=== PATIENT | female | born 1965 | race Caucasian/White ===

== ENCOUNTER 2022-03-14 21:19 | Outpatient (REF) | payer MEDICAID, SELFPAY ==
[2022-03-14 21:40] LABS: Bilirubin Negative (Negative); Blood Moderate (Negative); Clarity Cloudy (Clear); Glucose Negative (Negative); Ketones Negative (Negative); Leukocyte Esterase Small (Negative); Nitrite Positive (Negative); Specific Gravity 1.025 (1.005-1.025); Urobilinogen 0.2 EU/dL (Up TO 0.2)
[2022-03-14 21:47] LABS: Bacteria Moderate HPF (Negative); C & S Indicated? C&S Done As Ordered; Casts Negative LPF (Negative); Crystals Negative HPF (Negative); Epithelial Cells Moderate HPF (Negative); Mucus Negative (Negative); WBC >50 HPF (0-5)
== END 2022-03-14 21:20 | disposition home or self-care (01) ==
LOC: LBN 21:19
PROVIDERS: Visit Provider Physician Assistant Medical
DX: R30.0 Dysuria (principal)
CPT/HCPCS: 87077; 81003; 81015; 87086; 87186

== ENCOUNTER 2022-04-07 17:21 | Outpatient (REF) | payer MEDICAID, SELFPAY ==
[2022-04-09 11:24] LABS: COVID-19 RT-PCR UVMMC Result Negative (Negative)
== END 2022-04-07 17:22 | disposition home or self-care (01) ==
LOC: LBN 17:21
PROVIDERS: Visit Provider Physician Assistant
DX: J02.9 Acute pharyngitis, unspecified (principal); Z20.822 Contact with and (suspected) exposure to COVID-19
CPT/HCPCS: U0003; 87070

== ENCOUNTER 2022-05-26 18:21 | Outpatient (REF) | payer MEDICAID, SELFPAY ==
[2022-05-26 15:42] LABS: Hemoglobin A1C 5.8 % (<5.7)
[2022-05-26 15:49] LABS: ALT 27 U/L (14-59); AST 22 U/L (15-37); Albumin 3.6 g/dL (3.4-5.0); Alkaline Phosphatase 75 U/L (46-116); Anion Gap 9.3 mmol/L (3-11); BUN 25 mg/dL (7-18); Bilirubin, Total 0.6 mg/dL (0.2-1.0); CO2 24.7 mmol/L (21.0-32.0); CREATININE 0.9 mg/dL (0.55-1.02); Calcium 8.6 mg/dL (8.5-10.1); Calculated LDL 99 mg/dL (<100); Chloride 107 mmol/L (98-107); Cholesterol 175 mg/dL (<200); Glucose 86 mg/dL (74-106); HDL Cholesterol 46 mg/dL (40-60); Potassium 4.3 mmol/L (3.5-5.1); Sodium 141 mmol/L (136-145); Total Protein 7.1 g/dL (6.4-8.2); Triglyceride 150 mg/dL (<150)
[2022-05-27 14:33] LABS: Lyme Ab w Rflx to Lyme Confirm Positive (Negative)
[2022-05-27 16:03] LABS: Lyme IgG Ab Negative (Negative); Lyme IgM Ab Negative (Negative)
[2022-05-28 19:42] LABS: Anaplasma phagocytophilum Negative (Negative); B. miyamotoi PCR Negative (Negative); Babesia divergens/MO-1 Negative (Negative); Babesia duncani Negative (Negative); Babesia microti Negative (Negative); Ehrlichia chaffeensis Negative (Negative); Ehrlichia ewingii/canis Negative (Negative); Ehrlichia muris eauclairensis Negative (Negative)
== END 2022-05-26 18:22 | disposition home or self-care (01) ==
LOC: NCHCN 18:21
PROVIDERS: Visit Provider Nurse Practitioner Family
DX: R53.83 Other fatigue (principal); R51.9 Headache, unspecified
CPT/HCPCS: 80053; 80061; 86617; 87798; 83036; 86618

== ENCOUNTER 2022-10-02 11:57 | Outpatient (REF) | payer MEDICAID, SELFPAY ==
[2022-10-03 10:56] LABS: Campylobacter PCR Negative (Negative); Salmonella PCR Negative (Negative); Shiga Toxin PCR Negative (Negative); Shigella/Enteroinvasive Ecoli Negative (Negative)
== END 2022-10-02 11:58 | disposition home or self-care (01) ==
LOC: NCHCN 11:57
PROVIDERS: Visit Provider Nurse Practitioner Family
DX: R19.7 Diarrhea, unspecified (principal); R14.0 Abdominal distension (gaseous)
CPT/HCPCS: 87329; 87505; 82272; 87177

== ENCOUNTER 2022-12-12 15:45 | Outpatient (REF) | payer MEDICAID, SELFPAY ==
--- NOTE | 2022-12-12 10:00 | PAPFT_PTH ---
PATIENT: Gladis Chester LOC: [facility]#:[id number] AGE/SX: 57/F ROOM: RE12/12/[address]: Shruthi Bailey : 1965 BED: DIS: 12/12/2022 SPEC #: [id number] RECD: 12/12/22 17:26 STATUS: HARJIT REQ #: [id number] TSERING: 12/12/22 10:[address]: Shruthi Bailey DEPT: [facility] Cytology RECD BY: Tracee Heredia Tissues: 1 - CX/ENDOCX FOR PAP SMEARS Procedures: PAP THIN PREP/UVM Screening HPV DNA PROBE Comments: [id number] (CHLAMYDIA/GC)
[2022-12-13 12:53] LABS: HIV-1/2 Ag & Ab Screen Negative (Negative)
[2022-12-15 11:17] LABS: Syphilis Serology (RPR) Negative (Negative)
[2022-12-15 17:14] LABS: Chlamydia Result Negative (Negative); GC Result Negative (Negative)
== END 2022-12-12 15:46 | disposition home or self-care (01) ==
LOC: NCHCN 15:45
PROVIDERS: PCP Family Medicine; Visit Provider Family Medicine
DX: Z00.00 Encounter for general adult medical examination without abnormal findings (principal); Z12.4 Encounter for screening for malignant neoplasm of cervix
CPT/HCPCS: 87389; 87491; 87591; 88142; 86592; 87624

== ENCOUNTER 2024-01-26 13:34 | Outpatient (REF) | payer MEDICAID, SELFPAY ==
[2024-01-26 14:20] LABS: Abs Immature Grans 0.03 10^3/uL (0.0-0.06); Absolute Basophil Count 0.06 10^3/uL (0.0-0.2); Absolute Eosinophil Count 0.32 10^3/uL (0.0-0.7); Absolute Lymphocyte Count 3.04 10^3/uL (1.2-3.4); Absolute Monocyte Count 0.41 10^3/uL (0.1-0.8); Absolute Neutrophil Count 4.23 10^3/uL (1.2-6.7); Basophils % 0.7 %; HGB 14.7 g/dL (11.2-15.7); Immature Grans % 0.4 %; Lymphocytes % 37.6 %; MCH 30.1 pg (27.0-33.0); MCHC 32.7 % (32.0-36.0); MCV 92 fL (80-95); MPV 10.7 fL (8.0-11.0); Monocytes % 5.1 %; Neutrophils % 52.2 %; Platelet Count 311 10^3/uL (130-400); RBC 4.89 10^6/uL (3.93-5.22); RDW 13.6 % (11.7-14.6); RDW-SD 46.4 fL; WBC 8.09 10^3/uL (4.4-10.8)
[2024-01-26 14:45] LABS: Anion Gap 6.3 mmol/L (3-11); BUN 20 mg/dL (7-18); CO2 26.7 mmol/L (21.0-32.0); Calcium 9.5 mg/dL (8.5-10.1); Chloride 108 mmol/L (98-107); Estimated GFR 64.49 (mL/min/1.73m2); Ferritin 126 ng/mL (8-252); Glucose 105 mg/dL (74-106); Potassium 3.9 mmol/L (3.5-5.1); Sodium 141 mmol/L (136-145); TSH (W/Ref FT4) 1.02 uIU/mL (0.36-3.74)
[2024-01-26 14:55] LABS: Iron 63 ug/dL (50-170); Total Iron Binding Capacity 290 ug/dL (250-450); Transferrin Sat 22 % (15-50)
[2024-01-27 16:16] LABS: Lyme Ab w Rflx to Lyme Confirm Negative (Negative)
[2024-01-28 21:49] LABS: Anaplasma phagocytophilum Negative (Negative); B. miyamotoi PCR Negative (Negative); Babesia divergens/MO-1 Negative (Negative); Babesia duncani Negative (Negative); Babesia microti Negative (Negative); Ehrlichia chaffeensis Negative (Negative); Ehrlichia ewingii/canis Negative (Negative); Ehrlichia muris eauclairensis Negative (Negative)
== END 2024-01-26 13:35 | disposition home or self-care (01) ==
LOC: NCHCN 13:34
PROVIDERS: PCP Family Medicine; Visit Provider Family Medicine
DX: R53.83 Other fatigue (principal); R25.3 Fasciculation; A69.20 Lyme disease, unspecified
CPT/HCPCS: 80048; 87798; 82728; 83540; 83550; 84443; 85025; 86618

== ENCOUNTER 2024-07-28 15:05 | Outpatient (REF) | payer MEDICAID, SELFPAY ==
--- OUTSIDE RECORDS SUMMARY | 2024-07-28 15:11 | XMS_ITS | Encounter Summary ---
Author Organization [facility] Address [address] [place] [address] Care Team Providers Care Campaign Worker Name Role Phone Aliyah Méndez [facility]- Primary Care Provider [phone] Reason for Referral * Office Procedure (Routine/Next Available) - Authorization Not Required Specialty Diagnoses / Procedures Referred By Contact Referred To Contact Physical Medicine and Rehab Diagnoses Neck pain Right arm pain Procedures EMG/NERVE CONDUCTION STUDY Arturo Garcia MD Phone: tel: fax: [facility] Physical Medicine & Rehabilitation [place] [address] Phone: tel: fax: Referral ID Status Reason Start Date Expiration Date Visits Requested Visits Authorized [id number] Authorization Not Required Specialty Services Required 3 1 1 * Radiology Services (Routine/Next Available) - Authorization Not Required Specialty Diagnoses / Procedures Referred By Contac t Referred To Contact Radiology Diagnoses Neck pain Procedures MR CERVICAL SPINE WO CONTRAST Arturo Garcia MD Phone: tel: fax: [facility] Referral ID Status Reason Start Date Expiration Date Visits Requested Visits Authorized [id number] Authorization Not Required 07/13/2023 1 1 Encounter Details Date Type Department Care Team (Late st Contact Info) Description 07/13/2023 Orders Only [facility] Spine Program - [address] [facility] [place] [address] Arturo Garcia MD [address] [facility] [place] [address] Neck pain (Primary Dx); Right arm pain Social History Tobacco Use Types Packs/Day Years Used Date Smoking Tobacco: Former Cigarettes Q uit: 01/10/2023 Smokeless Tobacco: Never Alcohol Use Standard Drinks/Week Comments Yes 1 (1 standard drink = 0.6 oz pur e alcohol) occasionally mix drink Interpersonal Safety Answer Date Record ed Physically Hurt Never 04/08/2020 Verbally Threaten Not on file 04/08/2020 Comments No Sex and Gender Information Value Date Recorded Sex Assigned at Not on file Legal Sex Female 18:44 EST Gender Identity Female 10/07/2021 16:01 EST Sexual Orientation Not on file documented as of this encounter Functional Status * Because of a physical, mental, or emotional condition, does this person have difficulty doing errands alone such as visiting a doctor's office or shopping? Answer Date of Assessment Author Yes 06/06/2022 8:58 EDT documented as of this encounter Mental Status * Because of a physical, mental, or emotional condition, does this person have serious difficulty concentrating, remembering, or making decisions? Answer Entry Date Author Yes 06/06/2022 8:58 EDT documented in this encounter Ordered Prescriptions Prescription Sig Dispense Quantity Refills Last Filled Start Date End Date methylPREDNISolone (MEDROL DOSEPACK) 4 mg tablet follow package directions 1 Each 07/13/2023 4 documented in this encounter Plan of Treatment Scheduled Orders Name Type Priority Associated Diagnoses Order Schedule EMG/NERVE CONDUCTION STUDY Procedures Routine/Next Available Neck pain Right arm pain Expected: 08/12/2023 (Approximate), Expires: 07/13/2024 documented as of this encounter Results * MR CERVICAL SPINE WO CONTRAST (08/06/2023 17:24 EST) Anatomical Region Laterality Modality Spine Magnetic Resonan ce 08/07/2023 10:0 9 EST Impressions 08/07/2023 10:09 EST 1. Advanced multilevel cervical spine degenerative disc and facet disease with C6/7 ACDF. Current findings include C3/4 severe right neuroforaminal narrowing, C4/5 severe left neuroforaminal narrowing, C5/6 moderate/severe bilateral neuroforaminal narrowing, and C7/T1 severe bilateral neuroforaminal narrowing. At the postoperative C6/7 level, there is also moderate right and moderate/severe left neuroforaminal narrowing. Additional levels as described above. [id number] Narrative 08/07/2023 10:09 EST EXAM: MRI CERVICAL SPINE WO CONTRAST HISTORY: On going neck and arm pain s/p C6-7 ACDF, assess for new vs recurrent stenosis; Neck pain, acute, prior cervical surgery; On going neck and arm pain s/p C6-7 ACDF, assess for new vs recurrent stenosis;M54.2:Neck pain TECHNIQUE: MRI of the cervical spine without contrast. Structured report code: [id number] COMPARISON: MRI 07/10/2022. Plain film 05/29/2023. FINDINGS: SURGICAL CHANGES: The patient is status post C6/7 ACDF. ALIGNMENT: There is degenerative straightening of the normal cervical lordosis. BONES: No significant vertebral body height loss. No concerning lesions. INTERVERTEBRAL DISCS: No significant abnormalities. SPINAL CANAL AND SPINAL CORD: No abnormal cord signal intensity. No fluid collections. VISIBLE EXTRASPINAL SOFT TISSUES AND INTRACRANIAL CONTENTS: Unremarkable. EVALUATION BY LEVEL: C1-C2: The spinal canal and neural foramina are patent. C2-C3: The spinal canal is patent. There is degenerative facet disease. There is mild left neuroforaminal narrowing. The right neural foramen is patent. C3-C4: There is a broad disc osteophyte complex. There is mild spinal canal narrowing. There are bilateral uncovertebral osteophytes and degenerative facet changes with severe right and moderate left neural foraminal narrowing. C4-C5: There is a broad disc osteophyte complex with mild spinal canal narrowing. There are bilateral uncovertebral osteophytes and degenerative facet changes with moderate right and severe left neuroforaminal narrowing. C5-C6: There is a broad disc osteophyte complex with mild/moderate spinal canal narrowing. There are bilateral uncovertebral osteophytes and degenerative facet changes with moderate/severe bilateral neuroforaminal narrowing. C6-C7: The patient is status post ACDF. There is a broad disc osteophyte complex and there is mild spinal canal narrowing. There are bilateral uncovertebral osteophytes and degenerative facet changes with moderate right and moderate/severe left neuroforaminal narrowing. C7-T1: There is a broad disc osteophyte complex with mild spinal canal narrowing. There are bilateral uncovertebral osteophytes and degenerative facet changes and there is now severe bilateral neuroforaminal narrowing. Procedure Note Enrrique Austin MD - 08/07/2023 EXAM: MRI CERVICAL SPINE WO CONTRAST HISTORY: On going neck and arm pain s/p C6-7 ACDF, assess for new vsrecurrent stenosis; Neck pain, acute, prior cervical surgery; On goingneck and arm pain s/p C6-7 ACDF, assess for new vs recurrentstenosis;M54.2:Neck pain TECHNIQUE: MRI of the cervical spine without contrast. Structured reportcode: [id number] COMPARISON: MRI 07/10/2022. Plain film 05/29/2023. FINDINGS: SURGICAL CHANGES: The patient is status post C6/7 ACDF. ALIGNMENT: There is degenerative straightening of the normal cervical lordosis. BONES: No significant vertebral body height loss. No concerning lesions. INTERVERTEBRAL DISCS: No significant abnormalities. SPINAL CANAL AND SPINAL CORD: No abnormal cord signal intensity. No fluid collections. VISIBLE EXTRASPINAL SOFT TISSUES AND INTRACRANIAL CONTENTS: Unremarkable. EVALUATION BY LEVEL: C1-C2: The spinal canal and neural foramina are patent. C2-C3: The spinal canal is patent. There is degenerative facet disease.There is mild left neuroforaminal narrowing. The right neural foramen ispatent. C3-C4: There is a broad disc osteophyte complex. There is mild spinalcanal narrowing. There are bilateral uncovertebral osteophytes anddegenerative facet changes with severe right and moderate left neuralforaminal narrowing. C4-C5: There is a broad disc osteophyte complex with mild spinal canalnarrowing. There are bilateral uncovertebral osteophytes and degenerativefacet changes with moderate right and severe left neuroforaminalnarrowing. C5-C6: There is a broad disc osteophyte complex with mild/moderate spinalcanal narrowing. There are bilateral uncovertebral osteophytes anddegenerative facet changes with moderate/severe bilateral neuroforaminalnarrowing. C6-C7: The patient is status post ACDF. There is a broad disc osteophytecomplex and there is mild spinal canal narrowing. There are bilateraluncovertebral osteophytes and degenerative facet changes with moderateright and moderate/severe left neuroforaminal narrowing. C7-T1: There is a broad disc osteophyte complex with mild spinal canalnarrowing. There are bilateral uncovertebral osteophytes and degenerativefacet changes and there is now severe bilateral neuroforaminalnarrowing. IMPRESSION 1. Advanced multilevel cervical spine degenerative disc and facet diseasewith C6/7 ACDF. Current findings include C3/4 severe right neuroforaminalnarrowing, C4/5 severe left neuroforaminal narrowing, C5/6 moderate/severebilateral neuroforaminal narrowing, and C7/T1 severe bilateralneuroforaminal narrowing. At the postoperative C6/7 level, there is alsomoderate right and moderate/severe left neuroforaminal narrowing.Additional levels as described above. [id number] Arturo Garcia MD IMG MRI ORDERABLES Final Result documented in this encounter Visit Diagnoses Diagnosis Neck pain- Primary Cervicalgia Right arm pain Pain in limb Neck pain Cervicalgia documented in this encounter Care Teams Campaign Worker Relationship Specialty Start Date End Date [place], [facility] [address] [facility] [place] [address] PCP - General 04/17/23 09/29/23 documented as of this encounter
--- OUTSIDE RECORDS SUMMARY | 2024-07-28 15:11 | XMS_ITS | Encounter Summary ---
Author Organization [facility] Address [address] [place] [address] Care Team Providers Care Yacht Hand Name Role Phone None, Provider Primary Care Provider Shruthi Hill MD Primary Care Provider [phone] Encounter Details Date Type Department Care Team (Late st Contact Info) Description 01/26/2024 Lab Requisition [facility] Pathology & Laboratory Medicine - [address] [address] Outr Resulting Lab, Provider Social History Tobacco Use Types Packs/Day Years Used Date Smoking Tobacco: Some Days Cigarettes Last attempted to quit: 01/10/2023 Smokeless Tobacco: Never Alcohol Use Standard [...] 06/06/2022 8:58 EDT documented in this encounter Plan of Treatment Not on file documented as of this encounter Procedures Procedure Name Priority Date/Time Associated Diagnosis Comments LYME AB Routine 01/26/2024 11:00 EDT documented in this encounter Results * LYME AB (01/26/2024 11:00 EDT) Lyme Ab Negative Negative 01/27/2024 16:10 EDT [facility] Blood VENOUS BLOOD / Unknown 01/26/2024 11:00 EDT 01/26/2024 21:46 EDT us Provider Outr Resulting Lab IMMUNOLOGY AND SEROL OGY ORDERABLES Final Result [facility] [address] [place] [id number] documented in this encounter Visit Diagnoses Not on filedocumented in this encounter Care Teams Yacht Hand Relationship Specialty Start Date End Date None, Provider PCP - General 09/30/23 01/27/24 Shruthi Bailey MD [address] [place] [address] PCP - General Family Medicine - Primary Care 01/28/24 documented as of this encounter
--- OUTSIDE RECORDS SUMMARY | 2024-07-28 15:11 | XMS_ITS | Encounter Summary ---
Author Organization [facility] Address [address] [place] [address] Care Team Providers Care Painter Railroad Car Name Role Phone Aliyah Méndez [facility]- Primary Care Provider [phone] Reason for Visit * Reason Comments Hand Problem right * Office Procedure (Routine/Next Available) - Authorization Not Required Specialty Diagnoses / Procedures Referred By Contact Referred To Contact Physical Medicine and Rehab Diagnoses Neck pain Right arm pain Procedures EMG/NERVE CONDUCTION STUDY Arturo Garcia MD Phone: tel: fax: [facility] Physical Medicine & Rehabilitation - [address] [place] [address] Phone: tel: fax: Referral ID Status Reason Start Date Expiration Date Visits Requested Visits Authorized [id number] Authorization Not Required Specialty Services Required 3 1 1 Encounter Details Date Type Department Care Team (Late st Contact Info) Description 09/18/2023 13:00 EST Procedure visit [facility] Physical Medicine & Rehabilitation - [facility] [address] [place] [address] Ethan Manzanares MD [facility] [place] [address] Cervical radiculopathy (Primary Dx); Neck pain; Right arm pain; Carpal tunnel syndrome of right wrist Social History Tobacco Use Types Packs/Day Years [...] 06/06/2022 8:58 EDT documented in this encounter Progress Notes * Ethan Manzanares MD - 09/18/2023 1300 EST Images from the original note were not included. Rehabilitation Medicine Electrodiagnostic Studies Gladis Chester : 1965 Date of Visit: 09/18/2023 Chief Complaint Patient presents with Hand Problem right Subjective: Gladis is being seen at the request of Arturo Garcia MD for electrodiagnostic evaluation of rightcervical radiculopathy. Patient had a C6-C7 ACDF back in February 2023. She reports improvement after this but with residual posterior shoulder, posterior upper arm, posterior and lateral forearm discomfort and numbness. She also notices primarily digit 2 and 3 numbness as well. The patient does have a history of hepatitis C that was treated and cured. She has some issues of having food getting stuckbut this predated her surgery and seems to have persisted though. She has some chronic stress incontinence of bladder. She has never had chemotherapy or radiation therapy. She does smoke 1/4 pack of cigarettes per day. She drinks about 4 drinks per week. She has no known nerve or muscle disorders in her family. She is prediabetic. She does not have thyroid disorders. She does not take a blood thinner. Gladis has completed the patient intake questionnaire, pain diagram, rating scale and qualifiers.This is reviewed and placed in the chart. Prior evaluations are reviewed in the chart. ROS: Patient denies any recent fevers, chills, night sweats, unintentional weight loss, nausea, vomiting, chest pain, difficulty breathing, abdominal pain, constipation, diarrhea, bowel/bladder incontinence, mood disturbances, or any bulbar symptoms. PMH/PSH/SH/FH were reviewed in the questionnaire and in the EHR. Current Outpatient Medications: acetaminophen (TYLENOL) 500 mg tablet, Take 2 Tablets by mouth every 6 hours as needed for Pain., Disp: , Rfl: atomoxetine (STRATTERA) 10 mg capsule, Take by mouth every morning., Disp: , Rfl: meloxicam (MOBIC) 15 mg tablet, Take 1 Tablet by mouth as needed., Disp: , Rfl: Allergies Allergen Reactions Gluten celiac disease Objective: Estimated body mass index is 32.31 kg/m?? as calculated from the following: Height as of 05/05/23: 154.9 cm (61). Weight as of 05/05/23: 77.6 kg (171 lb). EXAM: GENERAL- WD/WN, NAD; awake and alert, answers questions appropriately HEENT- AT/NC; no scleral icterus; normal appearance, hearing intact LUNGS- unlabored breathing CV- no upper extremity edema MSK- normal muscle bulk and tone throughout bilateral upper extremities NEURO-sensation diminished in digits 2 and 3 on the right side. She has 5- out of 5 strength with right finger abduction and 4+ out of 5 strength with right thumb abduction otherwise strength is 5 out of 5 throughout. Reflexes 2+ at the biceps and brachial radialis bilaterally and 1+ at the right triceps and left triceps. Negative Jesse sign bilaterally. Appropriate to proceed with electrodiagnostic testing, for which Pt provided informed verbal consent. Pt with complex presentation and dx not determined just based on physical exam. Technique: Nerve conduction studies were performed at a skin temperature above 32.0 degrees Celsiusin the upper extremities. Electromyography was performed with the monopolar needle electrode. Spontaneous activity was examined at 50uV and semi-quantitative motor unit analysis was performed at 200uV. EMG/NCS FINDINGS: Right median, radial, and ulnar sensory studies were normal. Right median motor study was normal. Right ulnar motor studies to ADM and FDI were normal. Right median-ulnar palmar comparison study showed a prolonged latency for the median nerve when compared to the ulnar nerve across the wrist. See the table below for needle EMG results. Assessment/Plan: This is an abnormal study. There is electrodiagnostic evidence of a right C6, C7, and C8 radiculopathy with chronic reinnervation changes but no signs of ongoing denervation. There is electrodiagnostic evidence of a right mild median neuropathy at the wrist, as seen in carpal tunnel syndrome. There is no electrodiagnostic evidence of a right ulnar neuropathy. Results were reviewed with the patient and all questions answered. Gladis is aware that final recommendations for treatment will be discussed by her referring provider at the follow-up visit based on the final report. Please do not hesitate to contact me with any questions regarding this evaluation. ETHAN MANZANARES MD [place] [employer] [place] [employer] Electrodiagnostic Studies: Nerve Conduction Studies Anti Sensory Summary Table Stim Site NR Peak (ms) Norm Peak (ms) P-T Amp (??V) Norm P-T Amp Site1 Site2 Delta-P (ms) Dist (cm) Right Median Anti Sensory (2nd Digit) Wrist 3.6 <3.7 36.5 >10 Wrist 2nd Digit 3.6 14.0 Right Radial Anti Sensory (Base 1st Digit) Wrist 2.0 <3.1 37.9 >10 Wrist Base 1st Digit 2.0 10.0 Right Ulnar Anti Sensory (5th Digit) Wrist 2.7 <3.7 23.0 >10 Wrist 5th Digit 2.7 14.0 Motor Summary Table Stim Site NR Onset (ms) Norm Onset (ms) O-P Amp (mV) Norm O-P Amp Site1 Site2 Delta-0 (ms) Dist (cm) Bryce (m/s) Norm Bryce (m/s) Right Median Motor (Abd Poll Brev) Wrist 3.5 <4.2 11.2 >5 Elbow Wrist 4.0 22.0 55 >50 Elbow 7.5 10.9 Right Ulnar Motor (Abd Dig Minimi) Wrist 2.8 <4.2 14.8 >2.5 B Elbow Wrist 3.0 18.0 60 >50 B Elbow 5.8 14.9 A Elbow B Elbow 1.5 10.0 67 >50 A Elbow 7.3 14.7 Right Ulnar Motor (FDI) Wrist 3.1 <4.2 13.6 >2.5 B Elbow Wrist 2.8 18.0 64 >50 B Elbow 5.9 12.6 A Elbow B Elbow 1.5 10.0 67 >50 A Elbow 7.4 12.2 Comparison Summary Table Stim Site NR Peak (ms) Norm Peak (ms) P-T Amp (??V) Site1 Site2 Delta-P (ms) Norm Delta (ms) Right Median/Ulnar Palm Comparison (Wrist - 8cm) Median Palm *2.6 <2.2 34.1 Median Palm Ulnar Palm *0.9 <0.5 Ulnar Palm 1.7 <2.2 21.6 EMG Side Muscle Nerve Ins Act Fibs Psw Amp Dur Poly Recrt Right Abd Poll Brev Median Nml Nml Nml Nml Nml 0 Nml Right 1stDorInt Ulnar Nml Nml Nml Nml Nml 0 Nml Right ABD Dig Min Ulnar Nml Nml Nml *Incr *>12ms 0 *Reduced Right Ext Indicis Radial (Post Int) Nml Nml Nml *Incr *>12ms 0 *Reduced Right PronatorTeres Median Nml Nml Nml *Incr *>12ms 0 Nml Right Triceps Radial Nml Nml Nml *Incr *>12ms 0 Nml Right Biceps Musculocut Nml Nml Nml *Incr *>12ms 0 *Reduced Right Deltoid Axillary Nml Nml Nml Nml Nml 0 Nml Right Rhomboid Major DorsalScap Nml Nml Nml Nml Nml 0 Nml Right Cervical Parasp Up Rami Nml Nml Nml Right Cervical Parasp Mid Rami Nml Nml Nml Right Cervical Parasp Low Rami Nml Nml Nml Waveforms: documented in this encounter Plan of Treatment Not on file documented as of this encounter Visit Diagnoses Diagnosis Cervical radiculopathy- Primary Brachial neuritis or radiculitis nos Neck pain Cervicalgia Right arm pain Pain in limb Carpal tunnel syndrome of right wrist Carpal tunnel syndrome documented in this encounter Discontinued Medications Medication Sig Discontinue Reason Start Date End Da te estradioL (VIVELLE) 0.0375 mg/[address] 1 Patch onto the skin twice a week. Use one patch twice weekly. Patient Stopped Taking 09/18/2023 methocarbamoL (ROBAXIN) 750 mg tablet Take 1 Tablet by mouth every 6 hours as needed (muscle spasms). Patient Stopped Taking 03/05/2023 09/18/2023 methylPREDNISolone (MEDROL DOSEPACK) 4 mg tablet follow package directions Patient Stopped Taking 07/13/2023 09/18/2023 omeprazole (PRILOSEC) 20 mg capsule Take 1 Capsule by mouth as needed. Patient Stopped Taking 09/18/2023 oxyCODONE (ROXICODONE) 5 mg immediate release tablet Take 1-2 Tablets by mouth every 3 hours as needed for Pain. Daily Max: 80 mg Patient Stopped Taking 03/05/2023 09/18/2023 progesterone (PROMETRIUM) 200 mg capsule Take 1 Capsule by mouth daily. Patient Stopped Taking 09/18/2023 senna (SENOKOT) 8.6 mg tablet Take 2 Tablets by mouth 2 times daily. Patient Stopped Taking 03/05/2023 09/18/2023 documented as of this encounter Orders Procedures Count Last Ordered Date First Orde red Date EMG/NERVE CONDUCTION STUDY 1 09/18/2023 documented in this encounter Care Teams Painter Railroad Car Relationship Specialty Start Date End Date [facility] [address] [place] [address] PCP - General 04/17/23 09/29/23 documented as of this encounter
--- OUTSIDE RECORDS SUMMARY | 2024-07-28 15:11 | XMS_ITS | Encounter Summary ---
Author Organization [facility] Address [address] [place] [address] Care Team Providers Care Combat Rifle Crewmember Name Role Phone [facility] Primary Care Provider [phone] Reason for Referral * Radiology Services (Routine/Next Available) - Authorization Not Required Specialty Diagnoses / Procedures Referred By Contac t Referred To Contact Radiology Diagnoses Neck pain Procedures MR CERVICAL SPINE WO CONTRAST Arturo Garcia MD Phone: tel: [place]: [facility] [place]erral ID Status Reason Start Date Expiration Date Visits Requested Visits Authorized [id number] Authorization Not Required 07/13/2023 1 1 Reason for Visit * Radiology Services (Routine/Next Available) - Authorization Not Required Specialty Diagnoses / Procedures Referred By Contac t Referred To Contact Radiology Diagnoses Neck pain Procedures MR CERVICAL SPINE WO CONTRAST Arturo Garcia MD Phone: tel: fax: [facility] Referral ID Status Reason Start Date Expiration Date Visits Requested Visits Authorized [id number] Authorization Not Required 07/13/2023 1 1 Encounter Details Date Type Department Care Team (Latest Contact Info) Description 08/06/2023 15:51 EST - 08/06/2023 23:59 EST Hospital Encounter [facility] MRI [address] [place] [address] Neck pain Discharge Disposition: Home or Self Care Social History Tobacco Use Types Packs/Day Years [...] 06/06/2022 8:58 EDT documented in this encounter Medications at Time of Discharge acetaminophen (TYLENOL) 500 mg tablet Take 2 Tablets by mouth every 6 hours as needed for Pain. 03/05/2023 atomoxetine (STRATTERA) 10 mg capsule Take by mouth every morning. 03/28/2023 meloxicam (MOBIC) 15 mg tablet Take 1 Tablet by mouth as needed. 03/19/2023 estradioL (VIVELLE) 0.0375 mg/[address] 1 Patch onto the skin twice a week. Use one patch twice weekly. 4 methocarbamoL (ROBAXIN) 750 mg tablet Take 1 Tablet by mouth every 6 hours as needed (muscle spasms). 40 Tablet 03/05/2023 4 methylPREDNISolo ne (MEDROL DOSEPACK) 4 mg tablet follow package directions 1 Each 07/13/2023 4 omeprazole (PRILOSEC) 20 mg capsule Take 1 Capsule by mouth as needed. 4 oxyCODONE (ROXICODONE) 5 mg immediate release tablet Take 1-2 Tablets by mouth every 3 hours as needed for Pain. Daily Max: 80 mg 20 Tablet 03/05/2023 4 progesterone (PROMETRIUM) 200 mg capsule Take 1 Capsule by mouth daily. 4 senna (SENOKOT) 8.6 mg tablet Take 2 Tablets by mouth 2 times daily. 03/05/2023 4 documented as of this encounter Discharge Disposition Disposition Code Departure Means Destination Home or Self Care documented in this encounter Plan of Treatment Not on file documented as of this encounter Procedures Procedure Name Priority Date/Time Associated Diagnosis Comments MR CERVICAL SPINE WO CONTAST Routine 08/06/2023 17:24 EST Neck pain documented in this encounter Results * MR CERVICAL SPINE [...] neuroforaminal narrowing. Additional levels as described above. [id number] Narrative 08/07/2023 10:09 EST EXAM: MRI CERVICAL [...] left neuroforaminal narrowing.Additional levels as described above. [id number] Arturo Garcia MD [facility] [place] Final Result documented in this encounter Visit Diagnoses Diagnosis Neck pain Cervicalgia documented in this encounter Care Teams Combat Rifle Crewmember Relationship Specialty Start Date End Date [facility] [address] [facility] [place] [address] PCP - General 04/17/23 09/29/23 documented as of this encounter
--- OUTSIDE RECORDS SUMMARY | 2024-07-28 15:11 | XMS_ITS | Encounter Summary ---
Author Organization [facility] Address [address] [place] [address] Care Team Providers Care Rib Bender Name Role Phone Shruthi Bailey MD Primary Care Provider [phone] Reason for Visit * Reason Comments Follow-up Encounter Details Date Type Department Care Team (Late st Contact Info) Description 03/30/2024 10:30 EDT Office Visit [facility] [address] [place], [place] [id number] Nicolle Pena MD [address] [facility] [place] [address] Vaginal atrophy (Primary Dx); Vasomotor symptoms due to menopause Social History Tobacco Use Types Packs/Day Years [...] on file documented as of this encounter Last Filed Vital Signs Vital Sign Reading Time Taken Comments Blood Pressure 118/68 03/30/2024 1048 EDT Pulse - - Temperature - - Respiratory Rate - - Oxygen Saturation - - Inhaled Oxygen Concentration - - Weight 71.2 kg (157 lb) 03/30/2024 1048 EDT Height - - Body Mass Index 29.68 11/10/2023 1325 EST documented in this encounter Functional Status * Because of [...] Refills Last Filled Start Date End Date estradioL (ESTRACE) 0.01 % (0.1 mg/gram) vaginal creamIndications:V aginal atrophy Place 1 g vaginally three times a week. Please use 2-3 times weekly 42.5 g 3 03/30/2024 documented in this encounter Progress Notes * Nicolle Pena MD - 03/30/2024 1030 EDT [facility] Follow-up Visit Note CC: follow up atrophy with vaginal estrogen SUBJECTIVE: 58yo P1 presenting for follow up in setting of treating vaginal atrophy with estrogen. Patient reports symptoms much resolved, does not even need to use lubrication routinely. Sometimes forgets to use the estrogen. Does not feel a need for an exam today. She also has vasomotor symptoms she has been managing with lifestyle intervention and noted they are worse after certain medication which has been changed. PRIOR WORKUP/MANAGEMENT: HRT prior to PMB (oral progestin and a patch of estradiol) 11/2022 EMB c/w atrophy OTHER: Last cervical cancer screenin NILM HPV neg Contraception: postmenopausal OBJECTIVE: BP 118/68 Wt 71.2 kg (157 lb) LMP 04/02/2023 (Approximate) BMI 29.68 kg/m?? GEN: NAD ASSESSMENT/PLAN: Gladis Chester is an 59 y.o. who presents for 1. Vaginal atrophy Continue vaginal estrogen, patient asked to notify office if symptoms worsen as may be a sign of pathology that needs work up/separate treatment. Patient would like to be seen for just this concern yearly instead of annual as has PCP. Added to wait list for yearly follow up for refills. Recall sent to scheduling. Refill sent. 2. Vasomotor symptoms due to menopause Resolved/much improved This note was prepared using voice recognition software and the EMR. There may be inadvertent errors and omissions. Medical decision making: Problems addressed today: 1 self limited or minor problem Review/interpretation/discussion today: minimal or no data reviewed and analyzed Patient has Minimal Risk of morbidity from additional diagnostic testing or treatment (need 2/3 of the above for low decision making) Nicolle Pena MD (she/her) Obstetrics and Gynecology [facility] 03/30/24 10:58 documented in this encounter Plan of Treatment Not on file documented as of this encounter Visit Diagnoses Diagnosis Vaginal atrophy- Primary Postmenopausal atrophic vaginitis Vasomotor symptoms due to menopause documented in this encounter Discontinued Medications Medication Sig Discontinue Reason Start Date End Da te estradioL (ESTRACE) 0.01 % (0.1 mg/gram) vaginal creamIndications:Vagina l atrophy Place 1 g vaginally daily. After 1 month can decrease frequency to 2-3 times a week. Reorder 11/10/2023 03/30/2024 documented as of this encounter Historical Medications * This list may reflect changes made after this encounter. omeprazole (PRILOSEC) 20 mg capsule Take 1 Capsule by mouth daily. lisdexamfetamine (VYVANSE) 20 mg capsule Take 1 Capsule by mouth every morning. Daily Max: 20 mg added in this encounter Care Teams Rib Bender Relationship Specialty Start Date End Date Shruthi Bailey MD [address] [place] [address] PCP - General Family Medicine - Primary Care 01/28/24 documented as of this encounter
--- OUTSIDE RECORDS SUMMARY | 2024-07-28 15:11 | XMS_ITS | Encounter Summary ---
Author Organization [facility] Address [address] [place] [address] Care Team Providers Care Bull Gang Worker Name Role Phone Aliyah Méndez [facility]- Primary Care Provider [phone] Reason for Visit * Reason Onset Date Comments Physical Therapy 05/12/2023 Encounter Details Date Type Department Care Team (Late st Contact Info) Description 05/12/2023 Telephone [facility] Spine Program - [address] [place] [address] Arturo Garcia MD [address] [place] [address] [place] [address] Physical Therapy Social History Tobacco Use Types Packs/Day Years [...] 06/06/2022 8:58 EDT documented in this encounter Miscellaneous Notes * Telephone Encounter - Donna Fuentes MA - 05/13/2023 1044 EDT PT referral faxed. * Telephone Encounter - Stoney Lewis MA - 05/12/2023 1356 EDT Reason for Call: Physical Therapy Referral Summary: Patient has a physical therapy appointment [facility] at [facility] and is requesting that the PT referral be faxed to [phone]. Appointment Offered? N/A STONEY LEWIS MA 05/12/2023 13:56 documented in this encounter Plan of Treatment Not on file documented as of this encounter Visit Diagnoses Not on filedocumented in this encounter Care Teams Bull Gang Worker Relationship Specialty Start Date End Date Dev [facility] [address] [place] [address] PCP - General 04/17/23 09/29/23 documented as of this encounter
--- OUTSIDE RECORDS SUMMARY | 2024-07-28 15:11 | XMS_ITS | Encounter Summary ---
Author Organization [facility] Address [address] [place] [address] Care Team Providers Care Machine Inker Name Role Phone Aliyah Méndez [facility] Primary Care Provider [phone] None, Provider Primary Care Provider Shruthi Hill MD Primary Care Provider [phone] Reason for Visit * Reason Onset Date Comments Pre-visit Orders 07/16/2023 EMG and MRI [facility] Encounter Details Date Type Department Care Team (Late st Contact Info) Description 07/16/2023 Telephone [facility] Spine Program - [address] [place] [address] Arturo Garcia MD [address] [place] [address] [place] [address] Pre-visit Orders (EMG and MRI [facility] ) Social History Tobacco Use Types Packs/Day Years [...] encounter Miscellaneous Notes * Telephone Encounter - David Luis MA - 07/17/2023 1057 EST Returned Gladis's call and left a message. Her MRI was ordered to be done at [facility], the EMG was ordered to be done at [facility], as neurology at [facility] is currently scheduling out to the middle of September for EMG's. Happy to change her EMG to [facility] if she would like, but wanted to be clear that would significantly delay her having it. Requested call back with how she would like to proceed. * Telephone Encounter - Carolyn Farmer - 07/16/2023 1134 EST Reason for Call: Pre-visit Orders (EMG and MRI [facility] ) Summary: Pt looking to have both orders that were places send to [facility]. Would like a cb when sent. Appointment Offered? No Carolyn Farmer 07/16/2023 11:36 documented in this encounter Plan of Treatment Not on file documented as of this encounter Visit Diagnoses Not on filedocumented in this encounter Care Teams Machine Inker Relationship Specialty Start Date End Date [facility] [address] [place], [place] [id number] PCP - General 04/17/23 09/29/23 None, Provider PCP - General 09/30/23 01/27/24 Shruthi Bailey MD [address] [place], [place] [id number] PCP - General Family Medicine - Primary Care 01/28/24 documented as of this encounter
--- OUTSIDE RECORDS SUMMARY | 2024-07-28 15:11 | XMS_ITS | Encounter Summary ---
Author Organization [facility] Address [address] [place] [address] Care Team Providers Care Composition Weatherboard Installer Name Role Phone Aliyah Méndez [facility]- Primary Care Provider [phone] Reason for Visit * Reason Comments Pain Post-OP Follow Up Encounter Details Date Type Department Care Team (Late st Contact Info) Description 05/29/2023 13:00 EDT Office Visit [facility] Spine Program - [address] [place] [address] Arturo Garcia MD [address] [place] [address] Sp[place] [address] Cervical radiculopathy (Primary Dx) Social History Tobacco Use Types Packs/Day Years [...] documented in this encounter Progress Notes * Jensendavian Mackenzie - 05/29/2023 1300 EDT Spine Progress Note Date of operation: 03/04/2023 Operation performed: C6-7 ACDF NDI: 21 VAS neck: 4 VAS arm: 2 S: lGadis is approximately 3 months post op. She reports that overall she is doing well in regards to her radiating arm pain. She still has some diffuse numbness/tingling of the right arm but it has overall decreased compared to pre- operatively. She has been attending weekly physical therapy. She reports moderate bilateral garrick-scapular/shoulder pain. She also has been experiencing new headaches for the past month. The pain originates in her occipital region and radiates over her ears to the front of her head. The pain is equal bilaterally. She wonders if it is associated with a new medicationthat she started last month. She would like to restart meloxicam. O: Physical Exam: - Tenderness to palpation of bilateral occiput and diffusely in bilateral parascapular region, no tenderness to palpation along midline c-spine - Sensation intact to light touch bilaterally except slight decrease in sensation circumferentiallyof right middle finger - 5/5 strength with shoulder abduction, elbow flexion and extension, wrist extension, finger router machine operator, interossei - Negative Rodriguez bilaterally Imaging: Upright radiographs of cervical spine from 05/29/2023 demonstrate intact instrumentation in proper positioning and overall maintained alignment. A: 3 months post op from C6-7 ACDF, recovering appropriately. New onset headaches might represent upper cervical root irritation versus muscular complaints versus medication P: We discussed that periscapular pain can be very common following c-spine fusion. Recommend continuing PT. Will continue to monitor headaches and patient will discuss with her psychiatrist regarding headaches and new medicine. In the meantime recommend NSAIDs and soft collar use as needed. Plan to follow up at 6 months post op with repeat x-rays. She is agreeable to this plan and all questions answered to stated satisfaction. Mackenzie Haney M4 Attending attestation I read the note and agree with the assessment and plan. I have independently examined the patient and reviewed spine imaging. 3 months out from single level ACDF for radiculopathy. Good improvement in preoperative arm pain. Troubled with ongoing periscapular pain bilaterally as well as occipital headaches. She did recently start a new medication and has follow-up with her psychiatrist in short order. They will review possible headaches as a side effect of the new medicine. Alternatively may be some C2 root irritation. Recommend continued physical therapy and nonsteroidal use. Follow-up with me in 6 weeks for clinical check. Arturo Garcia MD 05/29/2023 14:22 documented in this encounter Plan of Treatment Not on file documented as of this encounter Visit Diagnoses Diagnosis Cervical radiculopathy- Primary Brachial neuritis or radiculitis nos documented in this encounter Care Teams Composition Weatherboard Installer Relationship Specialty Start Date End Date [facility] [address] [facility] [place] [address] PCP - General 04/17/23 09/29/23 documented as of this encounter
--- OUTSIDE RECORDS SUMMARY | 2024-07-28 15:11 | XMS_ITS | Encounter Summary ---
Author Organization [facility] Address [address] [place] [address] Care Team Providers Care Self Rising Flour Mixer Name Role Phone Aliyah Méndez [facility]- Primary Care Provider [phone] Reason for Visit * Reason Comments Gynecologic Exam EMB Encounter Details Date Type Department Care Team (Late st Contact Info) Description 05/05/2023 8:40 EDT Office Visit [facility] [place] [address] [place], [place] [phone] Nicolle Pena MD [address] [facility], [address] [place] [address] Post-menopausal bleeding (Primary Dx) Social History Tobacco Use Types [...] Sign Reading Time Taken Comments Blood Pressure 132/88 05/05/2023 0822 EDT Pulse - - Temperature - - Respiratory Rate - - Oxygen Saturation - - Inhaled Oxygen Concentration - - Weight 77.6 kg (171 lb) 05/05/2023 0822 EDT Height 154.9 cm (5' 1) 05/05/2023821 EDT Body Mass Index 32.31 05/05/2023821 EDT documented in this encounter Functional Status * [...] Progress Notes * Nicolle Pena MD - 05/05/2023839 EDT Endometrial Biopsy Consent and Procedure 58-year-old postmenopausal bleeding status post endometrial biopsy with an adequate tissue presenting for repeat endometrial biopsy with ultrasound guidance. Patient also desiring follow-up after this to discussed vasomotor symptoms as she has stopped her hormone replacement treatment in setting of undiagnosed vaginal bleeding. Consent: Informed consent obtained, signed, and scanned into chart. Risks, alternatives, and benefits reviewed, all questions answered. Risks include bleeding, infection, damage to surrounding organs/uterine perforation and need of failure of biopsy requiring additional biopsy. Ativan given, ibuprofen also given per patient desire, does not take regularly but states OK for one time dose. Urine HCG: postmenopausal patient Time Out: A time out was completed confirming the patient's identity, the nature of the procedure and the approriate location with the nurse and/ or patient. Entire procedure performed under ultrasound guidance. Procedure: The patient was placed in dorsolithitomy position. A speculum was placed. Cervix swabbedwith betadine. Cervical block performed with lidocaine.Tenaculum was applied to the cervix in the usual manner. Gentle dilation performed with os finder and small metal munoz dilator. Endometrial catheter inserted, with gentle aspiration tissue sample was obtained, 3 passes given last sample inadequate. Tenaculum removed with hemostasis observed. Post Procedure: Patient tolerated procedure well. Reviewed signs and symptoms of potential complications. Ibuprofen prn. Return if continued bleeding, fever or pelvic pain. Follow up within 3 weeks. Nicolle Pena MD (she/her) Obstetrics and Gynecology [facility] * Cee Nesbitt, RN - 05/05/2023 0840 EDT Pt given ativan 1.0 mg po and ibuprofen 400 mg po. documented in this encounter Miscellaneous Notes * Result Encounter Note - Nicolle Pena MD - 05/05/2023 0840 EDT Neftali Griffith, Good news, biopsy is benign! Did you get scheduled for a follow up? Sincerely, Nicolle Pena MD??(she/her) Obstetrics and Gynecology [facility] documented in this encounter Plan of Treatment Not on file documented as of this encounter Procedures Procedure Name Priority Date/Time Associated Diagnosis Comments SURGICAL PATHOLOGY Routine 05/05/2023 9:27 EDT Post-menopausal bleeding documented in this encounter Results * SURGICAL PATHOLOGY (05/05/2023 9:27 EDT) Note to Patient The following pathology results have been interpreted by your pathologist and may be available to you before your health provider has had the opportunity to review them. Please allow time for your provider to receive these results and explore management options, if applicable. 05/06/2023 15:26 EDT [facility] Final Diagnosis A. ENDOMETRIUM, BIOPSY: - Strips and fragments of inactive endometrium, consistent with an atrophic endometrium. - Negative for atypia and malignancy. 05/06/2023 15:26 EDT [facility] Attestation There was significant resident/fellow involvement in the diagnostic evaluation of this case. By the signature below, the attending physician certifies that they have personally conducted a gross and/or microscopic examination of the described specimens and rendered or confirmed the above diagnosis. 05/06/2023 15:26 EDT [facility] at 1526 Clinical History postmenopausal bleeding 05/06/2023 15:26 EDT [facility] Gross Description A. Received in formalin labeled ? Gladis Patel [place]? and ? endometrium? is an estimated 0.2 cc aggregate of hemorrhagic mucinous material. Specimen is filtered and entirely submitted in A1. RYAN NORIEGA 05/05/2023 13:18 05/06/2023 15:26 EDT [facility] Resident/Natalio w: Chinyere Junior MD 05/06/2023 15:26 EDT [facility] Performing Lab [facility] 15:26 EDT [facility] Scanned Images 05/06/2023 15:26 EDT [facility] Tissue ENDOMETRIAL STRUCTURE / Unknown Collection, Other / Unknown 05/05/2023 9:27 EDT 05/05/2023 9:27 EDT us Nicolle Pena MD PATHOLOGY ORDERABLES Final R esult [facility] [address] [place] [address] documented in this encounter Visit Diagnoses Diagnosis Post-menopausal bleeding- Primary Postmenopausal bleeding documented in this encounter Administered Medications Inactive Administered Medications - up to 3 most recent administrations Medication Order MAR Action Action Date Dose Rate Site ibuprofen (MOTRIN) tablet 400 mg 400 mg, oral, Once PRN Procedure, 1 dose, Starting on Thu05/05/23 at 0831, Until Thu05/05/23 at 0841, Pain, Routine Given 05/05/2023 8:41 EDT 400 mg lidocaine 1 % injection 1.25 mL 1.25 mL, other, NOW X1, 1 dose, On Thu05/05/23 at 0945, Routine Given by Other 05/05/2023 9:28 EDT 1.25 mL LORazepam (ATIVAN) tablet 1 mg 1 mg, oral, Once PRN Procedure, 1 dose, Starting on Thu05/05/23 at 0828, Until Thu05/05/23 at 0842, Anxiety, Routine Given 05/05/2023 8:42 EDT 1 mg documented in this encounter Orders Medications Ordered That Erik ht Not Have Been Administered Count Last Ordered Date First Ordered Date ibuprofen (MOTRIN) tablet 600 mg 1 05/05/20 documented in this encounter Care Teams Self Rising Flour Mixer Relationship Specialty Start Date End Date [facility] [address] [place] [address] PCP - General 04/17/23 09/29/23 documented as of this encounter
--- OUTSIDE RECORDS SUMMARY | 2024-07-28 15:11 | XMS_ITS | Encounter Summary ---
Author Organization [facility] Address [address] [place] [address] Care Team Providers Care Stadium Manager Name Role Phone Shruthi Bailey MD Primary Care Provider [phone] Reason for Visit * Reason Onset Date Comments Medication Questions 02/10/2024 Wants to re view dosage on medication Encounter Details Date Type Department Care Team (Late st Contact Info) Description 02/10/2024 Telephone [facility] O[facility]YN [address] [place], [place] [id number] Nicolle Pena MD [address] [facility] [place] [address] Medication Questions (Wants to review dosage on medication ) Social History Tobacco Use Types Packs/Day [...] encounter Miscellaneous Notes * Telephone Encounter - Joann Curran RN - 02/10/2024 1105 EDT Last appt: 11/10/2023 OV with MF - f/u PMB and vasomotor symptoms Plan: f/u in 3-4 months after trial of vaginal estrace cream Place 1 g vaginally daily. After 1 month can decrease frequency to 2-3 times a week Spoke with pt. Reviewed the above medication instructions. Pt verbalized understanding. (For clarification: lost tube while traveling. Just got a new tube last week. Has NOT started using- wanted to get the initial instructions again as the new tube only has the 2-3 times a week instructions) * Telephone Encounter - Jenny Alvarez - 02/10/2024 0840 EDT Pt called to r/s her f/u today with MF. She had lost the medication when she was traveling and has only recently started taking. Pt would like a call to review the dosage she is supposed to follow. Pt has r/s her f/u with MF on 03/30. documented in this encounter Plan of Treatment Not on file documented as of this encounter Visit Diagnoses Not on filedocumented in this encounter Care Teams Stadium Manager Relationship Specialty Start Date End Date Shruthi Bailey MD [address] [place] [address] PCP - General Family Medicine - Primary Care 01/28/24 documented as of this encounter
--- OUTSIDE RECORDS SUMMARY | 2024-07-28 15:11 | XMS_ITS | Encounter Summary ---
Author Organization [facility] Address [address] [place] [address] Care Team Providers Care Clerk Name Role Phone [place] [facility]- Primary Care Provider [phone] Reason for Visit * Reason Onset Date Comments Patient Education 05/04/2023 Wondering what she will be given tomorrow and if she needs a logging truck driver. Encounter Details Date Type Department Care Team (Late st Contact Info) Description 05/04/2023 Telephone [facility] OBGYN [address] [place], [place] [phone] Nicolle Pena MD [address] [facility], [address] [place] [address] Patient Education (Wondering what she will be given tomorrow and if she needs a logging truck driver. ) Social History Tobacco Use Types Packs/Day [...] encounter Miscellaneous Notes * Telephone Encounter - Cee Nesbitt RN - 05/05/2023 0851 EDT Pt is in the office now and has been given ibuprofen and ativan * Telephone Encounter - Jenny Alvarez - 05/04/2023 1543 EDT Pt wants to know what medication (I believe in the note it said Ativan) she would be given tomorrowfor her visit with MF and if she would need a logging truck driver. ty documented in this encounter Plan of Treatment Not on file documented as of this encounter Visit Diagnoses Not on filedocumented in this encounter Care Teams Clerk Relationship Specialty Start Date End Date Dev [facility] [address] [place] [address] PCP - General 04/17/23 09/29/23 documented as of this encounter
--- OUTSIDE RECORDS SUMMARY | 2024-07-28 15:11 | XMS_ITS | Encounter Summary ---
Author Organization [facility] Address [address] [place] [address] Care Team Providers Care Clinical Trial Data Manager Name Role Phone Aliyah Méndez [facility]- Primary Care Provider [phone] Encounter Details Date Type Department Care Team (Latest Contact Info) Description 05/29/2023 12:34 EDT - 05/29/2023 23:59 EDT Hospital Encounter [facility] [address] [place], [place] [id number] Neck pain Discharge Disposition: Home or Self [...] a week. Use one patch twice weekly. 09/18/2023 methocarbamoL (ROBAXIN) 750 mg tablet Take 1 Tablet by mouth every 6 hours as needed (muscle spasms). 40 Tablet 03/05/2023 09/18/2023 omeprazole (PRILOSEC) 20 mg capsule Take 1 Capsule by mouth as needed. 09/18/2023 oxyCODONE (ROXICODONE) 5 mg immediate release tablet Take 1-2 Tablets by mouth every 3 hours as needed for Pain. Daily Max: 80 mg 20 Tablet 03/05/2023 09/18/2023 progesterone (PROMETRIUM) 200 mg capsule Take 1 Capsule by mouth daily. 09/18/2023 senna (SENOKOT) 8.6 mg tablet Take 2 Tablets by mouth 2 times daily. 03/05/2023 09/18/2023 documented as of this encounter Discharge Disposition Disposition Code Departure Means Destination Home or Self Care documented in this encounter Plan of Treatment Not on file documented as of this encounter Procedures Procedure Name Priority Date/Time Associated Diagnosis Comments XR CERVICAL SPINE 2-3 VIEWS Routine 05/29/2023 12:49 EDT Neck pain documented in this encounter Results * XR CERVICAL SPINE 2-3 VIEWS (05/29/2023 12:49 EDT) Anatomical Region Laterality Modality Computed Radiogr aphy 06/02/2023 9:54 EDT Impressions 06/02/2023 9:54 EDT Findings/ Impression: Straightening of the normal cervical lordosis. Grade 1 anterolisthesis of C3 on C4 and mild retrolisthesis of C5 on C6, unchanged. Stable postsurgical changes status post ACDF of C6-7 with an interbody disc spacer. No hardware complication. Multilevel degenerative changes are stable. Vertebral body heights are maintained. [id number] Narrative 06/02/2023 9:54 EDT XR CERVICAL SPINE 2-3 VIEWS ??05/29/2023 12:45 PM Clinical History/Comments: assess healing;M54.2:Neck pain Comparison: Cervical spine radiographs 04/17/2023 Technique: Cervical spine, 2 views Procedure Note Janet Rasmussen MD - 06/02/2023 XR CERVICAL SPINE 2-3 VIEWS 05/29/2023 12:45 PM Clinical History/Comments: assess healing;M54.2:Neck pain Comparison: Cervical spine radiographs 04/17/2023 Technique: Cervical spine, 2 views IMPRESSION Findings/ Impression: Straightening of the normal cervical lordosis. Grade 1 anterolisthesis ofC3 on C4 and mild retrolisthesis of C5 on C6, unchanged. Stablepostsurgical changes status post ACDF of C6-7 with an interbody discspacer. No hardware complication. Multilevel degenerative changes arestable. Vertebral body heights are maintained. [id number] us Arturo Garcia MD IMG DIAGNOSTIC IMAGING ORDERABLE S Final Result documented in this encounter Visit Diagnoses Diagnosis Neck pain Cervicalgia documented in this encounter Care Teams Clinical Trial Data Manager Relationship Specialty Start Date End [facility] [place] [address] PCP - General 04/17/23 09/29/23 documented as of this encounter
--- OUTSIDE RECORDS SUMMARY | 2024-07-28 15:11 | XMS_ITS | Encounter Summary ---
Author Organization [facility] Address [address] [place] [address] Care Team Providers Care Car Trimmer Name Role Phone Aliyah Méndez [facility]- Primary Care Provider [phone] Encounter Details Date Type Department Care Team (Late st Contact Info) Description 04/17/2023 Orders Only [facility] Spine Program - [address] [place] [address] Arturo Garcia MD [address] [facility] [place] [address] Neck pain (Primary Dx) Social History Tobacco Use Types [...] on file documented as of this encounter Results * XR CERVICAL SPINE 2-3 VIEWS (04/17/2023 10:02 EDT) Anatomical Region Laterality Modality Computed Radiogr aphy 04/24/2023 13:5 4 EDT Impressions 04/24/2023 13:54 EDT Findings and Impression: There are surgical changes of C3 6-C7 ACDF with plate, screws and interbody spacer. There is no evidence of hardware failure. Alignment is stable. [id number] Narrative 04/24/2023 13:54 EDT Plain film cervical spine April 17, 2023 Comparison: Plain film March 05, 2023 Technique: Frontal and lateral views were obtained of the cervical spine History: 58-year-old female with cervical discectomy Procedure Note Ramón Khanna MD - 04/24/2023 Plain film cervical spine April 17, 2023 Comparison: Plain film March 05, 2023 Technique: Frontal and lateral views were obtained of the cervical spine History: 58-year-old female with cervical discectomy IMPRESSION Findings and Impression: There are surgical changes of C3 6-C7 ACDF withplate, screws and interbody spacer. There is no evidence of hardwarefailure. Alignment is stable. [id number] Arturo Garcia MD IMG DIAGNOSTIC IMAGING ORDERABLE S Final Result documented in this encounter Visit Diagnoses Diagnosis Neck pain- Primary Cervicalgia Neck pain Cervicalgia documented in this encounter Care Teams Car Trimmer Relationship Specialty Start Date End Date [facility] [address] [facility] [address] PCP - General 04/17/23 09/29/23 documented as of this encounter
--- OUTSIDE RECORDS SUMMARY | 2024-07-28 15:11 | XMS_ITS | Encounter Summary ---
Author Organization [facility] Address [address] [place] [address] Care Team Providers Care Comfort Advisor Name Role Phone Unknown, Provider MD Primary Care Provider Unava ilable Reason for Referral * Radiology Services (Routine/Next Available) - Authorization Not Required Specialty Diagnoses / Procedures Referred By Contac t Referred To Contact Diagnoses Encounter for screening mammogram for malignant neoplasm of breast Procedures MA BREAST SCREENING ZAKIYA BILATERAL Lety Gibson APRN [address] [place] [address] Phone: tel: fax: [facility] Referral ID Status Reason Start Date Expiration Date Visits Requested Visits Authorized [id number] Authorization Not Required 05/29/2022 1 1 Reason for Visit * Radiology Services (Routine/Next Available) - Authorization Not Required Specialty Diagnoses / Procedures Referred By Contac t Referred To Contact Diagnoses Encounter for screening mammogram for malignant neoplasm of breast Procedures MA BREAST SCREENING ZAKIYA BILATERAL Lety Gibson APRN [address] [place] [address] Phone: tel: fax: [facility] Referral ID Status Reason Start Date Expiration Date Visits Requested Visits Authorized [id number] Authorization Not Required 05/29/2022 1 1 Encounter Details Date Type Department Care Team (Latest Contact Info) Description 03/26/2023 13:14 EDT - 03/26/2023 23:59 EDT Hospital Encounter [facility] Mammography [address] [place] [address] Encounter for screening mammogram for malignant neoplasm of breast Discharge Disposition: Home or Self Care Social [...] 6 hours as needed for Pain. 03/05/2023 meloxicam (MOBIC) 15 mg tablet Take 1 [...] Procedure Name Priority Date/Time Associated Diagnosis Comments MA BREAST SCREENING ZAKIYA BILATERAL Routine 03/26/2023 13:56 EDT Encounter for screening mammogram for malignant neoplasm of breast documented in this encounter Results * MA BREAST SCREENING ZAKIYA BILATERAL (03/26/2023 13:56 EDT) Anatomical Region Laterality Modality Breast Bilateral Mammography 03/28/2023 10:3 3 EDT Impressions 03/28/2023 10:33 EDT Negative, no evidence of malignancy. RECOMMENDATION: Routine screening mammography is recommended. OVERALL ASSESSMENT: BI-RADS 1: Negative These results will be communicated to your patient via a lay letter from Radiology. If any additional imaging is needed we will contact your patient directly. [id number] Narrative 03/28/2023 10:33 EDT MA BREAST SCREENING ZAKIYA BILATERAL ??03/26/2023 1:30 PM History: Bilateral Screening (2008? last maurice?);Z12.31:Encounter for screening mammogram for malignant neoplasm of breast Comparison: ??Comparison has been made to previous images . ? Technique: Routine 3D tomosynthesis with synthesized 2D views with CAD Breast Composition: There are scattered areas of fibroglandular density. Bilateral Breast Findings: ??No significant masses, calcifications or other abnormalities are seen. Procedure Note Johnathan Rosado MD - 03/28/2023 MA BREAST SCREENING ZAKIYA BILATERAL 03/26/2023 1:30 PM History: Bilateral Screening (2008? last maurcie?);Z12.31:Encounter forscreening mammogram for malignant neoplasm of breast Comparison: Comparison has been made to previous images . Technique: Routine 3D tomosynthesis with synthesized 2D views with CAD Breast Composition: There are scattered areas of fibroglandular density. Bilateral Breast Findings: No significant masses, calcifications or otherabnormalities are seen. IMPRESSION Negative, no evidence of malignancy. RECOMMENDATION: Routine screening mammography is recommended. OVERALL ASSESSMENT: BI-RADS 1: Negative These results will be communicated to your patient via a lay letter fromRadiology. If any additional imaging is needed we will contact yourpatient directly. [id number] us Lety Gibson HEALTH UNIT CLERK IMG MAMMOGRAPHY ORDERABLES F inal Result documented in this encounter Visit Diagnoses Diagnosis Encounter for screening mammogram for malignant neoplasm of breast Other screening mammogram documented in this encounter Care Teams Comfort Advisor Relationship Specialty Start Date End Date Unknown, Provider, PCP - General 02/16/23 04/16/23 documented as of this encounter
--- OUTSIDE RECORDS SUMMARY | 2024-07-28 15:11 | XMS_ITS | Encounter Summary ---
Author Organization [facility] Address [address] [place] [address] Care Team Providers Care Acoustic Intelligence Specialist Name Role Phone Aliyah Méndez [facility]- Primary Care Provider [phone] Encounter Details Date Type Department Care Team (Latest Contact Info) Description 04/17/2023 9:45 EDT - 04/17/2023 23:59 EDT Hospital Encounter [facility] [address] [place], [place] [phone] Neck pain Discharge Disposition: Home or Self [...] Comments XR CERVICAL SPINE 2-3 VIEWS Routine 04/17/2023 10:02 EDT Neck pain documented in this encounter Results * XR CERVICAL SPINE 2-3 VIEWS (04/17/2023 10:02 EDT) Anatomical Region Laterality Modality Computed Radiogr aphy 04/24/2023 13:5 4 EDT Impressions 04/24/2023 13:54 EDT Findings and Impression: There are surgical changes of C3 6-C7 ACDF with plate, screws and interbody spacer. There is no evidence of hardware failure. Alignment is stable. [id number] Narrative 04/24/2023 13:54 EDT Plain film cervical [...] no evidence of hardwarefailure. Alignment is stable. [id number] Arturo Garcia MD IMG DIAGNOSTIC IMAGING ORDERABLE S Final Result documented in this encounter Visit Diagnoses Diagnosis Neck pain Cervicalgia documented in this encounter Care Teams Acoustic Intelligence Specialist Relationship Specialty Start Date End Date [facility] [address] [place] [address] PCP - General 04/17/23 09/29/23 documented as of this encounter
--- OUTSIDE RECORDS SUMMARY | 2024-07-28 15:11 | XMS_ITS | Encounter Summary ---
Author Organization [facility] Address [address] [place] [address] Care Team Providers Care Weight And Balance Control Agent Name Role Phone Aliyah Méndez [facility]- Primary Care Provider [phone] Encounter Details Date Type Department Care Team (Late st Contact Info) Description 05/25/2023 Orders Only [facility] Spine Program - [address] [place] [address] Arturo Garcia MD [address] [facility] [place] [address] Neck pain (Primary Dx) Social [...] are stable. Vertebral body heights are maintained. [id number] Narrative 06/02/2023 9:54 EDT XR CERVICAL SPINE [...] changes arestable. Vertebral body heights are maintained. [id number] Arturo Garcia MD IMG DIAGNOSTIC IMAGING ORDERABLE S Final Result documented in this encounter Visit Diagnoses Diagnosis Neck pain- Primary Cervicalgia Neck pain Cervicalgia documented in this encounter Care Teams Weight And Balance Control Agent Relationship Specialty Start Date End Date [facility] [address] [place] [id number] PCP - General 04/17/23 09/29/23 documented as of this encounter
--- OUTSIDE RECORDS SUMMARY | 2024-07-28 15:11 | XMS_ITS | Encounter Summary ---
Author Organization [facility] Address [address] [place] [address] Care Team Providers Care Watershed Tender Name Role Phone Unknown, Provider MD Primary Care Provider Unava ilable Reason for Visit * Reason Comments New Patient Visit * MARKET RISK SPECIALIST (Routine) - Receiving Office to Obtain Authorization Specialty Diagnoses / Procedures Referred By [facility] t Referred To Contact Obstetrics & Gynecology Diagnoses Postmenopausal bleeding Procedures CONSULT MANAGER BANK Kat Almazan [address] [place] [phone] Phone: tel: fax: [facility] [address] [place] [address] Phone: tel: fax: Referral ID Status Reason Start Date Expiration Date Visits Requested Visits Authorized [id number] Receiving Office to Obtain Authorization Continuity of Care 1 1 Encounter Details Date Type Department Care Team (Latest Contact Info) Description 04/14/2023 13:20 EDT Initial consult [facility] [address] [place], [place] [id number] Fiona Pena MD [address] [facility] [place] [address] Post-menopausal bleeding (Primary Dx) Social History Tobacco Use Types Packs/Day Years Used Date Smoking Tobacco: Former Cigarettes Q uit: 01/10/2023 Smokeless Tobacco: Never Tobacco Cessation:Counseling Given: Not Answered Alcohol Use Standard Drinks/Week Comments Yes 1 [...] Sign Reading Time Taken Comments Blood Pressure 114/76 04/14/2023 1334 EDT Pulse - - Temperature - - Respiratory Rate - - Oxygen Saturation - - Inhaled Oxygen Concentration - - Weight 77.6 kg (171 lb) 04/14/2023 1334 EDT Height 154.9 cm (5' 1) 04/14/2023 1334 EDT Body Mass Index 32.31 04/14/2023 1334 EDT documented in this encounter Functional Status [...] documented in this encounter Progress Notes * Fiona Pena MD - 04/14/2023 1320 EDT Consult requested by Kat Almazan Pronouns she/they HPI Gladis Chester is a 58 y.o. postmenopausal patient who presents for postmenopausal bleeding. Patient reports she has had one year of on and off dark brown spotting. In March 2023 she had one week of increased spotting, dark brown with a peripad, more notable when wiping. Patient also reports possible small lesion in her vagina. She has had this for about 5 months. Patient has gained weight and experienced bloating, more frequent bowel movements for 6 months. Sheunderwent stool tests and colonoscopy that was normal. Patient takes estradiol patch and progesterone orally for HRT. Patient started this 1 year ago, prescribed by a PCP. Patient went through menopause 7 years ago. Started hormonal contraception due to hot flashes, emotional outbursts, brain fog and weight gain. MARKET RISK SPECIALIST Hx Patient's last menstrual period was 04/02/2023 (approximate). Menses:postmenopausal STI's: chlamydia remote history Sexual activity: transmasculine female body one partner Contraception: postmenopausal Cervical cancer screenin12/2022 NILM, HPV neg History of fibroids/polyps/ovarian cysts: history of ectopic , endometriosis OB History Para Term AB Living 4 1 1 3 1 SAB IAB Ectopic Multiple Live Births 2 1 1 # Outcome Date GA Lbr Richard/2nd Weight Sex Delivery Anes PTL Lv 4 Term 04/28/93 M Vag-Spont EILEEN 3 SAB 2 SAB 1 Ectopic Obstetric Comments 1 adopted child as well Problem List Past Medical History Patient Active Problem List Diagnosis ??? Special screening for malignant neoplasms, colon ??? Cervical radiculopathy ??? Post-menopausal bleeding Past Medical History: Diagnosis Date ??? Acid reflux 02/25/2023 - on medication, able to lay flat ??? Arthritis 02/25/2023 - osteoarthritis ??? Cervical radiculopathy discectomy and fusion 03/04/23 ??? Decreased range of motion of neck 02/25/2023 - looking up and tipping to the right ??? Head trauma 02/25/2023 - concussion 2019 ??? History of general anesthesia 02/25/2023 - nausea after anesthesia, scopolamine patch ordered for procedure ??? Lyme disease 02/25/2023 - verified ??? Patient unable to exercise 02/25/2023 - due to back pain, able to climb a flight of stairs without chest pain or SOB ??? Post-menopausal bleeding ??? Wears dentures 02/25/2023 - temp bottom denture Allergies Past Surgical History Allergies Allergen Reactions ??? Gluten celiac disease Past Surgical History: Procedure Laterality Date ??? ECTOPIC SURGERY ??? LIVER BIOPSY Hep C ??? SHOULDER ARTHROSCOPY Right rotator cuff and bicept tenon repair ??? SPINE SURGERY 02/13/2023 c7 Social History Family History Social History Tobacco Use ??? Smoking status: Former Types: Cigarettes Quit date: 01/10/2023 Years since quittin.2 ??? Smokeless tobacco: Never Substance Use Topics ??? Alcohol use: Yes Alcohol/week: 1.0 - 2.0 standard drink of alcohol Types: 1 - 2 Standard drinks or equivalent per week Comment: occasionally mix drink ??? Drug use: Yes Types: Marijuana Comment: for sleeping Problem Relation Name Comments Cancer Father Heart Attack Mother Heart Attack Sister Stroke Mother Denies family history of endometrial, ovarian and breast cancer. Medications Current Outpatient Medications Medication ??? acetaminophen (TYLENOL) 500 mg tablet ??? atomoxetine (STRATTERA) 10 mg capsule ??? estradioL (VIVELLE) 0.0375 mg/24 hr patch ??? meloxicam (MOBIC) 15 mg tablet ??? methocarbamoL (ROBAXIN) 750 mg tablet ??? omeprazole (PRILOSEC) 20 mg capsule ??? oxyCODONE (ROXICODONE) 5 mg immediate release tablet ??? progesterone (PROMETRIUM) 200 mg capsule ??? senna (SENOKOT) 8.6 mg tablet No current facility-administered medications for this visit. Objective BP 114/76 Ht 154.9 cm (61) Wt 77.6 kg (171 lb) LMP 04/02/2023 (Approximate) BMI 32.31 kg/m?? RENATA Bradley Pelvic exam: Normal external genitalia. [place] moist vaginal mucosa. Normal- appearing cervix. Endometrial Biopsy Consent and Procedure Consent: Informed consent obtained, signed, and scanned into chart. Risks, alternatives, and benefits reviewed, all questions answered. Risks include bleeding, infection, damage to surrounding organs/uterine perforation and need of failure of biopsy requiring additional biopsy. Urine HCG: n/a postmenopausal Time Out: A time out was completed confirming the patient's identity, the nature of the procedure and the approriate location with the nurse and/ or patient. Procedure: The patient was placed in dorsolithitomy position. A speculum was placed. Cervix swabbedwith betadine.Tenaculum was applied to the cervix in the usual manner. Sounded 4cm Endometrial catheter inserted, with gentle aspiration tissue sample was obtained. Tenaculum removed with hemostasis observed. Post Procedure: Patient tolerated procedure well. Reviewed signs and symptoms of potential complications. Ibuprofen prn. Return if continued bleeding, fever or pelvic pain. LABORATORY: n/a IMAGIN02/27/2023 TVUS FINDINGS: Uterus: Uterus measures 8 cm x 4 cm x 3.9 cm. The endometrium measures 13.4 mm in thickness. There is a hypoechoic anterior uterine lesion measuring 1.1 x 1.0 x 1.0 cm which likely represents a small fibroid. Cervix: Small nabothian cysts are noted. Right ovary/adnexa: Right ovary measures 2.2 cm x 1.7 cm x 1.6 cm. Right ovarian volume is 3.2 mL. Vascular flow is seen within the right ovary. The ovary is heterogeneous in echotexture. Left ovary/adnexa: Left ovary measures 2.3 cm x 1.5 cm x 2.1 cm. Left ovarian volume is 3.6 mL. There is a small simple appearing exophytic left ovarian cyst or paraovarian cyst measuring 0.7 x 1 x 0.7 cm. Vascular flow is seen within the left ovary. The ovary is heterogeneous in echotexture. Intraperitoneal space: No significant free pelvic fluid. ?? IMPRESSION 1. Thickened endometrium for a postmenopausal woman measuring 13.4 mm, differential diagnosis includes endometrial hyperplasia and endometrial carcinoma. Appropriate clinical evaluation is recommended. 2. Small simple appearing exophytic left ovarian cyst or paraovarian cyst measuring 0.7 x 1 x 0.7 cm. 3. Small uterine lesion which likely represents a small fibroid. Follow-up ultrasound examination is recommended to assure stability. Assessment/Plan Gladis Chester is a 58 y.o. seen today for: 1. Post-menopausal bleeding I personally reviewed patients pelvic ultrasound report and images. Reviewed possible causes of PMB today including atrophy, anatomic causes (polyps, fibroids), and hyperplasia/malignmancy. TVUS shows ES 13.4mm, which is thickened, in addition ES >11mm associated with greater risk of malignancy. She also has small fibroid which may be cause. She will stop hormone replacement therapy as contraindicated with unexplained uterine bleeding. EmBx collected today. F/u pending results. Concern we may have been in lower uterine segment or cervix given difficulty of dilation, should sample not be of endometrial tissue will schedule an US guided biopsy. Per lesion in vulva: not seen today, Patient to call office This note was prepared using voice recognition software and the EMR. There may be inadvertent errors and omissions. Medical decision making: ??? Problems addressed today: One new problem unknown diagnosis ??? Review/interpretation/discussion today: Review/order of unique test(s) ??? Patient has Low Risk of morbidity from additional diagnostic testing or treatment (need 2/3 of the above for low decision making) Fiona Pena MD (she/her) Obstetrics and Gynecology [facility] 04/14/2023 13:47 documented in this encounter Miscellaneous Notes * Result Encounter Note - Fiona Pena MD - 04/14/2023 1320 EDT Waitlist List Do not schedule before: NA F/u time frame (from start date on list): within 3 weeks Ok schedule production manager day? No Ok to change to televideo? No Priority: High Visit type: Procedure Reason for visit: US guided EMB VENUS: 20m Provider: Richard Pena Other: she may want ativan, if so needs to come early, needs US order placed Neftali Griffith, Unfortunately there was no diagnostic tissue from your biopsy. Lets plan to do an ultrasound guided biopsy as we discussed prior, would that be ok? I have sent my office a message to schedule an US guided biopsy in the next few weeks. If you would like ativan prior to that procedure to decrease anxiety, please let the office know sothey can schedule a longer appointment. Please reach out with questions. Sincerely, Fiona Pena MD??(she/her) Obstetrics [facility]necology [facility] * Addendum Note - Fiona Pena MD - 04/14/2023 1320 EDTAddended by: FIONA PENA on: 04/16/2023 10:58 Modules accepted: Orders documented in this encounter Plan of Treatment Not on file documented as of this encounter Procedures Procedure Name Priority Date/Time Associated Diagnosis Comments SURGICAL PATHOLOGY Routine 04/14/2023 14 :24 EDT Post-menopausal bleeding documented in this encounter Results * US PELVIS LIMITED PROPERTY MANAGEMENT ASSISTANT (05/05/2023 9:19 EDT) Anatomical Region Laterality Modality Pelvis Ultrasound 05/05/2023 10:0 7 EDT Narrative 05/05/2023 10:07 EDT INDICATION: sp failed ofice EMB, needs US guided EMB;N95.0:Post-menopausal bleeding TECHNIQUE: Ultrasound imaging was provided to Dr. Fiona Otero. [id number] Procedure Note Enrrique Austin MD - 05/05/2023 INDICATION: sp failed ofice EMB, needs US guided EMB;N95.0:Post- menopausalbleeding TECHNIQUE: Ultrasound imaging was provided to Dr. Fiona Otero. [id number] us Fiona Pena MD IMG US OB ORDERABLES Final R esult * SURGICAL PATHOLOGY (04/14/2023 14:24 EDT) Note to Patient The following pathology results have been interpreted by your pathologist and may be available to you before your health provider has had the opportunity to review them. Please allow time for your provider to receive these results and explore management options, if applicable. 04/16/2023 10:48 [facility] Final Diagnosis A. ENDOMETRIUM, BIOPSY: - No definitive endometrial tissue present (non-diagnostic) . See comment. - Predominantly mucoid material and debris with rare minute, benign endo- and ectocervical mucosal fragments. 04/16/2023 10:48 [facility] Diagnosis Comment Reliable microscopic evaluation of the endometrium cannot be performed on this specimen. Additional tissue sampling of the endometrium is recommended as is clinically indicated. 04/16/2023 10:48 [facility] Attestation By the signature below, the attending physician certifies that they have 1) personally conducted a gross and/or microscopic examination of the described specimen(s), and/or personally interpreted the results of laboratory testing of the described specimen(s), and 2) personally rendered or confirmed the above diagnosis. 04/16/2023 10:48 [facility] at 1048 Clinical History PMB 04/16/2023 10:[address] [facility] Gross Description A. The specimen is received in formalin labeled with Gladis Chester? and ? endometrium? is an estimated 0.4 cc aggregate of li-brown tissue fragments and mucus, filtered. The specimen is entirely submitted in 1 cassette. COLLIN JOHNS 04/15/2023 11:21 04/16/2023 10:[address] [facility] Performing Lab [facility] 04/16/2023 10:[address] [facility] Scanned Images 04/16/2023 10:[address] [facility] Tissue ENTIRE ENDOMETRIUM / Unknown Collection, Other / Unknown 04/14/2023 14:24 EDT 04/14/2023 14:24 EDT us Fiona Pena MD PATHOLOGY ORDERABLES Final R esult Performing Organization Address City/State/[facility] Co de Phone Number [facility] [address] [place] [address] documented in this encounter Visit Diagnoses Diagnosis Post-menopausal bleeding- Primary Postmenopausal bleeding documented in this encounter Historical Medications * This list may reflect changes made after this encounter. atomoxetine (STRATTERA) 10 mg capsule Take by mouth every morning. 03/28/2023 meloxicam (MOBIC) 15 mg tablet Take 1 Tablet by mouth as needed. 03/19/2023 added in this encounter Care Teams Watershed Tender Relationship Specialty Start Date End Date Unknown, Provider, PCP - General 02/16/23 04/16/23 documented as of this encounter
--- OUTSIDE RECORDS SUMMARY | 2024-07-28 15:11 | XMS_ITS | Encounter Summary ---
Author Organization [facility] Address [address] [place] [address] Care Team Providers Care Tool Maker Name Role Phone Aliyah Méndez [facility]- Primary Care Provider [phone] Reason for Visit * Reason Comments Post-OP Follow Up Encounter Details Date Type Department Care Team (Late st Contact Info) Description 07/13/2023 13:00 EST Office Visit [facility] Spine Program - [address] [place] [address] Arturo Marcum MD [address] [place] [address] [place] [address] Cervical radiculopathy (Primary Dx) Social [...] documented in this encounter Progress Notes * Alfredo Sanon MD - 07/13/2023 1300 EST Orthopedic spine progress note: VAS neck 4 VAS arm 1 NDI 18 Date of surgery: March 04, 2023 Procedure: C6-7 ACDF Patient now approximately 4 months postop from surgery. She was feeling near 100% improved after surgery until about a month ago when she started having recurrence of similar right posterior shoulderand lateral arm pain that is woke her up a couple times at night. When this happens she puts her arm overhead which helps relieve the symptoms. She also has had persistence of paresthesias in the ring and small finger of her right hand which is nearly unchanged from even prior to surgery and has persisted in her postop recovery. She has a new symptom of right thumb locking over the last month or so. When her thumb locks it is not associated with any pain and she has used her other hand to open her thumb. She is not able to reproduce this. Exam: Patient sitting in exam room with right arm overhead Anterior neck incision well-healed. 5/5 strength and bilateral upper extremities in all motor groups. Sensation intact light touch in C5-T1 distributions. Negative Tinel at cubital tunnel and carpal tunnel, negative compression test at cubital and carpaltunnel. Has pain with [facility] grind test but does not reproduce any of her symptoms. No tenderness overthe A1 crystal of the thumb, no palpable nodule, no catching or locking able to be reproduced in theoffice today. Imaging: No new imaging obtained today Assessment: Patient now approximately 4 months postop from her ACDF procedure. She has had some recurrence of symptoms similar to preop raising concern for adjacent segment nerve root irritation. It is possible that she also has some mild cubital tunnel syndrome with double crush in setting of her neck pathology. We will plan to obtain an EMG of her right upper extremity as well as a repeat MRI which were ordered today. We will plan to have her restart her meloxicam and take it 3-4 times a week to see if this helps knock down some inflammation in addition to a Medrol Dosepak which was ordered for her today as well. She has done well with pool therapy but has been denied by her insurance so we will try to get this approved for her as she finds it helpful. We will plan to have her follow-up once the EMG and MRI have been performed. Plan: EMG right upper extremity, MRI of the cervical spine Meloxicam 3-4 times weekly Medrol Dosepak Pool physical therapy Alfredo Sanon MD Attending attestation I read the note and agree with the assessment and plan. I have independently examined the patient and reviewed spine imaging. 4 months out from her ACDF. Has had significant recurrence of symptoms postoperatively after near complete resolution. We will investigate with a EMG and new MRI. She will continue with physical therapy. I will prescribe pool therapy as well as this has been extremely helpful for her in the past. Iwill prescribe some steroids and she will judiciously use nonsteroidals. Follow-up after EMG and MRI. She is agreeable with this plan. Arturo Marcum MD 07/14/2023 11:38 documented in this encounter Miscellaneous Notes * Addendum Note - Arturo Marcum MD - 07/13/2023 1300 ESTAddended by: ARTURO MARCUM on: 07/14/2023 11:39 Modules accepted: Level of Service documented in this encounter Plan of Treatment Not on file documented as of this encounter Visit Diagnoses Diagnosis Cervical radiculopathy- Primary Brachial neuritis or radiculitis nos documented in this encounter Care Teams Tool Maker Relationship Specialty Start Date End Date [facility] [place] [address] PCP - General 04/17/23 09/29/23 documented as of this encounter
--- OUTSIDE RECORDS SUMMARY | 2024-07-28 15:11 | XMS_ITS | Encounter Summary ---
Author Organization [facility] Address [address] [place] [address] Care Team Providers Care Derrick Builder Name Role Phone Unknown, Provider MD Primary Care Provider Unava ilable Reason for Visit * Reason Onset Date Comments Post-OP Follow Up 04/16/2023 Encounter Details Date Type Department Care Team (Late st Contact Info) Description 04/16/2023 Telephone [facility] Spine Program - [address] [place] [address] Asha Lentz, RN [address] [place] [address] Post-OP Follow Up Social History Tobacco Use Types Packs/Day Years [...] encounter Miscellaneous Notes * Telephone Encounter - Asha Lentz RN - 04/16/2023 7451 EDT Gladis is doing well post ACDF. Most of her pain is in other areas related to her being unable totake her NSAIDS. Not really having pain,just soreness at her incision at times, tension headaches at the base of her neck and muscle soreness between her shoulder blades. She has been using heat and ice with relief. She will be herre for her office visit tomorrow. ASHA LENTZ RN 04/16/2023 15:04 documented in this encounter Plan of Treatment Not on file documented as of this encounter Visit Diagnoses Not on filedocumented in this encounter Care Teams Derrick Builder Relationship Specialty Start Date End Date Unknown, Provider, PCP - General 02/16/23 04/16/23 documented as of this encounter
--- OUTSIDE RECORDS SUMMARY | 2024-07-28 15:11 | XMS_ITS | Referral Summary ---
Author Organization [facility] Address [address] [place] [address] Care Team Providers Care Advanced Manufacturing Consultant Name Role Phone Shruthi Bailey MD Primary Care Provider [phone] Allergies Active Allergy Reactions Criticality Noted Date Comments Gluten 06/06/2022 celiac disease Medications acetaminophen (TYLENOL) 500 mg tablet Take 2 Tablets by mouth every 6 hours as needed for Pain. 3 Active meloxicam (MOBIC) 15 mg tablet Take 1 Tablet by mouth as needed. 3 Active atomoxetine (STRATTERA) 10 mg capsule Take by mouth every morning. 3 Active Cholecalciferol , Vitamin D3, 10 mcg (400 unit) tablet Take 2.5 Tablets by mouth daily. Active Erfss-1-YNG-EPA -Fish Oil (FISH OIL) 1,000 mg (120 mg-180 mg) capsule Take by mouth. Activ e Multivitamins with Minerals tablet tablet Take 1 Tablet by mouth daily. For menopausal women Active lisdexamfetamin e (VYVANSE) 20 mg capsule Take 1 Capsule by mouth every morning. Daily Max: 20 mg Active omeprazole (PRILOSEC) 20 mg capsule Take 1 Capsule by mouth daily. Active estradioL (ESTRACE) 0.01 % (0.1 mg/gram) vaginal creamIndication s:Vaginal atrophy Place 1 g vaginally three times a week. Please use 2-3 times weekly 42.5 g 3 4 Active Active Problems Problem Noted Date Diagnosed Date Vaginal atrophy 03/30/2024 Cervical radiculopathy 01/09/2023 Overview (01/09/2023): Added automatically from request for surgery [id number] Special screening for malignant neoplasms, colon Resolved Problems Problem Noted Date Diagnosed Date Resolved Date Post-menopausal bleeding 04/14/2023 Overview (03/30/2024): 04/2023 EMB consistent with atrophy Social History Tobacco Use Types Packs/Day Years Used Date Smoking Tobacco: Some Days Cigarettes Last attempted to quit: 01/10/2023 Smokeless Tobacco: Never Tobacco Cessation:Ready to Q uit: Not Asked Alcohol Use Standard Drinks/Week Comments Yes 1 [...] 16:01 EST Sexual Orientation Not on file Last Filed Vital Signs Vital Sign Reading Time Taken Comments Blood Pressure 118/68 03/30/2024 1048 EDT Pulse 72 03/05/2023 0930 EDT Temperature 36.7 ??C (98.1 ??F) 03/05/2023 0930 EDT Respiratory Rate 16 03/05/2023 0930 EDT Oxygen Saturation 97% 03/05/2023 0930 EDT Inhaled Oxygen Concentration - - Weight 71.2 kg (157 lb) 03/30/2024 1048 EDT Height 154.9 cm (5' 0.98) 11/10/2023 1325 EST Body Mass Index 29.68 11/10/2023 1325 EST Functional Status * Because of a physical, mental, or emotional condition, does this person have difficulty doing errands alone such as visiting a doctor's office or shopping? Answer Date of Assessment Author Yes 06/06/2022 8:58 EDT Mental Status * Because of a physical, mental, or emotional condition, does this person have serious difficulty concentrating, remembering, or making decisions? Answer Entry Date Author Yes 06/06/2022 8:58 EDT Plan of Treatment Not on file Medical Devices Implanted Type Area Student Services Director Device Identifier Shelf Expiration Date Model / Serial / Lot Bone Spacer Cervical Round 6mm [id number] - [id number] Implanted:Qty: 1 on 03/04/2023 by Arturo Garcia MD at [facility] Bone N/A: Spine Cervical [employer] 04/05/2027 [id number] Plate 20mm Level 1 Harrison - [id number] Implanted:Qty: 1 on 03/04/2023 by Arturo Garcia MD at [facility] Spinal Implant N/A: Spine Cervical [employer] [id number] / [id number] / Screw Spinal 4.0 X 14mm Ant Cerv Solid Ti Self Tapping Fixed Angle Harrison Ns - [id number] Implanted:Qty: 2 on 03/04/2023 by Arturo Garcia MD at [facility] Spinal Implant N/A: Spine Cervical [employer] [id number] / [id number] / Screw Variable Self-Tapping 4.0 X 14mm Harrison - [id number] Implanted:Qty: 2 on 03/04/2023 by Arturo Garcia MD at [facility] Spinal Implant N/A: Spine Cervical [employer] [id number] / [id number] / Procedures Procedure Name Priority Date/Time Associated Diagnosis Comments COLONOSCOPY Routine 12/02/2022 11:00 EDT Special screening for malignant neoplasms, colon from Last 3 Months or Most Recently Relevant to Health Maintenance Results * COLONOSCOPY (12/02/2022 11:00 EDT) Anatomical Region Laterality Modality Endoscopy Narrative 12/02/2022 11:00 EDT [facility] ?? [address] [facility], [place], [place] [address] ?? Patient Name ?GLADIS MUSE Date of ?1965 Record Number ?[id number] Date/Time of Procedure ?12/02/2022, 11:00:00 AM Endoscopist ?Lex Martínez ?? Assistant Property Manager ? Referring Physician(s) ?? Laurie Ayala Anesthesiologist ? Procedure Performed: COLONOSCOPY - Polypectomy Indications for Exam: Screening Colonoscopy. Instruments: ? [facility]-[id number] ([id number]) Medications: ?I was in continuous face to face attendance during the administration of moderate sedation services that were monitored by an independent trained observer who had no other duties during the procedure. Fentanyl 100 mcg, Versed 5 mg ? Visualization: ? Good ?Tolerance: Good ?Complications: None ? Extent of Exam: ?terminal ileum ? Limitations: ?None Procedure Technique: A physical exam was performed. Informed consent was obtained from the patient after explaining all the risks (perforation, bleeding, infection and adverse effects to the medicine) , benefits and alternatives to the procedure which the patient appeared to understand and so stated. ??The patient was connected to the monitoring devices and placed in the left lateral position. Continuous oxygen was provided with a nasal cannula and IV medicine administered thru an indwelling cannula. After adequate conscious sedation was achieved, a digital exam was performed and the colonoscope introduced into the rectum and advanced under direct visualization to the terminal ileum which was identified by visual landmarks. The scope was subsequently removed slowly while carefully examining the color, texture, anatomy, and integrity of the mucosa on the way out. In the rectum the scope was retroflexed to evaluate for internal hemorrhoids and anorectal pathology. The patient was subsequently transferred to the recovery area in satisfactory condition. The following findings were noted: Findings: Normal rectal exam, prominent internal hemorrhoids. ??Normal colon and terminal ileal mucosa. ??One small polyp found in the proximal transverse colon and removed with biopsy forceps. Endoscopic Diagnosis: Colon polyp Recommendations: Repeat colonoscopy in 5 years if polp is adenomatous, 10 years if hyperplastic.. Sedation Start: 11:03:25 AM ?? Sedation End: 11:24:59 AM Signature: Lex Martínez M.D. F.A.C.S This note was electronically signed on 12/02/2022 11:28:47 AM By Lex Martínez M.D., F.A.C.S Lety Pandya Paige PURE PAK MACHINE OPERATOR GI PROCEDURE ORDERABLES Maria Guadalupe l Result from Last 3 Months or Most Recently Relevant to Health Maintenance [place] [facility] Address: [address] [address] Advance Directives For more information, please contact: [phone] * Full Code (Latest Code Status on File) Date Activated Date Inactivated Comments 03/04/2023 11:52 03/05/2023 14:55 Question Answer Comments When the patient has NO PULSE: Full Code / CPR Who Made the Decision? Default/Not Discussed Care Teams Advanced Manufacturing Consultant Relationship Specialty Start Date End Date Shruthi Bailey MD [address] [place] [id number] PCP - General Family Medicine - Primary Care 01/28/24
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
--- OUTSIDE RECORDS SUMMARY | 2024-07-28 15:11 | XMS_ITS | Encounter Summary ---
Author Organization [facility] Address [address] [place] [address] Care Team Providers Care Interface Engineer Name Role Phone Shruthi Bailey MD Primary Care Provider [phone] Reason for Referral * Radiology Services (Routine/Next Available) - Authorization Not Required Specialty Diagnoses / Procedures Referred By Contac t Referred To Contact Diagnoses Pain in right hip Procedures XR HIP RIGHT 2-3 VIEWS, OPTIONAL PELVIS Shruthi Bailey MD [address] [place] [address] Phone: tel: fax: [facility] Referral ID Status Reason Start Date Expiration Date Visits Requested Visits Authorized [id number] Authorization Not Required 01/27/2024 1 1 Reason for Visit * Radiology Services (Routine/Next Available) - Authorization Not Required Specialty Diagnoses / Procedures Referred By Contac t Referred To Contact Diagnoses Pain in right hip Procedures XR HIP RIGHT 2-3 VIEWS, OPTIONAL PELVIS Shruthi Bailey MD [address] [place] [address] Phone: tel: fax: [facility] Referral ID Status Reason Start Date Expiration Date Visits Requested Visits Authorized [id number] Authorization Not Required 01/27/2024 1 1 Encounter Details Date Type Department Care Team (Latest Contact Info) Description 01/28/2024 14:55 EDT - 01/28/2024 23:59 EDT Hospital Encounter [facility] Xray [address] [place] [address] Pain in right hip Discharge Disposition: Home or Self Care Social [...] capsule Take by mouth every morning. 03/28/2023 Cholecalciferol, Vitamin D3, 10 mcg (400 unit) tablet Take 2.5 Tablets by mouth daily. meloxicam (MOBIC) 15 mg tablet Take 1 Tablet by mouth as needed. 03/19/2023 Multivitamins with Minerals tablet tablet Take 1 Tablet by mouth daily. For menopausal women Vddaa-2-YYX-EPA- Fish Oil (FISH OIL) 1,000 mg (120 mg-180 mg) capsule Take by mouth. estradioL (ESTRACE) 0.01 % (0.1 mg/gram) vaginal creamIndications :Vaginal atrophy Place 1 g vaginally daily. After 1 month can decrease frequency to 2-3 times a week. 42.5 g 2 11/10/2023 documented as of this encounter Discharge Disposition Disposition Code Departure Means Destination Home or Self Care documented in this encounter Plan of Treatment Not on file documented as of this encounter Procedures Procedure Name Priority Date/Time Associated Diagnosis Comments XR HIP RIGHT 2-3 VIEWS, OPTIONAL PELVIS Routine 01/28/2024 15:16 EDT Pain in right hip documented in this encounter Results * XR HIP RIGHT 2-3 VIEWS, OPTIONAL PELVIS (01/28/2024 15:16 EDT) Anatomical Region Laterality Modality Lower Extremities Right Computed Radio graphy 01/28/2024 15:2 2 EDT Impressions 01/28/2024 15:22 EDT No acute findings. Right hip joint space preserved. [id number] Narrative 01/28/2024 15:22 EDT XR HIP RIGHT 2-3 VIEWS, OPTIONAL PELVIS ?? Signs and Symptoms/Comments: ??right hip pain;M25.551:Pain in right hip Comparison: None FINDINGS: Right hip: 2 views. Bones: No acute fracture or malalignment. No AVN. Degenerative changes: No significant degenerative changes. Soft tissues: Unremarkable. Resulting Agency Comment [id number] Procedure Note Manuel De La Rosa MD - 01/28/2024 XR HIP RIGHT 2-3 VIEWS, OPTIONAL PELVIS Signs and Symptoms/Comments: right hip pain;M25.551:Pain in right hip Comparison: None FINDINGS: Right hip: 2 views. Bones: No acute fracture or malalignment. No AVN. Degenerative changes: No significant degenerative changes. Soft tissues: Unremarkable. IMPRESSION No acute findings. Right hip joint space preserved. [id number] Shruthi Bailey MD IM[facility] DIAGNOSTIC IMAGING ORDERA BLES Final Result documented in this encounter Visit Diagnoses Diagnosis Pain in right hip Pain in joint, pelvic region and thigh documented in this encounter Care Teams Interface Engineer Relationship Specialty Start Date End Date Shruthi Bailey MD [address] [place] [id number] PCP - General Family Medicine - Primary Care 01/28/24 documented as of this encounter
--- OUTSIDE RECORDS SUMMARY | 2024-07-28 15:11 | XMS_ITS | Encounter Summary ---
Author Organization [facility] Address [address] [place] [address] Care Team Providers Care Electronic Specialist Name Role Phone Aliyah Méndez [facility]- Primary Care Provider [phone] Reason for Referral * PT/OT/ST (Routine/Next Available) - Closed Specialty Diagnoses / Procedures Referred By Conttrenton acuna Referred To Contact Rehab Therapies Diagnoses Neck pain Arturo Garcia MD Phone: tel: fax: Referral ID Status Reason Start Date Expiration Date V isits Requested Visits Authorized [id number] Closed Specialty Services Required 04/17/2023 1 1 Question Answer Reason for Request: neck pain, arm numbness s/p C6-7 acdf Comments Evaluate and Treat All treatment and modalities as tolerated Encounter Details Date Type Department Care Team (Late st Contact Info) Description 04/17/2023 Orders Only [facility] Spine Program - [address] [address] Arturo Garcia MD [address] [place] [address] [place] [address] Neck pain (Primary Dx) Social [...] in this encounter Plan of Treatment Scheduled Referrals Name Type Priority Associated Diagnoses Order Schedule AMB CONS/FOLLOW UP PHYSICAL THERAPY - OUTSIDE OF NETWORK Outpatient Referral Routine/Next Available Neck pain Expected: 04/24/2023 (Approximate), Expires: 04/17/2024 documented as of this encounter Visit Diagnoses Diagnosis Neck pain- Primary Cervicalgia documented in this encounter Care Teams Electronic Specialist Relationship Specialty Start Date End Date Dev [facility] [address] [place] [address] PCP - General 04/17/23 09/29/23 documented as of this encounter
--- OUTSIDE RECORDS SUMMARY | 2024-07-28 15:11 | XMS_ITS | Encounter Summary ---
Author Organization [facility] Address [address] [place] [address] Care Team Providers Care Director Of Analytical Development Name Role Phone None, Provider Primary Care Provider Unavailabl e Reason for Visit * Reason Comments Follow-up Encounter Details Date Type Department Care Team (Late st Contact Info) Description 11/10/2023 13:20 EST Office Visit [facility] OBGYN [address] [place] [address] Nicolle Pena MD [address] [facility] [place] [address] Post-menopausal bleeding (Primary Dx); Vasomotor symptoms due to menopause; Vaginal atrophy Social History Tobacco Use Types Packs/Day [...] Sign Reading Time Taken Comments Blood Pressure 120/88 11/10/2023 1325 EST Pulse - - Temperature - - Respiratory Rate - - Oxygen Saturation - - Inhaled Oxygen Concentration - - Weight 74.8 kg (165 lb) 11/10/2023 1325 EST Height 154.9 cm (5' 0.98) 11/10/2023 1325 EST Body Mass Index 31.19 11/10/2023 1325 EST documented in this encounter [...] creamIndications:V aginal atrophy Place 1 g vaginally daily. After 1 month can decrease frequency to 2-3 times a week. 42.5 g 2 11/10/2023 4 documented in this encounter Progress Notes * Nicolle Pena MD - 11/10/2023 1320 EST [facility] Gynecology Clinic Follow-up Visit Note CC: follow up PMB, vasomotor symptoms SUBJECTIVE: 58yo P1 Vasomotor symptoms worse after certain medications. She recently started vitamins that is supposed to help with hot flashes. At this time she would rater not take additional pills and instead do lifestyle modification. Vaginal dryness is more of a concern. Using all natural lubrication, partner is allergic to lubricants so not able to help. Vaginal penetration painful even with use of natural lubrication. Feels very dry. Thinking this is vaginal atrophy. No further episodes of PMB. PRIOR WORKUP/MANAGEMENT: HRT prior to PMB (oral progestin and a patch of estradiol) OTHER: Last cervical cancer screenin NILM HPV neg Contraception: postmenopausal OBJECTIVE: BP 120/88 Ht 154.9 cm (60.98) Wt 74.8 kg (165 lb) LMP 04/02/2023 (Approximate) BMI 31.19 kg/m?? Peggy Lara MA Pelvic exam: introital retraction, mild vulvovaginal pallor and loss of vaginal rugae LABORATORY RESULTS: EMB 04/2023 A. ENDOMETRIUM, BIOPSY: - Strips and fragments of inactive endometrium, consistent with an atrophic endometrium. - Negative for atypia and malignancy. ASSESSMENT/PLAN: Gladis Chester is an 58 y.o. who presents for 1. Post-menopausal bleeding Has not recurred 2. Vasomotor symptoms due to menopause We discussed hormonal and non hormonal options. Given PMB with HRT, would recommend consideration of non hormonal options. Treatment of vasomotor symptoms without any hormonal component that also have evidence of benefit include Paroxitine 7.5 mg/d, Clonidine 0/1 mg/d, Gabapentin 600-900 mg/d. Other options with less data showing benefit include SSRI/SSNRI, vitamins and herbal remedies, exercise, acupuncture. After discussion, patient desiring continued lifestyle modification. 3. Vaginal atrophy History and exam consistent with atrophy. Discussed hormonal and non hormonal options. Discussed relatively minimal systemic absorption of vaginal estrogen and shared this is standard of care for vaginal atrophy. Low chance of causing recurrence of PMB given not systemic. Patient desiring trial. Will take nightly for one month via vagina and then switch to 2-3 times weekly. Follow up in 3-4 months. This note was prepared using voice recognition software and the EMR. There may be inadvertent errors and omissions. Medical decision making: Problems addressed today: 2 or more stable chronic illnesses Review/interpretation/discussion today: None Patient has Moderate Risk of morbidity from additional diagnostic testing or treatment (need 2/3 of the above for moderate decision making) Nicolle Pena MD (she/her) Obstetrics and Gynecology [facility] Women's Health 11/10/23 13:54 documented in this encounter Plan of Treatment Not on file documented as of this encounter Visit Diagnoses Diagnosis Post-menopausal bleeding- Primary Postmenopausal bleeding Vasomotor symptoms due to menopause Vaginal atrophy Postmenopausal atrophic vaginitis documented in this encounter Historical Medications * This list may reflect changes made after this encounter. Multivitamins with Minerals tablet tablet Take 1 Tablet by mouth daily. For menopausal women Gzyoh-3-UWC-EPA- Fish Oil (FISH OIL) 1,000 mg (120 mg-180 mg) capsule Take by mouth. Cholecalciferol, Vitamin D3, 10 mcg (400 unit) tablet Take 2.5 Tablets by mouth daily. added in this encounter Care Teams Director Of Analytical Development Relationship Specialty Start Date End Date None, Provider PCP - General 09/30/23 01/27/24 documented as of this encounter
--- OUTSIDE RECORDS SUMMARY | 2024-07-28 15:11 | XMS_ITS | Clinical Summary ---
Author Organization [facility] Address [address] [place] [address] Care Team Providers Care Mill Hand Name Role Phone Shruthi Bailey MD Primary Care Provider [phone] Allergies Active Allergy Reactions Criticality Noted Date [...] Take 2.5 Tablets by mouth daily. Active [id number] -Fish Oil (FISH OIL) 1,000 mg (120 [...] (01/09/2023): Added automatically from request for surgery [id number] Special screening for malignant neoplasms, colon Resolved Problems Problem Noted Date Diagnosed Date Resolved Date Post-menopausal bleeding 04/14/2023 Overview (03/30/2024): 04/2023 EMB consistent with atrophy Surgical History Surgery Date Site/Laterality Comments ECTOPIC SURGERY SHOULDER ARTHROSCOPY Right rotator cuff and bicept tenon repair LIVER BIOPSY Hep C SPINE SURGERY 02/13/2023 c7 Medical History Medical History Date Comments Cervical radiculopathy discectom y and fusion 03/04/23 Post-menopausal bleeding 2022 EM B consistent with Atrophy Acid reflux 02/25/2023 - on medication, able to lay flat History of general anesthesia - nausea after anesthesia, scopolamine patch ordered for procedure Wears dentures 02/25/2023 - tem p bottom denture Decreased range of motion of neck 02/25/2023 - looking up and tipping to the right Patient unable to exercise 02/25 - due to back pain, able to climb a flight of stairs without chest pain or SOB Head trauma 02/25/2023 - con cussion 2019 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 Lyme disease 02/25/2023 - russ ified Family History Medical History Relation Comments Cancer Father Heart Attack Mother Stroke Mother Heart Attack Sister Relation Status Comments Father Mother Alive Sister Social History Tobacco Use Types Packs/Day Years [...] 16:01 EST Sexual Orientation Not on file Obstetrics History Para Term AB IAB SAB Ectopic Multiple Livin g Live Births 2 1 1 1 0 1 1 1 Date Outcome GA Total Labor Labor/2nd/3rd Weight Sex Type Anes PTL Annetta A1 A5 Name Clin Ectopic 1992 Term M Vag-S pont Living Comments 1 adopted child as well Last Filed Vital Signs Vital Sign Reading [...] Body Mass Index 29.68 11/10/2023 1325 EST Plan of Treatment Health Maintenance Due Date Last Done Comments Hepatitis C Screen 1965 Pneumococcal Immunization (1 of 2 - PCV) 01/10/1970 COVID-19 Vaccine ( - season) 2024 RSV Immunization ( o r 60+ Years) (1 - 1-dose 75+ series) 01/10/2039 Colonoscopy (Colon Cancer Screening) Discontinued 11/06 Colorectal Cancer Screening Discontinued Cologuard (Colon Cancer Screening) Discontinued FIT Test (Colon Cancer Screening) Discontinued Sigmoidoscopy (Colon Cancer Screening) Discontinued Medical Devices Implanted Type Area Music Arranger Device Identifier Shelf Expiration Date Model / Serial / Lot Bone Spacer Cervical Round 6mm [id number] - [id number] Implanted:Qty: 1 on 03/04/2023 by Arturo Garcia MD at [facility] Bone N/A: Spine Cervical M[employer] SPINE 04/05/2027 [id number] Plate 20mm Level 1 [place] - [id number] Implanted:Qty: 1 on 03/04/2023 by Arturo Garcia MD at [facility] Spinal Implant N/A: Spine Cervical M[employer] [id number] / [id number] / Screw Spinal 4.0 X 14mm Ant Cerv Solid Ti Self Tapping Fixed Angle [place] - [id number] Implanted:Qty: 2 on 03/04/2023 by Arturo Garcia MD at [facility] Spinal Implant N/A: Spine Cervical M[employer]INE [id number] / [id number] / Screw Variable Self-Tapping 4.0 X 14mm Mechelle - [id number] Implanted:Qty: 2 on 03/04/2023 by Arturo Garcia MD at [facility] Spinal Implant N/A: Spine Cervical [employer]INE [id number] 4CA / [id number] / Procedures Procedure Name Priority Date/Time Associated Diagnosis Comments COLONOSCOPY Routine 12/02/2022 11:00 EDT Special screening for malignant neoplasms, colon from Last 3 Months or Most Recently Relevant to Health Maintenance Results * COLONOSCOPY (12/02/2022 11:00 EDT) Anatomical Region Laterality Modality Endoscopy Narrative 12/02/2022 11:00 EDT [facility] ?? [address] [place] [address] ?? Patient Name ?GLADIS MUSE Date of ?1965 Record Number ?[id number] Date/Time of Procedure ?12/02/2022, 11:00:00 AM Endoscopist ?Lex Martínez ?? Carpenter Apprentice ? Referring Physician(s) ?? Laurie Ayala Anesthesiologist ? Procedure Performed: COLONOSCOPY - Polypectomy Indications for Exam: Screening Colonoscopy. Instruments: ? [facility]-[id number] ([id number]) Medications: ?I was in continuous face to [...] AM ?? Sedation End: 11:24:59 AM Signature: Lorena HanleyA.C.S This note was electronically signed on 12/02/2022 11:28:47 AM By Lex DacostaA.C.S us Lety Gibson APRN GI PROCEDURE ORDERABLES Maria Guadalupe huang Result from Last 3 Months or Most Recently Relevant to Health Maintenance [place] For more information, please contact: [phone] * Full Code (Latest Code Status on File) Date Activated Date Inactivated Comments 03/04/2023 11:52 03/05/2023 14:55 Question Answer Comments When the patient has NO PULSE: Full Code / CPR Who Made the Decision? Default/Not Discussed Care Teams Mill Hand Relationship Specialty Start Date End Date Shruthi Bailey MD [address] [place] [id number] PCP - General Family Medicine - Primary Care 01/28/24
--- OUTSIDE RECORDS SUMMARY | 2024-07-28 15:12 | XMS_ITS | Encounter Summary ---
Author Organization [facility] Address [address] [place] [address] Care Team Providers Care Professor Of Surgery Name Role Phone Unknown, Provider MD Primary Care Provider Unava ilable Reason for Referral * TERMINAL OPERATOR (Routine/Next Available) - Authorization Not Required Specialty Diagnoses / Procedures Referred By Contac t Referred To Contact Diagnoses Postmenopausal bleeding Procedures US PELVIS TRANSVAGINAL COMPLETE Kat [address]ma[address] [place] [address] Phone: tel: fax: [facility] Referral ID Status Reason Start Date Expiration Date Visits Requested Visits Authorized [id number] Authorization Not Required 02/20/2023 1 1 Reason for Visit * TERMINAL OPERATOR (Routine/Next Available) - Authorization Not Required Specialty Diagnoses / Procedures Referred By Contac t Referred To Contact Diagnoses Postmenopausal bleeding Procedures US PELVIS TRANSVAGINAL COMPLETE Kat [address]mazan [address] [place] [address] Phone: tel: fax: [facility] Referral ID Status Reason Start Date Expiration Date Visits Requested Visits Authorized [id number] Authorization Not Required 02/20/2023 1 1 Encounter Details Date Type Department Care Team (Latest Contact Info) Description 02/27/2023 14:45 EDT - 02/27/2023 23:59 EDT Hospital Encounter [facility] - [facility] Ultrasound [address] [place], [place] [id number] Postmenopausal bleeding Discharge Disposition: Home or Self Care Social [...] 6 hours as needed for Pain. 03/05/2023 acetaminophen (TYLENOL) 500 mg tablet Take 1 Tablet by mouth every 6 hours as needed for Pain. 03/05/2023 estradioL (VIVELLE) 0.0375 mg/[address] 1 Patch onto the skin twice a week. Use one patch twice weekly. 09/18/2023 meloxicam (MOBIC) 15 mg tablet Take 1 Tablet by mouth daily. 03/05/2023 methocarbamoL (ROBAXIN) 750 mg tablet Take 1 [...] Take 1 Capsule by mouth daily. 09/18/2023 scopolamine (TRANSDERM-SCOP) 1 mg over [address] patch on your neck, under your ear, on the morning of the day prior to your surgery. 1 Patch 02/20/2023 03/05/2023 senna (SENOKOT) 8.6 mg tablet Take 2 Tablets by mouth 2 times daily. 03/05/2023 09/18/2023 documented as of this encounter Discharge Disposition Disposition Code Departure Means Destination Home or Self Care documented in this encounter Plan of Treatment Not on file documented as of this encounter Procedures Procedure Name Priority Date/Time Associated Diagnosis Comments US PELVIS TRANSVAGINAL COMPLETE Routine 02/27/2023 15:55 EDT Postmenopausal bleeding documented in this encounter Results * US PELVIS TRANSVAGINAL COMPLETE (02/27/2023 15:55 EDT) Anatomical Region Laterality Modality Pelvis Ultrasound 02/27/2023 15:3 9 EDT Impressions 03/01/2023 10:55 EDT 1. ?? Thickened endometrium for a postmenopausal woman measuring 13.4 mm, differential diagnosis includes endometrial hyperplasia and endometrial carcinoma. Appropriate clinical evaluation is recommended. 2. ?? Small simple appearing exophytic left ovarian cyst or paraovarian cyst measuring 0.7 x 1 x 0.7 cm. 3. Small uterine lesion which likely represents a small fibroid. Follow-up ultrasound examination is recommended to assure stability. THIS DOCUMENT HAS BEEN ELECTRONICALLY SIGNED BY SUSANA POSADA MD FOR ANY QUESTIONS OR CONCERNS REGARDING THIS REPORT PLEASE CALL [facility] AT [phone] Narrative 03/01/2023 10:55 EDT PROCEDURE INFORMATION: Exam: US Pelvis, Transvaginal Exam date and time: 02/27/2023 3:39 PM Age: 58 years old Clinical indication: Postmenopausal bleeding; Other: Pmb TECHNIQUE: Imaging protocol: Real-time transvaginal pelvic ultrasound with image documentation. Transvaginal imaging was used for better evaluation of the endometrium, adnexa, and/or cervix. COMPARISON: No relevant prior studies available. FINDINGS: Uterus: Uterus measures 8 cm x [...] flow is seen within the right ovary. ??The ovary is heterogeneous in echotexture. Left ovary/adnexa: Left ovary measures 2.3 cm x 1.5 cm x 2.1 cm. Left ovarian volume is 3.6 mL. There is a small simple appearing exophytic left ovarian cyst or paraovarian cyst measuring 0.7 x 1 x 0.7 cm. Vascular flow is seen within the left ovary. ??The ovary is heterogeneous in echotexture. Intraperitoneal space: No significant free pelvic fluid. Procedure Note Susana Posada MD - 03/01/2023 PROCEDURE INFORMATION: Exam: US Pelvis, Transvaginal Exam date and time: 02/27/2023 3:39 PM Age: 58 years old Clinical indication: Postmenopausal bleeding; Other: Pmb TECHNIQUE: Imaging protocol: Real-time transvaginal pelvic ultrasound with image documentation. Transvaginal imaging was used for better evaluation of the endometrium, adnexa, and/or cervix. COMPARISON: No relevant prior studies available. FINDINGS: Uterus: Uterus measures 8 cm x [...] Intraperitoneal space: No significant free pelvic fluid. IMPRESSION 1. Thickened endometrium for a postmenopausal woman measuring 13.4 mm, differential diagnosis includes endometrial hyperplasia and endometrial carcinoma. Appropriate clinical evaluation is recommended. 2. Small simple appearing exophytic left ovarian cyst or paraovarian cyst measuring 0.7 x 1 x 0.7 cm. 3. Small uterine lesion which likely represents a small fibroid. Follow-up ultrasound examination is recommended to assure stability. THIS DOCUMENT HAS BEEN ELECTRONICALLY SIGNED BY SUSANA POSADA MD FOR ANY QUESTIONS OR CONCERNS REGARDING THIS REPORT PLEASE CALL [facility] [phone] us Kat Norah IMG US OB ORDERABLES Final Resul t documented in this encounter Visit Diagnoses Diagnosis Postmenopausal bleeding documented in this encounter Care Teams Professor Of Surgery Relationship Specialty Start Date End Date Unknown, Provider, PCP - General 02/16/23 04/16/23 documented as of this encounter
--- OUTSIDE RECORDS SUMMARY | 2024-07-28 15:12 | XMS_ITS | Encounter Summary ---
Author Organization [facility] Address [address] [place] [address] Care Team Providers Care Softwood Faller Name Role Phone None, Provider Primary Care Provider Unavailabl e Reason for Referral * Referral (Routine/Next Available) - Receiving Office to Obtain Authorization Specialty Diagnoses / Procedures Referred By Contac t Referred To Contact General Surgery Diagnoses Special screening for malignant neoplasms, colon Procedures COLONOSCOPY Lety Gibson APRN [address] [place] [address] Phone: tel: fax: [facility] General Surgery [address] [place] [address] Phone: tel: fax: Referral ID Status Reason Start Date Expiration Date Visits Requested Visits Authorized [id number] Receiving Office to Obtain Authorization 2 1 1 Reason for Visit * Auth/Cert (Routine) Specialty Diagnoses / Procedures Referred By Contac t Referred To Contact Referral ID Status Reason Start Date Expiration Date Visits Re quested Visits Authorized [id number] 1 1 Encounter Details Date Type Department Care Team (Latest Contact Info) Description 12/02/2022 10:22 EDT - 12/02/2022 23:[address] [facility] Endoscopy [address] [place] [address] Lex Martínez MD [address] [place] [address] [address] [place] [address] Special screening for malignant neoplasms, colon Discharge Disposition: Home or Self Care Social History Tobacco Use Types Packs/Day Years Used Date Smoking Tobacco: Some Days Cigarettes Last attempted to quit: 04/05/2022 Smokeless Tobacco: Never Tobacco Cessation:Ready to Q uit: Not Asked; Counseling Given: Not Answered Alcohol Use Standard Drinks/Week Comments Yes 0 (1 standard drink = 0.6 oz pur e alcohol) occasionally mix drink Interpersonal Safety Answer Date Record ed Physically Hurt Never 04/08/2020 Verbally Threaten Not on file 04/08/2020 Comments Unknown Sex and Gender Information Value Date Recorded Sex Assigned at Not on file Legal Sex Female 18:44 EST Gender Identity Female 10/07/2021 16:01 EST Sexual Orientation Not on file documented as of this encounter Last Filed Vital Signs Vital Sign Reading Time Taken Comments Blood Pressure 103/70 12/02/2022 1201 EDT Pulse - - Temperature 36.6 ??C (97.8 ??F) 12/02/2022 1048 EDT Respiratory Rate 18 12/02/2022 1201 EDT Oxygen Saturation 94% 12/02/2022 1201 EDT Inhaled Oxygen Concentration - - Weight 75.7 kg (166 lb 12.8 oz) 12/02/2022 1048 EDT Height 154.9 cm (5' 1) 12/02/2022 1048 EDT Body Mass Index 31.52 12/02/2022 1048 EDT documented in this encounter Functional Status [...] Discharge acetaminophen (TYLENOL) 500 mg tablet Take 1 Tablet by mouth every 6 hours as needed for Pain. 03/05/2023 cholecalciferol, vitamin D3, (VITAMIN D3 ORAL) Take by mouth daily as needed. 01/09/2023 DULoxetine (CYMBALTA) 30 mg delayed release capsule Take 30 mg by mouth daily. 01/09/2023 estradioL (VIVELLE) 0.0375 mg/[address] 1 Patch onto the skin twice a week. Use one patch twice weekly. 09/18/2023 meloxicam (MOBIC) 15 mg tablet Take 1 Tablet by mouth daily. 03/05/2023 Multivitamins with Minerals tablet tablet Take 1 Tablet by mouth daily. 01/09/2023 progesterone (PROMETRIUM) 200 mg capsule Take 1 Capsule by mouth daily. 09/18/2023 documented as of this encounter Discharge Disposition Disposition Code Departure Means Destination Home or Self Skilled Nursing documented in this encounter H&P Notes * Lex Martínez MD - 12/02/2022 1100 EDT Endoscopy Sedation for Procedure History & Physical Date: 12/02/2022 Time: 11:02 Location: [facility] Endoscopy Planned Procedure: Colonoscopy Chief Complaint/Indications for Procedure: Special screening for malignant neoplasms, colon History Previous Complication with Sedation and/or Anesthesia? No Allergies: Allergies Allergen Reactions ??? Gluten celiac disease Current Medications: Current Outpatient Medications Medication ??? acetaminophen (TYLENOL) 500 mg tablet ??? cholecalciferol, vitamin D3, (VITAMIN D3 ORAL) ??? DULoxetine (CYMBALTA) 30 mg delayed release capsule ??? estradioL (VIVELLE) 0.0375 mg/24 hr patch ??? meloxicam (MOBIC) 15 mg tablet ??? Multivitamins with Minerals tablet tablet ??? progesterone (PROMETRIUM) 100 mg capsule Current Facility-Administered Medications Medication Route Frequency ??? sodium chloride 0.9 % (NS) infusion intravenous PRN Or ??? lactated ringers (LR) infusion intravenous PRN ??? lidocaine (PF) 10 mg/mL (1 %) injection 2 mg intradermal PRN ??? lidocaine (PF) 10 mg/mL (1 %) injection 2 mg intradermal PRN ??? ondansetron (PF) (ZOFRAN) injection 4 mg intravenous PRN ??? sodium chloride 0.9 % (flush) flush 3 mL intravenous PRN ??? sodium chloride 0.9 % (flush) flush 5 mL intravenous Q8H Past Medical History: History reviewed. No pertinent past medical history. Social History: Past Surgical History: Procedure Laterality Date ??? ECTOPIC SURGERY ??? LIVER BIOPSY Hep C ??? SHOULDER ARTHROSCOPY Right rotator cuff and bicept tenon repair Social History Tobacco Use ??? Smoking status: Some Days Types: Cigarettes Last attempt to quit: 04/05/2022 Years since quittin.6 ??? Smokeless tobacco: Never Substance Use Topics ??? Alcohol use: Yes Comment: occasionally mix drink Family History: Family History Problem Relation Age of Onset ??? Cancer Father Review of Systems as pertinent: Physical Exam Vital Signs: BP 105/68 Temp 36.6 ??C (97.8 ??F) (Oral) Resp 13 Ht 154.9 cm (61) Wt 75.7 kg(166 lb 12.8 oz) SpO2 97% BMI 31.52 kg/m?? Heart Examination: Cardiac Regularity: Regular Respiratory Examination: Respiratory Pattern: Regular Breath Sounds Right: Clear Breath Sounds Left: Clear Abdominal Examination: Soft, non-tender, bowel sounds normal, no masses, no organomegaly Additional physical exam related to the proposed procedure, patient activity, disease state and treatment as pertinent: Assessment Previous complications with sedation or anesthesia?: No Airway Concerns: None/NA Anesthesia Classification: ASA 2 Plan: Proceed with sedation for procedure Fasting Time: Date of Last Liquid: 12/02/22 Time of Last Liquid: 0745 Date of Last Solid: 12/01/22 Time of Last Solid: 1999 Patient Appropriate Candidate for Planned Sedation?: Yes Lex Martínez MD 12/02/2022 11:02 documented in this encounter Plan of Treatment Not on file documented as of this encounter Procedures Procedure Name Priority Date/Time Associated Diagnosis Comments ECG REPORT - SCANNED 12/05/2022 9:58 EDT SURGICAL PATHOLOGY Routine 12/02/2022 11 :14 EDT Special screening for malignant neoplasms, colon COLONOSCOPY Routine 12/02/2022 11:00 EDT Special screening for malignant neoplasms, colon documented in this encounter Results * ECG REPORT - SCANNED (12/05/2022 9:58 EDT) 12/05/2022 9:58 EDT us Scan 2 Quality Assurance Intern PROCEDURE/MINOR SURGICAL OR DERABLES Final Result * SURGICAL PATHOLOGY (12/02/2022 11:14 EDT) Note to Patient The following pathology results have been interpreted by your pathologist and may be available to you before your health provider has had the opportunity to review them. Please allow time for your provider to receive these results and explore management options, if applicable. 12/03/2022 10:58 [facility] Final Diagnosis A. TRANSVERSE COLON, BIOPSY: - Tubular adenoma fragments. 12/03/2022 10:58 [facility] Attestation By the signature below, the attending physician certifies that they have 1) personally conducted a gross and/or microscopic examination of the described specimen(s), and/or personally interpreted the results of laboratory testing of the described specimen(s), and 2) personally rendered or confirmed the above diagnosis. 12/03/2022 10:58 [facility] at 1058 Clinical History Special screening for malignant neoplasms, colon 12/03/2022 10:58 [facility] Gross Description A. Received in formalin labeled ? Gladis L. [place]? and ? transverse colon polyp? are 2 mucosal tissue fragments measuring 0.4 x 0.2 x 0.1 cm and 0.7 x 0.2 x 0.1 cm. Entirely submitted in A1. RYAN NORIEGA 12/02/2022 12:19 12/03/2022 10:58 [facility] Performing Lab [facility] 12/03/2022 10:58 [facility] Scanned Images 12/03/2022 10:58 [facility] Tissue POLYP OF COLON / Unknown 12/02/2022 11:14 EDT 12/02/2022 11:48 EDT us Lex Martínez MD PATHOLOGY ORDERABLES F inal Result [facility] [address] [place] [address] * COLONOSCOPY (12/02/2022 11:00 EDT) Anatomical Region Laterality Modality Endoscopy Narrative 12/02/2022 11:00 EDT [facility] ?? [address] [facility] [place], [place] [address] ?? Patient Name ?GLADIS MUSE Date of ?1965 Record Number ?[id number] Date/Time of Procedure ?12/02/2022, 11:00:00 AM Endoscopist ?Lex Martínez ?? Fisher Troll Line ? Referring Physician(s) ?? Laurie Ayala Anesthesiologist ? Procedure Performed: COLONOSCOPY - Polypectomy Indications for Exam: Screening Colonoscopy. Instruments: ? [facility]-[id number] ([id number]) Medications: ?I was in continuous face to [...] ?? Sedation End: 11:24:59 AM Signature: Lorena HanleyC.Fidel This note was electronically signed on 12/02/2022 11:28:47 AM By Lex DacostaA.C.Fidel us Lety Gibson APRN GI PROCEDURE ORDERABLES Maria Guadalupe huang Result documented in this encounter Visit Diagnoses Diagnosis Special screening for malignant neoplasms, colon documented in this encounter Administered Medications Inactive Administered Medications - up to 3 most recent administrations Medication Order MAR Action Action Date Dose Rate Site fentaNYL citrate (PF) injection intravenous, As needed, Starting on Thu12/02/22 at 1107, Until Thu12/02/22 at 1128, Routine, Intraprocedure Given 12/02/2022 11:11 EDT 25 mcg Given 12/02/2022 11:09 EDT 25 mcg Given 12/02/2022 11:07 EDT 50 mcg midazolam (VERSED) injection intravenous, As needed, Starting on Thu12/02/22 at 1106, Until Thu12/02/22 at 1128, Routine, Intraprocedure Given 12/02/2022 11:11 EDT 1 mg Given 12/02/2022 11:09 EDT 1 mg Given 12/02/2022 11:06 EDT 3 mg documented in this encounter Orders Medications Ordered That Erik ht Not Have Been Administered Count Last Ordered Date First Ordered Date lactated ringers (LR) infusion 1 12/02/2022 lidocaine (PF) 10 mg/mL (1 % ) injection 2 mg 2 12/02/2022 ondansetron (PF) (ZOFRAN) injection 4 mg 1 12/02/2022 sodium chloride 0.9 % (flush) flush 3 mL 1 12/02/2022 sodium chloride 0.9 % (flush) flush 5 mL 1 12/02/2022 sodium chloride 0.9 % (NS) infusion 1 12/02 Discharge Count Last Ordered Date First Orde red Date DISCHARGE PATIENT 1 12/02/2022 documented in this encounter Care Teams Softwood Faller Relationship Specialty Start Date End Date None, Provider PCP - General 12/02/22 01/08/23 documented as of this encounter
--- OUTSIDE RECORDS SUMMARY | 2024-07-28 15:12 | XMS_ITS | Encounter Summary ---
Author Organization [facility] Address [address] [place] [address] Care Team Providers Care Financial Analysis Advisor Name Role Phone [facility] Primary Care Provid er Reason for Visit * Reason Comments Pain Encounter Details Date Type Department Care Team (Late st Contact Info) Description 01/09/2023 11:15 EDT Office Visit [facility] Spine Program - [address] [place] [address] Arturo Garcia MD [address] [place] [address] [place] [address] Cervical radiculopathy (Primary Dx) Social [...] Sign Reading Time Taken Comments Blood Pressure - - Pulse - - Temperature - - Respiratory Rate - - Oxygen Saturation - - Inhaled Oxygen Concentration - - Weight 76.2 kg (168 lb) 01/09/2023 1102 EDT Height 154.9 cm (5' 1) 01/09/2023 1102 EDT Body Mass Index 31.74 01/09/2023 1102 EDT documented in this encounter Functional Status [...] documented in this encounter Progress Notes * Asha Lentz RN - 01/09/2023 1115 EDT Patient Education Topic: C6-7 ACDF Method: handout and verbal - cervical fusion folder, copies of surgical and opioid consents, antibacterial soap (2 sponges and 1 bottle), smoking cessation pamphlet Taught to: Family and Patient - significant other with pt Barriers: None Outcomes: verbalized understanding of all pre and post op information reviewed Pt was informed all appointments will be made by our lining mechanic and letter will be sent to their home with detailed information Advised to increase protein intake pre and post op for tissue and bone healing - examples provided Advised to increase water, fruits, vegetables, high fiber and whole grains to decrease constipationpost-op Medications reviewed and reconciled Medications to be reviewed at pre op phone call with pre op nurse Protocols reviewed: ??? Pre op pain protocol with Tylenol ??? Pre op showering protocol with antibacterial soap the night before and morning of surgery ??? Advised to wear clean sleep clothes and use clean sheets the night before surgery, as well as to wear freshly laundered clothes the DOS ??? NPO after midnight the day before surgery ??? MSSA and MRSA positive nasal swabs - Bactroban prescription to be sent in with instructions to use Bactroban in bilateral nares twice a day and chlorhexidine showers once a day starting 5 days prior to surgery. ? ? Discontinuation of all NSAIDS, vitamins & herbal supplements 7 days prior to surgery - EXCEPTION to this will be any supplements we recommend based on your pre op blood work ?? Dressing may be changed prn but is to remain on for 5 days. May shower with intact waterproof dressing but only sponge baths if tape and gauze. May be left open to air after 5 days, if no drainagepresent. ?? Nilsono will fall off on it's own in 3-4 weeks, if used. Remove at 4 weeks if still intact ?? Advised to apply ice to surgical area every 1-2 hours for 20 minutes to decrease the swelling ?? Instructed to stagger pain meds, example - Meds to be taken q 6 hrs should be taken 3 hours apart / Example: [id number] & [id number] Advised not to bring valuables for hospital stay Advised to wear comfortable clothing - nothing tight around surgical area - button up shirt recommended Instructed to stay active pre and post op. Post op be sure to get up at least every 30-45 minutes and walk short distances, increasing activity as tolerated All questions answered. Advised to call the office with any questions/concerns pre and post op Contact information provided Pre op history and physical - patient to call PCP and make pre op appointment for 14-30 days prior to DOS DOS - 03/05/23 Nasal swab to be done with blood work today Encouraged patient to stop smoking. Smoking cessation pamphlet provided. Risks of decreased healingand increased infection reviewed and encouraged him to seek assistance as needed with contacts provided. She is only smoking 1-3 / day and will quit before DOS. Signature:ASHA LENTZ RN 01/09/2023 12:37 * Arturo Garcia MD - 01/09/2023 1115 EDT Spine progress note VAS neck 3 VAS arm 1 NDI 21 The patient is a 57-year-old female with a history of cervical radiculopathy. I saw her in December for right neck, posterior shoulder pain that radiated to the posterior arm, radial forearm, and into the dorsum of the right hand. Minimal left-sided symptoms. Underwent a right-sided C6-7 transforaminal epidural steroid injection with good relief of arm pain. No improvement in neck pain. She is here today to discuss anterior cervical discectomy at C6-7 with her partner. Reports no significant change in symptoms since when we met a few weeks ago. Exam Unchanged from prior Imaging None new Assessment: Cervical spondylosis Cervical radiculopathy Plan: We had a long discussion regarding surgery for radiculopathy. Symptoms are most consistent with a C7 radiculopathy and had good but transient relief of arm symptoms with a transforaminal. She does have radiographic evidence of compression at other levels but no clear symptoms in a C6 distribution. Favor anterior cervical discectomy and fusion at C6-7 given her positive response and injection. We discussed risks, benefits, and alternatives including bleeding, infection, dysphagia, dysphonia, nonunion, complications from instrumentation, stroke, heart attack, blood clot, . Patient expressed understanding and signed informed consent. I will have her meet with my nurse to find an appropriate date for surgery. She is agreeable with this plan all questions were answered. Arturo Garcia MD 01/09/2023 13:36 documented in this encounter Plan of Treatment Not on file documented as of this encounter Visit Diagnoses Diagnosis Cervical radiculopathy- Primary Brachial neuritis or radiculitis nos documented in this encounter Discontinued Medications Medication Sig Discontinue Reason Start Date End Da te cholecalciferol, vitamin D3, (VITAMIN D3 ORAL) Take by mouth daily as needed. Patient Stopped Taking 01/09/2023 DULoxetine (CYMBALTA) 30 mg delayed release capsule Take 30 mg by mouth daily. Therapy completed 01/09/2023 Multivitamins with Minerals tablet tablet Take 1 Tablet by mouth daily. Patient Stopped Taking 01/09/2023 documented as of this encounter Historical Medications * This list may reflect changes made after this encounter. omeprazole (PRILOSEC) 20 mg capsule Take 1 Capsule by mouth as needed. 09/18/2023 added in this encounter Orders Case Request Count Last Ordered Date First Orde red Date CASE REQUEST OPERATING ROOM 1 01/09/2023 documented in this encounter Care Teams Financial Analysis Advisor Relationship Specialty Start Date End Date [address] [address] PCP - General 01/09/23 02/15/23 documented as of this encounter
--- OUTSIDE RECORDS SUMMARY | 2024-07-28 15:12 | XMS_ITS | Encounter Summary ---
Author Organization [facility] Address [address] [place] [address] Care Team Providers Care Rn Neonatal Icu Name Role Phone [facility] Care Provid er Reason for Visit * Reason Onset Date Comments Pre-op Exam 02/13/2023 Encounter Details Date Type Department Care Team (Late st Contact Info) Description 02/13/[address] [facility] Spine Program - [address] [place] [address] Arturo Garcia MD [address] [place] [address] [place] [address] Pre-op Exam Social History Tobacco Use Types Packs/Day Years Used Date Smoking Tobacco: Some Days Cigarettes Last attempted to quit: 04/05/2022 Smokeless Tobacco: Never Alcohol Use Standard Drinks/Week Comments Yes 0 [...] Miscellaneous Notes * Telephone Encounter - Asha Lentz, RN - 02/13/2023 1439 EDT I spoke with PCP's office letting them know the patient has a pre op packet and all her labs have been completed. ASHA LENTZ RN 02/13/2023 14:41 * Telephone Encounter - Otis Travis - 02/13/2023 1335 EDT Reason for Call: Pre-op Exam Summary: Keiko requesting the pre-op paperwork so they can prep. Would like this faxed to [phone] attn: Keiko. Appointment Offered? No Otis Travis 02/13/2023 13:40 documented in this encounter Plan of Treatment Not on file documented as of this encounter Visit Diagnoses Not on filedocumented in this encounter Care Teams Rn Neonatal Icu Relationship Specialty Start Date End Date [address] [address] PCP - General 01/09/23 02/15/23 documented as of this encounter
--- OUTSIDE RECORDS SUMMARY | 2024-07-28 15:12 | XMS_ITS | Encounter Summary ---
Author Organization [facility] Address [address] [place] [address] Care Team Providers Care Process Control Specialist Name Role Phone None, Provider Primary Care Provider Unavailabl e Reason for Visit * Reason Onset Date Comments Biopsy Results 12/04/2022 Encounter Details Date Type Department Care Team (Late st Contact Info) Description 12/04/2022 Telephone [facility] General Surgery [address] [place] [address] Lex Martínez MD [address] [facility] [address] [place] [address] Biopsy Results Social History Tobacco Use Types Packs/Day Years [...] encounter Miscellaneous Notes * Telephone Encounter - Lex Martínez MD - 12/04/2022 0809 EDT Pt had an adenomatous polyp , therefore needs a colonosocpy in 5 years. Final Diagnosis A. TRANSVERSE COLON, BIOPSY: - Tubular adenoma fragments. documented in this encounter Plan of Treatment Not on file documented as of this encounter Visit Diagnoses Not on filedocumented in this encounter Care Teams Process Control Specialist Relationship Specialty Start Date End Date None, Provider PCP - General 12/02/22 01/08/23 documented as of this encounter
--- OUTSIDE RECORDS SUMMARY | 2024-07-28 15:12 | XMS_ITS | Encounter Summary ---
Author Organization [facility] Address [address] [place] [address] Care Team Providers Care Border Patrol Officer Name Role Phone None, Provider Primary Care Provider [facility] Primary Care Provid er Unknown, Provider Primary Care Provider [facility]- Primary Care Provider [phone] None, Provider Primary Care Provider Shruthi Hill MD Primary Care Provider [phone] Encounter Details Date Type Department Care Team (Late st Contact Info) Description 12/12/2022 Lab Requisition [facility] Pathology & Laboratory Medicine - [address] [address] Shruthi Bailey MD [address] [place] [address] Encounter for general adult medical examination without abnormal findings; Encounter for screening for malignant neoplasm of cervix Social History Tobacco Use Types Packs/Day Years [...] Procedure Name Priority Date/Time Associated Diagnosis Comments PAP TEST Today 12/12/2022 10:00 EDT Encounter for general adult medical examination without abnormal findings Encounter for screening for malignant neoplasm of cervix CHLAMYDIA/N. GONORRHOEAE AMPLIFIED NUCLEIC ACID, THINPREP Today 12/12/2022 10:00 EDT HPV DNA DETECTION WITH GENOTYPING, PCR Today 12/12/2022 10:00 EDT Encounter for general adult medical examination without abnormal findings Encounter for screening for malignant neoplasm of cervix documented in this encounter Results * HUMAN PAPILLOMAVIRUS (HPV) DETECTION-HIGH RISK TYPES (12/12/2022 10:00 EDT) HPV other High Risk types, PCR Negative Negative 12/26/2022 17:02 EDT [facility] Comment:No E6 or E7 mRNA is detected from HPV types 16,18,31,33,35,39,45,51,52,56,58,59,66, and 68 by fresh foods cake decorator mediated amplification. Papanicolaou smear specimen (specimen) CERVIX UTERI STRUCTURE / Unknown 12/12/2022 10:00 EDT 12/24/2022 12:38 EDT us Shruthi Bailey MD MICROBIOLOGY - GENERAL ORDERA BLES Final Result [facility] [address] [place] [address] * PAP TEST (12/12/2022 10:00 EDT) Specimens A. Cervix and/or Endocervix , ThinPrep Imaging System with Manual Evaluation 12/26/2022 17:02 EDT [facility] Specimen Adequacy Satisfactory for Evaluation - transformation zone component present 12/26/2022 17:02 EDT [facility] General Categorization Negative for intraepithelial lesion or malignancy 12/26/2022 17:02 EDT [facility] Attestation . 12/26/2022 17:02 T [facility] at 1702 Clinical History See below 12/27/19 17:02 EDT [facility] HPV The result for the Human Papillomavirus (HPV) Detection-High Risk Types is Negative. No E6 or E7 mRNA is detected from HPV types 16,18,31,33,35,39 ,45,51,52,56,58,5 9,66, and 68 by fresh foods cake decorator mediated amplification.Marybeth ting was performed on specimen [id number] and was resulted on 12/26/2022 1702 EDT by MIHAELA, LAB INSTRUMENT RESULTS IN 12/26/2022 17:02 EDT [facility] Performing Lab [facility] 12/26/2022 17:02 T [facility] Scanned Images 12/26/2022 17:02 T [facility] Papanicolaou smear specimen (specimen) CERVIX UTERI STRUCTURE / Unknown 12/12/2022 10:00 EDT 12/16/2022 9:05 EDT us Shruthi Bailey MD PATHOLOGY ORDERABLES Final Re sult [facility] [address] [place] [address] * CHLAMYDIA/N. GONORRHOEAE AMPLIFIED RNA, THINPREP (12/12/2022 10:00 EDT) Neisseria gonorrhoeae Result Negative Negative 12/15/2022 17:09 EDT [facility] Chlamydia trachomatis Result Negative Negative 12/15/2022 17:09 EDT [facility] Papanicolaou smear specimen (specimen) CERVIX UTERI STRUCTURE / Unknown 12/12/2022 10:00 EDT 12/15/2022 8:24 EDT Shruthi Bailey MD MICROBIOLOGY - GENERAL ORDERA BLES Final Result [facility] [address] [place] [address] documented in this encounter Visit Diagnoses Diagnosis Encounter for general adult medical examination without abnormal findings Unspecified general medical examination Encounter for screening for malignant neoplasm of cervix Screening for malignant neoplasm of the cervix documented in this encounter Care Teams Border Patrol Officer Relationship Specialty Start Date End Date None, Provider PCP - General 12/02/22 01/08/[address] [id number] PCP - General 01/09/23 02/15/23 Unknown, ProviderMD [address] [place] [address] PCP - General 02/16/23 04/16/23 [facility] [address] [place] [address] PCP - General 04/17/23 09/29/23 None, Provider PCP - General 09/30/23 01/27/24 Shruthi Bailey MD [address], [place] [address] PCP - General Family Medicine - Primary Care 01/28/24 documented as of this encounter
--- OUTSIDE RECORDS SUMMARY | 2024-07-28 15:12 | XMS_ITS | Encounter Summary ---
Author Organization [facility] Address [address] [place] [address] Care Team Providers Care Varnish Remover Name Role Phone None, Provider Primary Care Provider Unavailabl e Encounter Details Date Type Department Care Team (Latest Contact Info) Description 12/29/2022 7:45 EDT - 12/29/2022 23:59 EDT Hospital Encounter [address] [facility] [address] [place], [place] [id number] Neck pain Discharge Disposition: Home or Self [...] Date/Time Associated Diagnosis Comments XR CERVICAL SPINE 4-5 VIEWS Routine 12/29/2022 8:00 EDT Neck pain documented in this encounter Results * XR CERVICAL SPINE 4-5 VIEWS (12/29/2022 8:00 EDT) Anatomical Region Laterality Modality Left Computed Radiogr aphy 12/30/2022 13:0 1 EDT Impressions 12/30/2022 13:01 EDT Minimal motion at C6-7 between flexion and extension Narrative 12/30/2022 13:01 EDT 12/29/2022 7:45 AM Clinical History/Comments: neck pain. Technique: XR CERVICAL SPINE 4-5 VIEWS including AP, lateral, flexion and extension views of the cervical spine. Comparison: Cervical spine MRI 07/13/2022 Findings: Cervical lordosis is reversed. Minimal retrolisthesis of C6 on C7 with extension is reduced in flexion. Otherwise listhesis is unchanged. Vertebral body height is maintained. No suspicious lytic or sclerotic lesion. There are multilevel degenerative disc changes including loss of disc height and associated endplate remodeling, most pronounced at ??C5-6. There are multilevel degenerative facet changes. Procedure Note Jeromy Doyle MD - 12/30/2022 12/29/2022 7:45 AM Clinical History/Comments: neck pain. Technique: XR CERVICAL SPINE 4-5 VIEWS including AP, lateral, flexion and extensionviews of the cervical spine. Comparison: Cervical spine MRI 07/13/2022 Findings: Cervical lordosis is reversed. Minimal retrolisthesis of C6 on C7 withextension is reduced in flexion. Otherwise listhesis is unchanged. Vertebral body height is maintained. No suspicious lytic or scleroticlesion. There are multilevel degenerative disc changes including loss of discheight and associated endplate remodeling, most pronounced at C5-6. Thereare multilevel degenerative facet changes. IMPRESSION Minimal motion at C6-7 between flexion and extension us Arturo Garcia MD IMG DIAGNOSTIC IMAGING ORDERABLE S Final Result documented in this encounter Visit Diagnoses Diagnosis Neck pain Cervicalgia documented in this encounter Care Teams Varnish Remover Relationship Specialty Start Date End Date None, Provider PCP - General 12/02/22 01/08/23 documented as of this encounter
--- OUTSIDE RECORDS SUMMARY | 2024-07-28 15:12 | XMS_ITS | Encounter Summary ---
Author Organization [facility] Address [address] [place] [address] Care Team Providers Care Switch Operators Supervisor Name Role Phone Lety Gibson APRN Primary Care Provider [phone] Reason for Visit * Reason Comments Neck Pain Right side * Consult, Test and Treat (See Order Priority) - Order Cancelled Specialty Diagnoses / Procedures Referred By Eric acuna Referred To Contact Pain Medicine Diagnoses Pain of right upper extremity Neck pain Isabella Galarza PA-C Phone: tel: fax: [facility] Inter[facility] Pain [address] [place] [address] Phone: tel: fax: Referral ID Status Reason Start Date Expiration Date Visits Requested Visits Authorized [id number] Order Cancelled Specialty Services Required 07/10/2022 1 1 Encounter Details Date Type Department Care Team (Latest Contact Info) Description 09/24/2022 10:[address] [facility] Interventional Pain [address] [place] [address] Alka Peñaloza MD [address] [place] [address] [address] [place] [address] Cervical radiculopathy (Primary Dx) Social History Tobacco Use Types Packs/Day Years Used Date Smoking Tobacco: Former Cigarettes Q uit: 04/05/2022 Smokeless Tobacco: Never Alcohol Use Standard Drinks/Week Comments Yes 0 (1 standard drink = 0.6 oz pur e alcohol) occasionally Interpersonal Safety Answer Date Record ed Physically [...] Sign Reading Time Taken Comments Blood Pressure 110/72 09/24/2022 1114 EST Pulse 56 09/24/2022 1114 EST Temperature 35.4 ??C (95.8 ??F) 09/24/2022 1005 EST Respiratory Rate 16 09/24/2022 1114 EST Oxygen Saturation 100% 09/24/2022 1005 EST Inhaled Oxygen Concentration - - Weight - - Height - - Body Mass Index - - documented in this encounter Functional Status * [...] 06/06/2022 8:58 EDT documented in this encounter Patient Instructions * Patient Instructions* Marcelina Koenig RN - 09/24/2022 10:45 EST [facility] [address] [address] Patient Instructions You have had your left cervical Transforaminal Epidural Steroid Injection. The purpose of this procedure has been to place medication which may help relieve your pain. Steroid may be used to decreasethe swelling and nerve irritation which may be causing your pain. The following information should help you over the next few days regarding what you may expect. Please take it easy for the rest of today. DO NOT drive a car for the remainder of the day. If you feel sore where the needle(s) entered for the block or develop a flare-up of pain over the next few days, please use ice on the area. You may leave the ice on for up to 20 minutes at a time. Do not use heat, as this may cause swelling. As long as your primary doctor has indicated no restrictions, you may take a mild pain medicine, such as acetaminophen (Tylenol), ibuprofen (Advil, Nuprin, Motrin IB, etc.) or aspirin, if needed. The steroid injection usually takes a few days to become effective. On average, you may notice somerelief in 3 -5 days. However, it may take up to 10 - 14 days to know whether the injection was helpful. If the block causes numbness/weakness, it should wear off within a few hours. If the area that the needle(s) were inserted becomes hot, red, swollen, or increasingly tender, or if you develop a fever (100.5 or greater) or chills along with these symptoms, please call our office immediately. If you develop increasingly severe neck pain, continued numbness or weakness of the arms or changesin your bladder or bowel functions, please call our office immediately. Instructions for follow-up If you have any questions about your block, please call Patient Education Topic: Method: Handout and Verbal Taught to: Patient Barriers: None Outcomes: independent and verbalized understanding YESENIA Hewitt documented in this encounter Progress Notes * Samina Olson MA - 09/24/2022 1045 EST [facility] Rooming Note Does patient have a Biofuels Production Manager? yes Is patient NPO? (Solids since midnight & liquids for 4 hrs) yes Blood Thinners: Is patient on Blood Thinners? yes If yes, taking? no If stopped, who authorized stopping? Related comments: Infections: Any recent infections, fever of illnesses? no If on antibiotics, is it 7-10 days past the date of completion of antibiotics? no : (for females of child-bearing age) Is there a chance current ? Do you have any type of implanted device? no Vaccination: Have you had or are you planning to have a vaccination in the 2 weeks? no Other: * Tom Roblero DO - 09/24/2022 1045 EST Patient Name: Gladis Chester : 1965 Date of Service: 09/24/22 Chief Complaint: Chief Complaint Patient presents with ??? Neck Pain Right side Wool Washing Machine Operator: Dr. Peñaloza Junior Recruiter: TOM ROBLERO DO Procedure: Cervical transforaminal epidural steroid injection at C6-7 on the Right Interval History: Patient presents today regarding their chronic neck pain Please refer to Michell note on 07/10/22 for full details regarding the patient's pain complaint.Patient currently denies any progressive weakness, unexplained fever, trauma or unexplained weight loss. The patient reports no recent changes in the character, quality, or distribution of the pain. There are no recent onset of new associated symptoms such as changes in strength, sensation, or bladder control. All previous medical records including current medications, anticoagulation status, anysigns of current infection, and new imaging were reviewed. Injection History: 09/24/2022: C6-7 TFESI on the right Physical Exam: Vitals: BP 120/62 (BP Cuff Location: Left arm, BP Patient Position: Sitting, BP Cuff Sizes: Adult, regular) Pulse 62 Temp (!) 35.4 ??C (95.8 ??F) (Tympanic) Resp 16 SpO2 100% General: Patient is alert and oriented, no acute distress. Lungs: symmetric chest rise, no evidence of labored breathing Skin: clear, warm, dry and intact and no rashes, bruises or petechiae noted Exam otherwise unchanged from prior CN: GIS Assessment: 1. Cervical radiculopathy Plan: Ms. Gladis Chester is a 57 y.o. female that presents to the pain clinic to undergo cervical transforaminal epidural steroid injection. All risks, benefits, and alternatives were thoroughly explainedto Ms. Gladis Chester who verbally communicated understanding of the management plan. Follow up: We will contact the patient within 24 hours to obtain diagnostic results from today's injection. They will then follow up with [facility]. We are available for additional injections as needed. PROCEDURE: The patient gave informed written consent to proceed with this procedure following a detailed discussion of the risks and benefits associated with transforaminal epidural steroid injection in the cervical spine. The patient was then placed in the supine position, the skin over the neck was prepped broadly with chlorhexadine, and the site was draped with sterile towels. Strict sterile technique was maintained throughout the procedure. A time out was performed with full staff present to identify the patient, verify the procedure being performed, and review allergies. Fluoroscopy was used to visualize the right C6-C7 neuroforamen. Craniocaudal and oblique angulations were required to align the foramen and superimpose the borders of the posterior pillars. The skin and subcutaneous tissue over this level was anesthetized by injection of 1% lidocaine. A 25g short beveled needle was inserted under fluoroscopic guidance using coaxial technique. The needle was slowly advanced by anterolateral approach until the superior articulating process in the distal-posterioraspect of foramen was contacted. The needle was then redirected and advanced medially slowly advanced into the distal foramen. No parasthesias occurred during needle insertion and aspiration was negative. Additional fluoroscopic images in the AP and lateral views were taken to confirm final needle tip position in the distal foramen. Contrast dye was injected under live fluoroscopy with digital subtraction which revealed good spread along the Rt C7 nerve root with no evidence of intravascular orintrathecal injection. After negative aspiration, 5mg of dexamethasone and 0.75 ml 2% lidocaine was injected. The needle was then flushed and withdrawn. The patient tolerated the procedure well, there were no apparent complications, and she was discharged in stable condition. Written and verbal discharge instructions were reviewed with the patient prior to discharge. Cranial nerve exam unchanged from prior TOM ROBLERO DO 09/24/2022 10:51 Attending attestation: I have seen and evaluated the patient with the resident/fellow. I agree withthe findings and plan of care documented in the resident's/fellow's note. In addition, I was present and participating during the entire procedure. ALKA PEÑALOZA MD * Marcelina Koenig RN - 09/24/2022 1046 EST ATTENTION: An active Time-Out initiated by the Provider requires that all members of the proceduralsupport team are present and must stop activity until the Time-Out is completed. The Nurse will have in their possession the signed consent to compare to the verbal verification ofthe items below: [Verified] Patient identifier #1: Full Name [Verified] Patient Identifier #2: Date of [Verified] No allergy to sterile prep products, steroids, local anesthetics, band-aids, or contrastdye [Verified] Full team and patient verification of location of pain and procedure to be performed [Verified] Site marked (Region and/or Laterality) [Verified] Presence of Implantable Devices [Verified] Safety devices are in place (Grounding pad, X-rays available, and/or Magnet) [Verified] Consent signed and matches planned procedure and site marking [Verified] Active verbal communication by the entire procedural team was completed. documented in this encounter Plan of Treatment Not on file documented as of this encounter Visit Diagnoses Diagnosis Cervical radiculopathy- Primary Brachial neuritis or radiculitis nos documented in this encounter Administered Medications Inactive Administered Medications - up to 3 most recent administrations Medication Order MAR Action Action Date Dose Rate Site dexAMETHasone (DECADRON) injection 5 mg 5 mg, neural-axial, NOW X1, 1 dose, On Thu09/24/22 at 1130, Routine Given by Other 09/24/2022 11:10 EST 5 mg Iohexol (OMNIPAQUE 180) injection 2 mL 2 mL, neural-axial, NOW X1, 1 dose, On Thu09/24/22 at 1130, Routine Given by Other 09/24/2022 11:10 EST 2 mL documented in this encounter Care Teams Switch Operators Supervisor Relationship Specialty Start Date End Date Lety Gibson APRN [address] [place] [phone] PCP - General Family Medicine - Primary Care 07/03/22 12/01/22 documented as of this encounter
--- OUTSIDE RECORDS SUMMARY | 2024-07-28 15:12 | XMS_ITS | Encounter Summary ---
Author Organization [facility] Address [address] [place] [address] Care Team Providers Care Client Services Coordinator Name Role Phone Unknown, Provider Primary Care Provider Unava ilable Encounter Details Date Type Department Care Team (Latest Contact Info) Description 02/25/2023 8:30 EDT - 02/25/2023 23:59 EDT Hospital Encounter [facility] Pre-Surgical Testing [address] [place] [address] Discharge Disposition: Home or Self Care Social [...] - Inhaled Oxygen Concentration - - Weight 77.1 kg (170 lb) 02/25/2023 1258 EDT Height 154.9 cm (5' 1) 02/25/2023 1258 EDT Body Mass Index 32.12 02/25/2023 1258 EDT documented in this encounter Functional Status [...] or Self Care documented in this encounter Miscellaneous Notes * PAT Brad - Cheyenne Roland NP - 02/25/2023 0830 EDT Images from the original note were not included. Anesthesia Review Needed Date Review Started: 02/25/2023 [place] ([facility]): Main DOS: 03/04/2023 Surgeon: Radha Procedure: C6-7 anterior cervical discectomy and fusion Notable Health History (Including but not limited to): Acid reflux, cervical radiculopathy, lyme disease, PONV Situation: Per H&P Patient has been told in the past that she will need a sleep study prior tohaving further anesthesia. I will leave this desision up to anesthesia. Otherwise, patient has beenmedically cleared to proceed with her surgery. No sleep study has been done. Is patient ok to proceed? RHONDA HO LPN 02/25/2023 13:26 03/02/2023, 0713: In addition to the above, The following is copied from recent PCP pre-op: Anes review task placed- Okay to proceed or postpone this elective surgery? I was unable to find what the post-operative pain management plan was, unclear if she will be going home with opioid RX. Cheyenne Roland, GLORY, RIG MECHANIC, UNIT EDUCATOR-C documented in this encounter Plan of Treatment Not on file documented as of this encounter Visit Diagnoses Not on filedocumented in this encounter Care Teams Client Services Coordinator Relationship Specialty Start Date End Date Unknown, Provider, PCP - General 02/16/23 04/16/23 documented as of this encounter
--- OUTSIDE RECORDS SUMMARY | 2024-07-28 15:12 | XMS_ITS | Encounter Summary ---
Author Organization [facility] Address [address] [place] [address] Care Team Providers Care Lace Cutter Name Role Phone Unknown, Provider MD Primary Care Provider Unava ilable Reason for Visit * Reason Onset Date Comments Appointment Related 02/16/2023 Encounter Details Date Type Department Care Team (Late st Contact Info) Description 02/16/2023 Telephone [facility] - [address] [address] Physical, Therapy Appointment Related Social History Tobacco Use Types Packs/Day Years [...] encounter Miscellaneous Notes * Telephone Encounter - Sophie Kerr - 02/16/2023 1101 EDT [facility] - [address] [address] Telephone Intake Information for Scheduling NEW Patients for Therapy Additional Scheduling Questions? No [place] - any age REFERRAL REQUIRED. Have you been seen for therapy since September of this year? No, Medicaid will cover 30 totaltherapy visits (PT, OT, and PROMOTIONS INTERN combined) between September and September 06 of this year. Secondary Insurance: None Notes: Sophie Kerr 02/16/2023 documented in this encounter Plan of Treatment Not on file documented as of this encounter Visit Diagnoses Not on filedocumented in this encounter Care Teams Lace Cutter Relationship Specialty Start Date End Date Unknown, Provider, PCP - General 02/16/23 04/16/23 documented as of this encounter
--- OUTSIDE RECORDS SUMMARY | 2024-07-28 15:12 | XMS_ITS | Encounter Summary ---
Author Organization [facility] Address [address] [place] [address] Care Team Providers Care Manager Hotel Name Role Phone PaigeLety mccarthy Mumtaz BHATIA Primary Care Provider Encounter Details Date Type Department Care Team (Latest Contact Info) Description 09/24/2022 9:56 EST - 09/24/2022 23:59 EST Hospital Encounter [facility] [address] [place] [address] Discharge Disposition: Home or Self Care Social [...] Procedure Name Priority Date/Time Associated Diagnosis Comments PAIN [facility]INIC [place] CERVICAL INJECTION Routine 09/24/2022 11:21 EST documented in this encounter Results * PAIN CLINIC [place] CERVICAL INJECTION (09/24/2022 11:21 EST) Narrative 09/24/2022 11:21 EST This is a non-reportable exam. Omega Peñaloza MD IMG OTHER IMAGING ORDERABLES Fin al Result documented in this encounter Visit Diagnoses Not on filedocumented in this encounter Care Teams Manager Hotel Relationship Specialty Start Date End Date Lety Gibson APRN [address] [place] [id number] PCP - General Family Medicine - Primary Care 07/03/22 12/01/22 documented as of this encounter
--- OUTSIDE RECORDS SUMMARY | 2024-07-28 15:12 | XMS_ITS | Encounter Summary ---
Author Organization [facility] Address [address] [place] [address] Care Team Providers Care Display Specialist Name Role Phone None, Provider Primary Care Provider Unavailabl e Reason for Visit * Reason Comments Pain * Referral (Routine) - Authorization Not Required Specialty Diagnoses / Procedures Referred By Contac t Referred To Contact Diagnoses Radiculopathy, cervical region Shruthi Bailey MD [address] [place] [id number] Phone: tel: fax: [facility] Spine Program [place] [address] Phone: tel: fax: Referral ID Status Reason Start Date Expiration Date Visits Requested Visits Authorized [id number] Authorization Not Required 1 1 Encounter Details Date Type Department Care Team (Late st Contact Info) Description 12/29/2022 8:00 EDT Office Visit [facility] Spine Program [place] [address] Arturo Garcia MD [address] [place] [address] [place] [address] Cervical radiculopathy (Primary Dx) Social [...] Progress Notes * Arturo Garcia MD - 12/29/2022 0800 EDT Spine progress note VAS neck 5 VAS arm 1 NDI 20 The patient is a 57-year-old female with occasional tobacco use and cervical spondylosis and radiculopathy who presents for evaluation of neck and right arm pain. She has been managed nonoperatively by my colleague physician assistant clinical director Bahman Galarza for chronic periscapular pain which has been present for 4+ years. This localizes to the upper thoracic region and is activity related. Better with massage and rest. She also reports an injury in October 2021 where she took a large amount of forceas an axial load through her neck when her dog pushed on her head. This has caused ongoing neck pain which localizes to the posterior neck and cervical thoracic junction with radiation to the right and left paraspinal regions. This pain is worse with rotation and activity. She also has developed radiating pain into the right posterior shoulder, posterior arm, lateral elbow, radial forearm and dorsum of the right hand. She has no left- sided symptoms. She also underwent a right rotator cuff repair and biceps tenodesis she thinks in 2020. She does not recall her surgeon. This operation improved her shoulder range of motion. In terms of her neck and arm pain she has tried nonsteroidal anti-inflammatories, Tylenol, activity modification, and a right C6-7 transforaminal epidural steroid injection in September which improved her right arm pain to some degree. This did not improve her neck pain. Denies any balance or bowel or bladder issues. Exam The patient is in no acute distress. She has supple range of motion of the neck. Mildly positive Spurling's on the right. Tenderness to palpation over the base of the neck as well as right and left facet joints. She has 4 out of 5 triceps strength on the right otherwise 5 out of 5 in bilateral upper extremity major motor groups. Sensation is intact in C5-T1. 1+ biceps reflexes, Jesse's negative. Imaging Cervical radiographs demonstrate multilevel degenerative changes including intervertebral disc degeneration and uncovertebral spondylosis. Neutral alignment. Subtle anterolisthesis at C3-4 and C4-5 on flexion views. Cervical spine MRI demonstrates multilevel degenerative changes. Broad-based disc bulges and disc osteophyte complexes at C5-6, C6-7, and C7-T1 causing mild central stenosis. Multilevel severe foraminal stenosis. Assessment: Cervical spondylosis Cervical radiculopathy Plan: Patient has multiple complaints including upper thoracic neck pain, posterior cervical pain, as well as radiating shoulder and arm pain on the right. We discussed that she has had somewhat of a positive response to her transforaminal injection and I think at this point surgery is reasonable. I would only target the C7 nerve root with single level anterior cervical discectomy and fusion at C6-7. There are other areas of stenosis on the MRI but symptoms are classic for C7 distribution. We discussed risk, benefits, and alternatives. She is going to make a follow-up appointment to discuss surgeryfurther and have her partner accompany her on the visit. Arturo Garcia MD 12/29/2022 9:07 documented in this encounter Plan of Treatment Not on file documented as of this encounter Visit Diagnoses Diagnosis Cervical radiculopathy- Primary Brachial neuritis or radiculitis nos documented in this encounter Care Teams Display Specialist Relationship Specialty Start Date End Date None, Provider PCP - General 12/02/22 01/08/23 documented as of this encounter
--- OUTSIDE RECORDS SUMMARY | 2024-07-28 15:12 | XMS_ITS | Encounter Summary ---
Author Organization [facility] Address [address] [place] [address] Care Team Providers Care Cafeteria Manager Name Role Phone [facility] Primary Care Provid er Reason for Visit * Reason Onset Date Comments Pre-visit Planning 01/15/2023 Coordination Of Care 01/15/2023 Encounter Details Date Type Department Care Team (Late st Contact Info) Description 01/15/2023 Telephone [facility] Spine Program - [address] [place], [place] [id number] Asha Lentz, RN [address] [place] [address] Pre-visit Planning; Coordination Of Care Social History Tobacco Use Types Packs/Day [...] Telephone Encounter - Asha Lentz RN - 01/15/2023 9747 EDT I spoke with Gladis and she is very willing to move her DOS to 03/04. ASHA LENTZ RN 01/16/2023 11:36 I attempted to reach Gladis to ask if she is able to switch her DOS from 03/05/23 to 03/04/23 - hermailbox if full and not accepting messages. I spoke with Jung, her partner, asking her to relay thismessage and call back, stating she may leave a message with her answer. ASHA LENTZ RN 01/15/2023 15:42 documented in this encounter Plan of Treatment Not on file documented as of this encounter Visit Diagnoses Not on filedocumented in this encounter Care Teams Cafeteria Manager Relationship Specialty Start Date End Date [address] [address] PCP - General 01/09/23 02/15/23 documented as of this encounter
--- OUTSIDE RECORDS SUMMARY | 2024-07-28 15:12 | XMS_ITS | Encounter Summary ---
Author Organization [facility] Address [address] [place] [address] Care Team Providers Care Perinatal Specialist Name Role Phone [facility] Primary Care Provid er Reason for Visit * Reason Onset Date Comments Pre-visit Planning 01/09/2023 Encounter Details Date Type Department Care Team (Late st Contact Info) Description 01/09/2023 Orders Only [facility] Spine Program - [address] [place], [place] [id number] Asha Metz, RN [address] [place] [address] Cervical radiculopathy (Primary Dx); Encounter for vitamin deficiency screening; Encounter for pre-operative laboratory testing Social History Tobacco Use Types Packs/Day Years [...] documented as of this encounter Results * MRSA PCR (01/09/2023 14:24 EDT) MRSA/Staph aureus Result No Staphylococcus aureus detected by PCR 01/09/2023 20:36 EDT [facility] Swab ENTIRE NARIS / Unknown Swab / Unknown 01/09/2023 14:24 EDT 01/09/2023 14:25 EDT us Arturo Garcia MD MICROBIOLOGY - GENERAL ORDERABLE S Final Result [facility] [address] [place] [address] * (ABNORMAL) COMPLETE BLOOD COUNT (01/09/2023 14:24 EDT) WBC 11.10 4.00 - 12.40 K/cmm 01/09/2023 15:32 [facility] RBC 4.86 3.86 - 5.04 M/cmm 01/09/2023 15:32 [facility] Hemoglobin 14.8 11.6 - 15.2 gm/dL 01/09/2023 15:32 [facility] HCT 44.7(H) 34.9 - 44.4 % 01/09/2023 15:32 [facility] MCV 92 81 - 98 fl 01/09/2023 15:32 [facility] MCH 30.5 26.7 - 33.3 pg 01/09/2023 15:32 [facility] MCHC 33.1 32.1 - 35.9 gm/dL 01/09/2023 15:32 [facility] RDW-CV 13.3 <14.7 % 01/09/2023 15:32 [facility] RDW-SD 45.5 <50.4 fl 01/09/2023 15:32 EDT [facility] PLT 352 141 - 377 K/cmm 01/09/2023 15:32 EDT [facility] MPV 10.3 9.5 - 12.7 fl 01/09/2023 15:32 EDT [facility] Blood VENOUS BLOOD / Unknown Venipuncture / Unknown 01/09/2023 14:24 EDT 01/09/2023 14:25 EDT us Arturo Garcia MD HEMATOLOGY & PF4 ORDERABLES Maria Guadalupe l Result [facility] [address] [place] [address] * VITAMIN B12 (01/09/2023 14:24 EDT) Vitamin B12 415 211 - 911 pg/mL 01/09/2023 16:47 EDT [facility] Blood VENOUS BLOOD / Unknown Venipuncture / Unknown 01/09/2023 14:24 EDT 01/09/2023 14:25 EDT us Arturo Garcia MD CHEMISTRY & BLOOD GAS ORDERABLES Final Result Performing Organization Address City/[facility]/ZIP Co de Phone Number [facility] [address] [place] [address] * PHOSPHORUS (01/09/2023 14:24 EDT) Phosphorus 3.6 2.5 - 4.5 mg/dL 01/09/2023 15:54 EDT [facility] Blood VENOUS BLOOD / Unknown Venipuncture / Unknown 01/09/2023 14:24 EDT 01/09/2023 14:25 EDT us Arturo Garcia MD CHEMISTRY & BLOOD GAS ORDERABLES Final Result [facility] [address] [place] [address] * MAGNESIUM (01/09/2023 14:24 EDT) Magnesium 2.0 1.7 - 2.8 mg/dL 01/09/2023 15:54 EDT [facility] Blood VENOUS BLOOD / Unknown Venipuncture / Unknown 01/09/2023 14:24 EDT 01/09/2023 14:25 EDT Arturo Garcia MD CHEMISTRY & BLOOD GAS ORDERABLES Final Result [facility] [address] [place] [address] * ZINC, SERUM (01/09/2023 14:24 EDT) [facility] Zinc, Serum 70 60 - 106 mcg/dL 01/12/2023 12:51 EDT [facility] [employer] Comment: ADDITIONAL INFORMATION This test was developed and its performance characteristics determined by [facility] in a manner consistent with CLIA requirements. This test has not been cleared or approved by the U.S. Food and Drug Administration. Test Performed by: [facility] - [address] [address] Enterprise Services Manager: Kenan Phillips M.D. Ph.D.; CLIA# [id number] Blood VENOUS BLOOD / Unknown Venipuncture / Unknown 01/09/2023 14:24 EDT 01/09/2023 14:25 EDT Arturo Garcia MD CHEMISTRY & BLOOD GAS ORDERABLES Final Result Performing Organization Address City/[facility]/ZIP Co de Phone Number [facility] [address] [place] [address] * CALCIUM (01/09/2023 14:24 EDT) Calcium 9.3 8.5 - 10.5 mg/dL 01/09/2023 15:54 EDT [facility] Blood VENOUS BLOOD / Unknown Venipuncture / Unknown 01/09/2023 14:24 EDT 01/09/2023 14:25 EDT Arturo Garcia MD CHEMISTRY & BLOOD GAS ORDERABLES Final Result [facility] [address] [place] [address] * (ABNORMAL) VITAMIN D (25,OH) (01/09/2023 14:24 EDT) 25OH Vitamin D Tot 21(L) 30 - 100 ng/mL 01/12/2023 11:35 EDT [facility] Comment: Vitamin D 25,OH Interpretive Ranges: Deficiency: ??<10.0 ng/mL Insufficiency: ??10.0 - 30.0 ng/mL Sufficiency: ??30.0 - 100.0 ng/mL Toxicity: ??>100.0 ng/mL Blood VENOUS BLOOD / Unknown Venipuncture / Unknown 01/09/2023 14:24 EDT 01/09/2023 14:25 EDT Arturo Garcia MD CHEMISTRY & BLOOD GAS ORDERABLES Final Result Performing Organization Address [facility]/ZIP Co de Phone Number [facility] [address] [place] [address] * ALBUMIN (01/09/2023 14:24 EDT) Albumin 4.4 3.4 - 4.9 g/dL 01/09/2023 15:54 EDT [facility] Blood VENOUS BLOOD / Unknown Venipuncture / Unknown 01/09/2023 14:24 EDT 01/09/2023 14:25 EDT Arturo Garcia MD CHEMISTRY & BLOOD GAS ORDERABLES Final Result [facility] [address] [place] [address] * PROTEIN, TOTAL (01/09/2023 14:24 EDT) Total Protein 7.5 6.3 - 8.2 g/dL 01/09/2023 15:54 EDT [facility] Blood VENOUS BLOOD / Unknown Venipuncture / Unknown 01/09/2023 14:24 EDT 01/09/2023 14:25 EDT us Arturo Garcia MD CHEMISTRY & BLOOD GAS ORDERABLES Final Result [facility] [address] [place] [address] documented in this encounter Visit Diagnoses Diagnosis Cervical radiculopathy- Primary Brachial neuritis or radiculitis nos Encounter for vitamin deficiency screening Screening for other and unspecified endocrine, nutritional, metabolic, and immunity disorders Encounter for pre-operative laboratory testing Preoperative examination, unspecified documented in this encounter Care Teams Perinatal Specialist Relationship Specialty Start Date End Date [address] [address] PCP - General 01/09/23 02/15/23 documented as of this encounter
--- OUTSIDE RECORDS SUMMARY | 2024-07-28 15:12 | XMS_ITS | Encounter Summary ---
Author Organization [facility] Address [address] [place] [address] Care Team Providers Care Drop Forge Operator Name Role Phone [facility] Care Provid er Reason for Referral * PT/OT/ST (Routine/Next Available) - New Request Specialty Diagnoses / Procedures Referred By Eric acuna Referred To Contact Rehab Therapies Diagnoses Cervical radiculopathy Arturo Garcia MD Phone: tel: fax: [facility] Rehabilitation Therapy - [place] [address] [place] [address] Phone: tel: fax: Referral ID Status Reason Start Date Expiration Date Visits Requested Visits Authorized [id number] New Request Specialty Services Required 01/09/2023 1 1 Question Answer Surgery (and Date): 03/05/23 - C6-7 ACDF Reason for Request: periop PT Comments This referral may serve as a referral to occupational therapy if appropriate. Reason for Visit * Reason Onset Date Comments Referral Request 01/09/2023 Encounter Details Date Type Department Care Team (Late st Contact Info) Description 01/09/2023 Orders Only [facility] Spine Program - [address] [place] [address] Asha Metz, RN [address] [place], [place] [id number] Cervical radiculopathy (Primary Dx) Social History Tobacco [...] Scheduled Referrals Name Type Priority Associated Diagnoses Orde r Schedule AMB CONS/FOLLOW UP PHYSICAL THERAPY Outpatient Referral Routine/Next Available Cervical radiculopathy Expected: 01/16/2023 (Approximate), Expires: 01/10/2024 documented as of this encounter Visit Diagnoses Diagnosis Cervical radiculopathy- Primary Brachial neuritis or radiculitis nos documented in this encounter Care Teams Drop Forge Operator Relationship Specialty Start Date End Date [address] [address] PCP - General 01/09/23 02/15/23 documented as of this encounter
--- OUTSIDE RECORDS SUMMARY | 2024-07-28 15:12 | XMS_ITS | Encounter Summary ---
Author Organization [facility] Address [address] [place] [address] Care Team Providers Care Parking Supervisor Name Role Phone Unknown, Provider MD Primary Care Provider Unava ilable Reason for Visit * Auth/Cert (Routine) Specialty Diagnoses / Procedures Referred By Contac t Referred To Contact Diagnoses Cervical radiculopathy Procedures MD ARTHRODESIS ANT INTERBODY INC DISCECTOMY, CERVICAL BELOW C2 MD ARTHRODESIS ANT INTERBODY INC DISCECTOMY, CERVICAL BELOW C2 MD ANTERIOR INSTRUMENTATION 2-3 VERTEBRAL SEGMENTS MD ALLOGRAFT FOR SPINE SURGERY ONLY STRUCTURAL C6-7 Anterior cervical discectomy and fusion Arturo Garcia MD [address] [place] [address] Phone: tel: fax: Referral ID Status Reason Start Date Expiration Date Visits Re quested Visits Authorized [id number] 01/09/2023 1 1 Encounter Details Date Type Department Care Team (Late st Contact Info) Description 03/04/2023 11:04 EDT - 03/05/2023 12:55 EDT Hospital Encounter [facility] General Medicine Unit [address] [place], [place] [id number] Arturo Garcia MD [address] [place] [address] Discharge Disposition: Home or Self Care Social [...] Sign Reading Time Taken Comments Blood Pressure 100/60 03/05/2023 0930 EDT Pulse 72 03/05/2023 0930 EDT Temperature 36.7 ??C (98.1 ??F) 03/05/2023 0930 EDT Respiratory Rate 16 03/05/2023 0930 EDT Oxygen Saturation 97% 03/05/2023 0930 EDT Inhaled Oxygen Concentration - - Weight 77.7 kg (171 lb 4.8 oz) 03/04/2023 1148 E DT Height 154.9 cm (5' 1) 03/04/2023 1148 EDT Body Mass Index 32.37 03/04/2023 1148 EDT documented in this encounter Functional Status [...] 06/06/2022 8:58 EDT documented in this encounter Discharge Summaries * Cassie Pierce PA-C - 03/05/2023 1211 EDT Orthopedic Discharge Summary Primary Care Provider: UNKNOWN,PROVIDER Attending Physician: Arturo Garcia MD Admit Date: 03/04/2023 Discharge Date: 03/05/23 Disposition: Home or self care Problems and Procedures Admitting Diagnosis: cervical radiculitis. Level: C6-7 Principal/Final Diagnosis: same Additional Problems Managed in the Hospital Active Hospital Problems Diagnosis Date Noted ??? *Cervical radiculopathy 01/09/2023 Added automatically from request for surgery [id number] Resolved Hospital Problems No resolved problems to display. Principal Procedure: C6-7 ACDF Date: 03/04/2023 Secondary Procedures: none Hospital Course The patient is a 58 y.o. female admitted to [facility] after undergoing uncomplicated procedure as above. Postop, she was started on a multi-modal pain management regimen. Patient was evaluated by PT, had good pain management on PO meds, and was able to urinate without problem. Upright x-rays showed good alignment. The patient was discharged home in stable condition. Allergies and Immunizations Allergies Allergen Reactions ??? Gluten celiac disease There is no immunization history on file for this patient. Transition of Care Plans Condition at Discharge Stable Assessment at Discharge Vital signs: Patient Vitals for the past 12 hrs: BP Pulse Heart Rate Resp Temp SpO2 O2 Device 03/05/23 0930 100/60 72 -- 16 36.7 ??C (98.1 ??F) 97 % None 03/05/23 0900 -- -- -- -- -- -- None 03/05/23 0551 106/53 -- 78 BPM 18 36.1 ??C (97 ??F) 96 % None Results Pending at Discharge Test results still pending from this admission None Relevant Studies at Discharge none Last Lab Results at Discharge BUN: Lab Results Component Value Date BUN 19 03/05/2023 Creatinine: Lab Results Component Value Date CREATININE 0.81 03/05/2023 CBC: Lab Results Component Value Date WBC 17.33 (H) 03/05/2023 RBC 4.67 03/05/2023 HGB 14.6 03/05/2023 HCT 41.7 03/05/2023 MCV 89 03/05/2023 MCH 31.3 03/05/2023 MCHC 35.0 03/05/2023 PLT 356 03/05/2023 DIFFTYPE Auto 03/05/2023 Electrolytes: Lab Results Component Value Date NA 140 03/05/2023 K 4.4 03/05/2023 CL 107 03/05/2023 CO2 23 03/05/2023 Discharge Follow Up Upcoming Appointments Mar 18, 2023 13:10 (Arrive by 12:55) [place] [facility] [place] [address] [facility] [address] No fragranced lotions, perfume, or powder, but deodorant is okay. Mar 19, 2023 15:30 Therapy Surgery Aftercare with Candice Linares, PT [facility] - [place] (--) [address] [place] [address] Apr 07, 2023 13:30 Therapy Surgery Aftercare with Candice Linares, PT [facility] [place] (--) [address] [place] [address] Apr 17, 2023 9:00 Therapy Surgery Aftercare with Candice Linares, PT [facility] [place] (--) [address] [place] [address] Apr 17, 2023 10:00 (Arrive by 9:45) Post Op Visit with Arturo Garcia MD [facility] - [place] (--) [address] [facility] [address] [place] [facility] [address] May 29, 2023 13:00 (Arrive by 12:45) Office Visit with Arturo Garcia MD [facility] - [place] (--) [address] [place], [place] [address]vanda [place] [facility] [address] Cassie Pierce PA-C 03/05/2023 12:20 Cosigned by Arturo Garcia MD at 03/05/2023 14:30 EDT documented in this encounter Discharge Instructions * Discharge Instr - Activity* Cassie Pierce PA-C - 03/05/2023 10:32 EDT * Discharge Instr - Other Orders* Cassie Pierce PA-C - 03/05/2023 10:33 EDT You have undergone the following operation: Anterior Cervical Decompression and Fusion Immediately after the operation: Activity: ? You should not lift anything greater than 10 lbs for 2 weeks. ? You will be more comfortable if you do not sit in a car or chair for more than ~45 minutes without getting up and walking around. ? You cannot drive while taking pain medications, or while wearing a hard cervical collar Rehabilitation / Physical Therapy: ? 2-3 times a day you should go for a walk for 15-30 minutes as part of your recovery. You can walkas much as you can tolerate. ? You should have a physical therapy visit scheduled ~3 weeks post-operatively, at which point moredirected therapy will begin Swallowing: ? Difficulty swallowing is not uncommon after this type of surgery. This should resolve over time. Please take small bites and eat slowly. Removing the collar while eating can be helpful. Cervical Collar / Neck Brace: ? If you have been given a soft collar, it is meant to be used for comfort - wear it if you feel ithelps you. You should remove the collar to take a shower or eat. You should avoid any excessive or strenuous motion of your neck, but gentle range of motion as pain will allow is encouraged. ? If you have been given a hard cervical collar, this is meant to be worn most of the time. You should remove the collar at least 3x per day for 15 minutes to let your skin air out. Do this while seated in a comfortable and safe position. You may remove the collar to take a shower or eat. You should avoid any significant motion of your neck while the collar is off. Careful not to fall as well - ashower chair is recommended. Wound Care: ? Keep the wound covered and dry for 5 days. If the bandage from surgery remains clean and intact, it can stay in place. If the dressing needs to be changed, just replace with a dry gauze pad and tape. If you have a waterproof dressing it can be used in the shower. ? Once the incision is completely dry for 24 hours (no spotting on gauze) you can leave the incision uncovered, and at this point you may get the incision wet in the shower. Do not soak the incision in a bath or pool. ? If the incision starts draining again at anytime after surgery, do not get the incision wet. Callthe office at that time. Medications: ? Unless otherwise directed, you should resume taking your normal home medications. ? You have also been given additional medications to control your pain and muscle spasm. Please allow 48 hours for any refill of narcotic prescriptions, so plan ahead. Follow up: ? Your follow-up appointments should have been arranged when your surgery was booked. If you do notknow when you are scheduled to follow-up, please call the office at [phone]. You should have awound check and physical therapy visit scheduled at ~2-3 weeks post-operatively, and a visit with your surgeon at ~6 weeks post-operatively. Please call the office if you have a fever>101.5 degrees Fahrenheit, drainage from your wound, or have any questions. [phone] documented in this encounter Medications at Time [...] 03/05/2023 09/18/2023 documented as of this encounter Ordered Prescriptions Prescription Sig Dispense Quantity Refills Last Filled Start Date End Date acetaminophen (TYLENOL) 500 mg tablet Take 2 Tablets by mouth every 6 hours as needed for Pain. 03/05/2023 oxyCODONE (ROXICODONE) 5 mg immediate release tablet Take 1-2 Tablets by mouth every 3 hours as needed for Pain. Daily Max: 80 mg 20 Tablet 03/05/2023 4 methocarbamoL (ROBAXIN) 750 mg tablet Take 1 Tablet by mouth every 6 hours as needed (muscle spasms). 40 Tablet 03/05/2023 4 senna (SENOKOT) 8.6 mg tablet Take 2 Tablets by mouth 2 times daily. 03/05/2023 4 documented in this encounter Discharge Disposition Disposition Code Departure Means Destination Comment s Home or Self Jail documented in this encounter Progress Notes * Ev Scott, PT - 03/05/2023 0956 EDT [facility] Rehabilitation Therapy Acute Therapies [facility] Physical Therapy Initial Evaluation/Discontinue Note Date of Service: 03/05/2023 Reason for Referral: Evaluate and treat Precautions: Activity as tolerated and Spine precautions no brace SUBJECTIVE: Pt feels ready for dc Pain: Location: surgical site and mid scapular region Intensity:2-3/10 at rest Frequency: constant Quality: muscular tightness, sore Aggravating factors: mobility Alleviating factors: rest and medication OBJECTIVE: Reason for hospitalization: per MD:C6-7 ACDF w/ Dr. Garcia on 03/04/2023 PatientProfile: Patient is a 58 y.o. female admitted on 03/04/2023 secondary to Cervical radiculopathy [M54.12] The patient lives at [address] [facility] [address] Home environment Lives:SO Caregiver Support: Part-time assist Equipment Available: Cane Home Environment: apartment Home Layout: One story. 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 CERVICAL SPINE, 1 VIEW HISTORY: Post-op assessment. TECHNIQUE: Single lateral fluoroscopic view of the cervical spine. COMPARISON: Cervical spine MRI 07/10/2022. FINDINGS: C6-C7 anterior plate and screw construct and interbody graft appear intact and appropriately positioned. No unexpected radiopaque foreign body. Endotracheal tube is partially imaged. Redemonstrated multilevel degenerative changes in the cervical spine. Impression: ?? No unexpected radiopaque foreign bodies. Medications: Medications reviewed Arousal, Attention, and Cognition: Orientation: Alert Oriented to person, place, and time Cardiopulmonary: Vital Signs:VSS; no dizziness reported Integumentary/Anthropometric Characteristics: Palpation/Observation: wound not visualized as it was covered/dressed. Dressing:C/D/I Posture: No problem noted Range of Motion and Joint Integrity: Within normal limits except: C spine not formally assessed Muscle Performance: Manual muscle testing not formally performed in order to prioritize functional mobility. Strength observed to be at least 3/5 with gross movement. Sensation, Reflexes, and Nerve Integrity: intact BUE; some tingling dorsal surface R hand otherwise wnl. BLE wnl Neuromotor Function/Development: No problems noted Balance, Mobility, and Gait: Balance: No loss of balance observed throughout physical therapy session. Mobility: During all activities performed this patient was provided cues and education. These were provided to give movement techniques to: optimize ability for patient to participate in and perform task and decrease post procedure discomfort Supine to Sit: independent Sit to Supine: independent Sit to Stand: independent with no device Stand to Sit: independent with no device Transfers: independent with no device Gait: Gait: Patient ambulated 200 feet with no device and independent level of assist. Stairs: number of stairs/steps: 4 indep B rail Self-Care, Home Management, Work, and Leisure: N/E at this time Outcomes: Please refer to individual sections for any outcome measures that were performed Informed Consent: The patient consented to the physical therapy evaluation. The patient agrees to and understands the physical therapy treatment plan and goals. Interventions Completed Today: Physical Therapy today at: 0930 Total treatment time: 15 minutes. Timed code treatment minutes: 0 Intervention included: No interventions completed today Therapeutic exercises: Patient was provided with verbal and demonstrated instruction and then performed exercise program as noted below: Instructed pt with gentle AROM B shoulder flexion, abduction, ER/IR and shoulder shrugs/circles. Ptdemonstrated indep Pt aware of post op restrictions; avoid lifting/pushing/pulling with BUE Patient/Family Education: Topic: Exercise Home program Precautions/protocol Role of therapy Safety Stairs Learner: patient Method: verbal Barriers to Learning: none noted Outcome: verbalized understanding and returned demonstration Team Communication: Nurse caseworker/patient case coordinator Epic secure chat After therapy session Patient status ASSESSMENT: Physical Therapy Diagnosis: This patient presents with a Physical Therapy diagnosis of :Pain impacted by impairments of: musclestrength, pain and sensation Physical Therapy Prognosis: Physical therapy is medically necessary to: address these body structure/function impairments, activity limitations, and participation restrictions Current status compared to baseline level of function: expected to be at or near prior level of function. Anticipated rate of progress: steady Progress may be affected by the following: strengths: age, experience with rehabilitation services, family/social support, motivation, participation level and previous level of function barriers: pain Discharge recommendations: home with family assist. Short-Term Goals: N/A ?? Long-Term Goals: N/A PLAN: Discontinue acute care PT. Continue mobility with nursing assistance while hospitalized. Recommended Discharge Destination: Home with family Recommended Discharge Services: Scheduled for outpatient PT 03/19 Recommended Equipment Needs: No equipment necessary Other recommendations: No other consults recommended at this time Pager: [phone] EV SCOTT, PT 03/05/2023 9:56 * Yulissa Moeller MD - 03/05/2023 0607 EDT Orthopaedic Spine Progress Note for 03/05/23 Pt Name: Gladis Chester Problem: Cervical radiculopathy Procedure: C6-7 ACDF w/ Dr. Garcia on 03/04/2023 24 Hr S/p OR for the above procedure S- was little restless overnight though feeling good overall. Has been up out of bed to commode without issue. Right upper extremity nerve pain now gone. Still having some soreness in her upper back, shoulders. Denies any lower extremity symptoms. Is urinating well. Passing gas has not had a bowel movement yet. No new weakness. O: Blood pressure 106/53, pulse 82, temperature 36.1 ??C (97 ??F), temperature source Tympanic, resp. rate 18, height 154.9 cm (61), weight 77.7 kg (171 lb 4.8 oz), SpO2 96 %. Gen: NAD Focused MSK: Neck: Dressing in place clean/dry/intact. Drain with minimal output. UE Motor: Strength Deltoid (C5) Biceps (C5, 6) Triceps (C7) Wrist ext (C7, C8) Wrist flex (C8, T1) Mixing Roll Operator (T1) Right 5/5 5/5 5/5 5/5 5/5 5/5 Left 5/5 5/5 5/5 5/5 5/5 5/5 UE Reflexes Reflexes Brachioradialis (C5) Biceps (C5) Rodriguez Right 1+ 1+ negative Left 1+ 1+ negative SILT in C5-T1 dermatomes LE Motor: Strength Iliopsoas (L2, 3) Quad (L3, 4) Hamstring (L5, S1) Tib Ant (L4, 5) EHL (L5) GSC (S1, S2) Right 5/5 5/5 5/5 5/5 5/5 5/5 Left 5/5 5/5 5/5 5/5 5/5 5/5 LE Reflexes Reflexes Patella (L3/4) Achilles (S1) Clonus Right 2+ 1+ 0 beats Left 2+ 1+ 0 beats SILT in L3-S1 nerve distributions Output by Drain (mL) 03/03/23 0700 - 03/03/23 1459 03/03/23 1500 - 03/03/23 2259 03/03/23 2300 - 03/04/23 0659 03/04/23 0700 - 03/04/23 1459 03/04/23 1500 - 03/04/23 2259 03/04/23 2300 - 03/05/23 0607 Patient has no LDAs of requested type attached. Labs: A: Gladis Chester is a 58 y.o. female with pmhx of GERD, Lyme disease that is s/p C6-7 ACDF w/ Dr. Garcia on . Recovering very well on the floor today. Drain removed at bedside, tip intact, patient tolerated well. Dispo pending uprights and mobilization. P: WB -activity as tolerated, no spine precautions Abx - perioperative ancef x 24 hours DVT prophylaxis - No chemoprophylaxis, SCDs, ambulation Diet -regular CM/dispo - Patient is ready for DC when [-] Upright radiographs - Incomplete and pending [+] Tolerating PO diet (No IVF) [+] Pain controlled on oral agents [+] [place] DC'd and urinating independently [+] Passing BM or flatus [+] Drain removed YULISSA MOELLER MD 03/05/23 6:12 - Pager - [phone] Cosigned by Arturo Garcia MD at 03/05/2023 7:24 EDT * Mirna Santamaria MD - 03/04/2023 5628 EDT Orthopaedic Spine Surgery Postoperative Check Note Problem: Cervical radiculopathy Procedure: C6-[address] Garcia 02/24/2023 Subjective: Doing well, just about to lay down to get some sleep. She has no radicular pain in her arm, and this testing a current position that she could not sleep in before, but has no discomfort presently. She denies any numbness, tingling, paresthesias. She has not had any flatus or bowel movement yet. Wasable to tolerate pasta for dinner, and not having any trouble swallowing or speaking. She has been ambulatory, although with little bit of lightheadedness sitting up, which resolved spontaneously andshe attributes to her pain medication Objective BP (!) 87/53 (BP Cuff Location: Left arm, BP Patient Position: Semi fowlers) Comment: rn aware Pulse 82 Temp 35.6 ??C (96.1 ??F) (Tympanic) Resp 16 Ht 154.9 cm (61) Wt 77.7 kg (171 lb 4.8 oz) SpO2 95% BMI 32.37 kg/m?? Pleasant, resting comfortably no acute distress. Nonlabored breathing Heart regular rate per palpation of bilateral DP pulses telemetry monitoring Upper Extremity: Strength Deltoid Biceps Triceps Wrist ext Wrist flex Mixing Roll Operator EPL AIN IO Right 5/5 5/5 5/5 5/5 5/5 5/5 5/5 5/5 5/5 Left 5/5 5/5 5/5 5/5 5/5 5/5 5/5 5/5 5/5 Lower Extremity: Strength IP Quad Ham TA GSC EHL FHL Right 5/5 5/5 5/5 5/5 5/5 5/5 5/5 Left 5/5 5/5 5/5 5/5 5/5 5/5 5/5 Sensation: - SILT C2-S2 Reflexes: Biceps BR Triceps Patellar Achilles Babinski Rodriguez's Clonus Right +1 +1 +1 +2 +1 Toes downgoing Not present 0 beat Left +1 +1 +1 +2 +1 Toes downgoing Not present 0 beat Left anterior HV drain with scant bloody fluid Assessment/Plan 58 y.o. female s/p the above. Doing very well postoperatively, without any of her preoperative radicular symptoms. No trouble swallowing or speaking. No evidence of any postoperative complications. Plan unchanged from brief operative note MIRNA SANTAMARIA MD 03/04/23 22:43 documented in this encounter H&P Notes * Arturo Garcia MD - 03/04/2023 1303 EDT The preoperative history and physical which was performed within 30 days of this procedure has been reviewed and the clinically appropriate elements of the physical examination have been repeated. There are no changes to the documented history and physical or if so such changes are documented below Arturo Garcia MD 03/04/2023 13:03 Source Note - COMMERCIAL RELATIONSHIP MANAGER, SCAN 2 - 02/20/2023 17:35 EDT documented in this encounter OR Notes * OR Surgeon - Arturo Garcia MD - 03/04/2023 1303 EDT DATE OF SURGERY: 03/04/2023 SURGEION: Arturo Garcia OVERLOCK SEWING MACHINE OPERATOR: Yulissa Moeller MD PREOPERATIVE DIAGNOSIS:cervical radiculitis. Level: C6-7 POSTOPERATIVE DIAGNOSES: Same as preop PROCEDURES: 1. Anterior cervical discectomy and arthrodesis C6-7 2. Insertion of anterior instrumentation, C6-7 3. Insertion of allograft, structural 4. Application and removal of Cooper-Wells tongs 5. Use of the operating microscope INSTRUMENTATION: [employer] system ANESTHESIA: General endotracheal. ESTIMATED BLOOD LOSS: 25 mL CONDITION: Stable. FINDINGS: uncinate hypertrophy SPECIMENS: none. DRAINS: hemovac COMPLICATIONS: none noted CONDITION: Stable. INDICATIONS: see preop records PROCEDURE: In the preoperative holding area, I identified the patient as Gladis Chester. We discussed her readiness for surgery. She was taken to the operating room and underwent general endotracheal anesthesia. A [place] catheter was placed under sterile conditions. She was placed supine on the OR table with all bony prominences padded. She was well secured to the table. Arms were tucked at the sides and were well padded. A lateral x-ray was taken to plan the surgical incision. Patient was prepped and draped sterilely in usual fashion. Time-out was performed and confirmed, and antibiotics were administered within 1 hour prior to skin incision. Exposure The planned incision was carried out sharply. Bipolar was used for hemostasis. The skin was dissected off of the platysma which was divided in line with the incision. The platysma was dissected off of the sternocleidomastoid. A plane was developed by bluntly taking the sternocleidomastoid and carotid sheath laterally and the pretrachial fascial contents medially. The spine was identified and palpated. A hemostat clamp was placed at the edge of the longus coli muscle and a lateral x-ray was taken to identify the correct location of surgery.At this point, longus coli musculature was then raisedfrom medial to lateral to expose the disc and adjacent vertebral bodies, with care not to violate the cephalad and caudad disc spaces. Self-retaining retractors were then placed, and the ET cuff was deflated and re-inflated with diminished pressure. Anterior cervical diskectomy, arthrodesis: The longus colli muscles were dissected off of the spine at the C6-7 disc. The anterior osteophyteswere removed with a rongeur. Self retaining retractors were placed beneath the longus muscles. A #15 scalpel was used to incise the C6-7 disc. Disc material was removed with curettes, Kerrisons, and pituitaries back as far as the posterior annulus and bilaterally to the uncovertebral joints. Posterior osteophytes were removed using a high speed leila, a 6-0 forward angled curette, and a 1 mm Kerrison. The posterior annulus and PLL were penetrated and removed with a 6-0 forward angled curette la 1 mm Kerrison. This was performed to decompress the entire spinal canal and into the foramen. Fora minotomies were performed using the 1 mm Kerrison. The spinal canal and foramina were palpated witha blunt nerve hook, showing no further nerve compression. Attention was turned to fusion. Curettes and the high speed leila were used to remove all cartilage off of the endplate down to bleeding subchondral bone. Trial spacers were used to select an appropriately sized spacer. An allograft was then impacted into place. This was performed at the C6-7 disc. A plate was measured, contoured, and affixed to the bones using bone screws. A lateral x-ray was performed to confirm the correct position of all implants and that surgery was performed at the correctspinal level. A 1/8 in hemovac drain was inserted through the skin and placed down to the surgical site. The trachea, esophagus, and carotid sheath contents were visualized and palpated, showing no sign of injury. The wound was copiously irrigated. Hemostasis was achieved. The wound was closed in a layered fashion. A sterile, dry dressing was applied and the drain was attached to the bulb suction. All sponge and needle counts were correct and there were no complications. The patient was then extubated and transferred in stable condition to the PACU wearing a cervical collar. ATTESTATION: I was present for and participated in the entire procedure. Arturo Garcia MD 03/04/2023 15:53 documented in this encounter Miscellaneous Notes * Plan of Care - Leah Devlin RN - 03/05/2023 1255 EDT Nursing Discharge Note D: Patient noted with discharge orders for post op care, medications, f/u appointments, and s/s of infection. A: Prescriptions provided to patient. Reviewed discharge instructions and prescriptions with Patient IV d/c'd. Belongings collected and sent home with patient. R: Patient verbalized understanding of discharge instructions and denied further questions. LEAH DEVLIN RN 03/05/2023 13:25 * Plan of Care - Shantel Rothman RN - 03/05/2023 5799 EDT Problem: Daily Care Plan Goals Goal: Care Plan Documentation Outcome: Ongoing Flowsheets (Taken 03/04/20232034) Area of Focus: Circulatory Status Goal This Shift: VSS w/out dizziness Problem: Cardiac: Goal: Ability to maintain clinical measurements within defined limits will improve Outcome: Ongoing Problem: Urinary Elimination: Goal: Ability to recognize the need to void and respond appropriately will improve Outcome: Met This Shift Data: patient care assumed at 1900. 58y/o F w/PMHx of GERD, tobacco, & Lyme dx w/chronic pain & C7 radiculopathy, now POD#1 C6-C7 ACDF Action: VS Q4, neuro Q4, encourage safe ambulation, encourage PO intake, scheduled meds given per eMAR, PRNs available Response: SBPs 80s-low 100s, sating well on RA, significant dizziness & unsteadiness w/ambulation. Denies n/t to all extremities, reports this as improved in RUE post-op. generalized weakness in all extremities 4/5 strength. C/o tension in posterior neck, tolerable w/oxy & heat packs. Call sierra within reach, CTM * Brief Op Note - Yulissa Moeller MD - 03/04/2023 1623 EDT Orthopedic Surgery Brief Op Note Date of Surgery: 03/04/2023 Surgeon: Arturo Garcia MD Assistants: Yulissa Moeller MD; Nadia Artis [facility] Pre-Op Diagnosis: C7 radiculopathy Post-Op Diagnosis: same Procedure(s): C6-7 ACDF Findings: uncinate hypertrophy Anesthesia Type: General Estimated Blood Loss: 25 mL Fluids: Gladis L Larimer received 700 mL of fluid replacement. Urine Output: 100 mL Specimens/Cultures: NA Implants: 6mm spacer, 20mm plate, 14 mm screw x4, see below for full details Drains/Packs: Hemovac drain x1 Complications: None perceived. Closure: Monocryl, dermabond Disposition and Condition: Gladis Chester was sent to PACU in Good condition. Post-Op Plan: WB: AAT, no spine precautions Monitor drain output Upright radiographs when able Ancef while drain in place Multimodal pain control Diet: Regular DVT ppx: ambulate, SCDs PT/OT: Routine Dispo: Pending Yulissa Moeller MD Department of Orthopaedics PGY4 16:36 03/04/23 [id number] Implants: Implant Name Type Inv. Item Serial No. Youth Accommodation Support Worker Lot No. [id number] No. Used Action BONE SPACER CERVICAL ROUND 6MM [id number] - [id number] Bone BONE SPACER CERVICAL ROUND 6MM [id number] MELCHOR SPINE N/A 1 Implanted PLATE 20MM LEVEL 1 [employer]ZARK - [id number] Spinal Implant PLATE 20MM LEVEL 1 OZARK [id number] MELCHOR SPINE N/A 1 Implanted SCREW SPINAL 4.0 X 14MM ANT CERV SOLID TI SELF TAPPING FIXED ANGLE OZARK NS - [id number] Spinal Implant SCREW SPINAL 4.0 X 14MM ANT CERV SOLID TI SELF TAPPING FIXED ANGLE OZARK NS [id number] MELCHOR SPINE N/A 2 Implanted SCREW VARIABLE SELF-TAPPING 4.0 X 14MM OZARK - [id number] Spinal Implant SCREW VARIABLE SELF-TAPPING4.0 X 14MM OZARK [id number] MELCHOR SPINE N/A 2 Implanted * PAT Note - Ronel Conway MD - 03/03/2023 1316 EDT 58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 Has radiculopathy, not myelopathic, but unable to work due to her neck-arm pain. Had a reported episode of post-op apnea after a prior anesthetic. I don't see those records. She was apparently instructed to obtain a sleep study prior to any further anesthetics but this has not been done. Discussed with Dr. Garcia who already plans on admitting patient overnight. In light of her symptom load and planned post-op admission, okay to proceed. Dr. Garcia will instruct her to obtain a sleep study post-op. * Plan of Care - Yulissa Moeller MD - 03/02/20231948 EDT Orthopaedic Spine Pre-operative evaluation The following is a list of known issues and planned treatments for this patient and does not constitute a complete medical history or medical evaluation. This data is gathered from a chart review. Diagnosis: Cervical Radiculopathy Planned Procedure: C6-7 ACDF [Arturo Garcia MD] HPI: 58 y.o. female with PMH of GERD and Lyme disease who presents with 4+ years chronic periscapular pain, worse with radiation and activity, better with massage/rest. Radiating pain into R posterior shoulder, arm, lateral elbow, radial forearm, and dorsum of hand. Therapies Attempted: NSAIDs, tylenol activity modification R C6-7 TFESI-> some improvement in arm but not neck symptoms Pertinent Exam Findings: Mild positive Spurling's on R. TTP base of neck. 4/5 R triceps strength, otherwise 5/5. Negative rodriguez There is no height or weight on file to calculate BMI. Imaging Plain films: multilevel uncovertebral degenerative changes, slight anterolisthesis C3-4 and C4-5 MRI multilevel bilateral neural foraminal stenosis in setting of disc bulge and degenerative changes, most notable at C5-6, 6-7, and C7-T1 Perioperative antibiotics: Ancef Postoperative DVT prophylaxis: ambulate, SCDs Nasal Swab: negative Pre-op H&P complete?: Yes Hospitalist consult needed: No SICU PostOp: No APS consult needed (opiate tolerant patients >40mg oxycodone/day): No Other consults: None Discharge plan: Home Special needs or concerns not already mentioned:None Outpatient Spine Surgery: Outpatient: 1. Gabapentin 300mgn PO QHS x3 days then 300mg po BID x3 days, then 300mg po TID x 3 days (avoid ifage >75 or renal insufficiency) 2. Tylenol 1000mg q6hr scheduled x 7 days Preop: 1. Tylenol 1000mg PO 2. Gabapentin 600mg PO 3. Celecoxib 200mg PO 4. Dexamethasone 8mg IV x1 (avoid if DM) D/C: 1. Robaxin 500-1000mg QID x14d 2. Gabapentin 600 TID x 14 d 3. Tylenol 1000mg QID x 14d 4. Oxycodone x 7 d Past Medical History: Diagnosis Date ??? Acid [...] procedure ??? Lyme disease 02/25/2023 - verified ? ? Nausea & vomiting 02/25/2023 - nausea after anesthesia, scopolamine patch order for procedure ??? Patient unable to exercise 02/25/2023 - due to back pain, able to climb a flight of stairs without chest pain or SOB ??? Post-menopausal bleeding ??? Wears dentures 02/25/2023 - temp bottom denture Patient Active Problem List Diagnosis Date Noted ??? *(H)Cervical radiculopathy 01/09/2023 Added automatically from request for surgery [id number] ??? Special screening for malignant neoplasms, colon Priority: Medium Past Surgical History: Procedure Laterality Date ??? ECTOPIC SURGERY ??? LIVER BIOPSY Hep C ??? SHOULDER ARTHROSCOPY Right rotator cuff and bicept tenon repair No current facility-administered medications for this encounter. Current Outpatient Medications Medication ??? acetaminophen (TYLENOL) 500 mg tablet ??? estradioL (VIVELLE) 0.0375 mg/24 hr patch ??? meloxicam (MOBIC) 15 mg tablet ??? omeprazole (PRILOSEC) 20 mg capsule ??? progesterone (PROMETRIUM) 200 mg capsule ??? scopolamine (TRANSDERM-SCOP) 1 mg over 3 days patch Allergies Allergen Reactions ??? Gluten celiac disease YULISSA MOELLER MD 03/02/2023, 19:49 ' documented in this encounter Plan of Treatment Not on file documented as of this encounter Procedures Procedure Name Priority Date/Time Associated Diagnosis Comments XR CERVICAL SPINE 2-3 VIEWS Routine 03/05/2023 10:35 EDT COMPLETE BLOOD COUNT AND DIFFERENTIAL Routine 03/05/2023 6:03 EDT BUN Routine 03/05/2023 6:03 EDT CREATININE Routine 03/05/2023 6:03 EDT ELECTROLYTES Routine 03/05/2023 6:03 EDT FL C-ARM 0-1 HOUR STAT 03/04/2023 16:11 EDT XR CERVICAL SPINE 2-3 VIEWS STAT 03/04/2023 16:11 EDT XR CERVICAL SPINE 1 VIEW STAT 03/04/2023 14:47 EDT FUSION, SPINE, CERVICAL, BELOW C2, INTERBODY, ANTERIOR APPROACH 03/04/2023 13:26 EDT Cervical radiculopathy Special Needs Aniceto Méndez Flat-top, #10AMicroscope, OzarkPosition: SupineREP POCT GLUCOSE, INTERFACED Routine 03/04/2023 12:16 EDT TYPE AND SCREEN Routine 03/04/2023 12:15 EDT ECG REPORT - SCANNED 02/20/2023 17:34 EDT documented in this encounter Results * XR CERVICAL SPINE 2-3 VIEWS (03/05/2023 10:35 EDT) Anatomical Region Laterality Modality Computed Radiogr aphy 03/05/2023 10:4 3 EDT Impressions 03/05/2023 10:43 EDT Intact C6-C7 ACDF hardware without unexpected radiopaque foreign body. [id number] Narrative 03/05/2023 10:43 EDT CERVICAL SPINE, 2 VIEWS HISTORY: Fusion follow-up. TECHNIQUE: AP and lateral cervical spine radiographs. COMPARISON: Cervical spine radiographs 12/29/2022. FINDINGS: Intact and appropriately-positioned C6-C7 anterior plate and screw construct and interbody graft. No unexpected radiopaque foreign body. Post-surgical edema is noted in the adjacent ventral soft tissues as expected. Slight leftward curvature. Straightening and slight reversal of lordosis centered at C4. Minor anterolisthesis C3 on C4, minor retrolisthesis C5 on C6. No significant vertebral body height loss. Redemonstrated multilevel discogenic, facet, and uncovertebral joint degenerative changes. Extraspinal soft tissues are otherwise unremarkable. Procedure Note Sp Grimes MD - 03/05/2023 CERVICAL SPINE, 2 VIEWS HISTORY: Fusion follow-up. TECHNIQUE: AP and lateral cervical spine radiographs. COMPARISON: Cervical spine radiographs 12/29/2022. FINDINGS: Intact and appropriately-positioned C6-C7 anterior plate and screwconstruct and interbody graft. No unexpected radiopaque foreign body.Post-surgical edema is noted in the adjacent ventral soft tissues asexpected. Slight leftward curvature. Straightening and slight reversal of lordosiscentered at C4. Minor anterolisthesis C3 on C4, minor retrolisthesis C5 onC6. No significant vertebral body height loss. Redemonstrated multileveldiscogenic, facet, and uncovertebral joint degenerative changes.Extraspinal soft tissues are otherwise unremarkable. IMPRESSION Intact C6-C7 ACDF hardware without unexpected radiopaque foreign body. [id number] us Yulissa Moeller MD IMG DIAGNOSTIC IMAGING O RDERABLES Final Result * (ABNORMAL) COMPLETE BLOOD COUNT AND DIFFERENTIAL (03/05/2023 6:03 EDT) WBC 17.33(H) 4.00 - 12.40 K/cmm 03/05/2023 6:34 [facility] RBC 4.67 3.86 - 5.04 M/cmm 03/05/2023 6:34 [facility] Hemoglobin 14.6 11.6 - 15.2 g/dL 03/05/2023 6:34 [facility] HCT 41.7 34.9 - 44.4 % 03/05/2023 6:34 [facility] MCV 89 81 - 98 fL 03/05/2023 6:34 [facility] MCH 31.3 26.7 - 33.3 pg 03/05/2023 6:34 [facility] MCHC 35.0 32.1 - 35.9 g/dL 03/05/2023 6:34 [facility] RDW-CV 13.1 <14.7 % 03/05/2023 6:34 [facility] RDW-SD 42.7 <50.4 fl 03/05/2023 6:34 [facility] PLT 356 141 - 377 K/cmm 03/05/2023 6:34 [facility] MPV 10.5 9.5 - 12.7 fL 03/05/2023 6:34 [facility] % Neutrophils 84.6 % 03/05/2023 6:34 [facility] % Lymphocytes 11.0 % 03/05/2023 6:34 [facility] % Monocytes 3.4 % 03/05/2023 6:34 [facility] % Eosinophils 0.0 % 03/05/2023 6:34 [facility] % Basophils 0.2 % 03/05/2023 6:34 [facility] % Immature Grans 0.8 % 03/05/20 6:34 [facility] Absolute Neutrophils 14.68(H) 2.20 - 8.85 K/cmm 03/05/2023 6:34 [facility] Absolute Lymphocytes 1.90 1.09 - 3.30 K/cmm 03/05/2023 6:34 [facility] Absolute Monocytes 0.59 0.10 - 0.80 K/cmm 03/05/2023 6:34 [facility] Absolute Eosinophils 0.00(L) 0.03 - 0.61 K/cmm 03/05/2023 6:34 [facility] ABS Basophils 0.03 0.01 - 0.11 K/cmm 03/05/2023 6:34 [facility] Absolute Immature Grans 0.13(H) 0.00 - 0.06 K/cmm 03/05/2023 6:34 EDT [facility] Type of Differential: Auto 03/05/2023 6:34 EDT [facility] Blood VENOUS BLOOD / Unknown Venipuncture / Unknown 03/05/2023 6:03 EDT 03/05/2023 6:16 EDT Yulissa Moeller MD PACKAGES & DNA PROBE ORD ERABLES Final Result [facility] [address] [place] [address] * ELECTROLYTES (03/05/2023 6:03 EDT) Sodium 140 136 - 145 mmol/L 03/05/2023 6:29 EDT [facility] Potassium 4.4 3.5 - 5.0 mmol/L 03/05/2023 6:29 EDT [facility] Chloride 107 96 - 110 mmol/L 03/05/2023 6:29 EDT [facility] CO2 Total 23 22 - 32 mmol/L 03/05/2023 6:29 EDT [facility] Anion Gap 10 5 - 14 mmol/L 03/05/2023 6:29 EDT [facility] Blood VENOUS BLOOD / Unknown Venipuncture / Unknown 03/05/2023 6:03 EDT 03/05/2023 6:19 EDT Yulissa Moeller MD CHEMISTRY & BLOOD GAS OR DERABLES Final Result Performing Organization Address [facility]/ZIP Co de Phone Number [facility] [address] [place] [address] * CREATININE (03/05/2023 6:03 EDT) Creatinine 0.81 0.52 - 1.04 mg/dL 03/05/2023 6:29 EDT [facility] eGFR 84 >60 mL/min/1.73 m2 03/05/2023 6:29 EDT [facility] Blood VENOUS BLOOD / Unknown Venipuncture / Unknown 03/05/2023 6:03 EDT 03/05/2023 6:19 EDT Yulissa Moeller MD CHEMISTRY & BLOOD GAS OR DERABLES Final Result Performing Organization Address [facility] Co de Phone Number [facility] [address] [place] [address] * BUN (03/05/2023 6:03 EDT) BUN 19 10 - 26 mg/dL 03/05/2023 6:29 EDT [facility] Blood VENOUS BLOOD / Unknown Venipuncture / Unknown 03/05/2023 6:03 EDT 03/05/2023 6:19 EDT Yulissa Moeller MD CHEMISTRY & BLOOD GAS OR DERABLES Final Result Performing Organization Address [facility]/RUST de Phone Number [facility] [address] [place] [address] * FL C-ARM 0-1 HOUR (03/04/2023 16:11 EDT) Narrative 03/04/2023 16:12 EDT This is a non-reportable exam. Arturo Garcia MD IMG OTHER IMAGING ORDERABLES Fin al Result * XR CERVICAL SPINE 2-3 VIEWS (03/04/2023 16:11 EDT) Anatomical Region Laterality Modality Radio Fluoroscop y 03/04/2023 16:3 3 EDT Impressions 03/04/2023 16:33 EDT No unexpected radiopaque foreign bodies. [id number] Narrative 03/04/2023 16:33 EDT CERVICAL SPINE, 1 VIEW HISTORY: Post-op assessment. TECHNIQUE: Single lateral fluoroscopic view of the cervical spine. COMPARISON: Cervical spine MRI 07/10/2022. FINDINGS: C6-C7 anterior plate and screw construct and interbody graft appear intact and appropriately positioned. No unexpected radiopaque foreign body. Endotracheal tube is partially imaged. Redemonstrated multilevel degenerative changes in the cervical spine. Procedure Note Sp Grimes MD - 03/04/2023 CERVICAL SPINE, 1 VIEW HISTORY: Post-op assessment. TECHNIQUE: Single lateral fluoroscopic view of the cervical spine. COMPARISON: Cervical spine MRI 07/10/2022. FINDINGS: C6-C7 anterior plate and screw construct and interbody graft appear intactand appropriately positioned. No unexpected radiopaque foreign body.Endotracheal tube is partially imaged. Redemonstrated multileveldegenerative changes in the cervical spine. IMPRESSION No unexpected radiopaque foreign bodies. [id number] us Arturo Garcia MD IMG DIAGNOSTIC IMAGING ORDERABLE S Final Result * XR CERVICAL SPINE 1 VIEW (03/04/2023 14:47 EDT) Anatomical Region Laterality Modality Radio Fluoroscop y 03/04/2023 16:3 0 EDT Impressions 03/04/2023 16:30 EDT Intraoperative localization. Findings were communicated to the OR shortly after image acquisition. I have personally reviewed the images and the above interpretation and agree with the findings. [id number] Narrative 03/04/2023 16:30 EDT CERVICAL SPINE, 1 VIEW HISTORY: Level check. TECHNIQUE: Single lateral intraoperative fluoroscopic view of the cervical spine. COMPARISON: Cervical spine MRI 07/10/2022. FINDINGS: The tip of the clamp projects anterior to the C6-C7 intervertebral disc space. Endotracheal tube is partially imaged. Redemonstrated multilevel degenerative changes in the cervical spine. Procedure Note Sp Grimes MD - 03/04/2023 CERVICAL SPINE, 1 VIEW HISTORY: Level check. TECHNIQUE: Single lateral intraoperative fluoroscopic view of the cervicalspine. COMPARISON: Cervical spine MRI 07/10/2022. FINDINGS: The tip of the clamp projects anterior to the C6-C7 intervertebral discspace. Endotracheal tube is partially imaged. Redemonstrated multileveldegenerative changes in the cervical spine. IMPRESSION Intraoperative localization. Findings were communicated to the OR shortly after image acquisition. I have personally reviewed the images and the above interpretation andagree with the findings. [id number] us Arturo Garcia MD IMG DIAGNOSTIC IMAGING ORDERABLE S Final Result * POCT GLUCOSE, INTERFACED (03/04/2023 12:16 EDT) Glucose, POC 93 70 - 100 mg/dL 03/04/2023 12:29 EDT [facility] HN LAB POC COMMENT (GLUCOSE) Test Performed by Nursing Services 03/04/2023 12:29 EDT [facility] Blood CAPILLARY BLOOD / Unknown 03/04/2023 12:16 EDT 03/04/2023 12:29 EDT us Arturo Garcia MD POINT OF CARE TEST ORDERABLES Fi nal Result [facility] [address] [place] [address] * TYPE AND SCREEN (03/04/2023 12:15 EDT) ABO O 03/04/2023 13:53 EDT [facility] Rh Factor Positive 03/04/2023 13:53 EDT [facility] Antibody Screen Negative 03/04/2023 13:53 EDT [facility] Specimen Expires: 03/07/2023 @ 23:59 03/04/2023 13:53 EDT [facility] Blood VENOUS BLOOD / Unknown Venipuncture / Unknown 03/04/2023 12:15 EDT 03/04/2023 12:27 EDT us Arturo Garcia MD BLOOD BANK TESTS Edited Result - Final [facility] [address] [place] [address] * ECG REPORT - SCANNED (02/20/2023 17:34 EDT) 02/20/2023 17:3 4 EDT us Scan 2 Home Health Care Worker PROCEDURE/MINOR SURGICAL OR DERABLES Final Result documented in this encounter Visit Diagnoses Diagnosis Cervical radiculopathy- Primary Brachial neuritis or radiculitis nos documented in this encounter Admitting Diagnoses Diagnosis Cervical radiculopathy Brachial neuritis or radiculitis nos documented in this encounter Administered Medications Inactive Administered Medications - up to 3 most recent administrations Medication Order MAR Action Action Date Dose Rate Site acetaminophen (TYLENOL) suppository 975 mg 975 mg, rectal, EVERY 6 HOURS, First dose on Thu03/05/23 at 0000, Until Discontinued, Routine acetaminophen (TYLENOL) tablet 1,000 mg 1,000 mg, oral, PRN, 1 dose, Starting on Thu03/04/23 at 1548, Until Thu03/04/23 at 1736, Pain, Routine, Recovery (only) Given 03/04/2023 17:36 EDT 1,000 mg acetaminophen (TYLENOL) tablet 1,000 mg 1,000 mg, oral, EVERY 6 HOURS, First dose on Thu03/05/23 at 0000, Until Discontinued, Routine Given 03/05/2023 12:00 EDT 1,000 mg Given 03/05/2023 6:04 EDT 1,000 mg Given 03/05/2023 0:31 EDT 1,000 mg ascorbic acid (vitamin C) (VITAMIN C) tablet 500 mg 500 mg, oral, DAILY, First dose on Thu03/05/23 at 0800, Until Discontinued, Routine Given 03/05/2023 9:59 EDT 50 0 mg ceFAZolin in dextrose (iso-os) piggyback 2 g/100 mL 2,000 mg, intravenous, Administer over 30 Minutes, EVERY 8 HOURS, 21 doses, First dose on Thu03/04/23 at 1815, Last dose on Thu03/11/23 at 1200, Type of Therapy: Prophylaxis, Suspected Indication (Select all that apply): Surgical prophylaxis, Routine Given 03/05/2023 12:00 EDT 2,000 mg Given 03/05/2023 6:00 EDT 2,000 mg Given 03/04/2023 20:35 EDT 2,000 mg cholecalciferol (Vitamin D3) tablet 2,000 Units 2,000 Units, oral, DAILY, First dose on Koki 03/05/23 at 0800, Until Discontinued, Routine Given 03/05/2023 9:59 EDT 2,000 Units dexAMETHasone (DECADRON) injection 8 mg 8 mg, intravenous, PRE-OP ONCE, 1 dose, On Thu03/04/23 at 1215, Routine, Preprocedure Given 03/04/2023 12:17 EDT 8 m g docusate sodium (COLACE) capsule 200 mg 200 mg, oral, 2 TIMES DAILY, First dose on Thu03/04/23 at 2100, Until Discontinued, Routine Given 03/05/2023 9:59 EDT 200 mg Given 03/04/2023 20:35 EDT 200 mg fentaNYL citrate (PF) injection 25-50 mcg 25-50 mcg, intravenous, EVERY 5 MIN PRN, Starting on Thu03/04/23 at 1548, Until Thu03/04/23 at 1839, Pain, Routine, Recovery (only) Given 03/04/2023 1 7:03 EDT 50 mcg Given 03/04/2023 16:36 EDT 25 mcg HYDROmorphone (DILAUDID) tablet 2-4 mg 2-4 mg, oral, EVERY 30 MINUTES PRN, 2 doses, Starting on Thu03/04/23 at 1548, Until Thu03/04/23 at 1839, Pain, Routine, Recovery (only) Given 03/04/2023 16:33 EDT 4 mg lactated ringers (LR) infusion at 100 mL/hr, intravenous, CONTINUOUS, Starting on Thu03/04/23 at 1215, Until Thu03/04/23 at 1846, Routine, Preprocedure New Bag 03/04/2023 13:41 EDT New Bag 03/04/2023 12:19 EDT 100 mL/hr lactated ringers (LR) infusion at 75 mL/hr, intravenous, PACU CONTINUOUS, Starting on Thu03/04/23 at 1615, Until Thu03/04/23 at 1839, Routine, Recovery (only) Rate Documented 03/04/2023 16:15 EDT 75 mL/hr methocarbamoL (ROBAXIN) tablet 500 mg 500 mg, oral, EVERY 6 HOURS PRN, Starting on Thu03/04/23 at 1649, Until Koki 03/05/23 at 1455, muscle spasms, Routine Given 03/05/2023 6:04 EDT 500 mg Given 03/04/2023 17:03 EDT 500 mg Multivitamins with Minerals tablet 1 Tablet 1 Tablet, oral, DAILY, First dose on Thu03/05/23 at 0800, Until Discontinued, Routine Given 03/05/2023 10:0 0 EDT 1 Tablet ondansetron (PF) (ZOFRAN) injection 4 mg 4 mg, intravenous, PRN, 1 dose, Starting on Thu03/04/23 at 1548, Until Thu03/04/23 at 1628, Nausea, Vomiting, Routine, Recovery (only) Given 03/04/2023 16:28 EDT 4 mg ondansetron (PF) (ZOFRAN) injection 4 mg 4 mg, intravenous, EVERY 6 HOURS PRN, Starting on Thu03/04/23 at 1843, Until Thu03/05/23 at 1455, Nausea, Routine ondansetron (ZOFRAN-ODT) disintegrating tablet 4 mg 4 mg, oral, EVERY 6 HOURS PRN, Starting on Thu03/04/23 at 1843, Until Thu03/05/23 at 1455, Nausea, Routine oxyCODONE (ROXICODONE) immediate release tablet 5-15 mg 5-15 mg, oral, EVERY 3 HOURS PRN, Starting on Thu03/04/23 at 1843, Until Thu03/05/23 at 1455, Pain, Routine Given 03/05/2023 12:00 EDT 10 mg Given 03/05/2023 0:31 EDT 15 mg Given 03/04/2023 20:35 EDT 10 mg pantoprazole (PROTONIX) tablet 40 mg 40 mg, oral, DAILY, First dose on Thu03/05/23 at 0800, Until Discontinued Given 03/05/2023 10:00 EDT 40 mg phenoL (CHLORASEPTIC) 1.4 % solution/spray topical, EVERY 2 HOURS PRN, Starting on Thu03/04/23 at 2043, Until Thu03/05/23 at 1455, Throat Pain/NG Pain polyethylene glycol 3350 (MIRALAX) packet 17 g 17 g, oral, DAILY, First dose on Thu03/05/23 at 0800, Until Discontinued, Routine Given 03/05/2023 9:59 EDT 17 g senna (SENOKOT) tablet 2 Tablet 2 Tablet, oral, 2 TIMES DAILY, First dose on Thu03/04/23 at 2100, Until Discontinued, Routine Given 03/05/2023 9:59 EDT 2 Tablets Given 03/04/2023 20:35 EDT 2 Tablets zinc sulfate (ZINCATE) capsule 220 mg 220 mg, oral, DAILY, First dose on Thu03/05/23 at 0800, Until Discontinued, Routine Given 03/05/2023 9:59 EDT 220 mg documented in this encounter Discontinued Medications Medication Sig Discontinue Reason Start Date End Da te acetaminophen (TYLENOL) 500 mg tablet Take 1 Tablet by mouth every 6 hours as needed for Pain. Reorder 03/05/2023 meloxicam (MOBIC) 15 mg tablet Take 1 Tablet by mouth daily. 03/05/2023 scopolamine (TRANSDERM-SCOP) 1 mg over [address] patch on your neck, under your ear, on the morning of the day prior to your surgery. 02/20/2023 03/05/2023 documented as of this encounter Active and Recently Administered Medications Times are shown in EDT. Scheduled Medication Order 03/03/2023 03/04/2023 03/05/2023 acetaminophen (TYLENOL) suppository 975 mg(Linked Group 1) 975 mg, rectal, EVERY 6 HOURS, First dose on Thu03/05/23 at 0000, Until Discontinued, Routine 0031 (See Alternativ e - Provider: Emily Dinero RN)0604 (See Alternative - Provider: Shantel Rothman RN)1200 (See Alternative - Provider: Leah Devlin, YESENIA) acetaminophen (TYLENOL) tablet 1,000 mg(Linked Group 1) 1,000 mg, oral, EVERY 6 HOURS, First dose on Thu03/05/23 at 0000, Until Discontinued, Routine 0031 (Given - Provid er: Emily Dinero RN)0604 (Given - Provider: Shantel Rothman RN)1200 (Given - Provider: Leah Devlin, YESENIA) ascorbic acid (vitamin C) (VITAMIN C) tablet 500 mg 500 mg, oral, DAILY, First dose on Thu03/05/23 at 0800, Until Discontinued, Routine 0959 (Given - Provid er: Leah Devlin RN) ceFAZolin (ANCEF) syringe 2 g (COMPLETED) 2 g, intravenous, Administer over 5 Minutes, PRE-OP ONCE, 1 dose, On Thu03/04/23 at 1215, Routine, Preprocedure 1407 (Given - Provider: Florin Bonner DO)1615 (Anesthesia Volume Adjustment - Provider: Florin Bonner DO) ceFAZolin in dextrose (iso-os) piggyback 2 g/100 mL 2,000 mg, intravenous, Administer over 30 Minutes, EVERY 8 HOURS, 21 doses, First dose on Thu03/04/23 at 1815, Last dose on Thu03/11/23 at 1200, Type of Therapy: Prophylaxis, Suspected Indication (Select all that apply): Surgical prophylaxis, Routine 2034 (Given - Provider: Shantel Rothman RN) 0600 (Given - Provider: Shantel Rothman RN)1200 (Given - Provider: Leah Devlin RN) cholecalciferol (Vitamin D3) tablet 2,000 Units 2,000 Units, oral, DAILY, First dose on Thu03/05/23 at 0800, Until Discontinued, Routine 0959 (Given - Provid er: Leah Devlin RN) dexAMETHasone (DECADRON) injection 8 mg (COMPLETED) 8 mg, intravenous, PRE-OP ONCE, 1 dose, On Thu03/04/23 at 1215, Routine, Preprocedure 1217 (Given - Provider: Roland Miller RN) docusate sodium (COLACE) capsule 200 mg 200 mg, oral, 2 TIMES DAILY, First dose on Thu03/04/23 at 2100, Until Discontinued, Routine 2034 (Given - Provider: Shantel Rothman RN) 0959 (Given - Provider: Leah Devlin RN) Multivitamins with Minerals tablet 1 Tablet 1 Tablet, oral, DAILY, First dose on Thu03/05/23 at 0800, Until Discontinued, Routine 1000 (Given - Provid er: Leah Devlin RN) pantoprazole (PROTONIX) tablet 40 mg 40 mg, oral, DAILY, First dose on Thu03/05/23 at 0800, Until Discontinued 1000 (Given - Provid er: Leah Devlin RN) polyethylene glycol 3350 (MIRALAX) packet 17 g 17 g, oral, DAILY, First dose on Thu03/05/23 at 0800, Until Discontinued, Routine 0959 (Given - Provid er: Leah Devlin RN) povidone-iodine solution 5% (Skin and Nasal Antiseptic) 1 Kit 1 Kit, nasal, Once (Without Time Specified), 1 dose, Starting on Thu03/04/23 at 1843, Until Thu03/05/23 at 1455, Routine senna (SENOKOT) tablet 2 Tablet 2 Tablet, oral, 2 TIMES DAILY, First dose on Thu03/04/23 at 2100, Until Discontinued, Routine 2034 (Given - Provider: Shantel Rothman RN) 0959 (Given - Provider: Leah Devlin RN) zinc sulfate (ZINCATE) capsule 220 mg 220 mg, oral, DAILY, First dose on Thu03/05/23 at 0800, Until Discontinued, Routine 958 (Given - Provid er: Leah Devlin RN) Continuous Medication Order 03/03/2023 03/04/2023 03/05/2023 lactated ringers (LR) infusion (CANCELED) at 100 mL/hr, intravenous, CONTINUOUS, Starting on Thu03/04/23 at 1215, Until Thu03/04/23 at 1846, Routine, Preprocedure 1219 (New Bag - Provider: Roland Miller RN)1340 (Paused - Provider: Florin Bonner DO - Comment: Switch to gravity)1341 (New Bag - Provider: Florin Bonner DO)1611 (Completed - Provider: Florin Bonner DO) lactated ringers (LR) infusion (CANCELED) at 75 mL/hr, intravenous, PACU CONTINUOUS, Starting on Thu03/04/23 at 1615, Until Thu03/04/23 at 1839, Routine, Recovery (only) 1615 (Rate Documented - Provider: Atiya Castaneda RN)1745 (Completed - Provider: Atiya Castaneda RN) PRN Medication Order 03/03/2023 03/04/2023 03/05/2023 acetaminophen (TYLENOL) tablet 1,000 mg (COMPLETED)(Linked Group 2) 1,000 mg, oral, PRN, 1 dose, Starting on Thu03/04/23 at 1548, Until Thu03/04/23 at 1736, Pain, Routine, Recovery (only) 1736 (Given - Provider: Atiya Castaneda RN) bisacodyL (DULCOLAX) suppository 10 mg 10 mg, rectal, DAILY PRN, Starting on Thu03/04/23 at 1843, Until Thu03/05/23 at 1455, Constipation, Routine calcium carbonate (TUMS) tablet 500 mg (200 mg elemental calcium) 2 Tablet 2 Tablet, oral, EVERY 2 HOURS PRN, Starting on Thu03/04/23 at 1843, Until Thu03/05/23 at 1455, epigastric stress, Routine fentaNYL citrate (PF) injection 25-50 mcg (CANCELED) 25-50 mcg, intravenous, EVERY 5 MIN PRN, Starting on Thu03/04/23 at 1548, Until Thu03/04/23 at 1839, Pain, Routine, Recovery (only) 1636 (Given - Provider: Atiya Castaneda RN)1703 (Given - Provider: Atiya Castaneda RN) gelatin absorbable powder (SURGIFOAM) (CANCELED) PRN, Starting on Thu03/04/23 at 1556, Until Thu03/04/23 at 1612, Intraprocedure 1556 (Given - Provider: Arturo Garcia MD) HYDROmorphone (DILAUDID) tablet 2-4 mg (CANCELED) 2-4 mg, oral, EVERY 30 MINUTES PRN, 2 doses, Starting on Thu03/04/23 at 1548, Until Thu03/04/23 at 1839, Pain, Routine, Recovery (only) 1633 (Given - Provider: Atiya Castaneda RN) methocarbamoL (ROBAXIN) tablet 500 mg 500 mg, oral, EVERY 6 HOURS PRN, Starting on Thu03/04/23 at 1649, Until Thu03/05/23 at 1455, muscle spasms, Routine 1703 (Given - Provider: Atiya Castaneda RN) 0604 (Given - Provider: Shantel Rothman RN) ondansetron (PF) (ZOFRAN) injection 4 mg (COMPLETED) 4 mg, intravenous, PRN, 1 dose, Starting on Thu03/04/23 at 1548, Until Thu03/04/23 at 1628, Nausea, Vomiting, Routine, Recovery (only) 1628 (Given - Provider: Atiya Castaneda RN) ondansetron (PF) (ZOFRAN) injection 4 mg(Linked Group 3) 4 mg, intravenous, EVERY 6 HOURS PRN, Starting on Thu03/04/23 at 1843, Until Thu03/05/23 at 1455, Nausea, Routine ondansetron (ZOFRAN-ODT) disintegrating tablet 4 mg(Linked Group 3) 4 mg, oral, EVERY 6 HOURS PRN, Starting on Thu03/04/23 at 1843, Until Thu03/05/23 at 1455, Nausea, Routine oxyCODONE (ROXICODONE) immediate release tablet 5-15 mg 5-15 mg, oral, EVERY 3 HOURS PRN, Starting on Thu03/04/23 at 1843, Until Thu03/05/23 at 1455, Pain, Routine 203 (Given - Provider: Shantel Rothman RN) 0031 (Given - Provider: Emily Dinero, RN)1200 (Given - Provider: Leah Devlin RN) phenoL (CHLORASEPTIC) 1.4 % solution/spray topical, EVERY 2 HOURS PRN, Starting on Thu03/04/23 at 2043, Until Thu03/05/23 at 1455, Throat Pain/NG Pain sodium chloride 0.9 % irrigation (CANCELED) PRN, Starting on Thu03/04/23 at 1607, Until Thu03/04/23 at 1612, Routine, Intraprocedure 1607 (Given - Provider: Arturo Garcia MD) thrombin (bovine) 5,000 unit topical solution (CANCELED) PRN, Starting on Thu03/04/23 at 1556, Until Thu03/04/23 at 1612, Intraprocedure 1556 (Given - Provider: Arturo Garcia MD - Comment: MIXED WITH SURGIFOAM) Linked Groups Order Group 1: acetaminophen (TYLENOL) tablet 1,000 mgJump to med 1,000 mg, oral, EVERY 6 HOURS, First dose on Thu03/05/23 at 0000, Until Discontinued, Routine Or acetaminophen (TYLENOL) suppository 975 mgJump to med 975 mg, rectal, EVERY 6 HOURS, First dose on Thu03/05/23 at 0000, Until Discontinued, Routine Group 2: acetaminophen (TYLENOL) solution unit dose cup 995 mg (COMPLETED) 995 mg (rounded from 1,000 mg), oral, PRN, 1 dose, Starting on Thu03/04/23 at 1548, Until Thu03/04/23 at 1736, Pain, Routine, Recovery (only) Or acetaminophen (TYLENOL) tablet 1,000 mg (COMPLETED)Jump to med 1,000 mg, oral, PRN, 1 dose, Starting on Thu03/04/23 at 1548, Until Thu03/04/23 at 1736, Pain, Routine, Recovery (only) Group 3: ondansetron (ZOFRAN-ODT) disintegrating tablet 4 mgJump to med 4 mg, oral, EVERY 6 HOURS PRN, Starting on Thu03/04/23 at 1843, Until Thu03/05/23 at 1455, Nausea, Routine Or ondansetron (PF) (ZOFRAN) injection 4 mgJump to med 4 mg, intravenous, EVERY 6 HOURS PRN, Starting on Thu03/04/23 at 1843, Until Thu03/05/23 at 1455, Nausea, Routine documented in this encounter Orders Medications Ordered That Erik ht Not Have Been Administered Count Last Ordered Date First Ordered Date acetaminophen (TYLENOL) solu tion unit dose cup 995 mg 1 03/04/2023 acetaminophen (TYLENOL) suppository 975 mg 03/04/2023 acetaminophen (TYLENOL) tablet 1,000 mg 1 0 03/04/2023 atropine 0.1 mg/mL syringe 0.5 mg 1 023 bisacodyL (DULCOLAX) suppository 10 mg 1 calcium carbonate (TUMS) tab let 500 mg (200 mg elemental calcium) 2 Tablet 1 03/04/2023 ceFAZolin (ANCEF) syringe 2 g 1 03/04/2023 diphenhydrAMINE (BENADRYL) i njection 12.5 mg 1 03/04/2023 gelatin absorbable powder (SURGIFOAM) HYDROmorphone (PF) (DILAUDID ) 0.5 mg/0.5 mL syringe 0.3-0.5 mg 1 03/04/2023 lidocaine (PF) 10 mg/mL (1 % ) injection 2 mg 1 03/04/2023 metoclopramide (REGLAN) injection 10 mg 1 0 03/04/2023 naloxone (NARCAN) injection 0.2 mg 1 2022 ondansetron (PF) (ZOFRAN) injection 4 mg 1 03/04/2023 ondansetron (ZOFRAN-ODT) dis integrating tablet 4 mg 1 03/04/2023 phenoL (CHLORASEPTIC) 1.4 % solution/spray 1 03/04/2023 povidone-iodine solution 5% (Skin and Nasal Antiseptic) 1 Kit 1 03/04/2023 sodium chloride 0.9 % irrigation 1 03/04/20 thrombin (bovine) 5,000 unit topical solution 1 03/04/2023 PT Count Last Ordered Date First Orde red Date PT EVALUATION AND TREAT 1 03/04/2023 Discharge Count Last Ordered Date First Orde red Date DISCHARGE PATIENT 1 03/05/2023 documented in this encounter Care Teams Parking Supervisor Relationship Specialty Start Date End Date Unknown, Provider, PCP - General 02/16/23 04/16/23 documented as of this encounter
--- OUTSIDE RECORDS SUMMARY | 2024-07-28 15:12 | XMS_ITS | Encounter Summary ---
Author Organization [facility] Address [address] [place] [address] Care Team Providers Care Fashion Adviser Name Role Phone Unknown, Provider MD Primary Care Provider Unava ilable Reason for Visit * Reason Onset Date Comments Medications Refill 02/20/2023 Pre-visit Planning 02/20/2023 Encounter Details Date Type Department Care Team (Late st Contact Info) Description 02/20/2023 Refill [facility] - [address] [place] [address] Asha Lentz, RN [address] [place] [address] Medications Refill; Pre-visit Planning Social History Tobacco Use Types Packs/Day Years [...] Refills Last Filled Start Date End Date scopolamine (TRANSDERM-SCOP) 1 mg over [address] patch on your neck, under your ear, on the morning of the day prior to your surgery. 1 Patch 02/20/2023 3 documented in this encounter Miscellaneous Notes * Telephone Encounter - Asha Lentz RN - 02/20/2023 0944 EDT I asked Gladis when her pre op H&P is scheduled for and she said she had it 2 days ago. No pharmacy listed in her chart, trying to send in her Scopolamine patch Rx, asked her preference for this. She would like it sent to [facility] in [place]. ASHA LENTZ RN 02/20/2023 9:53 documented in this encounter Plan of Treatment Not on file documented as of this encounter Visit Diagnoses Not on filedocumented in this encounter Care Teams Fashion Adviser Relationship Specialty Start Date End Date Unknown, Provider, PCP - General 02/16/23 04/16/23 documented as of this encounter
--- OUTSIDE RECORDS SUMMARY | 2024-07-28 15:12 | XMS_ITS | Encounter Summary ---
Author Organization [facility] Address [address] [place] [address] Care Team Providers Care Accounting Machine Operator Name Role Phone Lety Gibson APRN Primary Care Provider [phone] None, Provider Primary Care Provider [facility] Primary Care Provid er Unknown, Provider Primary Care Provider [facility]- Primary Care Provider [phone] None, Provider Primary Care Provider Shruthi Hill MD Primary Care Provider [phone] Encounter Details Date Type Department Care Team (Late st Contact Info) Description 10/02/2022 Lab Requisition [facility] Pathology & Laboratory Medicine - [place] [address] [place], [place] [id number] Outr Resulting Lab, Provider Social History Tobacco [...] Procedure Name Priority Date/Time Associated Diagnosis Comments FECAL BACTERIAL PATHOGENS BY PCR Routine 10/02/2022 9:10 EST GIARDIA AND CRYPTOSPORIDIUM ANTIGENS Routine 10/02/2022 9:10 EST OVA/PARASITE EXAM Routine 10/02/2022 9:1 0 EST documented in this encounter Results * GIARDIA AND CRYPTOSPORIDIUM ANTIGENS (10/02/2022 9:10 EST) Giardia and Cryptosporidium Cryptosporidium Antigen Neg and Giardia Antigen Neg Cryptosporidium Antigen Neg and Giardia Antigen Neg 3 11:04 EST [facility] Feces SPECIMEN FROM RECTUM / Unknown 10/02/2022 9:10 EST 10/02/2022 22:42 EST us Provider Outr Resulting Lab MICROBIOLOGY - GENER AL ORDERABLES Final Result [facility] [address] [place] [id number] * FECAL BACTERIAL PATHOGENS BY PCR (10/02/2022 9:10 EST) Salmonella PCR Negative Negative 10/03/2022 10:52 EST [facility] Shigella/Enteroin vasive E. coli Negative Negative 10/03/2022 10:52 EST [facility] HN LAB CAMPYLOBACTER PCR Negative Negative 10/03/2022 10:52 EST [facility] Shiga Toxin PCR Negative Negative 3 10:52 EST [facility] Feces SPECIMEN FROM RECTUM / Unknown 10/02/2022 9:10 EST 10/02/2022 22:42 EST us Provider Outr Resulting Lab MICROBIOLOGY - GENER AL ORDERABLES Final Result Performing Organization Address [facility] Co de Phone Number [facility] [address] [place] [address] * OVA/PARASITE EXAM (10/02/2022 9:10 EST) Parasite No ova and parasites seen. 10/03/2022 12:58 EST [facility] Feces SPECIMEN FROM RECTUM / Unknown 10/02/2022 9:10 EST 10/02/2022 22:42 EST Narrative [facility] - 10/03/2022 12:58 EST (If Cryptosporidium, Cyclospora, or Microsporidium are suspected, specific tests must be requested.) Single negative specimen does not rule out the possibility of a parasitic infection. Provider Outr Resulting Lab MICROBIOLOGY - GENER AL ORDERABLES Final Result Performing Organization Address [facility] Co de Phone Number [facility] [address] [place] [address] documented in this encounter Visit Diagnoses Not on filedocumented in this encounter Care Teams Accounting Machine Operator Relationship Specialty Start Date End Date Lety Gibson APRN [address] [place] [id number] PCP - General Family Medicine - Primary Care 07/03/22 12/01/22 None, Provider PCP - General 12/02/22 01/08/23 [facility] [address] [place], [place] [id number] PCP - General 01/09/23 02/15/23 Unknown, Provider, [address] [place] [address] PCP - General 02/16/23 04/16/23 [facility] [address] [place] [address] PCP - General 04/17/23 09/29/23 None, Provider PCP - General 09/30/23 01/27/24 Shruthi Bailey MD [address] [place] [address] PCP - General Family Medicine - Primary Care 01/28/24 documented as of this encounter
--- OUTSIDE RECORDS SUMMARY | 2024-07-28 15:12 | XMS_ITS | Encounter Summary ---
Author Organization [facility] Address [address] [place] [address] Care Team Providers Care Jewelry Model Maker Name Role Phone None, Provider Primary Care Provider Unavailabl e Encounter Details Date Type Department Care Team (Late st Contact Info) Description 12/04/2022 Orders Only [facility] Spine Program - [address] [address] Arturo Garcia MD [address] [place] [address] [place] [address] Neck pain (Primary Dx) Social [...] motion at C6-7 between flexion and extension Arturo Garcia MD IMG DIAGNOSTIC IMAGING ORDERABLE S Final Result documented in this encounter Visit Diagnoses Diagnosis Neck pain- Primary Cervicalgia Neck pain Cervicalgia documented in this encounter Care Teams Jewelry Model Maker Relationship Specialty Start Date End Date None, Provider PCP - General 12/02/22 01/08/23 documented as of this encounter
--- OUTSIDE RECORDS SUMMARY | 2024-07-28 15:12 | XMS_ITS | Encounter Summary ---
Author Organization [facility] Address [address] [place] [address] Care Team Providers Care Account Analyst Name Role Phone Lety Gibson APRN Primary Care Provider [phone] Reason for Referral * Referral (Routine/Next Available) - Receiving Office to Obtain Authorization Specialty Diagnoses / Procedures Referred By [facility] t Referred To Contact General Surgery Diagnoses Special screening for malignant neoplasms, colon Procedures COLONOSCOPY Lety Gibson APRN [address] [place] [address] Phone: tel: fax: [facility] General Surgery [address] [place] [address] Phone: tel: fax: Referral ID Status Reason Start Date Expiration Date Visits Requested Visits Authorized [id number] Receiving Office to Obtain Authorization 2 1 1 Encounter Details Date Type Department Care Team (Latest Contact Info) Description 07/03/2022 Transcribe Orders [facility] General Surgery [address] [place] [address] Lety Gibson APRN [address] [place] [address] Special screening for malignant neoplasms, colon (Primary Dx) Social History Tobacco Use Types [...] documented as of this encounter Results * COLONOSCOPY (12/02/2022 11:00 EDT) Anatomical Region Laterality Modality Endoscopy Narrative 12/02/2022 11:00 EDT [facility] ?? [address] [place] [address] ?? Patient Name ?GLADIS MUSE Date of ?1965 Record Number ?[id number] Date/Time of Procedure ?12/02/2022, 11:00:00 AM Endoscopist ?Lex Martínez ?? Nuclear Equipment Design Engineer ? Referring Physician(s) ?? Laurie Ayala Anesthesiologist ? Procedure Performed: COLONOSCOPY - Polypectomy Indications for Exam: Screening Colonoscopy. Instruments: ? [facility]-[id number] ([id number]) Medications: ?I was in continuous face to [...] ?? Sedation End: 11:24:59 AM Signature: Lorena [email or web address] This note was electronically signed on 12/02/2022 11:28:47 AM By Lex PattersonCBenitez us Lety Gibson WOODWORKING BELT SANDER GI PROCEDURE ORDERABLES Maria Guadalupe l Result documented in this encounter Visit Diagnoses Diagnosis Special screening for malignant neoplasms, colon- Primary Special screening for malignant neoplasms, colon documented in this encounter Care Teams Account Analyst Relationship Specialty Start Date End Date Lety Gibson APRN [address] [place] [phone] PCP - General Family Medicine - Primary Care 07/03/22 12/01/22 documented as of this encounter
--- OUTSIDE RECORDS SUMMARY | 2024-07-28 15:12 | XMS_ITS | Encounter Summary ---
Author Organization [facility] Address [address] [place] [address] Care Team Providers Care Biomedical Engineering Internship Name Role Phone Lety Gibson APRN Primary Care Provider [phone] Reason for Referral * Radiology Services (Routine/Next Available) - Authorization Not Required Specialty Diagnoses / Procedures Referred By Contac t Referred To Contact Radiology Diagnoses Pain of right upper extremity Neck pain Procedures MR CERVICAL SPINE WO CONTRAST Isabella Galarza PA-C Phone: tel: fax: [facility] Referral ID Status Reason Start Date Expiration Date Visits Requested Visits Authorized [id number] Authorization Not Required 06/06/2022 1 1 Reason for Visit * Radiology Services (Routine/Next Available) - Authorization Not Required Specialty Diagnoses / Procedures Referred By Contac t Referred To Contact Radiology Diagnoses Pain of right upper extremity Neck pain Procedures MR CERVICAL SPINE WO CONTRAST Isabella Galarza PA-C Phone: tel: fax: [facility] Referral ID Status Reason Start Date Expiration Date Visits Requested Visits Authorized [id number] Authorization Not Required 06/06/2022 1 1 Encounter Details Date Type Department Care Team (Latest Contact Info) Description 07/10/2022 8:09 EDT - 07/10/2022 23:59 EDT Hospital Encounter [address] [facility] [address] [place] [address] Pain of right upper extremity; Neck pain Discharge Disposition: Home or Self [...] Procedure Name Priority Date/Time Associated Diagnosis Comments CERVICAL SPINE WO CONTAST Routine 07/10/2022 9:28 EDT Pain of right upper extremity Neck pain documented in this encounter Results * MR CERVICAL SPINE WO CONTRAST (07/10/2022 9:28 EDT) Anatomical Region Laterality Modality Spine Magnetic Resonan ce 07/10/2022 10:1 0 EDT Impressions 07/10/2022 10:10 EDT Multilevel degenerative disc, facet, and uncovertebral disease which is notable for severe neural foraminal stenosis on the right at C3-4, bilaterally at C5-6 and on the left at C6-7, moderate to severe neural foraminal stenosis on the right at C6-7, and mild spinal canal stenosis at C5-6 and C6-7. Narrative 07/10/2022 10:10 EDT EXAM: MRI CERVICAL SPINE WO CONTRAST HISTORY: cervical radic; Cervical radiculopathy, prior cervical surgery TECHNIQUE: MRI of the cervical spine without contrast. Structured report code: [id number] COMPARISON: Radiograph 02/14/2022 FINDINGS: SURGICAL CHANGES: None. ALIGNMENT: Slight anterolisthesis of C3 on C4 and slight retrolisthesis of C5 on C6 and C6 on C7. BONES: No significant vertebral body height loss. No concerning lesions. INTERVERTEBRAL DISCS: Degenerative disc height loss is greatest at C5-6 and C6-7. SPINAL CANAL AND SPINAL CORD: No abnormal cord signal intensity. No fluid collections. VISIBLE EXTRASPINAL SOFT TISSUES AND INTRACRANIAL CONTENTS: Unremarkable. EVALUATION BY LEVEL: C1-C2: No stenosis. C2-C3: Left facet arthropathy contributes to mild left neural foraminal stenosis. No spinal canal stenosis. C3-C4: Right greater than left facet arthropathy and uncovertebral hypertrophy contributes to severe right neural foraminal stenosis and moderate left neural foraminal stenosis. No spinal canal stenosis. C4-C5: Disc osteophyte complex narrows the ventral thecal sac without causing spinal canal stenosis. Left greater than right facet arthropathy contributes to moderate left neural foraminal stenosis. C5-C6: Disc osteophyte complex and ligamentum flavum thickening contribute to mild spinal canal stenosis. Facet arthropathy and uncovertebral spurring contribute to severe bilateral neural foraminal stenosis. C6-C7: Disc osteophyte complex and ligamentum flavum thickening contribute to mild spinal canal stenosis with mild flattening of the spinal cord. Facet arthropathy and uncovertebral hypertrophy contributes to severe left and moderate to severe right neural foraminal stenosis. C7-T1: Disc osteophyte complex without spinal canal stenosis. Facet arthropathy and uncovertebral hypertrophy contribute to moderate bilateral neural foraminal stenosis. Procedure Note Atif Montilla MD - 07/10/2022 EXAM: MRI CERVICAL SPINE WO CONTRAST HISTORY: cervical radic; Cervical radiculopathy, prior cervical surgery TECHNIQUE: MRI of the cervical spine without contrast. Structured reportcode: [id number] COMPARISON: Radiograph 02/14/2022 FINDINGS: SURGICAL CHANGES: None. ALIGNMENT: Slight anterolisthesis of C3 on C4 and slight retrolisthesis of C5 on C6and C6 on C7. BONES: No significant vertebral body height loss. No concerning lesions. INTERVERTEBRAL DISCS: Degenerative disc height loss is greatest at C5-6 and C6-7. SPINAL CANAL AND SPINAL CORD: No abnormal cord signal intensity. No fluid collections. VISIBLE EXTRASPINAL SOFT TISSUES AND INTRACRANIAL CONTENTS: Unremarkable. EVALUATION BY LEVEL: C1-C2: No stenosis. C2-C3: Left facet arthropathy contributes to mild left neural foraminalstenosis. No spinal canal stenosis. C3-C4: Right greater than left facet arthropathy and uncovertebralhypertrophy contributes to severe right neural foraminal stenosis andmoderate left neural foraminal stenosis. No spinal canal stenosis. C4-C5: Disc osteophyte complex narrows the ventral thecal sac withoutcausing spinal canal stenosis. Left greater than right facet arthropathycontributes to moderate left neural foraminal stenosis. C5-C6: Disc osteophyte complex and ligamentum flavum thickening contributeto mild spinal canal stenosis. Facet arthropathy and uncovertebralspurring contribute to severe bilateral neural foraminal stenosis. C6-C7: Disc osteophyte complex and ligamentum flavum thickening contributeto mild spinal canal stenosis with mild flattening of the spinal cord.Facet arthropathy and uncovertebral hypertrophy contributes to severe leftand moderate to severe right neural foraminal stenosis. C7-T1: Disc osteophyte complex without spinal canal stenosis. Facetarthropathy and uncovertebral hypertrophy contribute to moderate bilateralneural foraminal stenosis. IMPRESSION Multilevel degenerative disc, facet, and uncovertebral disease which isnotable for severe neural foraminal stenosis on the right at C3-4,bilaterally at C5-6 and on the left at C6-7, moderate to severe neuralforaminal stenosis on the right at C6-7, and mild spinal canal stenosis atC5-6 and C6-7. Isabella Galarza PA-C IMG MRI ORDERABLES Fin al Result documented in this encounter Visit Diagnoses Diagnosis Pain of right upper extremity Neck pain Cervicalgia documented in this encounter Care Teams Biomedical Engineering Internship Relationship Specialty Start Date End Date Lety Gibson, ENGINEERING PATTERNMAKER [address] [place] [address] PCP - General Family Medicine - Primary Care 07/03/22 12/01/22 documented as of this encounter
--- OUTSIDE RECORDS SUMMARY | 2024-07-28 15:12 | XMS_ITS | Encounter Summary ---
Author Organization [facility] Address [address] [place] [address] Care Team Providers Care Map Maker Name Role Phone None, Provider Primary Care Provider [facility] Primary Care Provid er Unknown, Provider Primary Care Provider [facility]- Primary Care Provider [phone] None, Provider Primary Care Provider Shruthi Hill MD Primary Care Provider [phone] Encounter Details Date Type Department Care Team (Late st Contact Info) Description 12/12/2022 Lab Requisition [facility] Pathology & Laboratory Medicine - [address] [id number] Outr Resulting Lab, Provider Social History Tobacco [...] Procedure Name Priority Date/Time Associated Diagnosis Comments HIV 1/2 ANTIGEN AND ANTIBODY, 4TH GENERATION Routine 12/12/2022 10:30 EDT documented in this encounter Results * HIV 1/2 ANTIGEN AND ANTIBODY, 4TH GENERATION (12/12/2022 10:30 EDT) [facility] HIV 1 and 2 Antibody/p24 Antigen, 4th Generation Negative Negative 12/13/2022 12:48 EDT [facility] Comment:If acute HIV-1 infec tion is suspected in a high risk patient, submit plasma specimen for HIV-1 RNA quantitation test. Blood VENOUS BLOOD / Unknown 12/12/2022 10:30 EDT 12/12/2022 22:23 EDT Narrative [facility] - 12/13/2022 12:48 EDT Fourth Generation assay performed on the Siemens Centaur XPT. us Provider Outr Resulting Lab IMMUNOLOGY AND SEROL OGY ORDERABLES Final Result [facility] [address] [place] [address] documented in this encounter Visit Diagnoses Not on filedocumented in this encounter Care Teams Map Maker Relationship Specialty Start Date End Date None, Provider PCP - General 12/02/22 01/08/23 [facility] [address] [place], [place] [address] PCP - General 01/09/23 02/15/23 Unknown, Provider, [address] [place] [address] PCP - General 02/16/23 04/16/23 [facility] [address] [place] [address] PCP - General 04/17/23 09/29/23 None, Provider PCP - General 09/30/23 01/27/24 Shruthi Bailey MD [address] [place], [place] [address] PCP - General Family Medicine - Primary Care 01/28/24 documented as of this encounter
--- OUTSIDE RECORDS SUMMARY | 2024-07-28 15:12 | XMS_ITS | Encounter Summary ---
Author Organization [facility] Address [address] [place] [address] Care Team Providers Care Armature Repairer Name Role Phone Lety Gibson SRIRAM Primary Care Provider [phone] Reason for Visit * Reason Onset Date Comments Appointment Related 09/16/2022 Encounter Details Date Type Department Care Team (Late st Contact Info) Description 09/16/2022 Telephone [facility] Interventional Pain [address] [place] [address] Omega Peñaloza MD [address] [place] [address] Appointment Related Social History Tobacco Use Types [...] encounter Miscellaneous Notes * Telephone Encounter - Stephanie Flores MA - 09/16/2022 1030 EST CHRIS contacted patient as a reminder about stopping Meloxicam 4 days ahead of procedure on 09/24. CHRIS reminded the patient of the following items: -Patient must have a superintendent drivers -Patient needs to arrive 45 minutes ahead of procedural start time -Patient must be infection free and off antibiotics for 14 days prior to appointment -No Vaccines 2 weeks before or after procedures that involve steroids -Fasting guidelines of nothing to eat or drink after midnight day before procedure. Morning of procedure may take essential medications with a small sip of water (excluding medications that must be held for the procedure). Patient verbalizes understanding and is provided clinic phone number [phone] for any additional questions. documented in this encounter Plan of Treatment Not on file documented as of this encounter Visit Diagnoses Not on filedocumented in this encounter Care Teams Armature Repairer Relationship Specialty Start Date End Date Lety Gibson APRN [address] [place] [address] PCP - General Family Medicine - Primary Care 07/03/22 12/01/22 documented as of this encounter
--- OUTSIDE RECORDS SUMMARY | 2024-07-28 15:12 | XMS_ITS | Encounter Summary ---
Author Organization [facility] Address [address] [place] [address] Care Team Providers Care Mattress Renovator Name Role Phone Unknown, Provider MD Primary Care Provider Unava ilable Reason for Visit * Reason Onset Date Comments Pre-procedure 02/19/2023 Encounter Details Date Type Department Care Team (Late st Contact Info) Description 02/19/2023 Prep for Procedure [facility] [address] [place], [place] [id number] Asha Metz, RN [address] [place] [address] Social History Tobacco Use Types Packs/Day Years [...] on filedocumented in this encounter Care Teams Mattress Renovator Relationship Specialty Start Date End Date Unknown, Provider, PCP - General 02/16/23 04/16/23 documented as of this encounter
--- OUTSIDE RECORDS SUMMARY | 2024-07-28 15:12 | XMS_ITS | Encounter Summary ---
Author Organization [facility] Address [address] [place] [address] Care Team Providers Care Radiation Therapy Technologist Name Role Phone Lety Gibson APRN Primary Care Provider None, Provider Primary Care Provider [facility] Primary Care Provid er Unknown, Provider Primary Care Provider [facility]- Primary Care Provider [phone] None, Provider Primary Care Provider Shruthi Hill MD Primary Care Provider [phone] Reason for Visit * Reason Onset Date Comments Results 09/25/2022 Encounter Details Date Type Department Care Team (Late st Contact Info) Description 09/25/2022 Telephone [facility] Interventional Pain [address] [place] [address] Stacy Enciso RN Results Social History Tobacco Use Types Packs/Day [...] encounter Miscellaneous Notes * Telephone Encounter - Stacy Enciso RN - 09/25/2022 1136 EST Follow up call - diagnostic injection Injection date and procedure: 09/24/22 right cervical TFESI C6-C7 Location of pain/symptoms that the patient is calling about: neck right Initial pain score: 6/10 Post procedure pain score: 6/10 Current pain level: 6/10 (scale 0-10: 0 is no pain, 10 is worst pain ever) How many hours of relief from pain/symptoms on the day of the injection? 6h hours Was there significant functional relief or functional improvement? Yes (yes = 80% or greater relief) 100% relief from right arm nerve pain Which daily activities was the patient able to do better? Right arm nerve pain was gone for 6 hours; tingling of hand/fingers was reduced. Pt had relief from right sided neck pain at night time. Patient additional feedback: injection site soreness; RN advised cold pack applications 20 min several times/day for next 48 hours; can use heat/ice after 2 days Next step/appt per MD plan: Pt will contact ELIAS Gaalrza/Ortho spine clinic for follow up appt; Forward to orthotic fitter: Results forwarded to Ortho spine RN/CHRIS naik ----- Message from Marcelina Koenig RN sent at 09/24/2022 11:00 EST ----- Regarding: Result Diagnostic result of right cervical TFESI Dr Peñaloza documented in this encounter Plan of Treatment Not on file documented as of this encounter Visit Diagnoses Not on filedocumented in this encounter Care Teams Radiation Therapy Technologist Relationship Specialty Start Date End Date Lety Gibson APRN [address] [place] [address] PCP - General Family Medicine - Primary Care 07/03/22 12/01/22 None, Provider PCP - General 12/02/22 01/08/23 [facility] [address] [place] [address] PCP - General 01/09/23 02/15/23 Unknown, Provider, [address] [place] [address] PCP - General 02/16/23 04/16/23 [facility]- [address] [place] [address] PCP - General 04/17/23 09/29/23 None, Provider PCP - General 09/30/23 01/27/24 Shruthi Bailey MD [address] [place] [address] PCP - General Family Medicine - Primary Care 01/28/24 documented as of this encounter
--- OUTSIDE RECORDS SUMMARY | 2024-07-28 15:12 | XMS_ITS | Encounter Summary ---
Author Organization [facility] Address [address] [place] [address] Care Team Providers Care Assurance Manager Insurance Name Role Phone None, Provider Primary Care Provider [facility] Primary Care Provid er Unknown, Provider Primary Care Provider [facility]- Primary Care Provider [phone] None, Provider Primary Care Provider Shruthi Hill MD Primary Care Provider [phone] Encounter Details Date Type Department Care Team (Late st Contact Info) Description 12/12/2022 Lab Requisition [facility] Pathology & Laboratory Medicine - [address] [id number] Outr Resulting Lab, Provider Social History Tobacco [...] Procedure Name Priority Date/Time Associated Diagnosis Comments SYPHILIS SEROLOGY Routine 12/12/2022 10: 30 EDT documented in this encounter Results * SYPHILIS SEROLOGY (12/12/2022 10:30 EDT) Syphilis Serology Negative Negative 12/15/2022 11:[address] [facility] Blood VENOUS BLOOD / Unknown 12/12/2022 10:30 EDT 12/12/2022 22:23 EDT us Provider Outr Resulting Lab IMMUNOLOGY AND SEROL OGY ORDERABLES Final Result [facility] [address] [place] [address] documented in this encounter Visit Diagnoses Not on filedocumented in this encounter Care Teams Assurance Manager Insurance Relationship Specialty Start Date End Date None, Provider PCP - General 12/02/22 01/08/[address] [address] PCP - General 01/09/23 02/15/23 Unknown, ProviderMD [address] [place] [address] PCP - General 02/16/23 04/16/23 [facility] [address] [place], [place] [address] PCP - General 04/17/23 09/29/23 None, Provider PCP - General 09/30/23 01/27/24 Shruthi Bailey MD [address] [place] [address] PCP - General Family Medicine - Primary Care 01/28/24 documented as of this encounter
--- OUTSIDE RECORDS SUMMARY | 2024-07-28 15:12 | XMS_ITS | Encounter Summary ---
Author Organization [facility] Address [address] [place] [id number] Care Team Providers Care Stemhole Borer Name Role Phone Unknown, Provider MD Primary Care Provider Unava ilable Reason for Visit * Auth/Cert (Routine) Specialty Diagnoses / Procedures Referred By Contac t Referred To Contact Diagnoses Cervical radiculopathy Procedures AR ARTHRODESIS ANT INTERBODY INC DISCECTOMY, CERVICAL BELOW C2 AR ARTHRODESIS ANT INTERBODY INC DISCECTOMY, CERVICAL BELOW C2 AR ANTERIOR INSTRUMENTATION 2-3 VERTEBRAL SEGMENTS AR ALLOGRAFT FOR SPINE SURGERY ONLY STRUCTURAL C6-7 Anterior cervical discectomy and fusion Arturo Garcia MD [address] [place] [address] Phone: tel: fax: Referral ID Status Reason Start Date Expiration Date Visits Re quested Visits Authorized [id number] 01/09/2023 1 1 Encounter Details Date Type Department Care Team (Late st Contact Info) Description 03/04/2023 13:20 EDT - 03/04/2023 16:15 EDT Surgery [facility] [place] [address] [place] [id number] Arturo Garcia MD [address] [place] [address] C6-7 Anterior cervical discectomy and fusion [91346 (CPT??)] Surgery Details Date/Time Status Location OR Service Patient Class Case Cl ass Case Type Trauma Case? 03/04/2023 1320 Posted [facility] OR [facility] H - Elective Panel 1 Procedure LRB Anes Op Region Wound Class Comments C6-7 Anterior cervical disce ctomy and fusion N/A General Spine Cervical Class I/ Clean Surgeon Surgeon Role Service Panel Arturo Garcia MD Primary Orthopedics 1 Yulissa Moeller MD Resident - Assisting Orthope dics 1 Special Needs GW Aniceto Dominguez Flat-top, #10AMicroscope, OzarkPosition: SupineREP documented in this encounter Social History Tobacco Use Types Packs/Day Years [...] Sign Reading Time Taken Comments Blood Pressure 93/54 03/04/2023 1615 EDT Pulse - - Temperature 36 ??C (96.8 ??F) 03/04/2023 1615 EDT Respiratory Rate 16 03/04/2023 1615 EDT Oxygen Saturation 93% 03/04/2023 1615 EDT Inhaled Oxygen Concentration - - Weight [...] 01/09/2023 Added automatically from request for surgery [id number] Resolved Hospital Problems No resolved problems to display. Principal Procedure: C6-7 ACDF Date: 03/04/2023 Secondary Procedures: none Hospital Course The patient is a 58 y.o. female admitted to [facility] after undergoing uncomplicated procedure as [...] 13:10 (Arrive by 12:55) Mammogram Screening with [facility] MG 8 [facility] - [facility] Mammography ([facility] Radiology) [address] [facility] [address] No fragranced lotions, perfume, or powder, but deodorant is okay. Mar 19, 2023 15:30 Therapy Surgery Aftercare with Candice Linares, PT [facility] Rehabilitation Therapy - [place] (--) [address] [place] [id number] Apr 07, 2023 13:30 Therapy Surgery Aftercare with Candice Linares, PT [facility] Rehabilitation Therapy - [place] (--) [address] [place] [address] Apr 17, 2023 9:00 Therapy Surgery Aftercare with Candice Linares, PT [facility] Rehabilitation Therapy - [place] (--) [address] [place] [id number] Apr 17, 2023 10:00 (Arrive by 9:45) Post Op Visit with Arturo Garcia MD [facility] Spine Program - [place] (--) [place] [phone] May 29, 2023 13:00 (Arrive by 12:45) Office Visit with Arturo Garcia MD [facility] Spine Program - [place] (--) [place] [phone] Cassie Pierce PA-C 03/05/2023 12:20 Cosigned by [...] to follow-up, please call the office at [phone]. You should have awound check and physical therapy visit scheduled at ~2-3 weeks post-operatively, and a visit with your surgeon at ~6 weeks post-operatively. Please call the office if you have a fever>101.5 degrees Fahrenheit, drainage from your wound, or have any questions. [phone] documented in this encounter Medications at Time [...] Daily Max: 80 mg 20 Tablet 03/05/2023 methocarbamoL (ROBAXIN) 750 mg tablet Take 1 Tablet by mouth every 6 hours as needed (muscle spasms). 40 Tablet 03/05/2023 senna (SENOKOT) 8.6 mg tablet Take 2 Tablets by mouth 2 times daily. 03/05/2023 4 documented in this encounter Discharge Disposition Disposition Code Departure Means Destination Comment s Home or Self Halfway documented in this encounter Progress Notes * Ev Scott PT - 03/05/2023 0956 EDT [facility] Rehabilitation Therapy Acute Therapies [facility] Physical Therapy Initial Evaluation/Discontinue Note Date [...] radiculopathy [M54.12] The patient lives at [address] [facility] [address] Home environment Lives:SO Caregiver Support: Part-time assist Equipment Available: Cane Home Environment: apartment Home Layout: One story. 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 CERVICAL [...] understanding and returned demonstration Team Communication: Nurse clinical social worker/caser up Epic secure chat After therapy session Patient [...] other consults recommended at this time Pager: [phone] EV SCOTT, PT 03/05/2023 9:56 * Yulissa [...] ext (C7, C8) Wrist flex (C8, T1) Portable Machine Cutter (T1) Right 5/5 5/5 5/5 5/5 5/5 [...] MOELLER MD 03/05/23 6:12 - Pager - [phone] Cosigned by Arturo Garcia MD at 03/05/2023 7:24 EDT * Mirna Santamaria MD - 03/04/2023 8043 EDT Orthopaedic Spine Surgery Postoperative Check Note [...] Deltoid Biceps Triceps Wrist ext Wrist flex Portable Machine Cutter EPL AIN IO Right 5/5 5/5 5/5 [...] Garcia MD 03/04/2023 13:03 Source Note - CURTAIN DRIER, SCAN 2 - 02/20/2023 17:35 EDT documented in this encounter OR Notes * OR Surgeon - Arturo Garcia MD - 03/04/2023 1303 EDT DATE OF SURGERY: 03/04/2023 SURGEION: Arturo Garcia POCKETED SPRING ASSEMBLER: Yulissa Moeller MD PREOPERATIVE DIAGNOSIS:cervical radiculitis. Level: C6-7 POSTOPERATIVE DIAGNOSES: Same as preop PROCEDURES: 1. Anterior cervical discectomy and arthrodesis C6-7 2. Insertion of anterior instrumentation, C6-7 3. Insertion of allograft, structural 4. Application and removal of Cooper-Wells tongs 5. Use of the operating microscope INSTRUMENTATION: Intrinsic Medical Imaging system ANESTHESIA: General endotracheal. ESTIMATED BLOOD LOSS: [...] Care - Shantel Rothman RN - 03/05/2023 0359 EDT Problem: Daily Care Plan Goals Goal: [...] neck, tolerable w/oxy & heat packs. Call seirra within reach, CTM * Brief Op Note - Yulissa Moeller MD - 03/04/2023 1623 EDT Orthopedic Surgery Brief Op Note Date of Surgery: 03/04/2023 Surgeon: Arturo Garcia MD Assistants: Yulissa Moeller MD; Nadia Artis MSIV Pre-Op Diagnosis: C7 radiculopathy Post-Op Diagnosis: same Procedure(s): C6-7 ACDF Findings: uncinate hypertrophy Anesthesia Type: General Estimated Blood Loss: 25 mL Fluids: Gladis Chester received 700 mL of fluid replacement. Urine [...] Implant Name Type Inv. Item Serial No. Submarine Diver Lot No. LRB No. Used Action BONE SPACER CERVICAL ROUND 6MM [id number] - [id number] Bone BONE SPACER CERVICAL ROUND 6MM [id number] MELCHOR SPINE N/A 1 Implanted PLATE 20MM LEVEL 1 OZARK - [id number] Spinal Implant PLATE 20MM LEVEL 1 OZARK [id number] MELCHOR SPINE N/A 1 Implanted SCREW SPINAL 4.0 X 14MM ANT CERV SOLID TI SELF TAPPING FIXED ANGLE OZARK NS - [id number] Spinal Implant SCREW SPINAL 4.0 X 14MM ANT CERV SOLID TI SELF TAPPING FIXED ANGLE OZARK NS [id number] MELCHOR SPINE N/A 2 Implanted SCREW VARIABLE SELF-TAPPING 4.0 X 14MM OZARK - [id number] Spinal Implant SCREW VARIABLE SELF-TAPPING4.0 X 14MM OZARK [id number] MELCHOR SPINE N/A 2 Implanted * PAT Brad - Ronel Conway MD - 03/03/2023 1316 EDT 58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 Has radiculopathy, not [...] 01/09/2023 Added automatically from request for surgery [id number] ??? Special screening for malignant neoplasms, colon [...] ACDF hardware without unexpected radiopaque foreign body. [id number] Narrative 03/05/2023 10:43 EDT CERVICAL SPINE, 2 [...] ACDF hardware without unexpected radiopaque foreign body. [id number] us Yulissa Moeller MD IMG DIAGNOSTIC IMAGING O RDERABLES Final Result * (ABNORMAL) COMPLETE BLOOD COUNT AND DIFFERENTIAL (03/05/2023 6:03 EDT) WBC 17.33(H) 4.00 - 12.40 K/cmm 03/05/2023 6:34 [facility] RBC 4.67 3.86 - 5.04 M/cmm 03/05/2023 6:34 [facility] Hemoglobin 14.6 11.6 - 15.2 g/dL 03/05/2023 6:34 [facility] HCT 41.7 34.9 - 44.4 % 03/05/2023 6:34 [facility] MCV 89 81 - 98 fL 03/05/2023 6:34 [facility] MCH 31.3 26.7 - 33.3 pg 03/05/2023 6:34 [facility] MCHC 35.0 32.1 - 35.9 g/dL 03/05/2023 6:34 [facility] RDW-CV 13.1 <14.7 % 03/05/2023 6:34 [facility] RDW-SD 42.7 <50.4 fl 03/05/2023 6:34 [facility] PLT 356 141 - 377 K/cmm 03/05/2023 6:34 [facility] MPV 10.5 9.5 - 12.7 fL 03/05/2023 6:34 [facility] % Neutrophils 84.6 % 03/05/2023 6:34 [facility] % Lymphocytes 11.0 % 03/05/2023 6:34 [facility] % Monocytes 3.4 % 03/05/2023 6:34 [facility] % Eosinophils 0.0 % 03/05/2023 6:34 [facility] % Basophils 0.2 % 03/05/2023 6:34 [facility] % Immature Grans 0.8 % 03/05/20 6:34 [facility] Absolute Neutrophils 14.68(H) 2.20 - 8.85 K/cmm 03/05/2023 6:34 [facility] Absolute Lymphocytes 1.90 1.09 - 3.30 K/cmm 03/05/2023 6:34 EDT [facility] Absolute Monocytes 0.59 0.10 - 0.80 K/cmm 03/05/2023 6:34 T [facility] Absolute Eosinophils 0.00(L) 0.03 - 0.61 K/cmm 03/05/2023 6:34 T [facility] ABS Basophils 0.03 0.01 - 0.11 K/cmm 03/05/2023 6:34 [facility] Absolute Immature Grans 0.13(H) 0.00 - 0.06 K/cmm 03/05/2023 6:34 [facility] Type of Differential: Auto 03/05/2023 6:34 [facility] Blood VENOUS BLOOD / Unknown Venipuncture / Unknown 03/05/2023 6:03 EDT 03/05/2023 6:16 EDT Yulissa Moeller MD PACKAGES & DNA PROBE ORD ERABLES Final Result [facility] [address] [place] [address] * ELECTROLYTES (03/05/2023 6:03 EDT) Sodium 140 136 - 145 mmol/L 03/05/2023 6:29 EDT [facility] Potassium 4.4 3.5 - 5.0 mmol/L 03/05/2023 6:29 EDT [facility] Chloride 107 96 - 110 mmol/L 03/05/2023 6:29 EDT [facility] CO2 Total 23 22 - 32 mmol/L 03/05/2023 6:29 EDT [facility] Anion Gap 10 5 - 14 mmol/L 03/05/2023 6:29 EDT [facility] Blood VENOUS BLOOD / Unknown Venipuncture / Unknown 03/05/2023 6:03 EDT 03/05/2023 6:19 EDT Yulissa Moeller MD CHEMISTRY & BLOOD GAS OR DERABLES Final Result Performing Organization Address City/[facility]/ZIP Co de Phone Number [facility] [address] [place] [address] * CREATININE (03/05/2023 6:03 EDT) Creatinine 0.81 0.52 - 1.04 mg/dL 03/05/2023 6:29 EDT [facility] eGFR 84 >60 mL/min/1.73 m2 03/05/2023 6:29 EDT [facility] Blood VENOUS BLOOD / Unknown Venipuncture / Unknown 03/05/2023 6:03 EDT 03/05/2023 6:19 EDT Yulissa Moeller MD CHEMISTRY & BLOOD GAS OR DERABLES Final Result Performing Organization Address [facility]UST Co de Phone Number [facility] [address] [place] [address] * BUN (03/05/2023 6:03 EDT) BUN 19 10 - 26 mg/dL 03/05/2023 6:29 EDT [facility] Blood VENOUS BLOOD / Unknown Venipuncture / Unknown 03/05/2023 6:03 EDT 03/05/2023 6:19 EDT Yulissa Moeller MD CHEMISTRY & BLOOD GAS OR DERABLES Final Result Performing Organization Address City/[facility] Co de Phone Number [facility] [address] [place] [address] * FL C-ARM 0-1 HOUR (03/04/2023 16:11 EDT) Narrative 03/04/2023 16:12 EDT This is a non-reportable exam. Arturo Garcia MD IMG OTHER IMAGING ORDERABLES Fin al Result * XR CERVICAL SPINE 2-3 VIEWS (03/04/2023 16:11 EDT) Anatomical Region Laterality Modality Radio Fluoroscop y 03/04/2023 16:3 3 EDT Impressions 03/04/2023 16:33 EDT No unexpected radiopaque foreign bodies. [id number] Narrative 03/04/2023 16:33 EDT CERVICAL SPINE, 1 [...] spine. IMPRESSION No unexpected radiopaque foreign bodies. [id number] Arturo Garcia MD IMG DIAGNOSTIC IMAGING ORDERABLE S Final Result * XR CERVICAL SPINE 1 VIEW (03/04/2023 14:47 EDT) Anatomical Region Laterality Modality Radio Fluoroscop y 03/04/2023 16:3 0 EDT Impressions 03/04/2023 16:30 EDT Intraoperative localization. Findings were communicated to the OR shortly after image acquisition. I have personally reviewed the images and the above interpretation and agree with the findings. [id number] Narrative 03/04/2023 16:30 EDT CERVICAL SPINE, 1 [...] the above interpretation andagree with the findings. [id number] us Arturo Garcia MD IMG DIAGNOSTIC IMAGING ORDERABLE S Final Result * POCT GLUCOSE, INTERFACED (03/04/2023 12:16 EDT) Glucose, POC 93 70 - 100 mg/dL 03/04/2023 12:29 EDT [facility] HN LAB POC COMMENT (GLUCOSE) Test Performed by Nursing Services 03/04/2023 12:29 EDT [facility] Blood CAPILLARY BLOOD / Unknown 03/04/2023 12:16 EDT 03/04/2023 12:29 EDT us Arturo Garcia MD POINT OF CARE TEST ORDERABLES Fi nal Result [facility] [address] [place] [address] * TYPE AND SCREEN (03/04/2023 12:15 EDT) ABO O 03/04/2023 13:53 EDT [facility] Rh Factor Positive 03/04/2023 13:53 EDT [facility] Antibody Screen Negative 03/04/2023 13:53 EDT [facility] Specimen Expires: 03/07/2023 @ 23:59 03/04/2023 13:53 EDT [facility] Blood VENOUS BLOOD / Unknown Venipuncture / Unknown 03/04/2023 12:15 EDT 03/04/2023 12:27 EDT us Arturo Garcia MD BLOOD BANK TESTS Edited Result - Final [facility] [address] [place] [address] * ECG REPORT - SCANNED (02/20/2023 17:34 EDT) 02/20/2023 17:3 4 EDT us Scan 2 Supervisor Sawmill PROCEDURE/MINOR SURGICAL OR DERABLES Final Result documented in this encounter Visit Diagnoses Diagnosis Cervical radiculopathy- Primary Brachial neuritis or radiculitis nos Cervical radiculopathy Brachial neuritis or radiculitis nos [...] mcg Given 03/04/2023 16:36 EDT 25 mcg gelatin absorbable powder (SURGIFOAM) PRN, Starting on Thu03/04/23 at 1556, Until Thu03/04/23 at 1612, Intraprocedure Given 03/04/2023 15:56 EDT 1 Each HYDROmorphone (DILAUDID) tablet 2-4 mg 2-4 mg, [...] Until Thu03/05/23 at 1455, muscle spasms, Routine Given 03/05/2023 [...] PRN, Starting on Thu03/04/23 at 1843, Until Koki 03/05/23 at 1455, Nausea, Routine ondansetron (ZOFRAN-ODT) disintegrating tablet 4 mg 4 mg, oral, EVERY 6 HOURS PRN, Starting on Thu03/04/23 at 1843, Until Koki 03/05/23 at 1455, Nausea, Routine oxyCODONE (ROXICODONE) immediate release tablet 5-15 mg 5-15 mg, oral, EVERY 3 HOURS PRN, Starting on Thu03/04/23 at 1843, Until Koki 03/05/23 at 1455, Pain, Routine Given 03/05/2023 12:00 [...] Tablets Given 03/04/2023 20:35 EDT 2 Tablets sodium chloride 0.9 % irrigation PRN, Starting on Thu03/04/23 at 1607, Until Thu03/04/23 at 1612, Routine, Intraprocedure Given 03/04/2023 16:0 7 EDT 1,000 mL thrombin (bovine) 5,000 unit topical solution PRN, Starting on Thu03/04/23 at 1556, Until Thu03/04/23 at 1612, Intraprocedure Given 03/04/2023 15:56 EDT 1 Each zinc sulfate (ZINCATE) capsule 220 mg 220 mg, oral, DAILY, First dose on Thu03/05/23 at 0800, Until Discontinued, Routine Given 03/05/2023 9:59 EDT 22 0 mg documented in this encounter Discontinued Medications [...] rectal, EVERY 6 HOURS, First dose on Koki 03/05/23 at 0000, Until Discontinued, Routine 0031 (See Alternativ e - Provider: Emily Dinero RN)0604 (See Alternative - Provider: Shantel Rothman RN)1200 (See Alternative - Provider: Leah Devlin RN) acetaminophen (TYLENOL) tablet 1,000 mg(Linked Group 1) 1,000 mg, oral, EVERY 6 HOURS, First dose on Koki 03/05/23 at 0000, Until Discontinued, Routine 0031 (Given - Provid er: Emily Dinero RN)0604 (Given - Provider: Shantel Rothman RN)1200 (Given - Provider: Leah Devlin RN) ascorbic acid (vitamin C) (VITAMIN C) tablet 500 mg 500 mg, oral, DAILY, First dose on Koki 03/05/23 at 0800, Until Discontinued, Routine 0959 (Given [...] on Thu03/05/23 at 0800, Until Discontinued, Routine 09 (Given - Provid er: Leah Devlin RN) [...] PRN, Starting on Thu03/04/23 at 1843, Until Koki 03/05/23 at 1455, Constipation, Routine calcium carbonate (TUMS) tablet 500 mg (200 mg elemental calcium) 2 Tablet 2 Tablet, oral, EVERY 2 HOURS PRN, Starting on Thu03/04/23 at 1843, Until Koki 03/05/23 at 1455, epigastric stress, Routine fentaNYL citrate [...] Koki 03/05/23 at 1455, muscle spasms, Routine 1703 (Given [...] PRN, Starting on Thu03/04/23 at 1843, Until Koki 03/05/23 at 1455, Nausea, Routine ondansetron (ZOFRAN-ODT) disintegrating tablet 4 mg(Linked Group 3) 4 mg, oral, EVERY 6 HOURS PRN, Starting on Thu03/04/23 at 1843, Until Koki 03/05/23 at 1455, Nausea, Routine oxyCODONE (ROXICODONE) immediate release tablet 5-15 mg 5-15 mg, oral, EVERY 3 HOURS PRN, Starting on Thu03/04/23 at 1843, Until Koki 03/05/23 at 1455, Pain, Routine 2034 (Given - Provider: Shantel Rothman RN) 0031 [...] PRN, Starting on Thu03/04/23 at 1843, Until Koki 03/05/23 at 1455, Nausea, Routine documented in this encounter Orders Medications Ordered That Erik ht Not Have Been Administered Count Last Ordered Date First Ordered Date acetaminophen (TYLENOL) solu tion unit dose cup 995 mg 1 03/04/2023 acetaminophen (TYLENOL) suppository 975 mg 1 03/04/2023 acetaminophen (TYLENOL) tablet 1,000 mg 1 0 03/04/2023 atropine 0.1 mg/mL syringe 0.5 mg 1 023 bisacodyL (DULCOLAX) suppository 10 mg 1 calcium carbonate (TUMS) tab let 500 mg (200 mg elemental calcium) 2 Tablet 1 03/04/2023 ceFAZolin (ANCEF) syringe 2 g 1 03/04/2023 diphenhydrAMINE (BENADRYL) i njection 12.5 mg 1 03/04/2023 HYDROmorphone (PF) (DILAUDID ) 0.5 mg/0.5 mL [...] and Nasal Antiseptic) 1 Kit 1 03/04/2023 PT Count Last Ordered Date First Orde red Date PT EVALUATION AND TREAT 1 03/04/2023 Discharge Count Last Ordered Date First Orde red Date DISCHARGE PATIENT 1 03/05/2023 documented in this encounter Care Teams Stemhole Borer Relationship Specialty Start Date End Date Unknown, Provider, PCP - General 02/16/23 04/16/23 documented as of this encounter
--- OUTSIDE RECORDS SUMMARY | 2024-07-28 15:12 | XMS_ITS | Encounter Summary ---
Author Organization [facility] Address [address] [place] [address] Care Team Providers Care Border Inspector Name Role Phone [facility] Care Provid er Reason for Visit * Reason Onset Date Comments Pre-visit Planning 01/13/2023 Encounter Details Date Type Department Care Team (Late st Contact Info) Description 01/13/2023 Telephone [facility] Spine Program - [address] [place], [place] [phone] Asha Lentz, RN [address] [place] [address] Pre-visit Planning Social History Tobacco Use Types [...] Telephone Encounter - Asha Lentz RN - 01/13/2023 1201 EDT I spoke with Gladis reviewing lab results, letting her know her Vit D is low at 21 (30-100). Advised her to start taking Vit D3 2,000 IUs/day with meals. She verbalized understanding and agreement with this plan. ASHA LENTZ RN 01/13/2023 12:04 documented in this encounter Plan of Treatment Not on file documented as of this encounter Visit Diagnoses Not on filedocumented in this encounter Care Teams Border Inspector Relationship Specialty Start Date End Date [address] [address] PCP - General 01/09/23 02/15/23 documented as of this encounter
--- OUTSIDE RECORDS SUMMARY | 2024-07-28 15:12 | XMS_ITS | Encounter Summary ---
Author Organization [facility] Address [address] [place] [address] Care Team Providers Care Senior Hr Business Partner Name Role Phone Unknown, Provider MD Primary Care Provider Unava ilable Reason for Visit * Reason Onset Date Comments Pre-visit Planning 03/03/2023 Encounter Details Date Type Department Care Team (Late st Contact Info) Description 03/03/2023 Telephone [facility] Spine Program - [address] [place], [place] [id number] Asha Lentz, RN [address] [place] [address] Pre-visit Planning Social History Tobacco Use Types [...] Telephone Encounter - Asha Lentz RN - 03/03/2023 1251 EDT Telephone call placed to patient regarding the date and time of arrival for upcoming surgery. Arrival time of 1100 on 03/04/23 at 3rd floor Registration at [facility]. Reviewed Tylenol pain protocol,NPO after midnight except sips of water with pills and reminded patient to shower as directed with antibacterial soap the night before and morning of surgery. To wear clean sleep clothes, use clean sheets and wear clean clothes to hospital. Advised to wear or bring clothing that is non- restrictive at surgical site and to leave valuables at home. She is picking up her scopolamine patch now and will place as soon as she gets it - leaving it on through arrival at the hospital. All jewelry to be removed, no makeup, nail djiboutian, lotions, deodorant or colognes to be worn DOS. Patient denies any illness or signs of infection at present. I let patient know that we usually check in with them about a week after they are home but not to hesitate to call if any questions or concerns arise before that call. Patient verbalized understanding of all above. All questions answered to pt's verbalized understanding and satisfaction. No furtherquestions at this time. ASHA LENTZ RN 03/03/2023 12:57 documented in this encounter Plan of Treatment Not on file documented as of this encounter Visit Diagnoses Not on filedocumented in this encounter Care Teams Senior Hr Business Partner Relationship Specialty Start Date End Date Unknown, Provider, PCP - General 02/16/23 04/16/23 documented as of this encounter
--- OUTSIDE RECORDS SUMMARY | 2024-07-28 15:12 | XMS_ITS | Encounter Summary ---
Author Organization [facility] Address [address] [place] [address] Care Team Providers Care Forestry Conservation Worker Name Role Phone Lety Gibson SRIRAM Primary Care Provider Reason for Visit * Reason Onset Date Comments Appointment Related 07/29/2022 Encounter Details Date Type Department Care Team (Late st Contact Info) Description 07/29/2022 Telephone [facility] Interventional Pain [address] [place] [address] Omega Peñaloza MD [address] [place] [address] Appointment Related Social History Tobacco [...] encounter Miscellaneous Notes * Telephone Encounter - Alla Khanna - 07/29/2022 1013 EST Called patient and scheduled an injection from a referral 09/24/22 at 10:[address] Peñaloza Reminded patient of the following items: -Patient must have a laundry route driver -Patient needs to arrive 45 minutes ahead of procedural start time -Patient must be infection free and off antibiotics for 14 days prior to appointment -Patient should NOT have vaccines 2 weeks before or after procedures that involve steroids -Procedural Safety Medications and Fasting Instructions as applicable Directions and clinic phone number were provided to patient as needed. documented in this encounter Plan of Treatment Not on file documented as of this encounter Visit Diagnoses Not on filedocumented in this encounter Care Teams Forestry Conservation Worker Relationship Specialty Start Date End Date Lety Gibson APRN [address] [place] [id number] PCP - General Family Medicine - Primary Care 07/03/22 12/01/22 documented as of this encounter
--- OUTSIDE RECORDS SUMMARY | 2024-07-28 15:12 | XMS_ITS | Encounter Summary ---
Author Organization [facility] Address [address] [place] [address] Care Team Providers Care Shaft Repairer Name Role Phone PaigeLety mccarthy Mumtaz BHATIA Primary Care Provider Reason for Visit * Reason Comments Pain Encounter Details Date Type Department Care Team (Late st Contact Info) Description 07/10/2022 10:30 EDT Office Visit [facility] Spine Program - [address] [place] [address] Isabella Galarza PA-C [address] [facility] [place] [address] Pain of right upper extremity (Primary Dx); Neck pain Social History Tobacco Use Types Packs/Day [...] - Inhaled Oxygen Concentration - - Weight 72.6 kg (160 lb) 07/10/2022 0950 EDT Height 152.4 cm (5') 07/10/2022 0950 EDT Body Mass Index 31.25 07/10/2022 0950 EDT documented in this encounter Functional Status [...] documented in this encounter Progress Notes * Isabella Galarza PA-C - 07/10/2022 1030 EDT Ms. Chester is a 57 y.o. pleasant female who returns to the clinic today, 07/10/2022, for FU post MRI (07/10/2022). The patient reports no significant improvement since his last visit. Ms. Chester presented to the clinic for the fist time in 06/06/2022, with 1. 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 2. 80% RUE pain affecting: A. ARM: posterior aspect. B. FOREARM: posterior/ulnar aspect. C. HAND: Numbness and tingling affecting the last three fingers. ?? ONSET: This is a chronic issue that has been present since December 2021. In later October 2021, she had an injury after her scared dog who was lying next to her jumped by pushing on her head first causing to hear a popping sound. Has not been improving. Symptoms wax and wane, but they are present everyday. ?? ALLEVIATING FACTORS: Lying down with resting her arm on her head. AGGRAVATING FACTORS: rotating head to the right and tilting at the same time. ?? PAIN: 0/10, but can go up to 8/10 if she tilts her head. ? CONSERVATIVE TX: 1. Physical Therapy: YES, helped somewhat. 2. CHIRO: NO. 3. Steroid injections: NONE. 4. Medications: Tylenol and Meloxicam - help somewhat. ?? SOCIAL: 1. SMOKING: former. 2. 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 3. Patient lives with her partner. ? Neck Exam from initial visit in 06/06/2022: RASHES AND RENETTA: NEG. FROM: TENDERNESS ON PALPATION: NEG. STRENGTH: 5/5. REFLEXES: 2/4. SENSATION:Intact. SPURLING'S: POS on the right. MATHUR: NEG. RADIAL PULSE: 2/2. TINNEL: NEG. PHALEN: NEG. ULNAR COMPRESSION: NEG. ?? Today, 07/10/2022, I independently reviewed the following radiographs: ?? MRI - 07/10/2022: 1. Severe B/L neuroforaminal narrowing at C5-C6/C6-C7 and C7-T1 2. Multilevel degenerative disc and facet changes with disc bulgings at C5-C6 and C6-7 causing mildto moderate central spinal canal narrowing. 3. No cord signal Cervical Plain radiographs (AP/Lat/Flex/Ex): 1. Loss of cervical lordosis 2. Facet arthropathy of the cervical spine 3. Disc height reduction at C4-C5/C5-C6/C6-C7 consistent with degenerative disc disease 4. No fractures identified ? Assessment: 57 y.o. female with 1. 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 2. right UE pain along the C7 dermatome most likely radicular in nature. MRI concordant ?? She has agreed to the following plan. ?? Plan: 1. Order right C6-C7 TFESI. 2. Continue with in-home exercise program 3. Continue activity as tolerated. 4. Return to clinic post right C6-C7 TFESI -if no relief, C7-T1 MATEO vs surgical referral. ? CC: Dr. Gibson ? Dr. Carter was the attending physician available in the clinic today if needed.?? A consultation was not required. documented in this encounter Plan of Treatment Not on file documented as of this encounter Visit Diagnoses Diagnosis Pain of right upper extremity- Primary Neck pain Cervicalgia documented in this encounter Care Teams Shaft Repairer Relationship Specialty Start Date End Date Lety Gibson APRN [address] [place] [address] PCP - General Family Medicine - Primary Care 07/03/22 12/01/22 documented as of this encounter
--- OUTSIDE RECORDS SUMMARY | 2024-07-28 15:12 | XMS_ITS | Encounter Summary ---
Author Organization [facility] Address [address] [place] [address] Care Team Providers Care Bobbin Stripper Name Role Phone [facility] Primary Care Provid er Encounter Details Date Type Department Care Team (Late st Contact Info) Description 01/09/2023 14:15 EDT Phlebotomy Only [facility] Laboratory Services - [address] [address] [facility] Cervical radiculopathy; Encounter for vitamin deficiency screening; Encounter for [...] Procedure Name Priority Date/Time Associated Diagnosis Comments ZINC, SERUM Routine 01/09/2023 14:24 EDT Cervical radiculopathy Encounter for vitamin deficiency screening Encounter for pre-operative laboratory testing VITAMIN D (25,OH) Routine 01/09/2023 14: 24 EDT Cervical radiculopathy Encounter for vitamin deficiency screening Encounter for pre-operative laboratory testing MRSA PCR Routine 01/09/2023 14:24 EDT Cervical radiculopathy Encounter for pre-operative laboratory testing COMPLETE BLOOD COUNT Routine 01/09/2023 14:24 EDT Cervical radiculopathy Encounter for pre-operative laboratory testing PROTEIN, TOTAL Routine 01/09/2023 14:24 EDT Cervical radiculopathy Encounter for vitamin deficiency screening Encounter for pre-operative laboratory testing PHOSPHORUS Routine 01/09/2023 14:24 EDT Cervical radiculopathy Encounter for vitamin deficiency screening Encounter for pre-operative laboratory testing MAGNESIUM Routine 01/09/2023 14:24 EDT Cervical radiculopathy Encounter for vitamin deficiency screening Encounter for pre-operative laboratory testing VITAMIN B12 Routine 01/09/2023 14:24 EDT Cervical radiculopathy Encounter for vitamin deficiency screening Encounter for pre-operative laboratory testing CALCIUM Routine 01/09/2023 14:24 EDT Cervical radiculopathy Encounter for vitamin deficiency screening Encounter for pre-operative laboratory testing ALBUMIN Routine 01/09/2023 14:24 EDT Cervical radiculopathy Encounter for vitamin deficiency screening Encounter for pre-operative laboratory testing documented in this encounter Results * MRSA PCR (01/09/2023 14:24 EDT) MRSA/Staph aureus Result No Staphylococcus aureus detected by PCR 01/09/2023 20:36 [facility] Swab ENTIRE NARIS / Unknown Swab / Unknown 01/09/2023 14:24 EDT 01/09/2023 14:25 EDT Arturo Garcia MD MICROBIOLOGY - GENERAL ORDERABLE S Final Result [facility] [address] [place] [address] * (ABNORMAL) COMPLETE BLOOD COUNT (01/09/2023 14:24 EDT) WBC 11.10 4.00 - 12.40 K/cmm 01/09/2023 15:32 [facility] RBC 4.86 3.86 - 5.04 M/cmm 01/09/2023 15:32 [facility] Hemoglobin 14.8 11.6 - 15.2 gm/dL 01/09/2023 15:32 [facility] HCT 44.7(H) 34.9 - 44.4 % 01/09/2023 15:32 [facility] MCV 92 81 - 98 fl 01/09/2023 15:32 [facility] MCH 30.5 26.7 - 33.3 pg 01/09/2023 15:32 [facility] MCHC 33.1 32.1 - 35.9 gm/dL 01/09/2023 15:32 [facility] RDW-CV 13.3 <14.7 % 01/09/2023 15:32 [facility] RDW-SD 45.5 <50.4 fl 01/09/2023 15:32 [facility] PLT 352 141 - 377 K/cmm 01/09/2023 15:32 [facility] MPV 10.3 9.5 - 12.7 fl 01/09/2023 15:32 [facility] Blood VENOUS BLOOD / Unknown Venipuncture / Unknown 01/09/2023 14:24 EDT 01/09/2023 14:25 EDT Arturo Garcia MD HEMATOLOGY & PF4 ORDERABLES Maria Guadalupe l Result Performing Organization Address City/[facility]/ZIP Co de Phone Number [facility] [address] [place] [address] * VITAMIN B12 (01/09/2023 14:24 EDT) Vitamin B12 415 211 - 911 pg/mL 01/09/2023 16:47 EDT [facility] Blood VENOUS BLOOD / Unknown Venipuncture / Unknown 01/09/2023 14:24 EDT 01/09/2023 14:25 EDT Arturo Garcia MD CHEMISTRY & BLOOD GAS ORDERABLES Final Result Performing Organization Address [facility]/ZIP Co de Phone Number [facility] [address] [place] [address] * PHOSPHORUS (01/09/2023 14:24 EDT) Phosphorus 3.6 2.5 - 4.5 mg/dL 01/09/2023 15:54 EDT [facility] Blood VENOUS BLOOD / Unknown Venipuncture / Unknown 01/09/2023 14:24 EDT 01/09/2023 14:25 EDT Arturo Garcia MD CHEMISTRY & BLOOD GAS ORDERABLES Final Result Performing Organization Address [facility]/ZIP Co de Phone Number [facility] [address] [place] [address] * MAGNESIUM (01/09/2023 14:24 EDT) Magnesium 2.0 1.7 - 2.8 mg/dL 01/09/2023 15:54 EDT [facility] Blood VENOUS BLOOD / Unknown Venipuncture / Unknown 01/09/2023 14:24 EDT 01/09/2023 14:25 EDT Arturo Garcia MD CHEMISTRY & BLOOD GAS ORDERABLES Final Result Performing Organization Address City/[facility]/ZIP Co de Phone Number [facility] [address] [place] [address] * ZINC, SERUM (01/09/2023 14:24 EDT) Zinc, Serum 70 60 - 106 mcg/dL 01/12/2023 12:51 EDT [facility] Comment: ADDITIONAL INFORMATION This test was developed and its performance characteristics determined by [facility] in a manner consistent with CLIA requirements. This test has not been cleared or approved by the U.S. Food and Drug Administration. Test Performed by: [facility] [place] [address] Associate Professor Of Church Music: Kenan Phillips M.D. Ph.D.; CLIA# [id number] Blood VENOUS BLOOD / Unknown Venipuncture / Unknown 01/09/2023 14:24 EDT 01/09/2023 14:25 EDT Arturo Garcia MD CHEMISTRY & BLOOD GAS ORDERABLES Final Result Performing Organization Address [facility] Co de Phone Number [facility] [address] [place] [address] * CALCIUM (01/09/2023 14:24 EDT) Calcium 9.3 8.5 - 10.5 mg/dL 01/09/2023 15:54 EDT [facility] Blood VENOUS BLOOD / Unknown Venipuncture / Unknown 01/09/2023 14:24 EDT 01/09/2023 14:25 EDT Arturo Garcia MD CHEMISTRY & BLOOD GAS ORDERABLES Final Result Performing Organization Address City/[facility]/ZIP Co de Phone Number [facility] [address] [place] [address] * (ABNORMAL) VITAMIN D (25,OH) (01/09/2023 14:24 EDT) 25OH Vitamin D Tot 21(L) 30 - 100 ng/mL 01/12/2023 11:35 EDT [facility] Comment: Vitamin D 25,OH Interpretive Ranges: Deficiency: ??<10.0 ng/mL Insufficiency: ??10.0 - 30.0 ng/mL Sufficiency: ??30.0 - 100.0 ng/mL Toxicity: ??>100.0 ng/mL Blood VENOUS BLOOD / Unknown Venipuncture / Unknown 01/09/2023 14:24 EDT 01/09/2023 14:25 EDT Arturo Garcia MD CHEMISTRY & BLOOD GAS ORDERABLES Final Result Performing Organization Address [facility]/ZIP Co de Phone Number [facility] [address] [place] [address] * ALBUMIN (01/09/2023 14:24 EDT) [facility] Albumin 4.4 3.4 - 4.9 g/dL 01/09/2023 15:54 EDT [facility] Blood VENOUS BLOOD / Unknown Venipuncture / Unknown 01/09/2023 14:24 EDT 01/09/2023 14:25 EDT Arturo Garcia MD CHEMISTRY & BLOOD GAS ORDERABLES Final Result Performing Organization Address [facility]/ZIP Co de Phone Number [facility] [address] [place] [address] * PROTEIN, TOTAL (01/09/2023 14:24 EDT) [facility] Total Protein 7.5 6.3 - 8.2 g/dL 01/09/2023 15:54 EDT [facility] Blood VENOUS BLOOD / Unknown Venipuncture / Unknown 01/09/2023 14:24 EDT 01/09/2023 14:25 EDT us Arturo Garcia MD CHEMISTRY & BLOOD GAS ORDERABLES Final Result [facility] [address] [place] [address] documented in this encounter Visit Diagnoses Diagnosis Cervical radiculopathy Brachial neuritis or radiculitis nos Encounter for vitamin deficiency screening Screening for other and unspecified endocrine, nutritional, metabolic, and immunity disorders Encounter for pre-operative laboratory testing Preoperative examination, unspecified documented in this encounter Care Teams Bobbin Stripper Relationship Specialty Start Date End Date [address] [address] PCP - General 01/09/23 02/15/23 documented as of this encounter
--- OUTSIDE RECORDS SUMMARY | 2024-07-28 15:12 | XMS_ITS | Encounter Summary ---
Author Organization [facility] Address [address] [place] [address] Care Team Providers Care Business Technology Professor Name Role Phone Unknown, Provider MD Primary Care Provider Unava ilable Reason for Visit * Auth/Cert (Routine) Specialty Diagnoses / Procedures Referred By Contac t Referred To Contact Diagnoses Cervical radiculopathy Procedures MA ARTHRODESIS ANT INTERBODY INC DISCECTOMY, CERVICAL BELOW C2 MA ARTHRODESIS ANT INTERBODY INC DISCECTOMY, CERVICAL BELOW C2 MA ANTERIOR INSTRUMENTATION 2-3 VERTEBRAL SEGMENTS MA ALLOGRAFT FOR SPINE SURGERY ONLY STRUCTURAL C6-7 Anterior cervical discectomy and fusion Arturo Garcia MD [address] [place] [address] [place] [address] Phone: tel: fax: Referral ID Status Reason Start Date Expiration Date Visits Re quested Visits Authorized [id number] 01/09/2023 1 1 Encounter Details Date Type Department Care Team (Late st Contact Info) Description 03/04/2023 13:41 EDT Anesthesia Event [facility] [address] [place], [place] [id number] Florin Bonner DO [address] [phone] Rnoel Conway MD [address] [place] [phone] Anesthesia Record Procedure Summary Procedure Name Responsible Anesthesiologist Anesthesia Start Time Anesthesia Stop Time C6-7 Anterior cervical discectomy and fusion (Spine Cervical) Florin Bonner DO 03/04/23 1341 03/04/23 1615 Events Date Time Event Comment 03/04/2023 1341 An Start The patient was re-evaluated immediately before moderate or deep sedation use, before anesthesia induction, or before the anesthesia procedure. 1343 An Start Data 1349 An Induction The patient was reevaluated immediately before moderate or deep sedation use and before anesthesia induction. 1354 An Intubation 1407 Anesthesia Ready 1608 An Extubation 1611 an stop data 1615 Handoff to RN I completed my handoff to the receiving nurse during which we: 1. Identified the patient 2. Identified the responsible provider 3. Reviewed the pertinent medical history 4. Discussed the surgical course 5. Reviewed intra-op anesthesia management and issues during anesthesia 6. Set expectations for post-procedure period 7. Allowed opportunity for questions and acknowledgement of understanding. 1615 An Stop Meds Name Total ketAMINE 5 mL prefilled syringe 20 mg midazolam (versed) 1 mg/mL 2 mL vial 2 m g lidocaine 2% (PF) injection glass vial 6 0 mg propOFol (DIPRIVAN) injection 1,637,450 mcg rocuronium 10 mg/mL vial 120 mg sugammadex 100 mg/mL 2 mL vial 311 mg dexmedetomidine injection - vial 66.69 m cg ceFAZolin (ANCEF) syringe 2 g 2 g scopolamine 1.5 mg/72 hr patch 1 Patch lidocaine 2000 mg/500 mL infusion 180 mg lactated ringers (LR) infusion 700 mL * Agents Name O2 N2O Air * Blood No blood administrations on file. Lines, Drains, and Airways Type Details Placement Removal Peripheral IV 03/04/23; 1400 (tamera damon via procedure documentation); 18; B Ahuja Introcan; Left; Wrist; hand; In OR by MD; 1; None; 70% IPA 03/04/23 1400 by Florin Bonner DO Wound 03/04/23; 1427; Inci zurdo; Anterior; Neck; Surgical incision:C6-7 Anterior cervical discectomy and fusion; N; Full thickness 03/04/23 1427 by Christina Vuong RN Peripheral IV 03/04/23; 1216; 20; 1.25; B Ahuja Introcan; Right; Antecubital; Inserted by RN, Documenting on behalf of someone else (enter name) (by Stacy); 2; None; 2% Chlorhexidine with IPA; 03/04/23; 2100; Painful; No complications, Catheter bent 03/04/23 1216 by Roland Miller RN 03/04/23 2100 by Shantel Rothman RN Non-Surgical Airway 03/04/23; 1410 (tamera damon via procedure documentation); 03/04/23; 1608 03/04/23 1410 by Florin Bonner DO 03/04/23 1608 by Florin Bonner DO Urethral Catheter 03/04/23; 1420; Inse rted by RN; Intraoperative monitoring, Selected surgical procedures/Epidural; Non-latex; 16 fr; 10 ml; Yes; 03/04/23; 1601 03/04/23 1420 by Christina Vuong RN 03/04/23 1601 by Christina Vuong RN Closed/Suction Drain 03/04/23; 1559; 1; Anterior; Neck; 7 [place]orese; 03/05/23 (removed by ); 0554 03/04/23 1559 by Christina Vuong RN 03/05/23 0554 by Shantel Rothman RN documented in this encounter Social History Tobacco [...] 06/06/2022 8:58 EDT documented in this encounter OR Notes * Anesthesia Postprocedure Evaluation - Florin Bonner DO - 03/04/2023 1615 EDT Patient: Gladis Chester Vital signs were reviewed with the recovery nurse. Complete vitals history is available in the Epicflowsheets. Vitals Value Taken Time BP 93/54 03/04/23 1615 Temp 36 03/04/23 1615 Resp 17 03/04/23 1615 Pulse From Oximetry 74 BPM 03/04/23 1615 SpO2 94 % 03/04/23 1615 Heart Rate 74 BPM 03/04/23 1615 Vitals shown include unvalidated device data. Last Pain Score - Numeric Pain Level (Scale 1-10): 4 Type of Anesthesia - general Anesthesia Post Evaluation Post-procedure vitals reviewed and are stable. Level of consciousness: responsive/arousable to verbal stimuli Temperature status: normothermia and patient returned to pre-procedure baseline Respiratory status: airway patent, stable and nasal cannula Cardiovascular status: stable Hydration status: adequate Nausea/Vomiting: none Pain management: adequate Post-Op Assessment: patient tolerated procedure well with no complications Patient participation: able to participate Disposition: outpatient/home Anesthesia Complications: No apparent anesthesia complications * Anesthesia Procedure Notes - Florin Bonner DO - 03/04/2023 1418 EDT Associated Order(s): Peripheral IV Placement Peripheral IV Placement Date/Time: 03/04/2023 14:00 Inserted by: Florin Bonner DO Placement Needle size: 18 G Laterality: left Location: hand Local anesthetic: none Site prep: chlorhexidine Technique: anatomical landmarks Attempts: 1 * Anesthesia Procedure Notes - Florin Bonner DO - 03/04/2023 1409 EDT Associated Order(s): Airway Airway Date/Time: 03/04/2023 13:54 Urgency: elective Airway not difficult General Information and Staff Patient location during procedure: OR Anesthesiologist: Florin Bonner DO Performed: anesthesiologist Performed by: Florin Bonner DO Authorized by: Florin Bonner DO Indications and Patient Condition Indications for airway management: anesthesia Sedation level: GA Preoxygenated: yes Patient position: sniffing MILS Maintained: No Ventilation assessment: 0 - not attempted Final Airway Details Final airway type: endotracheal airway Successful airway: ETT Cuffed: yes Successful intubation technique: video laryngoscopy [place] Facilitating devices/methods: intubating stylet Blade: Liliana Blade size: #3 ETT size (mm): 6.5 Cormack-Lehane Classification: grade IIb - view of arytenoids or posterior of glottis only Placement verified by: chest auscultation and capnometry Measured from: teeth ETT to teeth (cm): 22 Number of attempts at approach: 1 Additional Comments Preoxygenated with 100% O2 via facemask, head and neck neutral, eyes closed and taped shut with paper tape on induction. ETT cuff inflated with minimal volume to create seal. Mask ventilation was notattempted due to RSI without Sellick maneuver. After adequate time for paralytics to take effect, patient was intubated utilizing atraumatic indirect laryngoscopy. Glottic opening appeared significantly anterior. * Anesthesia Preprocedure Evaluation - Florin Bonner DO - 03/04/2023 1326 EDT Images from the original note were not included. Anesthesia Preprocedure Evaluation Patient Medical History, including Anesthesia History reviewed. Chart and Nursing Notes reviewed, including NPO status and Medication History. Additional ROS/History Findings: Allergies Allergen Reactions ??? Gluten celiac disease Review of Systems Musculoskeletal: Positive for neck pain. All other systems reviewed and are negative. Past Medical History: Diagnosis Date ??? Acid [...] Wears dentures 02/25/2023 - temp bottom denture Relevant Problems No relevant active problems Physical Exam Airway Mallampati: II TM distance: >3 FB Neck ROM: limited Cardiovascular - normal exam Rhythm: regular Rate: normal Dental Pulmonary - normal exam Abdominal Other findings: PARTIAL LOWER DENTURE Anesthesia Plan ASA 2 Anesthesia Type - general Block for post-op pain? No Anesthesia plan and risks discussed. Informed consent obtained from patient. Specific risks discussed were dental injury, post-op intubation, nausea, myocardial infarction, stroke and vomiting. Code status discussed? No The preoperative history and physical which was performed within 30 days of this procedure, has been reviewed and the clinically appropriate elements of the physical examination have been repeated. 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 [...] her to obtain a sleep study post-op. PAT Note by Cheyenne Roland NP at 02/25/2023 8:30 Anesthesia Review Needed Date Review Started: 02/25/2023 [facility] ([facility]): Main DOS: 03/04/2023 Surgeon: Radha Procedure: C6-7 [...] been done. Is patient ok to proceed? JONE HO LPN 02/25/2023 13:26 03/02/2023, 0713: In addition to the above, The following is copied from recent PCP pre-op: Anes review task placed- Okay to proceed or postpone this elective surgery? I was unable to find what the post-operative pain management plan was, unclear if she will be going home with opioid RX. Cheyenne Roland, GLORY, CONSTRUCTION SAFETY MANAGER, [employer] documented in this encounter Plan of Treatment Not on file documented as of this encounter Procedures Procedure Name Priority Date/Time Associated Diagnosis Comments ANESTHESIA PERIPHERAL IV PLACEMENT Routine 03/04/2023 14:00 EDT ANESTHESIA INTUBATION Routine 03/04/2023 13:54 EDT documented in this encounter Results * ANESTHESIA PERIPHERAL IV PLACEMENT (03/04/2023 14:00 EDT) [facility]ative [facility] - 03/04/2023 14:00 EDT Florin Bonner DO ? 03/04/2023 14:18 Peripheral IV Placement Date/Time: 03/04/2023 14:00 Inserted by: Florin Bonner DO Placement Needle size: 18 G Laterality: left Location: hand Local anesthetic: none Site prep: chlorhexidine Technique: anatomical landmarks Attempts: 1 Florin Bonner DO ANESTHESIA ORDERABLES Final Re sult Performing Organization Address [facility] Co de Phone Number [facility] POINT OF CARE * MA AN ELECTIVE ENDOTRACHEAL AIRWAY (03/04/2023 13:54 EDT) Narrative [facility] POINT OF CARE - 03/04/2023 13:54 EDT Florin Bonner DO ? 03/04/2023 14:10 Airway Date/Time: 03/04/2023 13:54 Urgency: elective Airway not difficult General Information and Staff Patient location during procedure: OR Anesthesiologist: Florin Bonner DO Performed: anesthesiologist Performed by: Florin Bonner DO Authorized by: Florin Bonner DO ?? Indications and Patient Condition Indications for airway management: anesthesia Sedation level: GA Preoxygenated: yes Patient position: sniffing MILS Maintained: No Ventilation assessment: 0 - not attempted Final Airway Details Final airway type: endotracheal airway Successful airway: ETT Cuffed: yes Successful intubation technique: video laryngoscopy [place] Facilitating devices/methods: intubating stylet Blade: Liliana Blade size: #3 ETT size (mm): 6.5 Cormack-Lehane Classification: grade IIb - view of arytenoids or posterior of glottis only Placement verified by: chest auscultation and capnometry Measured from: teeth ETT to teeth (cm): 22 Number of attempts at approach: 1 Additional Comments Preoxygenated with 100% O2 via facemask, head and neck neutral, eyes closed and taped shut with paper tape on induction. ??ETT cuff inflated with minimal volume to create seal. ??Mask ventilation was not attempted due to RSI without Sellick maneuver. After adequate time for paralytics to take effect, patient was intubated utilizing atraumatic indirect laryngoscopy. Glottic opening appeared significantly anterior. Florin Bonner DO ANESTHESIA ORDERABLES Final Re sult Performing Organization Address [facility] Co de Phone Number [facility] POINT OF CARE documented in this encounter Visit Diagnoses Not on filedocumented in this encounter Administered Medications Inactive Administered Medications - up to 3 most recent administrations Medication Order MAR Action Action Date Dose Rate Site ceFAZolin (ANCEF) syringe 2 g 2 g, intravenous, Administer over 5 Minutes, PRE-OP ONCE, 1 dose, On Thu03/04/23 at 1215, Routine, Preprocedure Given 03/04/2023 14:07 EDT 2 g dexmedeTOMIDine (PRECEDEX) injection intravenous, FA IP EQF CONTINUOUS PRN FOR ONE STEP MEDS, Starting on Thu03/04/23 at 1351, Until Thu03/04/23 at 1615, Routine, Anesthesia Intraprocedure Rate Change 03/04/2023 14:42 EDT 0.4 mcg/kg/hr 0.311 mL/hr New Bag 03/04/2023 13:51 EDT 0.5 mcg/kg/hr 0.389 mL/hr ketAMINE in NaCl, iso-osmotic (KETALAR) 50 mg/5 mL (10 mg/mL) IV injection intravenous, PRN, Starting on Thu03/04/23 at 1352, Until Thu03/04/23 at 1615, Routine, Anesthesia Intraprocedure Given 03/04/2023 13:52 EDT 20 mg lactated ringers (LR) infusion at 100 mL/hr, intravenous, CONTINUOUS, Starting on Thu03/04/23 at 1215, Until Thu03/04/23 at 1846, Routine, Preprocedure New Bag 03/04/2023 13:41 EDT New Bag 03/04/2023 12:19 EDT 100 mL/hr lidocaine (PF) 20 mg/mL (2 %) injection intravenous, PRN, Starting on Thu03/04/23 at 1351, Until Thu03/04/23 at 1615, Routine, Anesthesia Intraprocedure Given 03/04/2023 13:51 EDT 60 mg lidocaine 2000 mg/500 mL infusion intravenous, FA IP EQF CONTINUOUS PRN FOR ONE STEP MEDS, Starting on Thu03/04/23 at 1427, Until Thu03/04/23 at 1615, Routine, Anesthesia Intraprocedure New Bag 03/04/2023 14:27 EDT 2 mg/min 30 mL/hr midazolam (PF) (VERSED) injection intravenous, PRN, Starting on Thu03/04/23 at 1341, Until Thu03/04/23 at 1615, Routine, Anesthesia Intraprocedure Given 03/04/2023 13:41 EDT 2 mg propOFol (DIPRIVAN) injection intravenous, FA IP EQF CONTINUOUS PRN FOR ONE STEP MEDS, Starting on Thu03/04/23 at 1351, Until Thu03/04/23 at 1615, Routine, Anesthesia Intraprocedure Rate Change 03/04/2023 15:18 EDT 130 mcg/kg/min 60.606 mL/hr Rate Change 03/04/2023 14:46 EDT 140 mcg/kg/min 65.268 mL/ hr Rate Change 03/04/2023 14:10 EDT 150 mcg/kg/min 69.93 mL/h r rocuronium (ZEMURON) injection intravenous, PRN, Starting on Thu03/04/23 at 1352, Until Thu03/04/23 at 1615, Routine, Anesthesia Intraprocedure Given 03/04/2023 15:27 EDT 20 mg Given 03/04/2023 14:47 EDT 30 mg Given 03/04/2023 13:52 EDT 70 mg scopolamine (TRANSDERM-SCOP) 1 mg over 3 days patch transdermal, Administer over 72 Hours, PRN, Starting on Thu03/04/23 at 1320, Until Thu03/04/23 at 1615, Routine, Anesthesia Intraprocedure Given 03/04/2023 13:20 EDT 1 Patch sugammadex (BRIDION) injection intravenous, PRN, Starting on Thu03/04/23 at 1558, Until Thu03/04/23 at 1615, Routine, Anesthesia Intraprocedure Given 03/04/2023 15:58 EDT 311 mg documented in this encounter Care Teams Business Technology Professor Relationship Specialty Start Date End Date Unknown, Provider, PCP - General 02/16/23 04/16/23 documented as of this encounter
--- OUTSIDE RECORDS SUMMARY | 2024-07-28 15:13 | XMS_ITS | Encounter Summary ---
Author Organization [facility] Address [address] [place] [address] Care Team Providers Care Drosophere Operator Name Role Phone Shashi Mccrary Primary Care Provider Sera Justin ND Primary Care Provider + Lety Gibson APRN Primary Care Provider None, Provider Primary Care Provider [facility] Primary Care Provid er Unknown, Provider Primary Care Provider [facility] Primary Care Provider None, Provider Primary Care Provider Shruthi Hill MD Primary Care Provider Encounter Details Date Type Department Care Team (Late st Contact Info) Description 09/14/2008 Before PRISM Converted Visit (Maple) [facility] - Maple conversion [address] [place] [address] Galina Villavicencio DO [address] [place], [place] [phone] Social History Tobacco Use Types Packs/Day Years Used Date Smoking Tobacco: Never Assessed Comments Unknown Sex and Gender Information Value Date Recorded Sex Assigned at Not on file Legal Sex Female 18:44 EST Gender Identity Female 10/07/2021 16:01 EST Sexual Orientation Not on file documented as of this encounter Plan of Treatment Not on file documented as of this encounter Procedures Procedure Name Priority Date/Time Associated Diagnosis Comments MM MAMMO SCREEN ROS [id number] 09/14/2008 23:35 EST documented in this encounter Results * MM MAMMO SCREEN ROS [id number] (09/14/2008 23:35 EST) Anatomical Region Laterality Modality Other 09/14/2008 23:3 5 EST Narrative 01/22/2009 11:04 EDT ANNUAL SCREENING MM MAMMO SCREEN ROS [id number] ??Sep 14, 2008 11:35:00 PM Signs and Symptoms: ??ANNUAL SCREENING Comparison: 03/16/2002 Bilateral breast findings: Digital routine views of both breasts were obtained. There are scattered fibroglandular densities. There is no dominant mass or suspicious calcification. Impression: Negative mammogram, birads category 1. Annual screening mammography recommended. This examination was reviewed in conjunction with Dr. Damon Baugh who concurs with findings and recommendations. Overall assessment: BI-RADS Category Assessment 1: Negative. The patient will be notified of her/his breast imaging results via a lay letter from radiology. Radiology will contact the patient directly regarding any findings which require additional imaging (Category 0) at this time. Procedure Note Tierra Monsivais MD - 01/22/2009 ANNUAL SCREENING MM MAMMO SCREEN ROS [id number] Sep 14, 2008 11:35:00 PM Signs and Symptoms: ANNUAL SCREENING Comparison: 03/16/2002 Bilateral breast findings: Digital routine views of both breasts were obtained. There are scattered fibroglandular densities. There is no dominant mass or suspicious calcification. Impression: Negative mammogram, birads category 1. Annual screening mammography recommended. This examination was reviewed in conjunction with Dr. Damon Baugh who concurs with findings and recommendations. Overall assessment: BI-RADS Category Assessment 1: Negative. The patient will be notified of her/his breast imaging results via a lay letter from radiology. Radiology will contact the patient directly regarding any findings which require additional imaging (Category 0) at this time. us Galina Villavicencio DO IMG MAMMOGRAPHY GIANCARLO BISHOP Final Result documented in this encounter Visit Diagnoses Not on filedocumented in this encounter Care Teams Drosophere Operator Relationship Specialty Start Date End Date Shashi Mccrary DO [address] [place] [address] PCP - General 07/21/15 10/31/20 Sera Justin ND [address] [place] [phone] PCP - General 11/01/20 07/02/22 Lety Gibson, SRIRAM [address] [place] [phone] PCP - General Family Medicine - Primary Care 07/03/22 12/01/22 None, Provider PCP - General 12/02/22 01/08/23 [facility] [address] [place] [address] PCP - General 01/09/23 02/15/23 Unknown, Provider, [address] [place] [address] PCP - General 02/16/23 04/16/23 [facility] [address] [place] [address] PCP - General 04/17/23 09/29/23 None, Provider PCP - General 09/30/23 01/27/24 Shruthi aBiley MD [address] [place] [address] PCP - General Family Medicine - Primary Care 01/28/24 documented as of this encounter
--- OUTSIDE RECORDS SUMMARY | 2024-07-28 15:13 | XMS_ITS | Encounter Summary ---
Author Organization [facility] Address [address] [place] [address] Care Team Providers Care Musical Instrument Mechanic Name Role Phone Shashi Mccrary DO Primary Care Provider [phone] Encounter Details Date Type Department Care Team ([facility] st Contact Info) Description 04/02/2018 Historical Results Only [facility] [place] Results [address] [place] [address] Sera Justin, SHARON [address] [facility] [address] [place] [phone] Social History Tobacco Use Types Packs/Day Years [...] Name Priority Date/Time Associated Diagnosis Comments MR SHOULDER WO CONTRAST RIGHT 04/02/2018 8:40 EDT documented in this encounter Results * MR SHOULDER WO CONTRAST RIGHT (04/02/2018 8:40 EDT) Anatomical Region Laterality Modality Upper Extremities Right Other 04/02/2018 8:40 EDT Narrative 04/02/2018 8:44 EDT ? EXAM: MAGNETIC RESONANCE IMAGING/SHOULDER EX. D/ (2018) ? CLINICAL INFORMATION: ? M25.511 RIGHT SHOULDER PAIN ? SHOULDER RT W/O CONTRAST ??04/01/2018 8:18 PM ? Signs and Symptoms: NECK PAIN W RIGHT SIDED RADIOLOPATHY/HEADACHES ? M25.511 RIGHT SHOULDER PAIN ? Comparison: none ? Technique:Multiplanar multisequence MR imaging of the right shoulder ? was obtained. ? FINDINGS: ? Rotator Cuff: ? Supraspinatus: There is a moderate grade articular sided partial tear ? of the anterior 3rd fibers of supraspinatus tendon (coronal series ? 6#13) adjacent to the footprint on the greater tuberosity. This ? occurs in a background of mild supraspinatus tendinosis. No ? full-thickness defect is seen. There is no retraction of torn tendon ? fibers. There is no atrophy or fatty infiltration of the ? supraspinatus muscle belly. ? Infraspinatus: There is mild infraspinatus tendinosis. No discrete ? tendon tear is seen. There is no atrophy or fatty infiltration of the ? infraspinatus muscle belly. ? Teres Minor: Teres minor tendon is intact. ??No muscle atrophy or ? fatty infiltration. ? Subscapularis: There is focal increased signal within the scapularis ? tendon involving the middle 3rd fibers adjacent to the footprint ? reflective of a low-grade partial articular sided tear (sagittal ? series 7#15) this occurs in a background of mild subscapularis ? tendinosis. No atrophy or fatty infiltration of the subscapularis ? muscle belly is seen. ? Long head biceps tendon: ??Long head biceps tendon is intact and ? normally positioned within the bicipital groove. ? Labrum: ??No labral tear identified. ? Cartilage: ??Chondral surfaces are preserved. ? Joint Space: ??No joint effusion or definite intra-articular body. The ? joint appears relatively low capacitance. There may be mild ? thickening and edema seen associated with the axillary recess. The ? rotator interval displays altered signal also. The constellation of ? findings is nonspecific but can be seen in the setting of the ? clinical entity of adhesive capsulitis. ? Bone Marrow: ??There is focal bone marrow edema seen at the lesser ? tuberosity at the insertion of subscapularis. This is most likely ? enthesopathic in nature. ? Acromioclavicular Joint: ??There is moderate AC joint arthrosis. ? PAGE 1 ? Signed Report ? (CONTINUED) ? Subacromial-Subdeltoid Bursa: ??No bursal fluid is identified. ? IMPRESSION: ? 1. ??Moderate articular sided partial tear of supraspinatus adjacent ? to the footprint without retraction of torn tendon fibers. ? 2. ??Low-grade articular sided partial tear of the middle 3rd fibers ? of the subscapularis. ? 3. ??Mild tendinosis of the supraspinatus, infraspinatus, and ? subscapularis tendons. ? 4. ??Low capacitance joint with indistinctness of the coracohumeral ? ligament/rotator interval and subtle thickening of the inferior ? glenohumeral ligament with edema within the axillary recess. These ? findings are nonspecific, but can be seen in the setting of the ? clinical entity of adhesive capsulitis. Please correlate. ? 5. ??Bone marrow edema in the lesser tuberosity at the subscapularis ? tendon footprint, most likely enthesopathic. ? 6. ??Moderate AC joint arthrosis ? REPORT SIGNED IN OTHER VENDOR SYSTEM 04/02/2018 ?Reported By: Kang Carbajal MD ? CC: ? Transcribed Date/Time: 04/02/2018 (0844) ? Nurse Paralegal: ? Printed Date/Time: 02/25/2019 (1105) ? PAGE 2 ? Signed Report ? Procedure Note Kang Carbajal MD - 07/14/2019 EXAM: MAGNETIC RESONANCE IMAGING/SHOULDER EX. D/ (2018) CLINICAL INFORMATION: M25.511 RIGHT SHOULDER PAIN SHOULDER RT W/O CONTRAST 04/01/2018 8:18 PM Signs and Symptoms: NECK PAIN W RIGHT SIDED RADIOLOPATHY/HEADACHES M25.511 RIGHT SHOULDER PAIN Comparison: none Technique:Multiplanar multisequence MR imaging of the [facility] was obtained. FINDINGS: Rotator Cuff: Supraspinatus: There is a moderate grade articular sided partialtear of the anterior 3rd fibers of supraspinatus tendon (coronal series 6#13) adjacent to the footprint on the greater tuberosity. This occurs in a background of mild supraspinatus tendinosis. No full-thickness defect is seen. There is no retraction of torntendon fibers. There is no atrophy or fatty infiltration of the supraspinatus muscle belly. Infraspinatus: There is mild infraspinatus tendinosis. No discrete tendon tear is seen. There is no atrophy or fatty infiltration ofthe infraspinatus muscle belly. Teres Minor: Teres minor tendon is intact. No muscle atrophy or fatty infiltration. Subscapularis: There is focal increased signal within thescapularis tendon involving the middle 3rd fibers adjacent to the footprint reflective of a low-grade partial articular sided tear (sagittal series 7#15) this occurs in a background of mild subscapularis tendinosis. No atrophy or fatty infiltration of the subscapularis muscle belly is seen. Long head biceps tendon: Long head biceps tendon is intact and normally positioned within the bicipital groove. Labrum: No labral tear identified. Cartilage: Chondral surfaces are preserved. Joint Space: No joint effusion or definite intra-articular body.The joint appears relatively low capacitance. There may be mild thickening and edema seen associated with the axillary recess. The rotator interval displays altered signal also. The constellation of findings is nonspecific but can be seen in the setting of the clinical entity of adhesive capsulitis. Bone Marrow: There is focal bone marrow edema seen at the lesser tuberosity at the insertion of subscapularis. This is most likely enthesopathic in nature. Acromioclavicular Joint: There is moderate AC joint arthrosis. PAGE 1 Signed Report (CONTINUED) Subacromial-Subdeltoid Bursa: No bursal fluid is identified. IMPRESSION: 1. Moderate articular sided partial tear of supraspinatus adjacent to the footprint without retraction of torn tendon fibers. 2. Low-grade articular sided partial tear of the middle 3rd fibers of the subscapularis. 3. Mild tendinosis of the supraspinatus, infraspinatus, and subscapularis tendons. 4. Low capacitance joint with indistinctness of the coracohumeral ligament/rotator interval and subtle thickening of the inferior glenohumeral ligament with edema within the axillary recess. These findings are nonspecific, but can be seen in the setting of the clinical entity of adhesive capsulitis. Please correlate. 5. Bone marrow edema in the lesser tuberosity at the subscapularis tendon footprint, most likely enthesopathic. 6. Moderate AC joint arthrosis REPORT SIGNED IN OTHER VENDOR SYSTEM 04/02/2018 Reported By: Kang Carbajal MD CC: Transcribed Date/Time: 04/02/2018 (0844) Nurse Paralegal: Printed Date/Time: 02/25/2019 (4002) PAGE 2 Signed Report us Sera Justin ND IMG MRI ORDERABLES Final Result documented in this encounter Visit Diagnoses Not on filedocumented in this encounter Care Teams Musical Instrument Mechanic Relationship Specialty Start Date End Date Shashi Mccrary DO [address] [place] [address] PCP - General 07/21/15 10/31/20 documented as of this encounter
--- OUTSIDE RECORDS SUMMARY | 2024-07-28 15:13 | XMS_ITS | Encounter Summary ---
Author Organization [facility] Address [address] [place] [address] Care Team Providers Care Repairer Name Role Phone Sera Justin ND Primary Care Provider + Reason for Referral * Radiology Services (Routine/Next Available) - Authorization Not Required Specialty Diagnoses / Procedures Referred By Contac t Referred To Contact Diagnoses Thoracic spine pain Procedures XR THORACIC SPINE 2 VIEWS Sera Justin ND [address] [phone] Phone: tel: fax: [facility] Referral ID Status Reason Start Date Expiration Date Visits Requested Visits Authorized [id number] Authorization Not Required 10/07/2021 1 1 Reason for Visit * Radiology Services (Routine/Next Available) - Authorization Not Required Specialty Diagnoses / Procedures Referred By Contac t Referred To Contact Diagnoses Thoracic spine pain Procedures XR THORACIC SPINE 2 VIEWS Sera Jutsin ND [address] [phone] Phone: tel: fax: [facility] Referral ID Status Reason Start Date Expiration Date Visits Requested Visits Authorized [id number] Authorization Not Required 10/07/2021 1 1 Encounter Details Date Type Department Care Team (Latest Contact Info) Description 10/07/2021 16:03 EST - 10/07/2021 23:59 EST Hospital Encounter [facility] Xray [address] [place] [address] Thoracic spine pain Discharge Disposition: Home or Self Care Social History Tobacco Use Types Packs/Day Years Used Date Smoking Tobacco: Never Assessed Interpersonal Safety Answer Date Record ed Physically Hurt Never 04/08/2020 Verbally Threaten Not on file 04/08/2020 Comments Unknown Sex and Gender Information Value Date Recorded Sex Assigned at Not on file Legal Sex Female 18:44 EST Gender Identity Female 10/07/2021 16:01 EST Sexual Orientation Not on file documented as of this encounter Discharge Disposition Disposition Code Departure Means Destination Home or Self Care documented in this encounter Plan of Treatment Not on file documented as of this encounter Procedures Procedure Name Priority Date/Time Associated Diagnosis Comments XR THORACIC SPINE 2 VIEWS Routine 10/07/2021 16:29 EST Thoracic spine pain documented in this encounter Results * XR THORACIC SPINE 2 VIEWS (10/07/2021 16:29 EST) Anatomical Region Laterality Modality Spine Computed Radiogr aphy 10/07/2021 16:3 0 EST Impressions 10/07/2021 16:58 EST Degenerative changes as above. THIS DOCUMENT HAS BEEN ELECTRONICALLY SIGNED BY TOM ALMEIDA MD FOR ANY QUESTIONS OR CONCERNS REGARDING THIS REPORT PLEASE CALL [facility] AT [phone] Narrative 10/07/2021 16:58 EST PROCEDURE INFORMATION: Exam: XR Thoracic Spine Exam date and time: 10/07/2021 4:30 PM Age: 56 years old Clinical indication: Pain in thoracic spine; Other: Thoracic spine pain TECHNIQUE: Imaging protocol: XR of the thoracic spine. Views: 2 views. COMPARISON: MR CERVICAL SPINE WITHOUT CONT. 03/22/2018 1:29 PM FINDINGS: Bones/joints: There is a normal kyphosis. The vertebral bodies maintain their height throughout. The pedicles are intact. There are slight degenerative changes small anterior osteophytes at multiple levels. Soft tissues: Unremarkable. Procedure Note Tom Almeida MD - 10/07/2021 PROCEDURE INFORMATION: Exam: XR Thoracic Spine Exam date and time: 10/07/2021 4:30 PM Age: 56 years old Clinical indication: Pain in thoracic spine; Other: Thoracic spine pain TECHNIQUE: Imaging protocol: XR of the thoracic spine. Views: 2 views. COMPARISON: MR CERVICAL SPINE WITHOUT CONT. 03/22/2018 1:29 PM FINDINGS: Bones/joints: There is a normal kyphosis. The vertebral bodies maintain their height throughout. The pedicles are intact. There are slight degenerative changes small anterior osteophytes at multiple levels. Soft tissues: Unremarkable. IMPRESSION Degenerative changes as above. THIS DOCUMENT HAS BEEN ELECTRONICALLY SIGNED BY TOM ALMEIDA MD FOR ANY QUESTIONS OR CONCERNS REGARDING THIS REPORT PLEASE CALL [facility] [phone] Sera Justin ND IMG DIAGNOSTIC IMAGING O RDERABLES Final Result documented in this encounter Visit Diagnoses Diagnosis Thoracic spine pain Pain in thoracic spine documented in this encounter Care Teams Repairer Relationship Specialty Start Date End Date Sera Justin ND [address] [place] [phone] PCP - General 11/01/20 07/02/22 documented as of this encounter
--- OUTSIDE RECORDS SUMMARY | 2024-07-28 15:13 | XMS_ITS | Encounter Summary ---
Author Organization [facility] Address [address] [place] [address] Care Team Providers Care Film Coater Name Role Phone Unavailable Primary Care Provider Unavailabl e Reason for Visit * (Routine) - Receiving Office to Obtain Authorization Specialty Diagnoses / Procedures Referred By Eric acuna Referred To Contact Procedures XR OUTSIDE IMAGES CHEST Fa_General, Physician, [address] [place] [address] fax: Referral ID Status Reason Start Date Expiration Date Visits Requested Visits Authorized [id number] Receiving Office to Obtain Authorization 01/19/2020 1 1 Encounter Details Date Type Department Care Team (Late st Contact Info) Description 12/21/2012 Hospital Encounter [facility] Radiology - [facility] [place] [address] [place] [address] Social History Tobacco Use Types Packs/Day Years [...] Name Priority Date/Time Associated Diagnosis Comments XR OUTSIDE IMAGES CHEST Routine 01/19/2020 11:34 EDT documented in this encounter Results * XR OUTSIDE IMAGES CHEST (01/19/2020 11:34 EDT) Narrative THANGCOLUMBA - 01/19/2020 11:34 EDT This is a non-reportable exam. us Physician Fa_General MD IMG OTHER IMAGING ORDERA BLES Final Result GREGORY documented in this encounter Visit Diagnoses Not on filedocumented in this encounter
--- OUTSIDE RECORDS SUMMARY | 2024-07-28 15:13 | XMS_ITS | Encounter Summary ---
Author Organization [facility] Address [address] [place] [address] Care Team Providers Care Instructor Private Name Role Phone Sera Justin ND Primary Care Provider + Reason for Referral * Radiology Services (Routine/Next Available) - Authorization Not Required Specialty Diagnoses / Procedures Referred By Contac t Referred To Contact Radiology Diagnoses Pain of right upper extremity Neck pain Procedures MR CERVICAL SPINE WO CONTRAST Isabella Galarza PA-C Phone: tel: fax: [facility] Referral ID Status Reason Start Date Expiration Date Visits Requested Visits Authorized [id number] Authorization Not Required 06/06/2022 1 1 Reason for Visit * Reason Comments Pain * Consult (Routine) - Authorization Not Required Specialty Diagnoses / Procedures Referred By Contac t Referred To Contact Orthopedic Surgery Diagnoses Back pain Sera Justin ND [address] [place] [phone] Phone: tel: fax: [facility] [place] [address] Phone: tel: fax: Referral ID Status Reason Start Date Expiration Date Visits Requested Visits Authorized [id number] Authorization Not Required 1 1 Encounter Details Date Type Department Care Team (Late st Contact Info) Description 06/06/2022 9:00 EDT Office Visit [facility] - [address] [place] [address] Isabella Galarza PA-C [address] [facility] [place] [address] Pain of right upper extremity [...] - - Weight 71.2 kg (157 lb) 06/06/2022 0853 EDT Height 152.4 cm (5') 06/06/2022 0853 EDT Body Mass Index 30.66 06/06/2022 0853 EDT documented in this encounter Functional Status [...] Progress Notes * Isabella Galarza PA-C - 06/06/2022 0900 EDT Ms. Chester is a 57 y.o. pleasant female who presents to the clinic today, 06/06/2022, with 1. 20% BOILER OUT, radiates to the right scapula. 2. 80% RUE pain affecting: A. ARM: posterior aspect. B. FOREARM: posterior/ulnar aspect. C. HAND: Numbness and tingling affecting the last three fingers. ONSET: This is a chronic issue that has been present since December 2021. In later October 2021, she had an injury after her scared dog who was lying next to her jumped by pushing on her head first causing to hear a popping sound. Has not been improving. Symptoms wax and wane, but they are present everyday. ALLEVIATING FACTORS: Lying down with resting her arm on her head. AGGRAVATING FACTORS: rotating head to the right and tilting at the same time. PAIN: 0/10, but can go up to 8/10 if she tilts her head. CONSERVATIVE TX: 1. Physical Therapy: YES, helped somewhat. 2. CHIRO: NO. 3. Steroid injections: NONE. 4. Medications: Tylenol and Meloxicam - help somewhat. SOCIAL: 1. SMOKING: former. 2. 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 3. Patient lives with her partner. Review of Systems Constitutional: Positive for activity change. Negative for unexpected weight change. Eyes: Negative for visual disturbance. Respiratory: Negative for chest tightness. Gastrointestinal: Negative for constipation. Genitourinary: Negative for difficulty urinating. Musculoskeletal: Positive for neck pain. Occasionally positive for low back pain. Skin: Negative for rash. Neurological: positive for numbness. Psychiatric/Behavioral: Negative for agitation and behavioral problems. Physical Exam Constitutional: Patient is oriented to person, place, and time, and appears well-developed and well-nourished. Eyes: EOM are normal. Pupils are equal, round, and reactive to light. Cardiovascular: Normal rate. Pulmonary/Chest: Effort normal and breath sounds normal. Neurological: Patient is alert and oriented to person, place, and time. Skin: Skin is warm and dry. No rash noted. Psychiatric: Patient has a normal mood and affect, and behavior is normal. Family and Social History: Reviewed. Neck Exam from initial visit in 06/06/2022: RASHES AND RENETTA: NEG. FROM: TENDERNESS ON PALPATION: NEG. STRENGTH: 5/5. REFLEXES: 2/4. SENSATION:Intact. SPURLING'S: POS on the right. MATHUR: NEG. RADIAL PULSE: 2/2. TINNEL: NEG. PHALEN: NEG. ULNAR COMPRESSION: NEG. Today, 06/06/2022, I independently reviewed the following radiographs: Cervical Plain radiographs (AP/Lat/Flex/Ex): 1. Loss of cervical lordosis 2. Facet arthropathy of the cervical spine 3. Disc height reduction at C4-C5/C5-C6/C6-C7 consistent with degenerative disc disease 4. No fractures identified Assessment: 57 y.o. female with 1. BOILER OUT most likely from degenerative disc and facet disease although myofascial pain secondary to loss of cervical lordosis is also plausible. 2. right UE pain along the C7 dermatome most likely radicular in nature. She has agreed to the following plan. Plan: 1. Order MRI. 2. Continue with in-home exercise program 3. Continue activity as tolerated. 4. Return to clinic post MRI. CC: Dr. Paige Garcia was the attending physician available in the clinic today if needed. A consultation was not required. documented in [...] right upper extremity- Primary Neck pain Cervicalgia Pain of right upper extremity Neck pain Cervicalgia documented in this encounter Historical Medications * This list may reflect changes made after this encounter. acetaminophen (TYLENOL) 500 mg tablet Take 1 Tablet by mouth every 6 hours as needed for Pain. 03/05/2023 cholecalciferol, vitamin D3, (VITAMIN D3 ORAL) Take by mouth daily as needed. 01/09/2023 Multivitamins with Minerals tablet tablet Take 1 Tablet by mouth daily. 01/09/2023 DULoxetine (CYMBALTA) 30 mg delayed release capsule Take 30 mg by mouth daily. 01/09/2023 meloxicam (MOBIC) 15 mg tablet Take 1 Tablet by mouth daily. 03/05/2023 progesterone (PROMETRIUM) 200 mg capsule Take 1 Capsule by mouth daily. 09/18/2023 estradioL (VIVELLE) 0.0375 mg/[address] 1 Patch onto the skin twice a week. Use one patch twice weekly. 09/18/2023 added in this encounter Care Teams Instructor Private Relationship Specialty Start Date End Date Sera Justin ND [address] [place] [phone] PCP - General 11/01/20 07/02/22 documented as of this encounter
--- OUTSIDE RECORDS SUMMARY | 2024-07-28 15:13 | XMS_ITS | Encounter Summary ---
Author Organization [facility] Address [address] [place] [address] Care Team Providers Care Euclid Operator Name Role Phone Shashi Mccrary DO Primary Care Provider [phone] Sera Justin ND Primary Care Provider + Lety Gibson APRN Primary Care Provider [phone] None, Provider Primary Care Provider [facility] Primary Care Provid er Unknown, Provider Primary Care Provider [facility]- Primary Care Provider None, Provider Primary Care Provider Shruthi Hill MD Primary Care Provider Encounter Details Date Type Department Care Team (Late st Contact Info) Description 07/06/2020 Results Only Imaging [facility] [place] [place] Radiology Results [address] [place] [address] Hilario Spears MD [address] [place] [phone] Social History Tobacco Use Types Packs/Day Years [...] Diagnosis Comments MR SHOULDER WO CONTRAST RIGHT 07/06/2020 11:00 EDT documented in this encounter Results * MR SHOULDER WO CONTRAST RIGHT (07/06/2020 11:00 EDT) Anatomical Region Laterality Modality Upper Extremities Right Magnetic Reson ance 07/06/2020 11:0 0 EDT Narrative 07/06/2020 11:00 EDT ? EXAM: MAGNETIC RESONANCE IMAGING/SHOULDER EX. D/ (0829) ? CLINICAL INFORMATION: ? PAIN IN RIGHT SHOULDER S/P RTC REPAIR 03/08/20 ? EVAL FOR RETEAR OF RIGHT ROTATOR CUFF ? PROCEDURE INFORMATION: ? Exam: MR Right Upper Extremity Joint Without Contrast; Shoulder ? Exam date and time: 07/06/2020 8:29 AM ? Age: 55 years old ? Clinical indication: Patient HX: Pain in right shoulder S/P rtc ? repair 03/08/20, eval for retear of right rotator cuff ? TECHNIQUE: ? Imaging protocol: MR of the Right upper extremity without ? contrast. Exam focused on the shoulder. ? COMPARISON: ? MRI SHOULDER RT W/O CONTRAST 04/01/2018 8:00 PM ? FINDINGS: ? Limitations: No correlative radiographs. ? Bones and cartilage: There is again mild acromioclavicular ? arthrosis. There are new surgical anchors in the humeral head ? laterally. These create some artifact. There is also some ? hardware artifact along the proximal humeral shaft, included on ? some sequences only, including artifact along the posteromedial ? cortex and horizontal artifact extending into the bone, ? significance uncertain. The glenohumeral articular cartilage is ? intact. There are mild productive changes along the greater ? tuberosity. Mild marrow edema is present in the central and ? posterior aspects of the humeral head. This could be associated ? with the surgery. ? Joint spaces: Fluid in the glenohumeral joint is within ? physiologic limits. ? Glenoid labrum: No gross tear of the glenoid labrum is evident. ? Bursae: Small fluid is present in the subacromial, subdeltoid ? bursa. ? Supraspinatus tendon: There is moderate supraspinatus ? tendinopathy. Some dark signal along the central footplate could ? relate to calcification. There is some partial-thickness bursal ? surface fraying, without full-thickness defect identified. ? Infraspinatus tendon: There is moderate infraspinatus ? tendinopathy with a small partial-thickness intrasubstance tear. ? Subscapularis tendon: There is similar mild subscapularis ? tendinopathy. ? Teres minor tendon: Unremarkable. No evidence of tear. ? Tendon of biceps brachii: The long head of the biceps tendon ? appears thinned, but does not appear completely torn. ? Glenohumeral ligaments: Unremarkable. ? Muscles: Unremarkable. ? Soft tissues: Unremarkable. ? IMPRESSION: ? PAGE 1 ? Signed Report ? (CONTINUED) ? 1. Interval operative changes since 04/01/18, including surgical ? anchors in the humeral head relating to rotator cuff repair and ? additional artifact along the proximal humeral shaft, partially ? visualized, significance uncertain. ? 2. Mild marrow edema in the central and posterior aspects of the ? humeral head, could be associated with the surgery. Recommend ? radiographs and clinical evaluation to assess for any potential ? hardware loosening or infection. ? 3. Degenerative changes as described. ? 4. Rotator cuff tendinopathy as described, without ? full-thickness tear identified. This includes potential calcific ? supraspinatus tendinopathy, for which radiographic correlation ? would be of benefit. ? 5. Small fluid in the subacromial, subdeltoid bursa, suggesting ? bursitis in the absence of occult full-thickness rotator cuff ? defect. ? REPORT SIGNED IN OTHER VENDOR SYSTEM 07/06/2020 ?Reported By: Davis Hutchinson MD ? CC: ? Transcribed Date/Time: 07/06/2020 (1100) ? Accounting Professor: HIS.VRAD ? Printed Date/Time: 07/06/2020 (1101) ? PAGE 2 ? Signed Report ? Procedure Note Davis Hutchinson MD - 07/30/2020 EXAM: MAGNETIC RESONANCE IMAGING/SHOULDER EX. D/ (0829) CLINICAL INFORMATION: PAIN IN RIGHT SHOULDER S/P RTC REPAIR 03/08/20 EVAL FOR RETEAR OF RIGHT ROTATOR CUFF PROCEDURE INFORMATION: Exam: MR Right Upper Extremity Joint Without Contrast; Shoulder Exam date and time: 07/06/2020 8:29 AM Age: 55 years old Clinical indication: Patient HX: Pain in right shoulder S/P rtc repair 03/08/20, eval for retear of right rotator cuff TECHNIQUE: Imaging protocol: MR of the Right upper extremity without contrast. Exam focused on the shoulder. COMPARISON: MRI SHOULDER RT W/O CONTRAST 04/01/2018 8:00 PM FINDINGS: Limitations: No correlative radiographs. Bones and cartilage: There is again mild acromioclavicular arthrosis. There are new surgical anchors in the humeral head laterally. These create some artifact. There is also some hardware artifact along the proximal humeral shaft, included on some sequences only, including artifact along the posteromedial cortex and horizontal artifact extending into the bone, significance uncertain. The glenohumeral articular cartilage is intact. There are mild productive changes along the greater tuberosity. Mild marrow edema is present in the central and posterior aspects of the humeral head. This could be associated with the surgery. Joint spaces: Fluid in the glenohumeral joint is within physiologic limits. Glenoid labrum: No gross tear of the glenoid labrum is evident. Bursae: Small fluid is present in the subacromial, subdeltoid bursa. Supraspinatus tendon: There is moderate supraspinatus tendinopathy. Some dark signal along the central footplate could relate to calcification. There is some partial-thickness bursal surface fraying, without full-thickness defect identified. Infraspinatus tendon: There is moderate infraspinatus tendinopathy with a small partial-thickness intrasubstance tear. Subscapularis tendon: There is similar mild subscapularis tendinopathy. Teres minor tendon: Unremarkable. No evidence of tear. Tendon of biceps brachii: The long head of the biceps tendon appears thinned, but does not appear completely torn. Glenohumeral ligaments: Unremarkable. Muscles: Unremarkable. Soft tissues: Unremarkable. IMPRESSION: PAGE 1 Signed Report (CONTINUED) 1. Interval operative changes since 04/01/18, including surgical anchors in the humeral head relating to rotator cuff repair and additional artifact along the proximal humeral shaft, partially visualized, significance uncertain. 2. Mild marrow edema in the central and posterior aspects of the humeral head, could be associated with the surgery. Recommend radiographs and clinical evaluation to assess for any potential hardware loosening or infection. 3. Degenerative changes as described. 4. Rotator cuff tendinopathy as described, without full-thickness tear identified. This includes potential calcific supraspinatus tendinopathy, for which radiographic correlation would be of benefit. 5. Small fluid in the subacromial, subdeltoid bursa, suggesting bursitis in the absence of occult full-thickness rotator cuff defect. REPORT SIGNED IN OTHER VENDOR SYSTEM 07/06/2020 Reported By: Davis Hutchinson MD CC: Transcribed Date/Time: 07/06/2020 (1100) Accounting Professor: Printed Date/Time: 07/06/2020 (5897) PAGE 2 Signed Report us Hilario Spears MD IMG MRI ORDERABLES Final Result documented in this encounter Visit Diagnoses Not on filedocumented in this encounter Care Teams Euclid Operator Relationship Specialty Start Date End Date Shashi Mccrary DO [address] [place] [address] PCP - General 07/21/15 10/31/20 Sera Justin ND [address] [place] [phone] PCP - General 11/01/20 07/02/22 Lety Gibson APRN [address] [place] [phone] PCP - General Family Medicine - Primary Care 07/03/22 12/01/22 None, Provider PCP - General 12/02/22 01/08/23 [facility] [address] [place], [place] [address] PCP - General 01/09/23 02/15/23 Unknown, Provider, [address] [place] [address] PCP - General 02/16/23 04/16/23 [facility] [address] [place], [place] [phone] PCP - General 04/17/23 09/29/23 None, Provider PCP - General 09/30/23 01/27/24 Shruthi Bailey MD [address] [place] [address] PCP - General Family Medicine - Primary Care 01/28/24 documented as of this encounter
--- OUTSIDE RECORDS SUMMARY | 2024-07-28 15:13 | XMS_ITS | Encounter Summary ---
Author Organization [facility] Address [address] [place] [address] Care Team Providers Care Hoisting Laborer Name Role Phone Shashi Mccrary DO Primary Care Provider [phone] Encounter Details Date Type Department Care Team (Late st Contact Info) Description 04/01/2018 Historical Results Only [facility] Radiology Results [address] [place] [address] Sera Justin ND [address] [facility] [address] [place] [phone] Social History Tobacco Use Types Packs/Day Years [...] on filedocumented in this encounter Care Teams Hoisting Laborer Relationship Specialty Start Date End Date Shashi Mccrary DO [address] [place] [address] PCP - General 07/21/15 10/31/20 documented as of this encounter
--- OUTSIDE RECORDS SUMMARY | 2024-07-28 15:13 | XMS_ITS | Encounter Summary ---
Author Organization [facility] Address [address] [place] [address] Care Team Providers Care Actor Understudy Name Role Phone Shashi Mccrary DO Primary Care Provider [phone] Sera Justin ND Primary Care Provider + Lety Gibson APRN Primary Care Provider None, Provider Primary Care Provider [facility] Primary Care Provid er Unknown, Provider Primary Care Provider [facility] Primary Care Provider None, Provider Primary Care Provider Shruthi Hill MD Primary Care Provider [phone] Encounter Details Date Type Department Care Team (Late st Contact Info) Description 03/03/2020 Lab Requisition [facility] Pathology & Laboratory Medicine - [facility] [address] [place] [address] Outr Resulting Lab, Provider Social History Tobacco [...] Procedure Name Priority Date/Time Associated Diagnosis Comments ZZCOVID-19 TEST [facility] PCR Today 03/03/2020 14:29 EDT COVID-19 TESTING Routine 03/03/2020 14:2 9 EDT documented in this encounter Results * COVID-19 TEST [facility] PCR (03/03/2020 14:29 EDT) Swab ENTIRE NASOPHARYNX / Unknown 03/03/2020 14:29 EDT 03/04/2020 7:52 EDT us Provider Outr Resulting Lab MICROBIOLOGY - GENER AL ORDERABLES Final Result [facility] [address] [place] [address] * COVID-19 TESTING (03/03/2020 14:29 EDT) COVID-19 rt-PCR Result Negative Negative 03/04/2020 11:15 EDT [facility] Comment: This test has not been FDA cleared or approved. This test has been authorized by FDA under an EUA for use by authorized laboratories. This test has been authorized only for detection of nucleic acid from 2019-nCoV, not for any other viruses or pathogens. This test is only authorized for the duration of the declaration that circumstances exist justifying the authorization of emergency use of in vitro diagnostic tests for detection and/or diagnosis of 2019-nCoV under section 564(b)(1) of Act, 21 U.S.C ?? 360bbb-3(b) (1), unless the authorization is terminated or revoked sooner. Negative results do not preclude 2019-nCoV infection and should not be used as the sole basis for treatment or other patient management decisions. Negative results must be combined with clinical observations, patient history, and epidemiological information. Performed on the Qbakaher Fusion instrument Performing Lab [place] [facility] 03/04/2020 11:15 EDT [facility] Swab 03/03/2020 14:2 9 EDT 03/04/2020 7:52 EDT us Provider Outr Resulting Lab MICROBIOLOGY - GENER AL ORDERABLES Final Result [facility] [address] [place] [address] documented in this encounter Visit Diagnoses Not on filedocumented in this encounter Care Teams Actor Understudy Relationship Specialty Start Date End Date Shashi Mccrary DO [address] [place] [address] PCP - General 07/21/15 10/31/20 Sera Justin ND [address] [place] [phone] PCP - General 11/01/20 07/02/22 Lety Gibson APRN [address] [place] [phone] PCP - General Family Medicine - Primary Care 07/03/22 12/01/22 None, Provider PCP - General 12/02/22 01/08/23 [facility] [address] [place] [address] PCP - General 01/09/23 02/15/23 Unknown, Provider, [address] [place] [address] PCP - General 02/16/23 04/16/23 [facility] [address] [place] [address] PCP - General 04/17/23 09/29/23 None, Provider PCP - General 09/30/23 01/27/24 Shruthi Bailey MD [address] [place], [place] [address] PCP - General Family Medicine - Primary Care 01/28/24 documented as of this encounter
--- OUTSIDE RECORDS SUMMARY | 2024-07-28 15:13 | XMS_ITS | Encounter Summary ---
Author Organization [facility] Address [address] [place] [address] Care Team Providers Care Vault Person Name Role Phone Shashi Mccrary DO Primary Care Provider [phone] Encounter Details Date Type Department Care Team (Latest Contact Info) Description 02/07/2019 14:00 EDT - 02/07/2019 23:59 EDT Hospital Encounter [facility] [address] [place] [address] Unknown, Provider, MD Discharge Disposition: Home or Self Care Social [...] Code Departure Means Destination Home or Self Jail documented in this encounter Plan of Treatment Not on file documented as of this encounter Visit Diagnoses Not on filedocumented in this encounter Care Teams Vault Person Relationship Specialty Start Date End Date Shashi Mccrary DO [address] [place] [address] PCP - General 07/21/15 10/31/20 documented as of this encounter
--- OUTSIDE RECORDS SUMMARY | 2024-07-28 15:13 | XMS_ITS | Encounter Summary ---
Author Organization [facility] Address [address] [place] [address] Care Team Providers Care Electric Fan Assembler Name Role Phone Shashi Mccrary DO Primary Care Provider Encounter Details Date Type Department Care Team ([facility] st Contact Info) Description 09/23/2010 Historical Results Only [facility] [address] [place], [place] [address] Lisa Zuluaga NP [address] [place] [phone] Social History Tobacco Use Types Packs/Day Years [...] Priority Date/Time Associated Diagnosis Comments PAP TEST Routine 09/23/2010 documented in this encounter Results * PAP TEST (09/23/2010) 09/23/2010 09/24/2010 10: 09 EST Narrative [facility] - 09/26/2010 10:02 EST ----- ------- Name: KERONALETHAGLADIS L ?: 63 ?Age/Sex: 54/F ?Unit#: [id number] ? Loc: LAB.[facility] ? Status: REG REF ?? Reg Date: 09/23/10 ? Pt.Phone Number: ? ----- ------- Specimen: [id number] ? STATUS: SOUT ?Spec Date:09/23/10 ? Physician Copies: ?Lisa Zuluaga ? Tissues: ? VAG/CERV PAP ? CPT: 11717 ?? Units: ??1 ----- ------- ? CYTOLOGY DIAGNOSIS SPECIMEN ADEQUACY: ?Satisfactory for evaluation. Transformation zone component ABSENT. GENERAL CATEGORIZATION: ?Negative for Intraepithelial Lesion or Malignancy DESCRIPTIVE DIAGNOSIS: ? Negative for Intraepithelial Lesion or Malignancy. RECOMMENDATIONS/COMMENTS: ?None. ----- ------- ORDER QUERIES: LMP: ? - 08/21/10 ? N Post ? N ??PREVIOUS ATYPICAL: N BCP/HRT? N Rad Rx? N IUD? N ??PAP PLUS HPV?REFLEX TO HR-HPV IF ASCUS ?? REFLEX TO HPV 16/18 IF HPV POS/PAP NEG ?? HPV REGARDLESS?RFLX HPV IF LSIL ?? IF ASCUS DO HPV? Y ?[facility] Information ? [facility] ?? Patients Phone# ??[phone] ?? [facility] Order# ? Signed Richard Gonzalez CT(ASCP) 09/26/10 By the signature above, the attending physician certifies that he/she has personally conducted a gross and/or microscopic examination of the described specimens and rendered or confirmed the above diagnosis. Test Performed by [facility], [address] [place] [place] [address] Director Of Entertainment: Monika Morrison MD PHD ----- ------- us Lisa Zuluaga MOLECULAR PATHOLOGIST PATHOLOGY ORDERABLES Final R esult [facility] documented in this encounter Visit Diagnoses Not on filedocumented in this encounter Care Teams Electric Fan Assembler Relationship Specialty Start Date End Date Shashi Mccrary DO [address] [place] [address] PCP - General 07/21/15 10/31/20 documented as of this encounter
--- OUTSIDE RECORDS SUMMARY | 2024-07-28 15:13 | XMS_ITS | Encounter Summary ---
Author Organization [facility] Address [address] [place] [address] Care Team Providers Care Virtual Office Assistant Name Role Phone Sera Justin ND Primary Care Provider + Reason for Referral * Radiology Services (Routine/Next Available) - Authorization Not Required Specialty Diagnoses / Procedures Referred By Contac t Referred To Contact Diagnoses Radiculopathy, cervical region Procedures XR CERVICAL SPINE 4-5 VIEWS Sera Justin ND [address] [place] [phone] Phone: tel: fax: [facility] Referral ID Status Reason Start Date Expiration Date Visits Requested Visits Authorized [id number] Authorization Not Required 02/11/2022 1 1 Reason for Visit * Radiology Services (Routine/Next Available) - Authorization Not Required Specialty Diagnoses / Procedures Referred By Contac t Referred To Contact Diagnoses Radiculopathy, cervical region Procedures XR CERVICAL SPINE 4-5 VIEWS Sera Justin ND [address] [place] [phone] Phone: tel: fax: [facility] Referral ID Status Reason Start Date Expiration Date Visits Requested Visits Authorized [id number] Authorization Not Required 02/11/2022 1 1 Encounter Details Date Type Department Care Team (Latest Contact Info) Description 02/14/2022 13:07 EDT - 02/14/2022 23:59 EDT Hospital Encounter [facility] Xray [address] [place] [address] Radiculopathy, cervical region Discharge Disposition: Home or Self Care Social [...] Comments XR CERVICAL SPINE 4-5 VIEWS Routine 02/14/2022 13:50 EDT Radiculopathy, cervical region documented in this encounter Results * XR CERVICAL SPINE 4-5 VIEWS (02/14/2022 13:50 EDT) Anatomical Region Laterality Modality Left Computed Radiogr aphy 02/14/2022 13:5 7 EDT Narrative 02/14/2022 13:57 EDT INDICATION: CERVICALGIA W/RADICULOPATHY TECHNIQUE: 4 views cervical spine COMPARISON: None FINDINGS: There is straightening of the normal cervical lordosis. There is a trace retrolisthesis of C5 on C6. The cervical vertebral bodies maintain normal height. Degenerative disc space narrowing and endplate osteophyte formation spans the C4-T1 levels. There is diffuse degenerative facet disease. On oblique imaging, there is moderate and bilateral osseous neural foraminal narrowing at C5/6 and C6/7. Procedure Note Enrrique Austin MD - 02/14/2022 INDICATION: CERVICALGIA W/RADICULOPATHY TECHNIQUE: 4 views cervical spine COMPARISON: None FINDINGS: There is straightening of the normal cervical lordosis. There yumi trace retrolisthesis of C5 on C6. The cervical vertebral bodies maintainnormal height. Degenerative disc space narrowing and endplate osteophyteformation spans the C4- T1 levels. There is diffuse degenerative facetdisease. On oblique imaging, there is moderate and bilateral osseousneural foraminal narrowing at C5/6 and C6/7. Sera Justin ND IMG DIAGNOSTIC IMAGING O RDERABLES Final Result documented in this encounter Visit Diagnoses Diagnosis Radiculopathy, cervical region Brachial neuritis or radiculitis nos documented in this encounter Care Teams Virtual Office Assistant Relationship Specialty Start Date End Date Sera Justin ND [address] [place] [phone] PCP - General 11/01/20 07/02/22 documented as of this encounter
--- OUTSIDE RECORDS SUMMARY | 2024-07-28 15:13 | XMS_ITS | Encounter Summary ---
Author Organization [facility] Address [address] [place] [address] Care Team Providers Care Regional Dedicated Truck Driver Name Role Phone Sera Justin ND Primary Care Provider + Reason for Referral * Radiology Services (Routine/Next Available) - Authorization Not Required Specialty Diagnoses / Procedures Referred By Contac t Referred To Contact Diagnoses Pain in right shoulder Procedures XR SHOULDER RIGHT 2 OR MORE VIEWS Sera Justin ND [address] [place] [id number] Phone: tel: fax: [facility] Referral ID Status Reason Start Date Expiration Date Visits Requested Visits Authorized [id number] Authorization Not Required 02/11/2022 1 1 * Radiology Services (Routine/Next Available) - Authorization Not Required Specialty Diagnoses / Procedures Referred By Contac t Referred To Contact Diagnoses Pain in right shoulder Procedures XR SCAPULA RIGHT Sera Justin ND [address] [phone] Phone: tel: fax: [facility] Referral ID Status Reason Start Date Expiration Date Visits Requested Visits Authorized [id number] Authorization Not Required 02/11/2022 1 1 Reason for Visit * Radiology Services (Routine/Next Available) - Authorization Not Required Specialty Diagnoses / Procedures Referred By Contac t Referred To Contact Diagnoses Pain in right shoulder Procedures XR SHOULDER RIGHT 2 OR MORE VIEWS Sera Justin, SHARON [address] [address] Phone: tel: fax: [facility] Referral ID Status Reason Start Date Expiration Date Visits Requested Visits Authorized [id number] Authorization Not Required 02/11/2022 1 1 Encounter Details Date Type Department Care Team (Latest Contact Info) Description 02/14/2022 13:06 EDT Hospital Encounter [facility] Xray [address] [place] [address] Pain in right shoulder Discharge Disposition: Home or Self Care Social [...] Name Priority Date/Time Associated Diagnosis Comments XR SHOULDER RIGHT 2 OR MORE VIEWS Routine 02/14/2022 13:47 EDT Pain in right shoulder XR SCAPULA RIGHT Routine 02/14/2022 13:4 7 EDT Pain in right shoulder documented in this encounter Results * XR SHOULDER RIGHT 2 OR MORE VIEWS (02/14/2022 13:47 EDT) Anatomical Region Laterality Modality Right Computed Radiogr aphy 02/14/2022 13:5 4 EDT Impressions 02/14/2022 13:54 EDT 1. ??Suture anchor (or similar) along the proximal right humeral shaft, compatible with the history of biceps tendon repair. MR would be far superior to assess for recurrent biceps tendon injury. 2. ??No acute fracture or dislocation identified. 3. ??Mild right shoulder degenerative changes. Narrative 02/14/2022 13:54 EDT XR SHOULDER RIGHT 2 OR MORE VIEWS XR SCAPULA RIGHT ?? Signs and Symptoms/Comments: ??(R) SHOULDER/MEDIAL SCAPULAR PAIN FOLLOWING CERVICAL COMPRESSION INJURY, H/O ROTATOR CUFF & BICEP TENDON REPAIR Comparison: 12/21/2012. FINDINGS: Right shoulder: 4 views were performed. Bones: No acute fracture or malalignment. Suture anchor (or similar) along the proximal humeral shaft, compatible with the history of biceps tendon repair. MR would be far superior to assess for recurrent biceps tendon injury. Degenerative changes: Mild glenohumeral and acromioclavicular arthrosis. Soft tissues: Unremarkable. Right scapula: Single view was performed. Bones: No acute fracture or dislocation visible on the single view provided. Suture anchor (or similar) along the proximal humeral shaft, compatible with the history of biceps tendon repair. MR would be far superior to assess for recurrent biceps tendon injury. Degenerative changes: Mild right shoulder degenerative changes. Soft tissues: Unremarkable. Procedure Note Atif Tuttle MD - 02/14/2022 XR SHOULDER RIGHT 2 OR MORE VIEWS XR SCAPULA RIGHT Signs and Symptoms/Comments: (R) SHOULDER/MEDIAL SCAPULAR PAIN FOLLOWINGCERVICAL COMPRESSION INJURY, H/O ROTATOR CUFF & BICEP TENDON REPAIR Comparison: 12/21/2012. FINDINGS: Right shoulder: 4 views were performed. Bones: No acute fracture or malalignment. Suture anchor (or similar) alongthe proximal humeral shaft, compatible with the history of biceps tendonrepair. MR would be far superior to assess for recurrent biceps tendoninjury. Degenerative changes: Mild glenohumeral and acromioclavicular arthrosis. Soft tissues: Unremarkable. Right scapula: Single view was performed. Bones: No acute fracture or dislocation visible on the single viewprovided. Suture anchor (or similar) along the proximal humeral shaft,compatible with the history of biceps tendon repair. MR would be farsuperior to assess for recurrent biceps tendon injury. Degenerative changes: Mild right shoulder degenerative changes. Soft tissues: Unremarkable. IMPRESSION 1. Suture anchor (or similar) along the proximal right humeral shaft,compatible with the history of biceps tendon repair. MR would be farsuperior to assess for recurrent biceps tendon injury. 2. No acute fracture or dislocation identified. 3. Mild right shoulder degenerative changes. Sera Justin ND IMG DIAGNOSTIC IMAGING O RDERABLES Final Result * XR SCAPULA RIGHT (02/14/2022 13:47 EDT) Anatomical Region Laterality Modality Right Computed Radiogr aphy 02/14/2022 13:5 4 EDT Impressions 02/14/2022 13:54 EDT 1. ??Suture anchor (or similar) along the proximal right humeral shaft, compatible with the history of biceps tendon repair. MR would be far superior to assess for recurrent biceps tendon injury. 2. ??No acute fracture or dislocation identified. 3. ??Mild right shoulder degenerative changes. Narrative 02/14/2022 13:54 EDT XR SHOULDER RIGHT 2 OR MORE VIEWS XR SCAPULA RIGHT ?? Signs and Symptoms/Comments: ??(R) SHOULDER/MEDIAL SCAPULAR PAIN FOLLOWING CERVICAL COMPRESSION INJURY, H/O ROTATOR CUFF & BICEP TENDON REPAIR Comparison: 12/21/2012. FINDINGS: Right shoulder: 4 views were performed. Bones: No acute fracture or malalignment. Suture anchor (or similar) along the proximal humeral shaft, compatible with the history of biceps tendon repair. MR would be far superior to assess for recurrent biceps tendon injury. Degenerative changes: Mild glenohumeral and acromioclavicular arthrosis. Soft tissues: Unremarkable. Right scapula: Single view was performed. Bones: No acute fracture or dislocation visible on the single view provided. Suture anchor (or similar) along the proximal humeral shaft, compatible with the history of biceps tendon repair. MR would be far superior to assess for recurrent biceps tendon injury. Degenerative changes: Mild right shoulder degenerative changes. Soft tissues: Unremarkable. Procedure Note Atif Tuttle MD - 02/14/2022 XR SHOULDER RIGHT 2 OR MORE VIEWS XR SCAPULA RIGHT Signs and Symptoms/Comments: (R) SHOULDER/MEDIAL SCAPULAR PAIN FOLLOWINGCERVICAL COMPRESSION INJURY, H/O ROTATOR CUFF & BICEP TENDON REPAIR Comparison: 12/21/2012. FINDINGS: Right shoulder: 4 views were performed. Bones: No acute fracture or malalignment. Suture anchor (or similar) alongthe proximal humeral shaft, compatible with the history of biceps tendonrepair. MR would be far superior to assess for recurrent biceps tendoninjury. Degenerative changes: Mild glenohumeral and acromioclavicular arthrosis. Soft tissues: Unremarkable. Right scapula: Single view was performed. Bones: No acute fracture or dislocation visible on the single viewprovided. Suture anchor (or similar) along the proximal humeral shaft,compatible with the history of biceps tendon repair. MR would be farsuperior to assess for recurrent biceps tendon injury. Degenerative changes: Mild right shoulder degenerative changes. Soft tissues: Unremarkable. IMPRESSION 1. Suture anchor (or similar) along the proximal right humeral shaft,compatible with the history of biceps tendon repair. MR would be farsuperior to assess for recurrent biceps tendon injury. 2. No acute fracture or dislocation identified. 3. Mild right shoulder degenerative changes. Sera Justin ND IMG DIAGNOSTIC IMAGING O RDERABLES Final Result documented in this encounter Visit Diagnoses Diagnosis Pain in right shoulder Pain in joint, shoulder region documented in this encounter Care Teams Regional Dedicated Truck Driver Relationship Specialty Start Date End Date Sera Justin ND [address] [place] [phone] PCP - General 11/01/20 07/02/22 documented as of this encounter
--- OUTSIDE RECORDS SUMMARY | 2024-07-28 15:13 | XMS_ITS | Encounter Summary ---
Author Organization [facility] Address [address] [place] [address] Care Team Providers Care Professor Of Industrial Technology Name Role Phone Shashi Mccrary DO Primary Care Provider [phone] Encounter Details Date Type Department Care Team (Latest Contact Info) Description 04/01/2018 9:55 EDT - 04/01/2018 23:59 EDT Hospital Encounter [facility] [address] [place] [address] Unknown, Provider, MD Discharge Disposition: Home or [...] Code Departure Means Destination Home or Self Alf documented in this encounter Plan of Treatment Not on file documented as of this encounter Visit Diagnoses Not on filedocumented in this encounter Care Teams Professor Of Industrial Technology Relationship Specialty Start Date End Date Shashi Mccrary DO [address] [place] [address] PCP - General 07/21/15 10/31/20 documented as of this encounter
--- OUTSIDE RECORDS SUMMARY | 2024-07-28 15:13 | XMS_ITS | Encounter Summary ---
Author Organization [facility] Address [address] [place] [address] Care Team Providers Care Extermination Supervisor Name Role Phone Shashi Mccrary DO Primary Care Provider Encounter Details Date Type Department Care Team (Latest Contact Info) Description 03/22/2018 10:01 EDT - 03/22/2018 23:59 EDT Hospital Encounter [facility] [address] [place] [address] Unknown, Provider, MD Discharge Disposition: Auto Discharge Social History Tobacco Use Types Packs/Day Years Used Date Smoking Tobacco: Never Assessed Comments Unknown Sex and Gender Information Value Date Recorded Sex Assigned at Not on file Legal Sex Female 18:44 EST Gender Identity Female 10/07/2021 16:01 EST Sexual Orientation Not on file documented as of this encounter Discharge Disposition Disposition Code Departure Means Destination Auto Discharge Home documented in this encounter Plan of Treatment Not on file documented as of this encounter Visit Diagnoses Not on filedocumented in this encounter Care Teams Extermination Supervisor Relationship Specialty Start Date End Date Shashi Mccrary DO [address] [place] [address] PCP - General 07/21/15 10/31/20 documented as of this encounter
--- OUTSIDE RECORDS SUMMARY | 2024-07-28 15:13 | XMS_ITS | Encounter Summary ---
Author Organization [facility] Address [address] [place] [address] Care Team Providers Care Commissioner Of Conciliation Name Role Phone Sera Justin ND Primary Care Provider + Reason for Visit * Reason Comments Memory Loss * Referral (Routine) - Closed Specialty Diagnoses / Procedures Referred By Eric acuna Referred To Contact Psychology Sera Justin ND [address] [place] [phone] Phone: tel: fax: [facility] - Medical Office Building [address] [place] [address] Phone: tel: fax: Referral ID Status Reason Start Date Expiration Date Visits Re quested Visits Authorized [id number] Closed 1 1 Encounter Details Date Type Department Care Team ([facility] Contact Info) Description 11/01/2020 10:00 EST Office Visit [facility] - Medical Office Building [address] [place], [place] [id number] Kyler Tarango, PhD [address] [facility] Medical Office Building, [address] [place] [address] Memory loss (Primary Dx) Social History Tobacco Use Types [...] on file documented as of this encounter Progress Notes * Kyler Tarango, PhD - 11/01/2020 1000 EST NEUROPSYCHOLOGICAL EVALUATION Ms. Gladis Chester was seen for neuropsychological evaluation on 11/01/2020. She was referred by Sera Argueta ND ([facility]) and was seen as an outpatient at the Medical Office Building on the [facility]. Ms. Chester was seen in-office by a door technician for a majority of the neuropsychological testing. However, due to COVID19 precautions the clinical interview and neuropsychologist's portion of testing were done via video telemedicine with the patient located in our office and this provider working from his own residence. PERTINENT BACKGROUND INFORMATION: Ms. Chester was born in [place]. Her mother is age 87 and has Alzheimer's disease. Her father at about age 65 of cancer. She is the third of four children in her family; she has two siblings living in [place] and she had a sister of cancer at age 48. She left school after the ninth grade, but obtained her GED at age 17. She reports completing a good deal of continued education and workshops. 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 She is once and once , and has two adult children from the relationship, both living in [place]. She is currently living in a house in [place], where she resides with her mother and ex-partner. Also living with them is her godson and his child. Ms. Chester has a medical and neurological history that is negative for stroke/TIA, seizures/epilepsy,and meningitis/encephalitis. 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 Her family neurological history is noteworthy for her mother and paternal grandmother both having Alzheimer's disease, and her maternal great grandmother also having some form of dementia. Her family psychiatric history is notable for sister having bipolar disorder, and her mother, father, and both sisters having problems with alcohol abuse. PRESENTING PROBLEM: Ms. Chester comes to the Memory Program with a self-reported two year history of cognitive changes. She reports that there may have been two precipitating events, the first being hersecond episode of Lyme exposure, which occurred in about the summer 2018. Her memory issues had been relatively mild, but when she experienced her second possible precipitating event, a slip/fall on the ice in 10/2019 in which she struck her head, she has had more significant issues. She apparently did not receive medical attention, but she has a friend who is a nurse who felt Ms. Chester had sustained a concussion. It is unclear if there was loss of consciousness related to the event, but she did have a headache for several days and residual neck pain. Because of her concerns about cognitive changes, she was referred to this service for comprehensive neuropsychological testing. BEHAVIORAL OBSERVATION: Ms. Chester presented as a 55-year-old woman who arrived on time and unaccompanied to the appointment. She indicates driving herself to the appointment and having no problems locating our facility and office. Her affect was within normal limits and her eye contact was acceptable. She seemed to be a reasonable historian upon interview. She participated fully in the formal cogni tive testing portion of the evaluation. INTERVIEW FINDINGS / SUBJECTIVE REPORT OF SYMPTOMS: Information obtained from Ms. Chester during the structured clinical interview, including her current symptoms and present functioning, is detailed below. 1. Sensory and perceptual issues: She reports having episodic headache, right upper extremity pain,and upper back and shoulder discomfort. At the time of the evaluation, her back was causing her themost discomfort, and she rated as 5 of 10 severity. Her vision is generally okay, but it does become a bit blurry due to fatigue from doing fine detail work or reading. She notes no problems with hearing, smell, or taste, but does experience some right hand numbness due to an old injury. 2. Physical and motor problems: She reports that her balance is off some, with her often bumping into things when walking, and she has had occasional falls, the most recent occurring a month ago. Herfine motor functioning is diminished in her right hand. Her overall strength has declined followingher 02/2620 orthopedic surgery and due to a lack of exercise overall. She indicates that her physical endurance is definitely lacking. 3. Communication problems: She reports that she does have frequent problems with word retrieval when speaking, something that she believes has been getting worse. She does require information to be repeated to her often due to problems with auditory comprehension. She describes herself as having been an average reader, but is now mostly reading short articles on her phone, and she indicates that she has difficulty retaining what she reads. Her handwriting had declined considerably following hersurgery, but she believes that it is slowly improving. 4. Memory problems: She reports having significant chunks of her remote past missing from memory, with her remote recall being better after her mid 20s. She can recall recent events, but often struggles with the timeframe of their occurrence. She does have some difficulty remembering conversations,often muddling details. She has considerable problems with prospective memory, such as for appointments and other scheduled activities; she reports using Google calendar with many alarms set to remind her of things. She is not aware of any problems with procedural memory, such as when accessing previously well learned skills. She acknowledges misplacing belongings more frequently, including her wallet which has been missing for a week. 5. Other cognitive problems: She does have some difficulty with orientation per day, which she attributes to the pandemic and not having many things scheduled. She has trouble with attention and mental focus, reporting that her brain gets overloaded. Her math skills were excellent, but now there reportedly declined some for mental calculations. She indicates that she has never been good with planning and time management, and it probably is a little worse; she indicates that she can come up with a plan for the day, but will get distracted and fails to follow her plan. She is not aware of anysignificant issues with reasoning or decision making. 6. Psychological and emotional issues: She reports that she is currently under a lot of stress and that she is very depressed and anxious. She also is extremely irritable, which she generally suppresses until having an angry verbal outburst, which now happens monthly or so. She is seeing a therapist about once a week now and has a prescription for buspirone and bupropion, but has yet to start taking them. She describes her sleep as being horrible, significant for onset insomnia and nocturnal awakening. She apparently has low energy, describing herself as being lazy and lethargic. Her appetite has declined, but she reports having an approximate 20 pound weight gain due to stress eating. She has experienced occasional passive wishes for , but denies any sort of simon suicidal ideation. She reports no hallucinations. She has history of substance abuse, including IV drug use, occurring primarily between the ages of 15 and 23. She now uses cannabis only, to help with sleep, and is a modest user of alcohol now. She does smoke 1/2 pack of cigarettes per day. She obtained a scoreof 32 on the Montgomery Depression Inventory-II, which falls in the severe range, and a score of 18 on the Montgomery Anxiety Inventory, which falls in the moderate range of severity. 7. Adaptive daily activity: She reports that she is managing her basic ADLs and self-care a little better now, although this did decline a little early on in the pandemic. She handles her own medications, but does sometimes forget to take them due to becoming distracted. She does most of the meal preparation, laundry, and kitchen and bathroom cleaning. Grocery shopping is shared. She was starting to have problems with bill paying, and her ex partner took this over about a year ago. She continues to drive, although less than daily. She notes no problems with safety or navigation, but she can sometimes space out and end up in the wrong location. Her social contacts now are limited to texting and zooming with friends and talking with her son on the phone. 8. Financial and/or legal issues: She did apply for Social Security Disability benefits, but was apparently denied. She indicates having significant financial stressors, and is going to have to sell her house to cover increased debt. INFORMATION REPORTED BY FAMILY OR OTHERS: N/A - Ms. Chester was unaccompanied to this appointment. NEUROPSYCHOLOGICAL FINDINGS: Ms. Chester was administered a comprehensive battery of neuropsychological tests, evaluating a broad range of brain-behavior functions. Her performance on these measures is reviewed below. 1. Symptom validity testing: She was administered several measures of cognitive symptom validity. All of the test scores fell within the acceptable range, suggesting that she had been able to maintain sufficient effort throughout the full day of testing. It also suggests that the obtained test results reviewed below are reasonable estimates of her underlying cognitive abilities. 2. Orientation: She was adequately oriented to self and situation, but was slightly off for date and our location. She was able to recall the name of the president, previous president, meat service team member, and [place] governor. 3. Attention and processing speed: Her ability to focus attention during the performance of cognitive tasks fell in the average to high average ranges. Her mental processing speed was intact overall,and ranged between low average to the superior range across various timed tasks. 4. Motor functioning: She is right-hand dominant. Upper extremity simple motor speed was average, bilaterally. Her basic warble saw operator strength was not assessed as part of this evaluation. 5. Spatial organizational skills: She performed ranged from average to superior range on tasks of visual scanning, matching and sequencing. Her block design reproductions were performed in the superior range. Her clock drawing was completely intact, as was her complex figure drawing. 6. Communication skills: Her conversational speech was intelligible and otherwise unremarkable. Upon testing, object naming to confrontation was intact; she could correctly name 58 of 60 pictures. Her verbal fluency was well above average for FAS and also for animal names. Her expressive vocabularyfell in the high average range auditory comprehension was within normal limits. She made no errors repeating single words or sentences. Her word recognition reading fell at the upper end of the high average range. 7. Memory functioning: Her overall recall memory functioning fell in the average range, with her verbal memory being somewhat better than her visual memory. Immediate recall of orally-presented verbal information (short stories; word lists) was average. Delayed recall of verbal material was likewise in the average range. Immediate recall of visually-presented spatial material (visual patterns; complex figures) fell at the margin between the low average and average ranges. Delayed recall of visuospatial information fell in the low average range. Her delayed recognition memory was in the average range, and was consistent with her delayed recall memory. Her capacity to improve memory retentionover repeated learning trials was above average for verbal information (8-90-34-13-11 of 16 over five trials) but was low average for visuospatial material (4 -3-7 of 10 over three trials). 8. Reasoning skills: Her verbal reasoning skills falls in the superior range for word-pair similarities. Her general fund of knowledge was in the average range. Visuospatial problem solving fell in the superior range. Mental math problem solving was high average. Abstract conceptual problem solving, requiring novel hypothesis generation and testing, was excellent, with her scores falling in the superior range. 9. Intellectual skills: She obtained the following index scores on the WAIS-IV: Verbal Comprehension 114; Perceptual Reasoning 123; Working Memory 119; Processing Speed 84. She also obtained a Full Scale Score of 114, which falls in the high average range and at the 82nd percentile, and a General Ability Index of 122, which falls in the superior range and at the 93rd percentile. 10. Other measures: She achieved a score of 26 on the MMSE-2, which falls in the average range (T= 52), and at the 55th percentile. SUMMARY AND IMPRESSION: Ms. Gladis Chester is a 55-year-old, right-handed, woman with 8 years of education plus GED. She comes to the Memory Program with an approximate 2-year history of self-reportedcognitive changes. These issues come in the context of Lyme exposure in 2019, apparent concussion in 2020, and a maternal family history of Alzheimer's disease. He reports that he is mild my bed after, immediately was a little something a little part she was referred to this service for comprehensive neuropsychological evaluation to document her current level of mental functioning and to assist in her ongoing outpatient care planning. The current evaluation finds Ms. Chester to be functioning in the high average to superior range intellectually and the average to superior ranges across a majority of the other tested neuropsychological domains. Areas of relative strength identified upon testing include most aspects of mental processing speed, spatial organization, abstract reasoning, and academically-related skills (vocabulary, reading, math). There were no areas of impairment noted. Psychologically, she presents with evidence of significant adjustment difficulties, marked by depressed and anxious mood, and with a number of ongoing situational stressors. Ms. Chester's test findings are consistent with intact, overall cerebral function. There were no indications of impairment and the vast majority of her tested skills are average, or above average. It isworth noting that her memory functions were in the average range; although modestly lower than someof her other tested skills, they are still within normal limits and do not correlate with her subjective memory complaints. Ms. Chester reports a number of possible factors that could be contributing to her reported cognitive inefficiencies, including lyme exposure and concussion. However, I suspect that depression, anxiety,and sleep disturbance are more likely involved here. She does have a family history of Alzheimer's disease, but there is nothing here that would suggest that an early onset dementia is present. Repeat testing in a year or two could be pursued if concerns about symptom progression emerge. DIAGNOSIS: Memory Loss (R 41.3) TIME / PROCEDURES: Neurobehavioral Status Examination -72 minutes (1 unit of 98762) provided by neuropsychologist; Professional Services -125 minutes (1 unit of 68717 and 1 unit(s) of 11918) providedby neuropsychologist; Testing by Neuropsychologist -74 minutes (1 unit of 36221 and 1 unit(s) of 30053) consisting of test administration and scoring; Testing by Insulation Extruder Operator -206 minutes (1 unit of 52254 and 6 unit(s) of 04176) consisting of administration and scoring. Kyler Tarango, PhD Psychologist - Doctorate documented in this encounter Plan of Treatment Not on file documented as of this encounter Visit Diagnoses Diagnosis Memory loss- Primary documented in this encounter Care Teams Commissioner Of Conciliation Relationship Specialty Start Date End Date Sera Justin ND [address] [place] [phone] PCP - General 11/01/20 07/02/22 documented as of this encounter
--- OUTSIDE RECORDS SUMMARY | 2024-07-28 15:13 | XMS_ITS | Encounter Summary ---
Author Organization [facility] Address [address] [place] [address] Care Team Providers Care Mortuary Technician Name Role Phone Shashi Mccrary DO Primary Care Provider [phone] Encounter Details Date Type Department Care Team ([facility] Contact Info) Description 12/20/2012 Historical Results Only [facility] - Main [place] [address] [place], [place] [id number] Val Quarles, RN [address] [place] [phone] Social History Tobacco Use Types Packs/Day Years [...] Date/Time Associated Diagnosis Comments PAP TEST Routine 12/20/2012 documented in this encounter Results * PAP TEST (12/20/2012) 12/20/2012 12/23/2012 9:5 4 EDT Narrative [facility] - 12/28/2012 9:48 EDT ----- ------- Name: GLADIS CABRALES ?: [birth year] ?Age/Sex: 54/F ?Unit#: [id number] ? [facility] ? Status: REG REF ?? Reg Date: 12/20/12 ? Pt.Phone Number: ? ----- ------- Specimen: [id number] ?STATUS: SOUT ?Spec Date:12/20/12 ? Physician Copies: ?Val Quarles CN Tissues: ? Cervical/Endo Pap ?Shashi Mccrary DO CPT: 85882 ?? Units: ??1 ----- ------- ? CYTOLOGY DIAGNOSIS SPECIMEN ADEQUACY: ?Satisfactory for evaluation. Transformation zone component present. GENERAL CATEGORIZATION: ?Negative for Intraepithelial Lesion or Malignancy DESCRIPTIVE DIAGNOSIS: ? Negative for Intraepithelial Lesion or Malignancy. RECOMMENDATIONS/COMMENTS: ?None. ----- ------- ORDER QUERIES: LMP: 12/12/12- ? N Post ? N ??PREVIOUS ATYPICAL: Y BCP/HRT? N Rad Rx? N IUD?PAP PLUS HPV?REFLEX TO HR-HPV IF ASCUS ?? REFLEX TO HPV 16/18 IF HPV POS/PAP NEG ?? HPV REGARDLESS?RFLX HPV IF LSIL ?? IF ASCUS DO HPV?[facility] Information ? [facility] ?? Patients Phone# ??[phone] ?? [facility] Order# ? Signed ____(signature on file)____ Monika Morrison M.D. 12/28/12 By the signature above, the attending physician certifies that he/she has personally conducted a gross and/or microscopic examination of the described specimens and rendered or confirmed the above diagnosis. Test Performed by [facility], [address] [place] [address] Cyberathlete: Monika Morrison MD PHD ----- ------- us Val Quarles RN PATHOLOGY ORDERABLES Final Re sult [facility] documented in this encounter Visit Diagnoses Not on filedocumented in this encounter Care Teams Mortuary Technician Relationship Specialty Start Date End Date Shashi Mccrary DO [address] [place] [address] PCP - General 07/21/15 10/31/20 documented as of this encounter
--- OUTSIDE RECORDS SUMMARY | 2024-07-28 15:13 | XMS_ITS | Encounter Summary ---
Author Organization [facility] Address [address] [place] [address] Care Team Providers Care Composition Floor Layer Name Role Phone Chavez Justinie SHARON Primary Care Provider + Lety [place] APRN Primary Care Provider None, Provider Primary Care Provider [facility] Primary Care Provid er Unknown, Provider Primary Care Provider [facility] Primary Care Provider [phone] None, Provider Primary Care Provider Shruthi Hill MD Primary Care Provider [phone] Encounter Details Date Type Department Care Team (Late st Contact Info) Description 04/08/2022 Lab Requisition [facility] Pathology & Laboratory Medicine - [facility] [address] [place] [address] Outr Resulting Lab, Provider Social History Tobacco [...] Priority Date/Time Associated Diagnosis Comments ZZCOVID-19 TEST [facility] PCR Today 04/07/2022 20:35 EDT COVID-19 TESTING Routine 04/07/2022 20:3 5 EDT documented in this encounter Results * COVID-19 TEST [facility] PCR (04/07/2022 20:35 EDT) Swab 04/07/2022 20:3 5 EDT 04/08/2022 16:29 EDT us Provider Outr Resulting Lab MICROBIOLOGY - GENER AL ORDERABLES Final Result [facility] [address] [place] [address] * COVID-19 TESTING (04/07/2022 20:35 EDT) COVID-19 rt-PCR Result Negative Negative 04/09/2022 11:18 EDT [facility] Comment: This test has not [...] clinical observations, patient history, and epidemiological information. Testing was performed using the fracisco SARS-CoV-2 assay ([employer] on the Fracisco 6800 System Performing Lab Fr[place]isco [address] [facility] 04/09/2022 11:18 EDT [facility] Swab 04/07/2022 20:3 5 EDT 04/08/2022 16:29 EDT us Provider Outr Resulting Lab MICROBIOLOGY - GENER AL ORDERABLES Final Result [facility] [address] [place] [address] documented in this encounter Visit Diagnoses Not on filedocumented in this encounter Care Teams Composition Floor Layer Relationship Specialty Start Date End Date ParamjitmargieantonSeraHSARON [address] [place] [phone] PCP - General 11/01/20 07/02/22 Lety [place] APRN [address] [place] [phone] PCP - General Family Medicine - Primary Care 07/03/22 12/01/22 None, Provider PCP - General 12/02/22 01/08/23 [facility] [address] [place] [address] PCP - General 01/09/23 02/15/23 Unknown, ProviderMD [address] [place] [address] PCP - General 02/16/23 04/16/23 [facility] [address] [place] [address] PCP - General 04/17/23 09/29/23 None, Provider PCP - General 09/30/23 01/27/24 Shruthi Bailey MD [address] [place], [place] [phone] PCP - General Family Medicine - Primary Care 01/28/24 documented as of this encounter
--- OUTSIDE RECORDS SUMMARY | 2024-07-28 15:13 | XMS_ITS | Encounter Summary ---
Author Organization [facility] Address [address] [place] [address] Care Team Providers Care Sampler First Name Role Phone Paramjitmagalys Sera SHARON Primary Care Provider + Reason for Referral * Radiology Services (Routine/Next Available) - Authorization Not Required Specialty Diagnoses / Procedures Referred By Contac t Referred To Contact Diagnoses Personal history of nicotine dependence Encounter for screening for malignant neoplasm, site unspecified Procedures CT CHEST LOW DOSE LUNG SCREENING Lety Gibson APRN [address] [place] [address] Phone: tel: fax: [facility] [place] Referral ID Status Reason Start Date Expiration Date Visits Requested Visits Authorized [id number] Authorization Not Required 05/21/2022 1 1 Reason for Visit * Radiology Services (Routine/Next Available) - Authorization Not Required Specialty Diagnoses / Procedures Referred By Contac t Referred To Contact Diagnoses Personal history of nicotine dependence Encounter for screening for malignant neoplasm, site unspecified Procedures CT CHEST LOW DOSE LUNG SCREENING Lety Gibson APRN [address] [place] [address] Phone: tel: fax: [facility] [place] Referral ID Status Reason Start Date Expiration Date Visits Requested Visits Authorized [id number] Authorization Not Required 05/21/2022 1 1 Encounter Details Date Type Department Care Team (Latest Contact Info) Description 06/25/2022 8:00 EDT - 06/25/2022 23:59 EDT Hospital Encounter [facility] CT Scan [address] [id number] Personal history of nicotine dependence; Encounter for screening for malignant neoplasm, site unspecified Discharge Disposition: Home or Self Care Social [...] Procedure Name Priority Date/Time Associated Diagnosis Comments CT CHEST LOW DOSE LUNG SCREENING Routine 06/25/2022 8:34 EDT Personal history of nicotine dependence Encounter for screening for malignant neoplasm, site unspecified documented in this encounter Results * CT CHEST LOW DOSE LUNG SCREENING (06/25/2022 8:34 EDT) Anatomical Region Laterality Modality Chest Computed Tomogra phy 06/30/2022 11:0 8 EDT Impressions 06/30/2022 11:08 EDT 1. Lung-RADS Category 1. Negative. No nodules and definitely benign nodules. ?? 2. Lung-RADS Category S: Negative. No clinically significant or potentially clinically significant nonlung cancer findings. 3. Incidental findings: As above. RECOMMENDATION: Continue annual screening with low-dose CT in 12 months. Continued ??low dose CT lung cancer screening should be based upon continued eligibility determined from age and smoking history. This report utilizes the CT Lung Screening Reporting and Data System (ACR LungRADS version 1.0) as below: Category 0: Incomplete (part or all of lung cannot be evaluated, or prior chest CT being located for comparison) Category 1: Negative (no nodules or definitely benign nodules) Category 2: Benign appearance or behavior (nodules with very low likelihood of becoming a clinically active cancer, risk of malignancy <1%) Category 3: Probably benign (probably benign finding - short term follow up suggested, risk of malignancy 1-2%) Category 4: Suspicious (additional diagnostic testing or tissue sampling recommended) Modifiers to Categories 1-4: Category S: Potentially significant ancillary finding requiring urgent additional evaluation. Narrative 06/30/2022 11:[address] CHEST LOW DOSE LUNG SCREENING ??06/25/2022 8:00 AM CLINICAL HISTORY/COMMENTS: HISTORY OF SMOKING; SCREENING FOR CANCER TECHNIQUE: A single breath-hold helical CT acquisition was performed through the chest on a multidetector-row scanner with a reconstructed slice thickness of 3 mm and retrospectively reconstructed 0.9 mm thick sections with 0.45 mm overlapping intervals. ??The scans were obtained from the lung apices through the bases without IV contrast. Dose was adjusted between 1.0 and 1.5 milliSieverts for low dose screening purposes. Scans were reviewed on a dedicated PACS workstation for analysis. EXAM DESCRIPTION: LOW DOSE CHEST CT FOR LUNG CANCER SCREENING (INITIAL OR FOLLOW-UP). COMPARISON: None FINDINGS: LUNG SCREENING SPECIFIC (LUNG-RADS) FINDINGS: * ??Right lower lobe calcified granuloma (image 79, series 203). POTENTIALLY SIGNIFICANT INCIDENTALS (LUNG-RADS CATEGORY S): None. PULMONARY INCIDENTALS: * ??None. ?? OTHER INCIDENTALS: * ??Mild degenerative spondylosis of the thoracic spine. ACR REPORTABLE INCIDENTALS: None. Lety Gibson APRN IMG CT ORDERABLES Final Resu lt documented in this encounter Visit Diagnoses Diagnosis Personal history of nicotine dependence Personal history of tobacco use, presenting hazards to health Encounter for screening for malignant neoplasm, site unspecified documented in this encounter Care Teams Sampler First Relationship Specialty Start Date End Date Sera Justin ND [address] [place] [phone] PCP - General 11/01/20 07/02/22 documented as of this encounter
--- OUTSIDE RECORDS SUMMARY | 2024-07-28 15:13 | XMS_ITS | Encounter Summary ---
Author Organization [facility] Address [address] [place] [address] Care Team Providers Care Buck Swamper Name Role Phone Shashi Mccrary DO Primary Care Provider Encounter Details Date Type Department Care Team ([facility] st Contact Info) Description 03/22/2018 Historical Results Only [facility] [place] [address] [place] [address] Sera Justin, SHARON [address] [facility] [address] [place] [phone] Social History Tobacco Use Types Packs/Day Years [...] Diagnosis Comments MR CERVICAL SPINE WO CONTAST 03/22/2018 16:27 EDT documented in this encounter Results * MR CERVICAL SPINE WO CONTRAST (03/22/2018 16:27 EDT) Anatomical Region Laterality Modality Other 03/22/2018 16:2 7 EDT Narrative 03/22/2018 16:30 EDT ? EXAM: MAGNETIC RESONANCE IMAGING/CERVICAL EX. D/ (1401) ? CLINICAL INFORMATION: ? M54.12 CERVICAL RADICULOPATHY ? R51 HEADACHE ? INDICATION: M54.12 CERVICAL RADICULOPATHY, R51 HEADACHE CERVICAL ? RADICULOPATHY ? TECHNIQUE: ??Multiplanar multisequence MR imaging of the cervical ? spine was obtained without contrast. ? COMPARISON: None. ? FINDINGS: There is reversal of the normal cervical lordosis. The ? cervical vertebral bodies maintain normal height. There is a trace ? anterolisthesis of C3 on C4. The cervical vertebral bodies maintain ? normal height. The paraspinal soft tissues are normal in appearance. ? At the C2/3 level, there is degenerative facet disease and mild left ? neural foraminal narrowing. The spinal canal and right neural foramen ? appear patent. ? At the C3/4 level, there is a small broad disc osteophyte complex ? with mild spinal canal narrowing. There are bilateral uncovertebral ? osteophytes and degenerative facet changes with moderate left and ? severe right neural foraminal narrowing. ? At the C4/5 level, there is a broad disc osteophyte complex and mild ? spinal canal narrowing. There are bilateral uncovertebral osteophytes ? and degenerative facet changes with severe left and moderate right ? neural foraminal narrowing. ? At the C5/6 level, there is a broad disc osteophyte complex with ? mild/moderate spinal canal narrowing. There are bilateral ? uncovertebral osteophytes and degenerative facet changes with ? moderate/severe bilateral neural foraminal narrowing. ? At the C6/7 level, there is a broad disc osteophyte complex with ? mild/moderate spinal canal narrowing. Bilateral uncovertebral ? osteophytes and degenerative facet changes are seen with ? moderate/severe bilateral neural foraminal narrowing. ? At the C7/T1 level, there is a small broad disc osteophyte complex ? and degenerative facet disease. There is moderate bilateral neural ? foraminal narrowing. There is mild spinal canal narrowing. ? IMPRESSION: ? 1. Reversal of the normal cervical lordosis with advanced multilevel ? degenerative disc and facet disease. Findings include C3/4 severe ? right neural foraminal narrowing, C4/5 severe left neural foraminal ? narrowing, C5/6 and C6/7 moderate/severe bilateral neural foraminal ? PAGE 1 ? Signed Report ? (CONTINUED) ? narrowing. Additional levels of advanced degenerative disease as ? described above. ? REPORT SIGNED IN OTHER VENDOR SYSTEM 03/22/2018 ?Reported By: Enrrique Austin MD ? CC: ? Transcribed Date/Time: 03/22/2018 (1630) ? Turbo Operator: ? Printed Date/Time: 02/25/2019 (1105) ? PAGE 2 ? Signed Report ? Procedure Note Enrrique Austin MD - 07/14/2019 EXAM: MAGNETIC RESONANCE IMAGING/CERVICAL EX. D/ (1401) CLINICAL INFORMATION: M54.12 CERVICAL RADICULOPATHY R51 HEADACHE INDICATION: M54.12 CERVICAL RADICULOPATHY, R51 HEADACHE CERVICAL RADICULOPATHY TECHNIQUE: Multiplanar multisequence MR imaging of the cervical spine was obtained without contrast. COMPARISON: None. FINDINGS: There is reversal of the normal cervical lordosis. The cervical vertebral bodies maintain normal height. There is a trace anterolisthesis of C3 on C4. The cervical vertebral bodies maintain normal height. The paraspinal soft tissues are normal in appearance. At the C2/3 level, there is degenerative facet disease and mildleft neural foraminal narrowing. The spinal canal and right neuralforamen appear patent. At the C3/4 level, there is a small broad disc osteophyte complex with mild spinal canal narrowing. There are bilateral uncovertebral osteophytes and degenerative facet changes with moderate left and severe right neural foraminal narrowing. At the C4/5 level, there is a broad disc osteophyte complex andmild spinal canal narrowing. There are bilateral uncovertebralosteophytes and degenerative facet changes with severe left and moderate right neural foraminal narrowing. At the C5/6 level, there is a broad disc osteophyte complex with mild/moderate spinal canal narrowing. There are bilateral uncovertebral osteophytes and degenerative facet changes with moderate/severe bilateral neural foraminal narrowing. At the C6/7 level, there is a broad disc osteophyte complex with mild/moderate spinal canal narrowing. Bilateral uncovertebral osteophytes and degenerative facet changes are seen with moderate/severe bilateral neural foraminal narrowing. At the C7/T1 level, there is a small broad disc osteophyte complex and degenerative facet disease. There is moderate bilateral neural foraminal narrowing. There is mild spinal canal narrowing. IMPRESSION: 1. Reversal of the normal cervical lordosis with advancedmultilevel degenerative disc and facet disease. Findings include C3/4 severe right neural foraminal narrowing, C4/5 severe left neural foraminal narrowing, C5/6 and C6/7 moderate/severe bilateral neural foraminal PAGE 1 Signed Report (CONTINUED) narrowing. Additional levels of advanced degenerative disease as described above. REPORT SIGNED IN OTHER VENDOR SYSTEM 03/22/2018 Reported By: Enrrique Austin MD CC: Transcribed Date/Time: 03/22/2018 (5806) Turbo Operator: Printed Date/Time: 02/25/2019 (5724) PAGE 2 Signed Report Sera Justin ND IMG MRI ORDERABLES Final Result documented in this encounter Visit Diagnoses Not on filedocumented in this encounter Care Teams Buck Swamper Relationship Specialty Start Date End Date Shashi Mccrary DO [address] [place] [address] PCP - General 07/21/15 10/31/20 documented as of this encounter
--- OUTSIDE RECORDS SUMMARY | 2024-07-28 15:13 | XMS_ITS | Encounter Summary ---
Author Organization [facility] Address [address] [place] [address] Care Team Providers Care Sample Distributor Name Role Phone Shashi Mccrary DO Primary Care Provider [phone] Encounter Details Date Type Department Care Team (Late st Contact Info) Description 02/07/2019 Historical Results Only [facility] Radiology Results [address] [id number] Lety Meléndez, DRYING MACHINE TENDER ENP [address] [place] [address] Social History Tobacco Use Types Packs/Day Years [...] Name Priority Date/Time Associated Diagnosis Comments XR FOREARM LEFT 2 VIEWS 02/07/2019 21:10 EDT documented in this encounter Results * XR FOREARM LEFT 2 VIEWS (02/07/2019 21:10 EDT) Anatomical Region Laterality Modality Upper Extremities Left Other 02/07/2019 21:1 0 EDT Narrative 02/07/2019 21:10 EDT ? EXAM: RADIOLOGY/FOREARM LEFT 2 VIEW ? EX. D/ (2048) ? CLINICAL INFORMATION: ? pain/swelling s/p dog bite (crush injury) ? EXAM: ?XR Left Forearm ? EXAM DATE/TIME: ?02/07/2019 8:28 PM ? CLINICAL HISTORY: ?54 years old, female; Injury or trauma; Injury history: Dog ? bite; Initial encounter; Bite and crushing; Arm, lower; Left; ? Radius and ulna; Bilateral; Additional info: Pain/swelling S/P ? dog bite (crush injury) ? TECHNIQUE: ?Imaging protocol: XR Left forearm. ?Views: 2 views. ? COMPARISON: ?No relevant prior studies available. ? FINDINGS: ? Soft tissue edema/hematoma at the dorsal mid forearm, ulnar ? aspect. No underlying bony damage. No radiopaque foreign body ? material seen. ? REPORT SIGNED IN OTHER VENDOR SYSTEM 02/07/2019 ?Reported By: Davis Lai MD ? CC: ? Transcribed Date/Time: 02/07/2019 (2110) ? Shoe Repairer Apprentice: [employer] ? Printed Date/Time: 05/25/2019 (1539) ? PAGE 1 ? Signed Report ? Procedure Note Davis Lai MD - 07/12/2019 EXAM: RADIOLOGY/FOREARM LEFT 2 VIEW EX. D/ (2048) CLINICAL INFORMATION: pain/swelling s/p dog bite (crush injury) EXAM: XR Left Forearm EXAM DATE/TIME: 02/07/2019 8:28 PM CLINICAL HISTORY: 54 years old, female; Injury or trauma; Injury history: Dog bite; Initial encounter; Bite and crushing; Arm, lower; Left; Radius and ulna; Bilateral; Additional info: Pain/swelling S/P dog bite (crush injury) TECHNIQUE: Imaging protocol: XR Left forearm. Views: 2 views. COMPARISON: No relevant prior studies available. FINDINGS: Soft tissue edema/hematoma at the dorsal mid forearm, ulnar aspect. No underlying bony damage. No radiopaque foreign body material seen. REPORT SIGNED IN OTHER VENDOR SYSTEM 02/07/2019 Reported By: Davis Lai MD CC: Transcribed Date/Time: 02/07/2019 (2109) Shoe Repairer Apprentice: Printed Date/Time: 05/25/2019 (2560) PAGE 1 Signed Report Lety Meléndez DRYING MACHINE TENDER ENP IMG DIAGNOSTIC IMAGING ORD ERABLES Final Result documented in this encounter Visit Diagnoses Not on filedocumented in this encounter Care Teams Sample Distributor Relationship Specialty Start Date End Date Shashi Mccrary DO [address] [place] [address] PCP - General 07/21/15 10/31/20 documented as of this encounter
--- OUTSIDE RECORDS SUMMARY | 2024-07-28 15:13 | XMS_ITS | Encounter Summary ---
Author Organization [facility] Address [address] [place] [address] Care Team Providers Care Supervisor Bonding Name Role Phone Sera Justin ND Primary Care Provider + Lety Gibson APRN Primary Care Provider None, Provider Primary Care Provider [facility] Primary Care Provid er Unknown, Provider Primary Care Provider [facility] Primary Care Provider [phone] None, Provider Primary Care Provider Shruthi Hill MD Primary Care Provider [phone] Encounter Details Date Type Department Care Team (Late st Contact Info) Description 05/26/2022 Lab Requisition [facility] Pathology & Laboratory Medicine - [facility] [address], [place] [id number] Outr Resulting Lab, Provider Social History Tobacco [...] Name Priority Date/Time Associated Diagnosis Comments LYME ANTIBODY CONFIRMATION Today 05/26/2022 9:35 EDT LYME AB Routine 05/26/2022 9:35 EDT documented in this encounter Results * LYME ANTIBODY CONFIRMATION (05/26/2022 9:35 EDT) Lyme IgG Antibody Negative Negative 15:08 EDT [facility] Comment:Specific anti-Borrel ia burgdorfei IgG antibodies are not detected. This does not exclude the possibility of B. burgdorferi infection. If exposure to B. burgdorferi is suspected, a second sample should be collected and tested 2-4 weeks later. Lyme IgM Antibody Negative Negative 15:08 EDT [facility] Comment:Specific anti-Borrel ia burgdorfei IgM antibodies are not detected. This does not exclude the possibility of B. burgdorferi infection. If exposure to B. burgdorferi is suspected, a second sample should be collected and tested 2-4 weeks later. Lyme Antibody Confirmation Interpretation See Comment 05/27/2022 15:08 EDT [facility] Comment:Specific serologic r esponse to B. burgdorferi infection is not detected. This may indicate lack of infection, lack of seroconversion or low/undetectable antibody levels to B. burgdorferi. If exposure to B. burgdorferi is suspected, a second sample should be collected and tested 2-4 weeks later. Blood VENOUS BLOOD / Unknown 05/26/2022 9:35 EDT 05/26/2022 21:44 EDT us Provider Outr Resulting Lab IMMUNOLOGY AND SEROL OGY ORDERABLES Final Result [facility] [address] [place] [address] * (ABNORMAL) LYME AB (05/26/2022 9:35 EDT) Lyme Ab Positive( A) Negative 05/27/2022 14:27 EDT [facility] Comment: Lyme confirmation added by reflex. The [employer] Lyme Liaison Lyme Total Antibody Plus assay contains antigens from Borrelia burgdorferi, Borrelia garinii, and Borelia afzelli. Results from the second-step confirmation tests that detect only B. burgdorferi specific antigens should be interpreted with caution. Blood VENOUS BLOOD / Unknown 05/26/2022 9:35 EDT 05/26/2022 21:44 EDT us Provider Outr Resulting Lab IMMUNOLOGY AND SEROL OGY ORDERABLES Final Result Performing Organization Address City/State/[facility] Co de Phone Number [facility] [address] [place] [address] documented in this encounter Visit Diagnoses Not on filedocumented in this encounter Care Teams Supervisor Bonding Relationship Specialty Start Date End Date Sera Justin ND [address] [place] [phone] PCP - General 11/01/20 07/02/22 Lety Gibson APRN [address] [place] [phone] PCP - General Family Medicine - Primary Care 07/03/22 12/01/22 None, Provider PCP - General 12/02/22 01/08/23 [facility] [address] [place], [place] [address] PCP - General 01/09/23 02/15/23 Unknown, ProviderMD [address] [place] [address] PCP - General 02/16/23 04/16/23 [facility] [address] [place], [place] [address] PCP - General 04/17/23 09/29/23 None, Provider PCP - General 09/30/23 01/27/24 Shruthi Bailey MD [address] [place], [place] [phone] PCP - General Family Medicine - Primary Care 01/28/24 documented as of this encounter
[2024-07-28 21:56] LABS: ESR 5 mm/hr (0-30)
[2024-07-28 22:52] LABS: Folate 7.1 ng/mL (8.6-20.0); Vitamin B12 499 pg/mL (193-986)
[2024-08-01 09:24] LABS: Lyme Ab w Rflx to Lyme Confirm Negative (Negative)
[2024-08-02 08:11] LABS: Anaplasma phagocytophilum Negative (Negative); B. miyamotoi PCR Negative (Negative); Babesia divergens/MO-1 Negative (Negative); Babesia duncani Negative (Negative); Babesia microti Negative (Negative); Ehrlichia chaffeensis Negative (Negative); Ehrlichia ewingii/canis Negative (Negative); Ehrlichia muris eauclairensis Negative (Negative)
== END 2024-07-28 15:06 | disposition home or self-care (01) ==
LOC: NCHCN 15:05
PROVIDERS: PCP Family Medicine; Visit Provider Family Medicine
DX: R26.89 Other abnormalities of gait and mobility (principal); W57.XXXD Bitten or stung by nonvenomous insect and other nonvenomous arthropods, subsequent encounter
CPT/HCPCS: 85652; 86141; 87798; 82607; 82746; 86618

== ENCOUNTER 2025-03-16 01:19 | Outpatient (CLI) | payer MEDICAID, SELFPAY ==
--- NOTE | 2025-03-16 | DI.CTLCSR_ITS ---
Exam(s) CT CHEST LUNG CANCER SCREEN EXAM: CT CHEST LUNG CANCER SCREEN CLINICAL HISTORY: Screening, Z12.2-encounter for screening for malignant neoplasm of. TECHNIQUE: Imaging Protocol: Low Dose Technique CONTRAST MATERIAL: None COMPARISON: CT CT CHEST LOW DOSE LUNG SCREENING from 06/25/2022 FINDINGS: CHEST: LUNGS: There are no ominous pulmonary nodules. There are no confluent infiltrates. No pleural effusions. MEDIASTINUM: There is no obvious hilar nor mediastinal adenopathy. CARDIAC: Heart size is normal. There is no pericardial effusion.Caliber of the thoracic aorta is within normal limits. OTHER: No adrenal masses. Anterior fusion plate in the lower cervical spine noted. OSSEOUS: No significant osseous lesions.No fractures.. IMPRESSION: 1. No significant pulmonary nodules. 2. No infiltrates nor pleural effusions nor obvious intrathoracic adenopathy. 3. Lung RADS Cat 1 - Negative: No nodules and definitely benign nodules Lung-RADS 1.0 CATEGORIES: Category 0 - Prior chest CT exam(s) being located for comparison. Category 1 - Annual screening in 12 months. No nodules or definitely benign nodules. Category 2 - Annual screening in 12 months. Benign appearance. Nodules with low likelihood of becoming active cancer. Category 3 - 6-month follow-up. Probably benign. Short-term follow-up suggested. Nodules with low likelihood of becoming active cancer. Category 4A - 3-month follow-up and CT/PET if >8 mm in size. Suspicious finding. Findings which require additional testing. Category 4B - Findings which require additional testing and tissue sampling. Category 4X - Category 3 or 4 nodules with additional features or imaging findings that increases the suspicion of malignancy. Modifier S- Potentially clinically significant findings (non lung cancer) RADIATION DOSE DELIVERED: 31.36mGy.cm Total DLP DATA REPOSITORY: All CT scans at this facility are submitted to the National Radiology Data Registry (NRDR) Dose Index Registry (DIR) with the [employer] (ACR). RADIATION OPTIMIZATION: All CT scans at this facility use at least one of these dose optimization techniques: automated exposure control; mA and/or kV adjustment per patient size (includes targeted exams where dose is matched to clinical indication); or iterative reconstruction.
== END 2025-03-16 01:39 ==
PROVIDERS: PCP Family Medicine; Visit Provider Family Medicine
DX: Z12.2 Encounter for screening for malignant neoplasm of respiratory organs (principal)
CPT/HCPCS: 71271